=== PATIENT | male | born 1950 | race Caucasian/White ===

== ENCOUNTER 2016-12-12 14:57 | Inpatient (IN) | payer MEDICARE, OTHER ==
[~2016-12-12] VITALS: Ht 157.5 cm; Wt 84.0 kg
[~2016-12-12 14:57] MED LIST: ATOR40TA68 PO; CALC667C PO; CARV25TA97 PO; CHOL500020 PO; CLOP75TA27 PO; DOCU-144 PO; FER325 PO; LEVO300T PO; NEPH PO; NIT4 SL; RANI300T PO; SYN15 PO; [UNRECOGNIZED DRUG - CODE] IM
[2016-12-12] MEDS ORDERED: ASPIRIN 325 MG TAB PO STA (19:58)
[2016-12-12] MEDS ORDERED: ONDANSETRON 4 MG INJ IV STA (19:58)
[2016-12-12] MEDS ORDERED: SOD CHLORIDE 0.9% 1,000 ML IV STA (19:58)
[2016-12-12] MEDS ORDERED: ALBUTEROL 0.083% (NEB) 2.5 MG/3 ML AMP NEB STA (20:14)
[2016-12-12 20:28] LABS: BASOPHIL # 0.1 10^3/ul (0.0-0.1); BASOPHILS % 0.7 % (0.0-2.0); EOSINOPHILS # 0.4 10^3/ul (0.0-0.5); EOSINOPHILS % 5.1 % (0.0-7.0); HEMATOCRIT 26.3 % (42.0-52.0); HEMOGLOBIN 8.1 g/dl (14.0-18.0); LYMPHOCYTES # 0.8 10^3/ul (0.8-2.9); LYMPHOCYTES % 12.1 % (15.0-51.0); MEAN CORPUSCULAR HEMOGLOBIN 34.2 pg (29.0-33.0); MEAN CORPUSCULAR HGB CONC 30.8 g/dl (32.0-37.0); MEAN PLATELET VOLUME 10.3 fl (7.4-10.4); MONOCYTE # 0.7 10^3/ul (0.3-0.9); MONOCYTES % 10.6 % (0.0-11.0); NEUTROPHILS % 71.1 % (39.0-77.0); PLATELET COUNT 187 10^3/UL (140-415); RED BLOOD COUNT 2.37 10^6/ul (4.70-6.10); RED CELL DISTRIBUTION WIDTH 16.1 % (11.5-14.5); WHITE BLOOD COUNT 6.9 10^3/ul (4.8-10.8)
--- NOTE | 2016-12-12 20:40 | RADRPT ---
PROCEDURE: CT Brain without contrast. CLINICAL INDICATION: Neurologic deficits. Possible stroke. TECHNIQUE: A CT of the brain was performed on a multidetector CT scanner utilizing axial sections from the skull base through the vertex without contrast. Images were reviewed on a high-resolution Apiary workstation. Exam CTDI = 43.42 mGy and the DLP = 916.45 mGy-cm. One or more of the following dose reduction techniques were used: Automated exposure control Adjustment of the mA and/or kV according to patient size. Use of iterative reconstruction technique. COMPARISON: None available FINDINGS: Mild diffuse cerebral and cerebellar atrophy is present. There is proportionate dilatation of the v entricular system and sulci in a symmetric fashion. There is prominence of the extraaxial spaces sec ondary to atrophy. There is no evidence of intracranial hemorrhage, mass effect or midline shift. N o abnormal intra-axial or extra-axial fluid collections are seen. The density of the brain is gail l and the escobedo/white matter differentiation is well preserved. Mild to moderate patchy diffuse deep white matter microangiopathic ischemic change is seen. The osseous structures are unremarkable. Paranasal sinuses are clear. Vascular calcifications are identified. IMPRESSION: 1. No intracranial hemorrhage, mass effect or midline shift. 2. Mild generalized atrophy. Mild to moderate microangiopathic ischemic change. 3. Intracranial atherosclerosis. RPTAT: HHO .Irena Hernández MD, MD Date Time Electronically viewed and signed by .Irena Hernández MD, on 12/12/2016 20:39 .O/
[2016-12-12 20:42] LABS: INR 1.23; PROTIME 15.6 Sec (12.2-14.2); PT RATIO 1.2
[2016-12-12 20:43] LABS: PARTIAL THROMBOPLASTIN TIME 38.8 Sec (25.0-35.0)
[2016-12-12 20:49] LABS: ALBUMIN 3.9 g/dl (3.3-4.9); ALBUMIN/GLOBULIN RATIO 1.25; BILIRUBIN,INDIRECT 0.1 mg/dl (0-1.1); BILIRUBIN,TOTAL 0.1 mg/dl (0.2-1.3); CALCIUM 9.3 mg/dl (8.4-10.2); CREATININE 4.98 mg/dl (0.61-1.24)
[2016-12-12 21:00] LABS: TROPONIN-I 0.091 ng/ml (0.00-0.12)
[2016-12-12] MEDS ORDERED: FLUO20CA22 PO (21:20)
[2016-12-12] MEDS ORDERED: ALLO300T2 PO (21:20)
[2016-12-12] MEDS ORDERED: TRAM-40 PO (21:21)
[2016-12-12] MEDS ORDERED: FURO80TA3 PO (21:22)
[2016-12-12] MEDS ORDERED: FENO145T19 PO (21:23)
[2016-12-12] MEDS ORDERED: ACET650S9 PR (21:31)
[2016-12-12] MEDS ORDERED: BISA10SU75 PR (21:31)
[2016-12-12] MEDS ORDERED: ATR1OO35 BOTH EYES (21:34)
--- NOTE | 2016-12-12 21:34 | RADRPT ---
PROCEDURE: XR Chest. CLINICAL INDICATION: Shortness of breath. TECHNIQUE: AP Portable chest. COMPARISON: 09/01/2016 FINDINGS: There is mild hazy opacity at the right lung base along with some mediastinal shift to the right. P rior median sternotomy is noted. There is moderate to marked cardiomegaly. IMPRESSION: Right lower lobe atelectasis with some mild mediastinal shift to the right. RPTAT: HIKT .Brett Martin MD, MD Date Time Electronically viewed and signed by .Brett Martin MD, MD on 12/12/2016 21:34 .T/
[2016-12-12] MEDS ORDERED: LORA1TAB PO (21:35)
[2016-12-12] MEDS ORDERED: PROCHLORPERAZINE PR (21:37)
[2016-12-12] MEDS ORDERED: ROXANOL 20MG/ML SL (21:46)
--- NOTE | 2016-12-12 22:15 | ERA ---
ER Documentation Chief Complaint Date/Time DATE: 12/12/16 TIME: 22:10 Chief Complaint vomiting x 4 days, Right sided weakness HPI This is a 58-year-old male who states he has been vomiting for 4 days. He says he vomits whether it is after p.o. or not. Patient has no bile or blood in his vomit. Says he has no stomach pain either. Patient says it 3 days ago he had the onset of right arm and leg heaviness. Says he usually walks normally although he has a left leg prosthetic but says that he is unable to walk now because he cannot put any weight on his right leg because it so weak. No headache chest pain shortness of breath. No diarrhea. Patient was sent by PCP for ROS All systems reviewed and are negative except as per history of present illness. Medications Home Meds Reported Medications [Roxanol 20MG/Ml] No Conflict Check, 5 MG SL Q6H Y for PAIN TAKE 5MG/0.25ML Q6H 12/12/16 [Compazine 25MG/Supp] No Conflict Check, 1 SUPP PA Q6H Y for NAUSEA AND/OR VOMITING 12/12/16 Lorazepam* (Lorazepam*) 1 Mg Tablet, 0.5 MG PO Q6H Y for ANXIETY, #30 TAB 12/12/16 Atropine Sulfate* (Atropine Sulfate*) 3.5 Gm Oint, 1 APPLIC BOTH EYES Q6H, #1 TUB 12/12/16 Bisacodyl* (Bisacodyl*) 10 Mg Supp, 10 MG PA Q24H for CONSTIPATION, SUPP 12/12/16 Acetaminophen* (Acephen*) 650 Mg Supp.rect, 650 MG PA Q4H Y for TEMP>100F, SUPP.RECT 12/12/16 Fenofibrate Nanocrystallized* (Fenofibrate*) 145 Mg Tablet, 145 MG PO DAILY, TAB 12/12/16 Furosemide* (Furosemide*) 80 Mg Tablet, 80 MG PO DAILY, #30 TAB 12/12/16 Tramadol Hcl* (Ultram*) 50 Mg Tablet, 50 MG PO Q6H Y for PAIN, TAB 12/12/16 Fluoxetine Hcl* (Fluoxetine Hcl*) 20 Mg Capsule, 20 MG PO DAILY, CAP 12/12/16 Allopurinol* (Allopurinol*) 300 Mg Tablet, 600 MG PO DAILY, TAB 12/12/16 Carvedilol* (Coreg*) 25 Mg Tablet, 25 MG PO DAILY, #60 TAB 09/04/15 Docusate Sodium* (Colace*) 100 Mg Capsule, 100 MG PO Q12H Y for CONSTIPATION, # 30 CAP 09/04/15 Cyanocobalamin* (Vitamin B12*) 1,000 Mcg/Ml Soln, 1000 MCG IM WEEKLY, VIAL Takes med on Tuesdays. 09/04/15 Ferrous Sulfate* (Ferrous Sulfate*) 325 Mg Tabec, 325 MG PO TID, TAB 09/04/15 Levothyroxine Sodium* (Synthroid*) 150 Mcg Tablet, 150 MCG PO QAM, #30 TAB 09/04/15 Clopidogrel Bisulfate (Clopidogrel) 75 Mg Tablet, 75 MG PO DAILY, #30 TAB 09/04/15 Ranitidine Hcl* (Ranitidine Hcl*) 300 Mg Tablet, 300 MG PO HS, #30 TAB 09/04/15 Multivit/Ca Carb/B Cmplx/Fa* (Sonia-Jaylene*) 1 Tab Tab, 1 TAB PO DAILY, TAB 09/04/15 Discontinued Reported Medications Cholecalciferol (Vitamin D3) 50,000 Unit Capsule, 32309 UNIT PO Q7D, CAP Takes on . 09/04/15 Nitroglycerin* (Nitrostat*) 0.4 Mg Tab.subl, 0.4 MG SL Q5MIN Y for CHEST PAIN, BOTTLE 09/04/15 Calcium Acetate* (Calcium Acetate*) 667 Mg Capsule, 667 MG PO WITH MEALS, #30 CAP 09/04/15 Atorvastatin* (Atorvastatin*) 40 Mg Tablet, 40 MG PO QHS, #30 TAB 09/04/15 Levothyroxine Sodium* (Synthroid*) 300 Mcg Tablet, 300 MCG PO SUNDAY & SUNDAY , #30 TAB 09/04/15 Allergies Allergies: Coded Allergies: No Known Allergy (Verified , 12/12/16) PMhx/Soc History of Surgery: Yes (LT AV-SHUNT, CABG, LEFT BKA) Anesthesia Reaction: No Hx Neurological Disorder: No Hx Respiratory Disorders: Yes (COPD) Hx Cardiac Disorders: Yes (CABG) Hx Psychiatric Problems: No Hx Miscellaneous Medical Probl: Yes (HYPERLIPIDEMIA) Hx Alcohol Use: No Hx Substance Use: No Hx Tobacco Use: No Smoking Status: Former smoker FmHx Family History: No coronary disease Physical Exam Vitals Vital Signs Date Time Temp Pulse Resp B/P Pulse Ox O2 Delivery O2 Flow Rate FiO2 12/12/16 21:38 86 17 165/84 100 Room Air 12/12/16 20:44 85 18 100 21 12/12/16 15:05 98.1 89 18 147/88 99 Physical Exam Const: Well-developed, well-nourished Head: Atraumatic, normocephalic Eyes: Normal Conjunctiva, PERRLA, EOMI, normal sclera, no nystagmus ENT: Normal External Ears, Nose and Mouth, moist mucus membranes. Neck: Full range of motion. No meningismus, no lymphadenopathy. Resp: Clear to auscultation bilaterally, no wheezing, rhonchi, rales Cardio: Regular rate and rhythm, no murmurs, S1 S2 present Abd: Soft, non tender x 4, non distended. Normal bowel sounds, no guarding or rebound, no pulsitile abdominal masses or bruits Skin: No petechiae or rashes, no ecchymosis , no maculopapular rash Back: No midline or flank tenderness Ext: No cyanosis, or edema, FROM x 4, normal inspection, neurovascularly intact x 4 Neur: Awake and alert, STR 5/5 x 3, subjective weakness in the right upper extremity, the right lower extremity is weak and he is a hard time lifting it off the bed., The left leg has lower extremity prosthesis, sensation intact x 4, no focal findings, cerebellum intact Psych: Normal Mood and Affect Result Diagram: 12/12/16201412/12/162014 Results 24 hrs Laboratory Tests Test 12/12/16 20:15 White Blood Count 6.910^3/ul Red Blood Count 2.3710^6/ul Hemoglobin 8.1g/dl Hematocrit 26.3% Mean Corpuscular Volume 111.0fl Mean Corpuscular Hemoglobin 34.2pg Mean Corpuscular Hemoglobin Concent 30.8g/dl Red Cell Distribution Width 16.1% Platelet Count 07100^3/UL Mean Platelet Volume 10.3fl Neutrophils % 71.1% Lymphocytes % 12.1% Monocytes % 10.6% Eosinophils % 5.1% Basophils % 0.7% Nucleated Red Blood Cells % 0.0/100WBC Neutrophils # (Manual) 4.910^3/ul Lymphocytes # 0.810^3/ul Monocytes # 0.710^3/ul Eosinophils # 0.410^3/ul Basophils # 0.110^3/ul Nucleated Red Blood Cells # 0.010^3/ul Prothrombin Time 15.6Sec Prothrombin Time Ratio 1.2 INR International Normalized Ratio 1.23 Activated Partial Thromboplast Time 38.8Sec Sodium Level 140mmol/L Potassium Level 5.0mmol/L Chloride Level 98mmol/L Carbon Dioxide Level 28mmol/L Anion Gap 19 Blood Urea Nitrogen 61mg/dl Creatinine 4.98mg/dl Glucose Level 89mg/dl Calcium Level 9.3mg/dl Total Bilirubin 0.1mg/dl Direct Bilirubin 0.00mg/dl Indirect Bilirubin 0.1mg/dl Aspartate Amino Transf (AST/SGOT) 35IU/L Alanine Aminotransferase (ALT/SGPT) 25IU/L Alkaline Phosphatase 36IU/L Troponin I 0.091ng/ml Total Protein 7.0g/dl Albumin 3.9g/dl Globulin 3.10g/dl Albumin/Globulin Ratio 1.25 Current Medications Medications (Trade) Dose Ordered Sig/Darlene Route PRN Reason Start Time Stop Time Status Last Admin Dose Admin Sodium Chloride (NS) 1,000 ml @ 1,000 mls/hr Q1H STAT IV 12/12/16 19:58 12/12/16 20:57 DC 12/12/16 20:03 Aspirin (Aspirin) 325 mg ONCE STAT PO 12/12/16 19:58 12/12/16 20:00 DC 12/12/16 20:03 Ondansetron HCl (Zofran Inj) 4 mg ONCE STAT IV 12/12/16 19:58 12/12/16 20:00 DC 12/12/16 20:03 Albuterol (Proventil 0.083% (Neb)) 7.5 mg ONCE STAT NEB 12/12/16 20:14 12/12/16 20:15 DC 12/12/16 20:44 Procedures/MDM PROCEDURE: CT Brain without contrast. CLINICAL INDICATION: Neurologic deficits. Possible stroke. TECHNIQUE: A CT of the brain was performed on a multidetector CT scanner utilizing axial sections from the skull base through the vertex without contrast. Images were reviewed on a high-resolution PACS workstation. Exam CTDI = 43.42 mGy and the DLP = 916.45 mGy-cm. One or more of the following dose reduction techniques were used: Automated exposure control Adjustment of the mA and/or kV according to patient size. Use of iterative reconstruction technique. COMPARISON: None available FINDINGS: Mild diffuse cerebral and cerebellar atrophy is present. There is proportionate dilatation of the ventricular system and sulci in a symmetric fashion. There is prominence of the extraaxial spaces secondary to atrophy. There is no evidence of intracranial hemorrhage, mass effect or midline shift. No abnormal intra-axial or extra-axial fluid collections are seen. The density of the brain is normal and the escobedo/white matter differentiation is well preserved. Mild to moderate patchy diffuse deep white matter microangiopathic ischemic change is seen. The osseous structures are unremarkable. Paranasal sinuses are clear. Vascular calcifications are identified. IMPRESSION: 1. No intracranial hemorrhage, mass effect or midline shift. 2. Mild generalized atrophy. Mild to moderate microangiopathic ischemic change. 3. Intracranial atherosclerosis. RPTAT: HHO .Irena Hernández MD, Date Time Electronically viewed and signed by .Irena Hernández MD, on 12/12/2016 20:39 .O/ CC: DEVIN LIZAMA DO PROCEDURE: XR Chest. CLINICAL INDICATION: Shortness of breath. TECHNIQUE: AP Portable chest. COMPARISON: 09/01/2016 FINDINGS: There is mild hazy opacity at the right lung base along with some mediastinal shift to the right. Prior median sternotomy is noted. There is moderate to marked cardiomegaly. IMPRESSION: Right lower lobe atelectasis with some mild mediastinal shift to the right. RPTAT: HIKT .Brett Martin MD, Date Time Electronically viewed and signed by .Brett Martin MD, on 12/12/2016 21:34 .T/ CC: DEVIN LIZAMA DO EKG: Rate/Rhythm: Normal sinus rhythm, left axis deviation, left bundle branch block left bundle branch block QRS, ST, QT: NORMAL PA, QRS, QT] Impression: Left bundle branch block] Patient apparently has had a stroke affecting his right side. When he did admit for MRI. The patient is having vomiting for 4 days of uncertain etiology. Patient has no abdominal pain no diarrhea is possible this is a viral gastritis illness. Spoke with the patient's primary sent him in earlier for admit. Departure Diagnosis: Primary Impression: CVA (cerebral vascular accident) Qualified Code: I63.9 - Cerebrovascular accident (CVA), unspecified mechanism Additional Impression: Vomiting Qualified Code: R11.2 - Non-intractable vomiting with nausea, unspecified vomiting type Condition: Stable DEVIN LIZAMA DO Dec 12, 2016 22:15
[2016-12-12] MEDS ORDERED: ONDANSETRON 4 MG INJ IV PRN (22:30)
[2016-12-12] MEDS ORDERED: ACETAMINOPHEN 325 MG TAB PO PRN (22:30)
[2016-12-12 23:33] VITALS: PULSE 85
[2016-12-12] MEDS ORDERED: ATOR40TA68 PO (23:49)
[2016-12-13] VITALS (18 sets, daily range): BP systolic 118–150; BP diastolic 58–77; PULSE 72–97; RESP 18–19; Ht 157.5 cm; Wt 84.0 kg
[2016-12-13] MEDS ORDERED: BUPR150T6 PO (00:27)
[2016-12-13] MEDS ORDERED: ZOLP10TA PO (01:05)
[2016-12-13] MEDS: BISACODYL 10 MG SUPP PR SCH (01:30)
[2016-12-13] MEDS ORDERED: ZOLPIDEM 5 MG TAB PO PRN (01:30)
[2016-12-13] MEDS ORDERED: DOCUSATE SODIUM 100 MG CAP PO PRN (01:30)
[2016-12-13] MEDS ORDERED: ACETAMINOPHEN 650 MG SUPP PR PRN (01:30)
[2016-12-13] MEDS: FUROSEMIDE 40 MG TAB PO SCH (05:32)
[2016-12-13] MEDS: LEVOTHYROXINE 150 MCG TAB PO SCH (05:32)
[2016-12-13 08:41] LABS: BASOPHILS % 0.5 % (0.0-2.0); EOSINOPHILS # 0.5 10^3/ul (0.0-0.5); EOSINOPHILS % 9.2 % (0.0-7.0); HEMATOCRIT 24.8 % (42.0-52.0); HEMOGLOBIN 7.4 g/dl (14.0-18.0); LYMPHOCYTES # 0.6 10^3/ul (0.8-2.9); LYMPHOCYTES % 11.1 % (15.0-51.0); MEAN CORPUSCULAR HEMOGLOBIN 33.2 pg (29.0-33.0); MEAN CORPUSCULAR HGB CONC 29.8 g/dl (32.0-37.0); MEAN CORPUSCULAR VOLUME 111.2 fl (82.0-101.0); MEAN PLATELET VOLUME 10.3 fl (7.4-10.4); MONOCYTE # 0.7 10^3/ul (0.3-0.9); MONOCYTES % 12.5 % (0.0-11.0); NEUTROPHILS % 66.2 % (39.0-77.0); PLATELET COUNT 151 10^3/UL (140-415); RED BLOOD COUNT 2.23 10^6/ul (4.70-6.10); RED CELL DISTRIBUTION WIDTH 16.2 % (11.5-14.5); WHITE BLOOD COUNT 5.5 10^3/ul (4.8-10.8)
[2016-12-13] MEDS: CLOPIDOGREL 75 MG TAB PO SCH (09:05)
[2016-12-13] MEDS: FERROUS SULFATE (EC) 325 MG TAB PO SCH ×3 (09:06→20:35)
[2016-12-13] MEDS: BUPROPION (XL) 150 MG TAB PO SCH (09:06)
--- NOTE | 2016-12-13 09:15 | CONS ---
DATE OF ADMISSION: 12/12/2016 DATE OF CONSULTATION: 12/13/2016 Thank you very much for allowing me to evaluate this 65-year-old male admitted to the hospital with vomiting and weakness involving his right arm and leg. HISTORICAL EVENTS: As you well know, this patient has chronic renal insufficiency and has been dialyzed as an outpatient 3 times per week. It was about 36 hours ago that he noted the onset of vomiting and soon to follow weakness involving his right leg, being unable to stand, soon followed by weakness of the right upper extremity, without concomitant pathologic sensory symptoms involving the same. There has been no change in weakness involving the right side of his face. He had a mild headache. He denied cough, wheezing, shortness of breath or abdominal pain. PAST MEDICAL HISTORY: Includes: 1. Anemia secondary to chronic renal insufficiency. 2. End-stage renal disease secondary to hypertension and diabetes. 3. Known peripheral vascular disease, undergoing [id number] amputation of the left lower extremity. 4. History of coronary disease, undergoing CABS in 2008. 5. Hyperlipidemia. 6. Hypertension. 7. Diabetes. 8. Hypothyroidism. 9. Chronic obstructive pulmonary disease. 10. 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 MEDICATION: 1. Allopurinol 600 mg per day. 2. Aspirin 325 mg daily. 3. Lipitor 40 mg per day. 4. Coreg 25 mg daily. 5. Plavix 75 mg per day. 6. Ferrous sulfate 325 t.i.d. 7. Synthroid 150 mcg per day. 8. Zantac 300 mg at bedtime. FAMILY HISTORY: To be reviewed later. PHYSICAL EXAMINATION: VITAL SIGNS: BP 137/65, respirations were 18. He was afebrile. EYES: Extraocular muscles were full. NOSE, MOUTH AND THROAT: Normal. NECK: Supple. There was no jugular venous distention, thyroid enlargement, adenopathy appreciated. No carotid bruits. LUNGS: Clear. HEART: Rhythm regular. 1/6 systolic murmur. No 3rd or 4th sound. ABDOMEN: Nontender. Fullness to the right upper quadrant without a liver edge or spleen tip appreciated. There was no tenderness or masses. EXTREMITIES: No edema. Reduced pulses. There was below-the- knee amputation involving the left. There was weakness of the right upper extremity and right facial weakness. IMPRESSION: 1. Suspect, as you, that he has suffered a bland infarct involving the left internal capsule with resultant weakness involving the right arm and leg. CT scan was unrevealing. 2. Chronic renal failure requiring continued dialysis and we will arrange for the same. 3. Abnormal chest x-ray, with right lower lobe atelectasis and mediastinal shift to the right. Demands further pursuit. Consider obtaining CT of the chest. I was concerned that lung cancer may be present with possible central nervous system metastases. We will follow up with you. Dictated By: Cristiano Quinn MD /anna/ayse /Document#: [id number]
[2016-12-13 09:19] LABS: ALBUMIN 3.4 g/dl (3.3-4.9); ALBUMIN/GLOBULIN RATIO 1.17; BILIRUBIN,INDIRECT 0.1 mg/dl (0-1.1); BILIRUBIN,TOTAL 0.1 mg/dl (0.2-1.3); CHOL/HDL RATIO 5.4 RATIO; CREATININE 5.31 mg/dl (0.61-1.24); POTASSIUM 4.8 mmol/L (3.5-5.1); TOTAL PROTEIN 6.3 g/dl (6.1-8.1)
[2016-12-13 09:50] LABS: THYROID STIMULATING HORMONE 7.07 MIU/L (0.465-4.680)
[2016-12-13] MEDS: FENOFIBRATE 145 MG TAB PO SCH (09:50)
--- NOTE | 2016-12-13 10:06 | RADRPT ---
PROCEDURE: US Carotids. CLINICAL INDICATION: bruit , stroke TECHNIQUE: Multiple sonographic of the carotid bifurcation region and vertebral arteries were obta ined utilizing escobedo scale, duplex and color-flow imaging. The images were reviewed on a PACS worksta tion. COMPARISON: No prior studies are available for comparison. FINDINGS: Evaluation of the right carotid bifurcation region reveals mild calcific atherosclerotic disease. Evaluation of the left carotid bifurcation region reveals mild to moderate calcific atherosclerotic disease. . There is a 29% stenosis in the left carotid bulb region. There is antegrade flow within the vertebral arteries bilaterally. RIGHT CAROTID MEASUREMENTS: Common Carotid Trkyea33 (cm/sec) Internal Carotid Artery - kzefiqnp22.5 (cm/sec) Internal Carotid Artery - rji831.8 (cm/sec) Internal Carotid Artery - meromr244.5 (cm/sec) Internal Carotid/Common Carotid3.58 LEFT CAROTID MEASUREMENTS: Common Carotid Bnpcqt08.9 (cm/sec) Internal Carotid Artery - .7 (cm/sec) Internal Carotid Artery - mid75.7 (cm/sec) Internal Carotid Artery - zfedsm92.8 (cm/sec) Internal Carotid/Common Carotid1.2 RPTAT: AA IMPRESSION: No evidence for hemodynamically significant stenosis in the bilateral internal carotid arteries - va lidated velocity measurements with angiographic measurements, velocity criteria are extrapolated fro m diameter data as defined by the Society of Radiologists in Ultrasound Consensus Conference Radiolo gy 2003; 229;340-346. This study does indirectly reference the measurement of the distal ICA diamet er as the denominator for stenosis measurement. Normal antegrade flow in the vertebral arteries bilaterally. .Shane Moscoso MD, Date Time Electronically viewed and signed by .Shane Moscoso MD, MD on 12/13/2016 10:05 .S/
--- NOTE | 2016-12-13 14:06 | RADRPT ---
PROCEDURE: CT Chest without IV contrast. CLINICAL INDICATION: Shortness of breath/dyspnea/cough. TECHNIQUE: CT scan of the chest was performed on a [address] scanner. The patient was scanned w ithout IV contrast. 2-D and sagittal and coronal reformatted images were obtained from the axial so urce images. Total radiation dose: Total CTDIvol: 14.6 mGy. Total DLP: 584 mGy-cm. One or more of the following dose reduction techniques were used: automated exposure control, adjustment of the mA and/or kV acco rding to patient size, or use of iterative reconstruction technique. COMPARISON: None available. FINDINGS: There is no acute infiltrates in the lungs. There is discoid atelectasis in the right lower lobe. T here is mild left pleural effusion. No pneumothorax, pulmonary edema or pulmonary nodules are seen. The mediastinum is unremarkable without evidence for mass or lymphadenopathy. The central tracheobr onchial tree is unremarkable. The vascular structures of the mediastinum are normal in course and c aliber. The heart is moderately enlarged without evidence for pericardial thickening or effusion. There is status post CABG. There is diffuse calcification of the three-vessel coronary arteries. The axillary regions, subpectoral regions, and supraclavicular regions are all unremarkable. There are multiple stones in the contracted gallbladder. There is minimal ascitic fluid in the upper abdom en on the partially visualized images. The kidneys are small bilaterally on the partially visualized images. There is calcified atherosclerosis of the aorta. The adrenal glands are normal. The surrounding osseous structures are unremarkable for mild degenerative spondylosis of the spine. No osteolytic or osteoblastic lesion is detected. IMPRESSION: 1. Moderate cardiomegaly. Status post CABG. Diffuse calcified atherosclerosis of the three-vessel coronary arteries. 2. Discoid atelectasis in the right lower lobe. 3. Mild left pleural effusion. 4. Minimal ascitic fluid in the upper abdomen on the partially visualized images. 5. Multiple stones in the contracted gallbladder. 6. Small kidneys bilaterally. 7. Diffuse calcified atherosclerosis of the aorta. RPTAT: GG .Lloyd Elaine MD, MD Date Time Electronically viewed and signed by .Lloyd Elaine MD, on 12/13/2016 14:05 .Y/
--- NOTE | 2016-12-13 15:00 | HP ---
Date/Time of Note Date/Time of Note DATE: 12/12/16 TIME: 14:41 Assessment/Plan VTE Prophylaxis VTE Prophylaxis Intervention: other (asa, plavix) Lines/Catheters IV Catheter Type (from Nrsg): [place] [employer] line still needed: No Urinary Cath still in place: No Assessment/Plan Assessment/Plan 1. cva vs tia w/ musc weak 2. cad/ chf/ presenting low bp 3. copd/ pulm effusion/ dyspnea 4. dm 5. esrd/ dialysis/ anemia 6. depression-anxiety 7. disposition prob? ---cards ref ---renal ref ---admit to tele fl ---neuro work-up & phys rx exercise ---soc serv counseling & set-up after hosp residence ---medication adjustment HPI/ROS Admit Date/Time Admit Date/Time Dec 12, 2016 at 22:18 Hx of Present Illness wants to come into hospital--for a few days n/v, low energy, unstable gait, near falls, heavy leg feeling, sob. elderly cannot take care of the pt alone at home any more. less appetite, less interest. s/p po atbx for coughs & increased phlegms after grand children's visits. has gone to dialysis 3x/wk for past 2 weeks, very tired no f/c/dysuria/bm change ROS Constitutional: disoriented, weight change Respiratory: shortness of breath Cardiovascular: lightheadedness Gastrointestinal: nausea, vomiting Genitourinary: other (less urination) Musculoskeletal: restricted range of motion Neurologic: dizziness, focal-weakness Psychological: depression PMH/Family/Social Past Medical History Medical History: congestive heart failure, coronary artery disease, gallstones , GERD, high cholesterol, hypertension, hypothyroid, renal disease Past Surgical History Past Surgical Hx: other (cabg, lf bka) Family History Significant Family History: heart disease, COPD, diabetes, hypertension, lung disease, renal disease Social History Alcohol Use: none Smoking Status: Former smoker Drug Use: none Exam/Review of Systems Vital Signs Vitals Vital Signs Date Time Temp Pulse Resp B/P Pulse Ox O2 Delivery O2 Flow Rate FiO2 12/13/16 12:40 82 12/13/16 12:25 98.5 19 138/58 100 12/12/16 23:08 Room Air 12/12/16 20:44 21 Intake and Output 12/12/16 12/12/16 12/13/16 15:00 23:00 07:00 Intake Total 240 ml Balance 240 ml Exam Constitutional: frail Psych: depression Head: normocephalic Eyes: EOMI, PERRL, nl conjunctiva, nl lids, nl sclera ENMT: nl external ears & nose, nl lips & teeth, nl nasal mucosa & septum Neck: non-tender, supple Respiratory: wheezing Cardiovascular: systolic murmur Gastrointestinal: nl liver, spleen, non-tender, soft Genitourinary - Male: other (deferred) Extremities: edema Neurological: MACHINIST BENCH II-XII intact, nl mental status, nl speech, nl strength Skin: nl turgor, No rash or lesions Lymph: nl lymph nodes Labs Result Diagram: 12/13/1674112/13/16 07 Medications Medications Current Medications Acetaminophen (Tylenol Supp) 650 mg Q4H PRN TX TEMP>100F; Start 12/13/16 at 01: 30 Allopurinol (Zyloprim) 600 mg DAILY PO ; Start 12/13/16 at 09:00; Status UNV Atorvastatin Calcium (Lipitor) 40 mg QHS PO ; Start 12/13/16 at 21:00 Bisacodyl (Dulcolax Supp) 10 mg Q24H TX ; Start 12/13/16 at 01:30 Bupropion HCl (Wellbutrin Xl) 150 mg QAM PO Last administered on 12/13/16 09:06 ; Admin Dose 150 MG; Start 12/13/16 at 09:00 Carvedilol (Coreg) 25 mg DAILY PO Last administered on 12/13/16 09:06; Admin Dose 25 MG; Start 12/13/16 at 09:00 Clopidogrel Bisulfate (plaVIX) 75 mg DAILY PO Last administered on 12/13/16 09: 05; Admin Dose 75 MG; Start 12/13/16 at 09:00 Cyanocobalamin (Vitamin B12 Inj) 1,000 mcg Sa@09 IM ; Start 12/16/16 at 09:00 Docusate Sodium (Colace) 100 mg Q12H PRN PO CONSTIPATION; Start 12/13/16 at 01: 30 Ferrous Sulfate (Ferrous Sulfate (Ec)) 325 mg TID PO Last administered on 09:06; Admin Dose 325 MG; Start 12/13/16 at 09:00 Furosemide (Lasix) 80 mg DAILY@06 PO Last administered on 12/13/16 05:32; Admin Dose 80 MG; Start 12/13/16 at 06:00 Levothyroxine Sodium (Synthroid) 150 mcg DAILY@06 PO Last administered on 05:32; Admin Dose 150 MCG; Start 12/13/16 at 06:00 Ranitidine HCl (Zantac) 300 mg HS PO ; Start 12/13/16 at 21:00 Tramadol HCl (Ultram) 50 mg Q6H PRN PO PAIN; Start 12/13/16 at 01:30 Zolpidem Tartrate (Ambien) 10 mg QHS PRN PO INSOMNIA; Start 12/13/16 at 01:30 Fenofibrate (Tricor) 145 mg DAILY PO Last administered on 12/13/16 09:50; Admin Dose 145 MG; Start 12/13/16 at 09:00 Epoetin Stas (Epogen (Non Esrd/Non Oncology)) 10,000 units MoWeFr@17 SC ; Start 12/13/16 at 17:00 COLTEN ROMANO MD Dec 13, 2016 14:51
--- NOTE | 2016-12-13 15:09 | PN ---
Date/Time of Note Date/Time of Note DATE: 12/13/16 TIME: 15:02 Assessment/Plan VTE Prophylaxis VTE Prophylaxis Intervention: other (asa, plavix) Lines/Catheters IV Catheter Type (from Nrsg): Saline [place] line still needed: No Urinary Cath still in place: No Assessment/Plan Assessment/Plan 1. esrd/ fluid imbalance/ anemia--dialysis 2. copd 3. cad/ pad--lf bka 4. dm 5. depression/ debility ---[facility] sched ---per cards ---phys rx eval & exercise ---after hosp residence set up ---2u prbc transfuse today ---add diabetic snacks Subjective 24 Hr Interval Summary Free Text/Dictation still tired, less energy, has not walked yet, still sob Exam/Review of Systems Vital Signs Vitals Vital Signs Date Time Temp Pulse Resp B/P Pulse Ox O2 Delivery O2 Flow Rate FiO2 12/13/16 12:40 82 12/13/16 12:25 98.5 19 138/58 100 12/12/16 23:08 Room Air 12/12/16 20:44 21 Intake and Output 12/12/16 12/12/16 12/13/16 15:00 23:00 07:00 Intake Total 240 ml Balance 240 ml Exam a&o x4 dec bs bibasilar, less bronch wheez+ rr syst m+ abd--hypo bs, no tender, no distended rt leg +1 pit edema/ discolored+ Results Result Diagram: 12/13/16 0742 12/13/16 0742 Results 24 hrs Laboratory Tests Test 12/12/16 20:15 12/13/16 07:42 White Blood Count 6.9 # 5.5 # Red Blood Count 2.37 L 2.23 L Hemoglobin 8.1 L 7.4 L Hematocrit 26.3 #L 24.8 L Mean Corpuscular Volume 111.0 #H 111.2 H Mean Corpuscular Hemoglobin 34.2 H 33.2 H Mean Corpuscular Hemoglobin Concent 30.8 L 29.8 L Red Cell Distribution Width 16.1 H 16.2 H Platelet Count 187 151 Mean Platelet Volume 10.3 # 10.3 Neutrophils % 71.1 66.2 Lymphocytes % 12.1 L 11.1 L Monocytes % 10.6 12.5 H Eosinophils % 5.1 9.2 H Basophils % 0.7 0.5 Nucleated Red Blood Cells % 0.0 0.0 Neutrophils # (Manual) 4.9 3.7 Lymphocytes # 0.8 0.6 L Monocytes # 0.7 0.7 Eosinophils # 0.4 0.5 Basophils # 0.1 0.0 Nucleated Red Blood Cells # 0.0 0.0 Prothrombin Time 15.6 H Prothrombin Time Ratio 1.2 INR International Normalized Ratio 1.23 Activated Partial Thromboplast Time 38.8 H Sodium Level 140 139 Potassium Level 5.0 4.8 Chloride Level 98 98 Carbon Dioxide Level 28 28 Anion Gap 19 H 18 H Blood Urea Nitrogen 61 H 69 H Creatinine 4.98 H 5.31 H Glucose Level 89 60 #L Calcium Level 9.3 9.0 Total Bilirubin 0.1 L 0.1 L Direct Bilirubin 0.00 0.00 Indirect Bilirubin 0.1 0.1 Aspartate Amino Transf (AST/SGOT) 35 33 Alanine Aminotransferase (ALT/SGPT) 25 28 Alkaline Phosphatase 36 L 32 L Troponin I 0.091 Total Protein 7.0 6.3 Albumin 3.9 3.4 Globulin 3.10 2.90 Albumin/Globulin Ratio 1.25 1.17 Erythrocyte Sedimentation Rate 25 H Triglycerides Level 160 H Cholesterol Level 93 L LDL Cholesterol, Calculated 44 HDL Cholesterol 17 L Cholesterol/HDL Ratio 5.4 Thyroid Stimulating Hormone (TSH) 7.070 H Medications Medications Current Medications Acetaminophen (Tylenol Supp) 650 mg Q4H PRN [place] TEMP>100F; Start 12/13/16 at 01: 30 Allopurinol (Zyloprim) 600 mg DAILY PO ; Start 12/13/16 at 09:00; Status UNV Atorvastatin Calcium (Lipitor) 40 mg QHS PO ; Start 12/13/16 at 21:00 Bisacodyl (Dulcolax Supp) 10 mg Q24H [place] ; Start 12/13/16 at 01:30 Bupropion HCl (Wellbutrin Xl) 150 mg QAM PO Last administered on 12/13/16 09:06 ; Admin Dose 150 MG; Start 12/13/16 at 09:00 Carvedilol (Coreg) 25 mg DAILY PO Last administered on 12/13/16 09:06; Admin Dose 25 MG; Start 12/13/16 at 09:00 Clopidogrel Bisulfate (plaVIX) 75 mg DAILY PO Last administered on 12/13/16 09: 05; Admin Dose 75 MG; Start 12/13/16 at 09:00 Cyanocobalamin (Vitamin B12 Inj) 1,000 mcg Sa@09 IM ; Start 12/16/16 at 09:00 Docusate Sodium (Colace) 100 mg Q12H PRN PO CONSTIPATION; Start 12/13/16 at 01: 30 Ferrous Sulfate (Ferrous Sulfate (Ec)) 325 mg TID PO Last administered on 09:06; Admin Dose 325 MG; Start 12/13/16 at 09:00 Furosemide (Lasix) 80 mg DAILY@06 PO Last administered on 12/13/16 05:32; Admin Dose 80 MG; Start 12/13/16 at 06:00 Levothyroxine Sodium (Synthroid) 150 mcg DAILY@06 PO Last administered on 05:32; Admin Dose 150 MCG; Start 12/13/16 at 06:00 Ranitidine HCl (Zantac) 300 mg HS PO ; Start 12/13/16 at 21:00 Tramadol HCl (Ultram) 50 mg Q6H PRN PO PAIN; Start 12/13/16 at 01:30 Zolpidem Tartrate (Ambien) 10 mg QHS PRN PO INSOMNIA; Start 12/13/16 at 01:30 Fenofibrate (Tricor) 145 mg DAILY PO Last administered on 12/13/16 09:50; Admin Dose 145 MG; Start 12/13/16 at 09:00 Epoetin Stas (Epogen (Non Esrd/Non Oncology)) 10,000 units MoWeFr@17 SC ; Start 12/13/16 at 17:00 COLTEN ROMANO MD Dec 13, 2016 15:09
--- NOTE | 2016-12-13 15:11 | RADRPT ---
Echocardiogram Report Patient Name: GILMAR BRITO Gender: Male Date: 1950 Study Date: 13-Dec-2016 Brake Repairer: Chaya Castano [facility] Location: 5563 Ref. Physician: ALBINA MORA Quality: Adequate Procedures: Transthoracic echocardiogram with complete 2D, M-Mode, and doppler examination. Indications: stroke workup. 2D/M Mode Doppler Measurement Value Normal Ranges Measurement Value Normal Ranges LVIDd 2D 4.7 3.5 - 5.6 cm AV Peak Rodrick 1.5 m/sec LVIDs 2D 3.5 2.1 - 4.1 cm AV Peak PG 8.9 mmHg LVPWd 2D 1.5 0.6 - 1.1 cm LVOT Peak Rodrick 0.9 m/sec IVSd 2D 1.4 0.6 - 1.1 cm LVOT Peak PG 3.5 mmHg AoR Diam 2D 2.9 2.0 - 3.7 cm TR Peak Rodrick 3.5 m/sec EDV 2D 101.7 cm3 TR Peak PG 49.0 mmHg ESV 2D 42.6 cm3 RVSP 64.0 mmHg LA Dimen 2D 4.1 2.3 - 4.0 cm Findings Left Ventricle: Normal left ventricular cavity size. Moderate concentric left ventricular hypertrophy. Mild left ventricular systolic dysfunction. Ejection fraction is visually estimated at 45 %. Abnormal Diastolic Function. Right Ventricle: Normal right ventricular size. Normal right ventricular systolic function. Left Atrium: There is mild enlargement of left atrium. Right Atrium: The right atrium is normal in size. Mitral Valve: Mitral valve leaflets appear mildly thickened. Mild mitral annular calcification. Trace mitral regurgitation. Aortic Valve: No significant aortic stenosis or insufficiency. Aortic cusps appear mildly calcified. Tricuspid Valve: Normal appearance of the tricuspid valve. Estimated peak PA systolic pressure 64 mmHg. There is mild to moderate tricuspid regurgitation. Pulmonic Valve: Normal pulmonic valve appearance. Pericardium: Normal pericardium with no significant pericardial effusion. Aorta: Normal aortic root. IVC: Dilated IVC without respiratory collapse consistent with elevated right atrial pressure. Conclusions 1.Normal left ventricular cavity size. Moderate concentric left ventricular hypertrophy. Mild left ventricular systolic dysfunction. Ejection fraction is visually estimated at 45 %. Abnormal Diastolic Function. 2.Normal right ventricular size. Normal right ventricular systolic function. 3.There is mild enlargement of left atrium. 4.The right atrium is normal in size. 5.Normal appearance of the tricuspid valve. Estimated peak PA systolic pressure 64 mmHg. There is mild to moderate tricuspid regurgitation. 6.No significant valvular stenosis or regurgitation seen of remaining visualized valves. 7.Normal pericardium with no significant pericardial effusion. Electronically Signed By: Hammad Hernandez 13-Dec-2016 15:11:01 -0700 Patient Name: GILMAR BRITO Study Date: 13-Dec-2016 [id number]
--- NOTE | 2016-12-13 16:33 | CONS ---
Date/Time of Note Date/Time of Note DATE: 12/13/16 TIME: 16:28 Assessment/Plan Assessment/Plan Additional Assessment/Plan Fatigue Compensated systolic congestive heart failure Cardiomyopathy with ejection fraction 45% CAD with history of CABG Peripheral arterial disease End-stage renal disease on hemodialysis Acute blood loss anemia -Patient with symptoms of fatigue and lack of energy. Denies shortness of breath or chest discomfort. Patient with anemia and is planned for blood transfusion. We will continue antiplatelet therapy if hemoglobin remains stable. Statin therapy has been stopped. Continue beta-richard, would start MALIA inhibitor as blood pressure tolerates for afterload reduction given systolic dysfunction. Fluid management via hemodialysis as per our nephrology colleagues. Consultation Date/Type/Reason Admit Date/Time Dec 12, 2016 at 22:18 Type of Consultation: cv Reason for Consultation Congestive heart failure Hx of Present Illness This is a 66-year-old male with past medical history of coronary artery disease with history of CABG, end-stage renal disease on hemodialysis, peripheral arterial disease with history of amputation who presents to the emergency room secondary to overall weakness and not feeling well over the past 2-3 days. He denies any chest pain, shortness of breath or dizziness. He tells me his weakness affects his walking and he feels very tired. His tiredness is worsened after hemodialysis but his breathing improves. He denies any fevers or chills. Cardiology consultation was requested for assistance with management of cardiac medications. Respiratory: shortness of breath Cardiovascular: lightheadedness Gastrointestinal: nausea, vomiting Genitourinary: other (less urination) Musculoskeletal: restricted range of motion Neurologic: dizziness, focal-weakness Psychological: depression Past Medical History Medical History: congestive heart failure, coronary artery disease, gallstones , GERD, high cholesterol, hypertension, hypothyroid, renal disease Past Surgical History Past Surgical Hx: other (cabg, L bka) Family History Significant Family History: no pertinent family hx Social History Alcohol Use: none Smoking Status: Former smoker Drug Use: none Exam/Review of Systems Vital Signs Vitals Vital Signs Date Time Temp Pulse Resp B/P Pulse Ox O2 Delivery O2 Flow Rate FiO2 12/13/16 12:40 82 12/13/16 12:25 98.5 19 138/58 100 12/12/16 23:08 Room Air 12/12/16 20:44 21 Intake and Output 12/12/16 12/12/16 12/13/16 15:00 23:00 07:00 Intake Total 240 ml Balance 240 ml Exam No apparent distress Constitutional: alert, obese, oriented Head: normocephalic Respiratory: other (Coarse breath sounds bilaterally, no rales or rhonchi) Cardiovascular: other (S1-S2 heard), regular rate and rhythm Gastrointestinal: bowel sounds, non-tender, other (Regarding), soft Extremities: other (Edema right lower extremity, BKA left lower extremity, fistula left upper extremity) Results Result Diagram: 12/13/16 0742 12/13/16 0742 Results 24 hrs Laboratory Tests Test 12/12/16 20:15 12/13/16 07:42 White Blood Count 6.9 # 5.5 # Red Blood Count 2.37 L 2.23 L Hemoglobin 8.1 L 7.4 L Hematocrit 26.3 #L 24.8 L Mean Corpuscular Volume 111.0 #H 111.2 H Mean Corpuscular Hemoglobin 34.2 H 33.2 H Mean Corpuscular Hemoglobin Concent 30.8 L 29.8 L Red Cell Distribution Width 16.1 H 16.2 H Platelet Count 187 151 Mean Platelet Volume 10.3 # 10.3 Neutrophils % 71.1 66.2 Lymphocytes % 12.1 L 11.1 L Monocytes % 10.6 12.5 H Eosinophils % 5.1 9.2 H Basophils % 0.7 0.5 Nucleated Red Blood Cells % 0.0 0.0 Neutrophils # (Manual) 4.9 3.7 Lymphocytes # 0.8 0.6 L Monocytes # 0.7 0.7 Eosinophils # 0.4 0.5 Basophils # 0.1 0.0 Nucleated Red Blood Cells # 0.0 0.0 Prothrombin Time 15.6 H Prothrombin Time Ratio 1.2 INR International Normalized Ratio 1.23 Activated Partial Thromboplast Time 38.8 H Sodium Level 140 139 Potassium Level 5.0 4.8 Chloride Level 98 98 Carbon Dioxide Level 28 28 Anion Gap 19 H 18 H Blood Urea Nitrogen 61 H 69 H Creatinine 4.98 H 5.31 H Glucose Level 89 60 #L Calcium Level 9.3 9.0 Total Bilirubin 0.1 L 0.1 L Direct Bilirubin 0.00 0.00 Indirect Bilirubin 0.1 0.1 Aspartate Amino Transf (AST/SGOT) 35 33 Alanine Aminotransferase (ALT/SGPT) 25 28 Alkaline Phosphatase 36 L 32 L Troponin I 0.091 Total Protein 7.0 6.3 Albumin 3.9 3.4 Globulin 3.10 2.90 Albumin/Globulin Ratio 1.25 1.17 Erythrocyte Sedimentation Rate 25 H Triglycerides Level 160 H Cholesterol Level 93 L LDL Cholesterol, Calculated 44 HDL Cholesterol 17 L Cholesterol/HDL Ratio 5.4 Thyroid Stimulating Hormone (TSH) 7.070 H Medications Medications Current Medications Acetaminophen (Tylenol Supp) 650 mg Q4H PRN [place] TEMP>100F; Start 12/13/16 at 01: 30 Allopurinol (Zyloprim) 600 mg DAILY PO ; Start 12/13/16 at 09:00; Status UNV Atorvastatin Calcium (Lipitor) 40 mg QHS PO ; Start 12/13/16 at 21:00 Bisacodyl (Dulcolax Supp) 10 mg Q24H [place] ; Start 12/13/16 at 01:30 Bupropion HCl (Wellbutrin Xl) 150 mg QAM PO Last administered on 12/13/16 09:06 ; Admin Dose 150 MG; Start 12/13/16 at 09:00 Carvedilol (Coreg) 25 mg DAILY PO Last administered on 12/13/16 09:06; Admin Dose 25 MG; Start 12/13/16 at 09:00 Clopidogrel Bisulfate (plaVIX) 75 mg DAILY PO Last administered on 12/13/16 09: 05; Admin Dose 75 MG; Start 12/13/16 at 09:00 Cyanocobalamin (Vitamin B12 Inj) 1,000 mcg Sa@09 IM ; Start 12/16/16 at 09:00 Docusate Sodium (Colace) 100 mg Q12H PRN PO CONSTIPATION; Start 12/13/16 at 01: 30 Ferrous Sulfate (Ferrous Sulfate (Ec)) 325 mg TID PO Last administered on 15:38; Admin Dose 325 MG; Start 12/13/16 at 09:00 Furosemide (Lasix) 80 mg DAILY@06 PO Last administered on 12/13/16 05:32; Admin Dose 80 MG; Start 12/13/16 at 06:00 Levothyroxine Sodium (Synthroid) 150 mcg DAILY@06 PO Last administered on 05:32; Admin Dose 150 MCG; Start 12/13/16 at 06:00 Ranitidine HCl (Zantac) 300 mg HS PO ; Start 12/13/16 at 21:00 Tramadol HCl (Ultram) 50 mg Q6H PRN PO PAIN; Start 12/13/16 at 01:30 Zolpidem Tartrate (Ambien) 10 mg QHS PRN PO INSOMNIA; Start 12/13/16 at 01:30 Fenofibrate (Tricor) 145 mg DAILY PO Last administered on 12/13/16t 09:50; Admin Dose 145 MG; Start 12/13/16 at 09:00 Epoetin Stas (Epogen (Non Esrd/Non Oncology)) 10,000 units MoWeFr@17 SC ; Start 12/13/16 at 17:00 Hammad Hernandez DO Dec 13, 2016 16:33
[2016-12-13 16:34] LABS: IRON 102 ug/dl (35-150)
[2016-12-13 16:43] LABS: TOTAL IRON BINDING CAPACITY 362 ug/dl (241-421)
[2016-12-13] MEDS ORDERED: ALBUTEROL 0.083% (NEB) 2.5 MG/3 ML AMP HHN PRN (17:00)
[2016-12-13] MEDS ORDERED: BENZONATATE 100 MG CAP PO PRN (17:30)
[2016-12-13] MEDS ORDERED: NACL 3% FOR INHALATION 15 ML NEBU NEB ONE (18:00)
[2016-12-13] MEDS: EPOETIN 10000 UNITS/ML (NON ESRD/NON ONCOLOGY) SC SCH (18:08)
[2016-12-13] MEDS: ALBUTEROL 0.083% (NEB) 2.5 MG/3 ML AMP HHN PRN (18:20)
--- NOTE | 2016-12-13 19:17 | RADRPT ---
Vent Rate: 81 bpm RR Interval: 0 msec [place] Interval: 196 msec QRS Duration: 154 msec QT Interval: 458 msec QTC Interval: 532 msec P-R-T [place]: 61 - -55 - 142 degrees Normal sinus rhythm Left axis deviation Nonspecific intraventricular block Abnormal ECG Electronically Signed By: Eugene Robison [id number]
--- NOTE | 2016-12-13 19:56 | RADRPT ---
PROCEDURE: MRI Brain without contrast. CLINICAL INDICATION: Left-sided numbness. CVA. TECHNIQUE: An MRI of the brain was performed utilizing the following sequences: Sagittal and axial T1 weighted, axial T2 weighted, axial diffusion weighted with ADC mapping, coronal GRE, and axial F LAIR. COMPARISON: Brain MRI 01/20/2010, brain CT 12/12/2016. FINDINGS: No diffusion weighted abnormalities are seen to suggest the presence of acute ischemia or recent inf arct. No hypointense signal abnormalities are seen on the GRE images to suggest the presence of blo od degradation products. There is no evidence of intracranial hemorrhage, mass effect, or midline s hift. No extra-axial fluid collections are seen. The ventricles and sulci are mildly to moderately e nlarged indicative of volume loss. Small lacunar infarcts are noted in bilateral lentiform nuclei and ferguson radiata. There are moderate scattered foci of T2 FLAIR hyperintensity in the periventricular, deep, and subco rtical white matter, which are nonspecific in etiology but likely reflect chronic small vessel ische ever changes. No abnormal intracranial vascular flow void is noted. The visualized paranasal sinuses demonstrate m ild scattered mucosal thickening mainly in ethmoid air cells. Mild opacification of bilateral mastoi d air cells are noted. IMPRESSION: 1. No acute intracranial hemorrhage, infarction or mass. 2. Moderate chronic small vessel ischemic changes. 3. Small lacunar infarcts are noted in bilateral lentiform nuclei and ferguson radiata. 4. Mild to moderate generalized cerebral volume loss. RPTAT: HH .Newton Presley MD, MD Date Time Electronically viewed and signed by .Newton Presley MD, on 12/13/2016 19:56 .N/
[2016-12-13] MEDS: SALMETEROL/FLUTICASONE 250/50 INHA INH SCH (20:34)
[2016-12-13] MEDS: RANITIDINE 150 MG TAB PO SCH (20:35)
[2016-12-13] MEDS: ATORVASTATIN 40 MG TAB PO SCH (20:35)
[2016-12-13] MEDS: LISINOPRIL 5 MG TAB PO SCH (20:36)
--- NOTE | 2016-12-13 20:38 | PRO ---
DATE OF PROCEDURE: 12/13/2016 A 66-year-old gentleman with CVA versus TIA, per technology reports. Routine EEG was recorded digitally. Scalp to scalp and scalp to ear montages were recorded and reviewed. All impedances were measured and recorded. Cap electrodes were placed in accordance to International 10-20 system of electrode placement. Symmetrically distributed background activity of low to medium amplitude, ranging in frequency between 8-9 cycles per seconds in the awake state. It becomes slower when patient gets drowsy and falls asleep, 4-6 cycles per second. Occasional vertex waves were observed as well. No epileptiform transients were seen. No signs of ongoing electrographic seizures or lateralized slowing. Photic stimulation produces no driving. IMPRESSION: Essentially normal study. Please correlate clinically. Dictated By: Vin Boss MD /anna/ji /Document#: [id number] SRUTHI
[2016-12-13] MEDS ORDERED: ATORVASTATIN 40 MG TAB PO SCH (21:00)
[2016-12-14] VITALS (12 sets, daily range): BP systolic 129–151; BP diastolic 61–68; PULSE 64–77; RESP 16–20
[2016-12-14] MEDS: BISACODYL 10 MG SUPP PR SCH (01:30)
[2016-12-14 02:52] LABS: ADD UMIC YES; UR ASCORBIC ACID NEGATIVE (NEGATIVE); UR BILIRUBIN (Dip) NEGATIVE (NEGATIVE); UR BLOOD (Dip) NEGATIVE (NEGATIVE); UR CLARITY CLEAR (CLEAR); UR COLOR YELLOW (YELLOW); UR GLUCOSE (Dip) 1+ mg/dL (NEGATIVE); UR KETONES (Dip) NEGATIVE (NEGATIVE); UR LEUKOCYTE ESTERASE (Dip) NEGATIVE Leu/ul (NEGATIVE); UR NITRITE (Dip) NEGATIVE (NEGATIVE); UR RBC 0 /HPF (0-5); UR TOTAL PROTEIN (Dip) 2+ mg/dl (NEGATIVE); UR UROBILINOGEN (Dip) NEGATIVE (NEGATIVE)
[2016-12-14] MEDS: LEVOTHYROXINE 150 MCG TAB PO SCH (06:15)
[2016-12-14] MEDS: FUROSEMIDE 40 MG TAB PO SCH (06:16)
[2016-12-14 08:32] LABS: ABNORMAL IP MESSAGE 1; BASOPHILS % 0.7 % (0.0-2.0); EOSINOPHILS # 0.4 10^3/ul (0.0-0.5); EOSINOPHILS % 6.8 % (0.0-7.0); HEMATOCRIT 26.3 % (42.0-52.0); HEMOGLOBIN 8.3 g/dl (14.0-18.0); LYMPHOCYTES # 0.6 10^3/ul (0.8-2.9); LYMPHOCYTES % 10.1 % (15.0-51.0); MEAN CORPUSCULAR HEMOGLOBIN 33.7 pg (29.0-33.0); MEAN CORPUSCULAR HGB CONC 31.6 g/dl (32.0-37.0); MEAN CORPUSCULAR VOLUME 106.9 fl (82.0-101.0); MEAN PLATELET VOLUME 10.3 fl (7.4-10.4); MONOCYTE # 0.8 10^3/ul (0.3-0.9); MONOCYTES % 13.5 % (0.0-11.0); NEUTROPHILS % 68.2 % (39.0-77.0); PLATELET COUNT 127 10^3/UL (140-415); POSITIVE DIFF @See below; RED BLOOD COUNT 2.46 10^6/ul (4.70-6.10); RED CELL DISTRIBUTION WIDTH 19.1 % (11.5-14.5); WHITE BLOOD COUNT 5.9 10^3/ul (4.8-10.8)
[2016-12-14 09:08] LABS: CALCIUM 8.8 mg/dl (8.4-10.2); CREATININE 4.04 mg/dl (0.61-1.24); PHOSPHORUS 4.8 mg/dl (2.5-4.9); POTASSIUM 4.5 mmol/L (3.5-5.1)
--- NOTE | 2016-12-14 09:18 | CONS ---
Date/Time of Note Date/Time of Note DATE: 12/14/16 TIME: 09:13 Assessment/Plan Assessment/Plan Problems: (1) ESRD (end stage renal disease) on dialysis Comment: for planned HD in am, as is q MWF (2) Anemia due to chronic kidney disease Comment: better post PRBC..?Fe stores (3) HTN (hypertension) Comment: controlled (4) Weakness due to cerebrovascular accident (CVA) Comment: altho brain MRI (-) for acute stroke...?... will order PT eval Consultation Date/Type/Reason Admit Date/Time Dec 12, 2016 at 22:18 Initial Consult Date Type of Consultation: neph 24 HR Interval Summary Free Text/Dictation pt states he feels a bit stronger... still weak RUE and RLE, tho... CT Chest (- ) for mass...brain MRI (-) for acute stroke... carotid BINH also (-) Exam/Review of Systems Vital Signs Vitals Vital Signs Date Time Temp Pulse Resp B/P Pulse Ox O2 Delivery O2 Flow Rate FiO2 12/14/16 08:20 72 12/14/16 07:52 98.8 18 140/67 98 12/14/16 04:09 2.0 12/13/16 18:21 Nasal Cannula 28 Intake and Output 12/13/16 12/13/16 12/14/16 15:00 23:00 07:00 Intake Total 300 ml 480 ml 300 ml Output Total 3300 ml 600 ml 400 ml Balance -3000 ml -120 ml -100 ml Exam Constitutional: alert, oriented Head: normocephalic Neck: supple Respiratory: clear to auscultation Cardiovascular: regular rate and rhythm Gastrointestinal: nl liver, spleen, soft Neurological: focal weakness (of RUE and RLE... 4+/5) Results Result Diagram: 12/14/1672712/14/1628 Results 24 hrs Laboratory Tests Test 12/13/16 15:35 12/13/16 20:30 12/14/16 05:28 12/14/16 07:28 Iron Level 102 Total Iron Binding Capacity 362 Percent Iron Saturation 28 Ferritin 173.0 Urine Color YELLOW Urine Clarity CLEAR Urine pH 8.0 Urine Specific [place] 1.010 Urine Ketones NEGATIVE Urine Nitrite NEGATIVE Urine Bilirubin NEGATIVE Urine Urobilinogen NEGATIVE Urine Leukocyte Esterase NEGATIVE Urine Microscopic RBC 0 Urine Microscopic WBC 0 Urine Hemoglobin NEGATIVE Urine Glucose 1+ H Urine Total Protein 2+ H Lab Scanned Report BLOOD TRANSFUSION White Blood Count 5.9 Red Blood Count 2.46 L Hemoglobin 8.3 L Hematocrit 26.3 L Mean Corpuscular Volume 106.9 H Mean Corpuscular Hemoglobin 33.7 H Mean Corpuscular Hemoglobin Concent 31.6 L Red Cell Distribution Width 19.1 H Platelet Count 127 L Mean Platelet Volume 10.3 Neutrophils % 68.2 Lymphocytes % 10.1 L Monocytes % 13.5 H Eosinophils % 6.8 Basophils % 0.7 Nucleated Red Blood Cells % 0.0 Neutrophils # (Manual) 4.0 Lymphocytes # 0.6 L Monocytes # 0.8 Eosinophils # 0.4 Basophils # 0.0 Nucleated Red Blood Cells # 0.0 Sodium Level 139 Potassium Level 4.5 Chloride Level 101 Carbon Dioxide Level 30 Anion Gap 13 Blood Urea Nitrogen 52 H Creatinine 4.04 #H Glucose Level 77 Uric Acid 3.0 L Calcium Level 8.8 Phosphorus Level 4.8 Medications Medications Current Medications Acetaminophen (Tylenol Supp) 650 mg Q4H PRN [place] TEMP>100F; Start 12/13/16 at 01: 30 Allopurinol (Zyloprim) 600 mg DAILY PO ; Start 12/13/16 at 09:00; Status UNV Atorvastatin Calcium (Lipitor) 40 mg QHS PO Last administered on 12/13/16 20:35 ; Admin Dose 40 MG; Start 12/13/16 at 21:00 Bisacodyl (Dulcolax Supp) 10 mg Q24H [place] ; Start 12/13/16 at 01:30 Bupropion HCl (Wellbutrin Xl) 150 mg QAM PO Last administered on 12/13/16 09:06 ; Admin Dose 150 MG; Start 12/13/16 at 09:00 Carvedilol (Coreg) 25 mg DAILY PO Last administered on 12/13/16 09:06; Admin Dose 25 MG; Start 12/13/16 at 09:00 Clopidogrel Bisulfate (plaVIX) 75 mg DAILY PO Last administered on 12/13/16 09: 05; Admin Dose 75 MG; Start 12/13/16 at 09:00 Cyanocobalamin (Vitamin B12 Inj) 1,000 mcg Sa@09 IM ; Start 12/16/16 at 09:00 Docusate Sodium (Colace) 100 mg Q12H PRN PO CONSTIPATION; Start 12/13/16 at 01: 30 Ferrous Sulfate (Ferrous Sulfate (Ec)) 325 mg TID PO Last administered on 20:35; Admin Dose 325 MG; Start 12/13/16 at 09:00 Furosemide (Lasix) 80 mg DAILY@06 PO Last administered on 12/14/16 06:16; Admin Dose 80 MG; Start 12/13/16 at 06:00 Levothyroxine Sodium (Synthroid) 150 mcg DAILY@06 PO Last administered on 06:15; Admin Dose 150 MCG; Start 12/13/16 at 06:00 Ranitidine HCl (Zantac) 300 mg HS PO Last administered on 12/13/16 20:35; Admin Dose 300 MG; Start 12/13/16 at 21:00 Tramadol HCl (Ultram) 50 mg Q6H PRN PO PAIN; Start 12/13/16 at 01:30 Zolpidem Tartrate (Ambien) 10 mg QHS PRN PO INSOMNIA; Start 12/13/16 at 01:30 Fenofibrate (Tricor) 145 mg DAILY PO Last administered on 12/13/16 09:50; Admin Dose 145 MG; Start 12/13/16 at 09:00 Epoetin Stas (Epogen (Non Esrd/Non Oncology)) 10,000 units MoWeFr@17 [place] Last administered on 12/13/16 18:08; Admin Dose 10,000 UNITS; Start 12/13/16 at 17:00 Lisinopril (Zestril) 2.5 mg BID PO Last administered on 12/13/16 20:36; Admin Dose 2.5 MG; Start 12/13/16 at 21:00 Salmeterol Xinafoate/ Fluticasone (Advair 250/50 Diskus) 1 inh BID INH Last administered on 12/13/16 20:34; Admin Dose 1 INH; Start 12/13/16 at 21:00 Benzonatate (Tessalon) 100 mg Q4H PRN PO COUGH; Start 12/13/16 at 17:30 SABINE MIRZA MD Dec 14, 2016 09:18
[2016-12-14] MEDS: CLOPIDOGREL 75 MG TAB PO SCH (09:44)
[2016-12-14] MEDS: SALMETEROL/FLUTICASONE 250/50 INHA INH SCH ×2 (09:44→21:43)
[2016-12-14] MEDS: BUPROPION (XL) 150 MG TAB PO SCH (09:44)
[2016-12-14] MEDS: LISINOPRIL 5 MG TAB PO SCH ×2 (09:44→21:44)
[2016-12-14] MEDS: FERROUS SULFATE (EC) 325 MG TAB PO SCH ×3 (09:45→21:43)
[2016-12-14] MEDS: FENOFIBRATE 145 MG TAB PO SCH (09:45)
--- NOTE | 2016-12-14 15:29 | CONS ---
Date/Time of Note Date/Time of Note DATE: 12/14/16 TIME: 15:27 Assessment/Plan Assessment/Plan Additional Assessment/Plan Fatigue Compensated systolic congestive heart failure Cardiomyopathy with ejection fraction 45% CAD with history of CABG Peripheral arterial disease End-stage renal disease on hemodialysis Acute blood loss anemia -Patient with improvement in symptoms after blood transfusion. Blood pressure trend has improved, would up titrate MALIA inhibitor as blood pressure permits. Continue antiplatelet therapy as hemoglobin permits. Consultation Date/Type/Reason Admit Date/Time Dec 12, 2016 at 22:18 Initial Consult Date Type of Consultation: cv 24 HR Interval Summary Free Text/Dictation Patient feeling better today with increased energy after blood transfusion. Denies dizziness, chest pain shortness of breath Exam/Review of Systems Vital Signs Vitals Vital Signs Date Time Temp Pulse Resp B/P Pulse Ox O2 Delivery O2 Flow Rate FiO2 12/14/16 12:23 70 12/14/16 11:47 98.0 20 133/63 99 12/14/16 04:09 2.0 12/13/16 18:21 Nasal Cannula 28 Intake and Output 12/13/16 12/13/16 12/14/16 15:00 23:00 07:00 Intake Total 300 ml 480 ml 300 ml Output Total 3300 ml 600 ml 400 ml Balance -3000 ml -120 ml -100 ml Exam No apparent distress, undergoing physical therapy Constitutional: alert, oriented Head: normocephalic Respiratory: other (Coarse breath sounds bilaterally, no wheezing) Cardiovascular: other (S1-S2 heard), regular rate and rhythm Gastrointestinal: bowel sounds, non-tender, soft Extremities: edema, other (Amputation) Results Result Diagram: 12/14/16 0728 12/14/16 0728 Results 24 hrs Laboratory Tests Test 12/13/16 15:35 12/13/16 20:30 12/14/16 05:28 12/14/16 07:28 Iron Level 102 Total Iron Binding Capacity 362 Percent Iron Saturation 28 Ferritin 173.0 Urine Color YELLOW Urine Clarity CLEAR Urine pH 8.0 Urine Specific [place] 1.010 Urine Ketones NEGATIVE Urine Nitrite NEGATIVE Urine Bilirubin NEGATIVE Urine Urobilinogen NEGATIVE Urine Leukocyte Esterase NEGATIVE Urine Microscopic RBC 0 Urine Microscopic WBC 0 Urine Hemoglobin NEGATIVE Urine Glucose 1+ H Urine Total Protein 2+ H Lab Scanned Report BLOOD TRANSFUSION White Blood Count 5.9 Red Blood Count 2.46 L Hemoglobin 8.3 L Hematocrit 26.3 L Mean Corpuscular Volume 106.9 H Mean Corpuscular Hemoglobin 33.7 H Mean Corpuscular Hemoglobin Concent 31.6 L Red Cell Distribution Width 19.1 H Platelet Count 127 L Mean Platelet Volume 10.3 Neutrophils % 68.2 Lymphocytes % 10.1 L Monocytes % 13.5 H Eosinophils % 6.8 Basophils % 0.7 Nucleated Red Blood Cells % 0.0 Neutrophils # (Manual) 4.0 Lymphocytes # 0.6 L Monocytes # 0.8 Eosinophils # 0.4 Basophils # 0.0 Nucleated Red Blood Cells # 0.0 Sodium Level 139 Potassium Level 4.5 Chloride Level 101 Carbon Dioxide Level 30 Anion Gap 13 Blood Urea Nitrogen 52 H Creatinine 4.04 #H Glucose Level 77 Uric Acid 3.0 L Calcium Level 8.8 Phosphorus Level 4.8 Medications Medications Current Medications Acetaminophen (Tylenol Supp) 650 mg Q4H PRN [place] TEMP>100F; Start 12/13/16 at 01: 30 Atorvastatin Calcium (Lipitor) 40 mg QHS PO Last administered on 12/13/16 20:35 ; Admin Dose 40 MG; Start 12/13/16 at 21:00 Bisacodyl (Dulcolax Supp) 10 mg Q24H [place] ; Start 12/13/16 at 01:30 Bupropion HCl (Wellbutrin Xl) 150 mg QAM PO Last administered on 12/14/16 09:44 ; Admin Dose 150 MG; Start 12/13/16 at 09:00 Carvedilol (Coreg) 25 mg DAILY PO Last administered on 12/14/16 09:45; Admin Dose 25 MG; Start 12/13/16 at 09:00 Clopidogrel Bisulfate (plaVIX) 75 mg DAILY PO Last administered on 12/14/16 09: 44; Admin Dose 75 MG; Start 12/13/16 at 09:00 Cyanocobalamin (Vitamin B12 Inj) 1,000 mcg Sa@09 IM ; Start 12/16/16 at 09:00 Docusate Sodium (Colace) 100 mg Q12H PRN PO CONSTIPATION; Start 12/13/16 at 01: 30 Ferrous Sulfate (Ferrous Sulfate (Ec)) 325 mg TID PO Last administered on 09:45; Admin Dose 325 MG; Start 12/13/16 at 09:00 Furosemide (Lasix) 80 mg DAILY@06 PO Last administered on 12/14/16 06:16; Admin Dose 80 MG; Start 12/13/16 at 06:00 Levothyroxine Sodium (Synthroid) 150 mcg DAILY@06 PO Last administered on 06:15; Admin Dose 150 MCG; Start 12/13/16 at 06:00 Ranitidine HCl (Zantac) 300 mg HS PO Last administered on 12/13/16 20:35; Admin Dose 300 MG; Start 12/13/16 at 21:00 Tramadol HCl (Ultram) 50 mg Q6H PRN PO PAIN; Start 12/13/16 at 01:30 Zolpidem Tartrate (Ambien) 10 mg QHS PRN PO INSOMNIA; Start 12/13/16 at 01:30 Fenofibrate (Tricor) 145 mg DAILY PO Last administered on 12/14/16 09:45; Admin Dose 145 MG; Start 12/13/16 at 09:00 Epoetin Stas (Epogen (Non Esrd/Non Oncology)) 10,000 units MoWeFr@17 SC Last administered on 12/13/16 18:08; Admin Dose 10,000 UNITS; Start 12/13/16 at 17:00 Lisinopril (Zestril) 2.5 mg BID PO Last administered on 12/14/16 09:44; Admin Dose 2.5 MG; Start 12/13/16 at 21:00 Salmeterol Xinafoate/ Fluticasone (Advair 250/50 Diskus) 1 inh BID INH Last administered on 12/14/16 09:44; Admin Dose 1 INH; Start 12/13/16 at 21:00 Benzonatate (Tessalon) 100 mg Q4H PRN PO COUGH; Start 12/13/16 at 17:30 Allopurinol (Zyloprim) 100 mg Q48H PO ; Start 12/15/16 at 18:00 Hammad Hernandez DO Dec 14, 2016 15:29
[2016-12-14] MEDS ORDERED: ALLOPURINOL 100 MG TAB PO SCH (18:00)
[2016-12-14] MEDS: RANITIDINE 150 MG TAB PO SCH (21:43)
[2016-12-14] MEDS: ATORVASTATIN 40 MG TAB PO SCH (21:43)
[2016-12-15] VITALS (22 sets, daily range): BP systolic 120–146; BP diastolic 59–79; PULSE 69–88; RESP 16–20
[2016-12-15] MEDS: BISACODYL 10 MG SUPP PR SCH (01:30)
[2016-12-15] MEDS: ALBUTEROL 0.083% (NEB) 2.5 MG/3 ML AMP HHN PRN ×2 (01:58→19:13)
[2016-12-15] MEDS: LEVOTHYROXINE 150 MCG TAB PO SCH (06:14)
[2016-12-15] MEDS: FUROSEMIDE 40 MG TAB PO SCH (06:15)
[2016-12-15 08:03] LABS: BASOPHILS % 0.5 % (0.0-2.0); EOSINOPHILS # 0.4 10^3/ul (0.0-0.5); EOSINOPHILS % 6.1 % (0.0-7.0); HEMATOCRIT 25.5 % (42.0-52.0); HEMOGLOBIN 7.8 g/dl (14.0-18.0); LYMPHOCYTES # 0.7 10^3/ul (0.8-2.9); LYMPHOCYTES % 11.3 % (15.0-51.0); MEAN CORPUSCULAR HEMOGLOBIN 32.8 pg (29.0-33.0); MEAN CORPUSCULAR HGB CONC 30.6 g/dl (32.0-37.0); MEAN CORPUSCULAR VOLUME 107.1 fl (82.0-101.0); MEAN PLATELET VOLUME 10.7 fl (7.4-10.4); MONOCYTE # 0.7 10^3/ul (0.3-0.9); NEUTROPHILS % 69.4 % (39.0-77.0); PLATELET COUNT 122 10^3/UL (140-415); RED BLOOD COUNT 2.38 10^6/ul (4.70-6.10); WHITE BLOOD COUNT 5.7 10^3/ul (4.8-10.8)
--- NOTE | 2016-12-15 08:10 | CONS ---
Date/Time of Note Date/Time of Note DATE: 12/15/16 TIME: 08:06 Assessment/Plan Assessment/Plan Additional Assessment/Plan 1. Right sided weakness is improving, MRI did not reveal new ischemic insult and carotid studies were unrevealing, ?? ht echo needed 2. CKD, to have HD today 3. HBP, sl increased, will again rev meds Consultation Date/Type/Reason Admit Date/Time Dec 12, 2016 at 22:18 Initial Consult Date Type of Consultation: cv Detailed Summary Respiratory: No shortness of breath Cardiovascular: No chest pain, No orthopenea Gastrointestinal: no complaints Genitourinary: no complaints Neurologic: other (right upper extrem weakness is less as is weakness is his leg), No headache Exam/Review of Systems Vital Signs Vitals Vital Signs Date Time Temp Pulse Resp B/P Pulse Ox O2 Delivery O2 Flow Rate FiO2 12/15/16 07:44 98.5 74 20 146/69 100 12/15/16 01:58 4.0 12/15/16 01:58 Nasal Cannula 12/13/16 18:21 28 Intake and Output 12/14/16 12/14/16 12/15/16 15:00 23:00 07:00 Intake Total 960 ml 300 ml Output Total 100 ml 250 ml 200 ml Balance -100 ml 710 ml 100 ml Exam Neck: No jvd Respiratory: clear to auscultation Cardiovascular: regular rate and rhythm Gastrointestinal: soft Extremities: No edema (LLE amputation) Neurological: focal weakness (right upper extrem stength is better, no change in lower extrem, right facial noted) Results Result Diagram: 12/15/16 0709 12/14/16 0728 Results 24 hrs Laboratory Tests Test 12/15/16 07:09 White Blood Count 5.7 Red Blood Count 2.38 L Hemoglobin 7.8 L Hematocrit 25.5 L Mean Corpuscular Volume 107.1 H Mean Corpuscular Hemoglobin 32.8 Mean Corpuscular Hemoglobin Concent 30.6 L Red Cell Distribution Width 18.0 H Platelet Count 122 L Mean Platelet Volume 10.7 H Neutrophils % 69.4 Lymphocytes % 11.3 L Monocytes % 12.0 H Eosinophils % 6.1 Basophils % 0.5 Nucleated Red Blood Cells % 0.0 Neutrophils # (Manual) 4.0 Lymphocytes # 0.7 L Monocytes # 0.7 Eosinophils # 0.4 Basophils # 0.0 Nucleated Red Blood Cells # 0.0 Medications Medications Current Medications Acetaminophen (Tylenol Supp) 650 mg Q4H PRN [place] TEMP>100F; Start 12/13/16 at 01: 30 Atorvastatin Calcium (Lipitor) 40 mg QHS PO Last administered on 12/14/16 21:43 ; Admin Dose 40 MG; Start 12/13/16 at 21:00 Bisacodyl (Dulcolax Supp) 10 mg Q24H [place] ; Start 12/13/16 at 01:30 Bupropion HCl (Wellbutrin Xl) 150 mg QAM PO Last administered on 12/14/16 09:44 ; Admin Dose 150 MG; Start 12/13/16 at 09:00 Carvedilol (Coreg) 25 mg DAILY PO Last administered on 12/14/16 09:45; Admin Dose 25 MG; Start 12/13/16 at 09:00 Clopidogrel Bisulfate (plaVIX) 75 mg DAILY PO Last administered on 12/14/16 09: 44; Admin Dose 75 MG; Start 12/13/16 at 09:00 Cyanocobalamin (Vitamin B12 Inj) 1,000 mcg Sa@09 IM ; Start 12/16/16 at 09:00 Docusate Sodium (Colace) 100 mg Q12H PRN PO CONSTIPATION; Start 12/13/16 at 01: 30 Ferrous Sulfate (Ferrous Sulfate (Ec)) 325 mg TID PO Last administered on 21:43; Admin Dose 325 MG; Start 12/13/16 at 09:00 Furosemide (Lasix) 80 mg DAILY@06 PO Last administered on 12/15/16 06:15; Admin Dose 80 MG; Start 12/13/16 at 06:00 Levothyroxine Sodium (Synthroid) 150 mcg DAILY@06 PO Last administered on 06:14; Admin Dose 150 MCG; Start 12/13/16 at 06:00 Ranitidine HCl (Zantac) 300 mg HS PO Last administered on 12/14/16 21:43; Admin Dose 300 MG; Start 12/13/16 at 21:00 Tramadol HCl (Ultram) 50 mg Q6H PRN PO PAIN; Start 12/13/16 at 01:30 Zolpidem Tartrate (Ambien) 10 mg QHS PRN PO INSOMNIA; Start 12/13/16 at 01:30 Fenofibrate (Tricor) 145 mg DAILY PO Last administered on 12/14/16 09:45; Admin Dose 145 MG; Start 12/13/16 at 09:00 Epoetin Stas (Epogen (Non Esrd/Non Oncology)) 10,000 units MoWeFr@17 SC Last administered on 12/13/16 18:08; Admin Dose 10,000 UNITS; Start 12/13/16 at 17:00 Lisinopril (Zestril) 2.5 mg BID PO Last administered on 12/14/16 21:44; Admin Dose 2.5 MG; Start 12/13/16 at 21:00 Salmeterol Xinafoate/ Fluticasone (Advair 250/50 Diskus) 1 inh BID INH Last administered on 12/14/16 21:43; Admin Dose 1 INH; Start 12/13/16 at 21:00 Benzonatate (Tessalon) 100 mg Q4H PRN PO COUGH; Start 12/13/16 at 17:30 Allopurinol (Zyloprim) 100 mg Q48H PO ; Start 12/15/16 at 18:00 ANDRIA OLIVEIRA MD Dec 15, 2016 08:10
[2016-12-15 08:31] LABS: CALCIUM 8.8 mg/dl (8.4-10.2); CREATININE 4.87 mg/dl (0.61-1.24); POTASSIUM 4.8 mmol/L (3.5-5.1)
[2016-12-15 08:43] LABS: IRON 48 ug/dl (35-150)
[2016-12-15 08:52] LABS: TOTAL IRON BINDING CAPACITY 363 ug/dl (241-421)
[2016-12-15] MEDS: BUPROPION (XL) 150 MG TAB PO SCH (09:37)
[2016-12-15] MEDS: LISINOPRIL 5 MG TAB PO SCH ×2 (09:37→20:48)
[2016-12-15] MEDS: CLOPIDOGREL 75 MG TAB PO SCH (09:37)
[2016-12-15] MEDS: FENOFIBRATE 145 MG TAB PO SCH (09:37)
[2016-12-15] MEDS: FERROUS SULFATE (EC) 325 MG TAB PO SCH ×3 (09:38→20:47)
[2016-12-15] MEDS: SALMETEROL/FLUTICASONE 250/50 INHA INH SCH ×2 (09:40→20:48)
--- NOTE | 2016-12-15 16:10 | CONS ---
Date/Time of Note Date/Time of Note DATE: 12/15/16 TIME: 16:08 Assessment/Plan Assessment/Plan Additional Assessment/Plan Fatigue Compensated systolic congestive heart failure Cardiomyopathy with ejection fraction 45% CAD with history of CABG Peripheral arterial disease End-stage renal disease on hemodialysis Acute blood loss anemia -Blood pressure trend overall improved. Fluid management via hemodialysis as per our nephrology colleagues. Continue antiplatelet therapy as hemoglobin permits. Consultation Date/Type/Reason Admit Date/Time Dec 12, 2016 at 22:18 Type of Consultation: cv 24 HR Interval Summary Free Text/Dictation Denies shortness of breath, chest pain or palpitations Exam/Review of Systems Vital Signs Vitals Vital Signs Date Time Temp Pulse Resp B/P Pulse Ox O2 Delivery O2 Flow Rate FiO2 12/15/16 15:33 98.2 86 20 146/79 96 12/15/16 01:58 4.0 12/15/16 01:58 Nasal Cannula 12/13/16 18:21 28 Intake and Output 12/14/16 12/14/16 12/15/16 15:00 23:00 07:00 Intake Total 960 ml 300 ml Output Total 100 ml 250 ml 200 ml Balance -100 ml 710 ml 100 ml Exam Eating, no apparent distress Constitutional: alert, oriented Head: normocephalic Respiratory: other (Coarse breath sounds bilaterally, no wheezing) Cardiovascular: other (S1-S2 heard), regular rate and rhythm Gastrointestinal: bowel sounds, non-tender, soft Extremities: edema, other (Amputation) Results Result Diagram: 12/15/16 0709 12/15/16 0709 Results 24 hrs Laboratory Tests Test 12/15/16 07:09 White Blood Count 5.7 Red Blood Count 2.38 L Hemoglobin 7.8 L Hematocrit 25.5 L Mean Corpuscular Volume 107.1 H Mean Corpuscular Hemoglobin 32.8 Mean Corpuscular Hemoglobin Concent 30.6 L Red Cell Distribution Width 18.0 H Platelet Count 122 L Mean Platelet Volume 10.7 H Neutrophils % 69.4 Lymphocytes % 11.3 L Monocytes % 12.0 H Eosinophils % 6.1 Basophils % 0.5 Nucleated Red Blood Cells % 0.0 Neutrophils # (Manual) 4.0 Lymphocytes # 0.7 L Monocytes # 0.7 Eosinophils # 0.4 Basophils # 0.0 Nucleated Red Blood Cells # 0.0 Sodium Level 140 Potassium Level 4.8 Chloride Level 101 Carbon Dioxide Level 28 Anion Gap 16 Blood Urea Nitrogen 70 H Creatinine 4.87 H Glucose Level 69 L Calcium Level 8.8 Iron Level 48 # Total Iron Binding Capacity 363 Percent Iron Saturation 13 L Ferritin 151.0 Medications Medications Current Medications Acetaminophen (Tylenol Supp) 650 mg Q4H PRN [place] TEMP>100F; Start 12/13/16 at 01: 30 Atorvastatin Calcium (Lipitor) 40 mg QHS PO Last administered on 12/14/16 21:43 ; Admin Dose 40 MG; Start 12/13/16 at 21:00 Bisacodyl (Dulcolax Supp) 10 mg Q24H [place] ; Start 12/13/16 at 01:30 Bupropion HCl (Wellbutrin Xl) 150 mg QAM PO Last administered on 12/15/16 09:37 ; Admin Dose 150 MG; Start 12/13/16 at 09:00 Carvedilol (Coreg) 25 mg DAILY PO Last administered on 12/14/16 09:45; Admin Dose 25 MG; Start 12/13/16 at 09:00 Clopidogrel Bisulfate (plaVIX) 75 mg DAILY PO Last administered on 12/15/16 09: 37; Admin Dose 75 MG; Start 12/13/16 at 09:00 Cyanocobalamin (Vitamin B12 Inj) 1,000 mcg Sa@09 IM ; Start 12/16/16 at 09:00 Docusate Sodium (Colace) 100 mg Q12H PRN PO CONSTIPATION; Start 12/13/16 at 01: 30 Ferrous Sulfate (Ferrous Sulfate (Ec)) 325 mg TID PO Last administered on 09:38; Admin Dose 325 MG; Start 12/13/16 at 09:00 Furosemide (Lasix) 80 mg DAILY@06 PO Last administered on 12/15/16 06:15; Admin Dose 80 MG; Start 12/13/16 at 06:00 Levothyroxine Sodium (Synthroid) 150 mcg DAILY@06 PO Last administered on 06:14; Admin Dose 150 MCG; Start 12/13/16 at 06:00 Ranitidine HCl (Zantac) 300 mg HS PO Last administered on 12/14/16 21:43; Admin Dose 300 MG; Start 12/13/16 at 21:00 Tramadol HCl (Ultram) 50 mg Q6H PRN PO PAIN; Start 12/13/16 at 01:30 Zolpidem Tartrate (Ambien) 10 mg QHS PRN PO INSOMNIA; Start 12/13/16 at 01:30 Fenofibrate (Tricor) 145 mg DAILY PO Last administered on 12/15/16 09:37; Admin Dose 145 MG; Start 12/13/16 at 09:00 Epoetin Stas (Epogen (Non Esrd/Non Oncology)) 10,000 units MoWeFr@17 SC Last administered on 12/13/16 18:08; Admin Dose 10,000 UNITS; Start 12/13/16 at 17:00 Salmeterol Xinafoate/ Fluticasone (Advair 250/50 Diskus) 1 inh BID INH Last administered on 12/15/16 09:40; Admin Dose 1 INH; Start 12/13/16 at 21:00 Benzonatate (Tessalon) 100 mg Q4H PRN PO COUGH; Start 12/13/16 at 17:30 Allopurinol (Zyloprim) 100 mg Q48H PO ; Start 12/15/16 at 18:00 Lisinopril (Zestril) 5 mg BID PO Last administered on 12/15/16 09:37; Admin Dose 5 MG; Start 12/15/16 at 09:00 Hammad Hernandez DO Dec 15, 2016 16:10
[2016-12-15] MEDS: ALLOPURINOL 100 MG TAB PO SCH (17:31)
[2016-12-15] MEDS: EPOETIN 10000 UNITS/ML (NON ESRD/NON ONCOLOGY) SC SCH (17:32)
[2016-12-15] MEDS: ATORVASTATIN 40 MG TAB PO SCH (20:47)
[2016-12-15] MEDS: RANITIDINE 150 MG TAB PO SCH (20:47)
[2016-12-16] VITALS (12 sets, daily range): BP systolic 135–151; BP diastolic 62–70; PULSE 72–89; RESP 18–20
[2016-12-16] MEDS: BISACODYL 10 MG SUPP PR SCH (01:30)
[2016-12-16] MEDS: LEVOTHYROXINE 150 MCG TAB PO SCH (06:36)
[2016-12-16] MEDS: FUROSEMIDE 40 MG TAB PO SCH (06:36)
[2016-12-16] MEDS ORDERED: CYANOCOBALAMIN 1000 MCG INJ IM SCH (09:00)
[2016-12-16] MEDS: FERROUS SULFATE (EC) 325 MG TAB PO SCH ×3 (09:31→20:17)
[2016-12-16] MEDS: FENOFIBRATE 145 MG TAB PO SCH (09:31)
[2016-12-16] MEDS: CLOPIDOGREL 75 MG TAB PO SCH (09:31)
[2016-12-16] MEDS: BUPROPION (XL) 150 MG TAB PO SCH (09:32)
[2016-12-16] MEDS: LISINOPRIL 5 MG TAB PO SCH ×2 (09:33→20:18)
[2016-12-16] MEDS: SALMETEROL/FLUTICASONE 250/50 INHA INH SCH ×2 (09:35→20:17)
--- NOTE | 2016-12-16 10:47 | PN ---
Date/Time of Note Date/Time of Note DATE: 12/16/16 TIME: 10:47 Assessment/Plan VTE Prophylaxis VTE Prophylaxis Intervention: SCD's Lines/Catheters IV [facility] ([facility] Saline Lock Urinary Cath still in place: No Assessment/Plan Assessment/Plan Fatigue Compensated systolic congestive heart failure Cardiomyopathy with ejection fraction 45% CAD with history of CABG Peripheral arterial disease End-stage renal disease on hemodialysis Acute blood loss anemia -Blood pressure trend overall improved. Fluid management via hemodialysis as per our nephrology colleagues. Continue antiplatelet therapy as hemoglobin permits. Subjective 24 Hr Interval Summary Free Text/Dictation the aptient with no change Exam/Review of Systems Vital Signs Vitals Vital Signs Date Time Temp Pulse Resp B/P Pulse Ox O2 Delivery O2 Flow Rate FiO2 12/16/16 09:25 2 Nasal Cannula 12/16/16 08:29 78 12/16/16 08:19 98.0 18 148/68 12/16/16 01:54 2.0 12/13/16 18:21 28 Intake and Output 12/15/16 12/15/16 12/16/16 15:00 23:00 07:00 Intake Total 1100 ml 400 ml Output Total 5850 ml 150 ml Balance -4750 ml 250 ml Results Result Diagram: 12/15/16 0709 12/15/16 0709 Medications Medications Current Medications Acetaminophen (Tylenol Supp) 650 mg Q4H PRN [place] TEMP>100F; Start 12/13/16 at 01: 30 Atorvastatin Calcium (Lipitor) 40 mg QHS PO Last administered on 12/15/16 20:47 ; Admin Dose 40 MG; Start 12/13/16 at 21:00 Bisacodyl (Dulcolax Supp) 10 mg Q24H [place] ; Start 12/13/16 at 01:30 Bupropion HCl (Wellbutrin Xl) 150 mg QAM PO Last administered on 12/16/16 09:32 ; Admin Dose 150 MG; Start 12/13/16 at 09:00 Carvedilol (Coreg) 25 mg DAILY PO Last administered on 12/16/16 09:32; Admin Dose 25 MG; Start 12/13/16 at 09:00 Clopidogrel Bisulfate (plaVIX) 75 mg DAILY PO Last administered on 12/16/16 09: 31; Admin Dose 75 MG; Start 12/13/16 at 09:00 Cyanocobalamin (Vitamin B12 Inj) 1,000 mcg Sa@09 IM Last administered on 09:33; Admin Dose 1,000 MCG; Start 12/16/16 at 09:00 Docusate Sodium (Colace) 100 mg Q12H PRN PO CONSTIPATION; Start 12/13/16 at 01: 30 Ferrous Sulfate (Ferrous Sulfate (Ec)) 325 mg TID PO Last administered on 09:31; Admin Dose 325 MG; Start 12/13/16 at 09:00 Furosemide (Lasix) 80 mg DAILY@06 PO Last administered on 12/16/16 06:36; Admin Dose 80 MG; Start 12/13/16 at 06:00 Levothyroxine Sodium (Synthroid) 150 mcg DAILY@06 PO Last administered on 06:36; Admin Dose 150 MCG; Start 12/13/16 at 06:00 Ranitidine HCl (Zantac) 300 mg HS PO Last administered on 12/15/16 20:47; Admin Dose 300 MG; Start 12/13/16 at 21:00 Tramadol HCl (Ultram) 50 mg Q6H PRN PO PAIN; Start 12/13/16 at 01:30 Zolpidem Tartrate (Ambien) 10 mg QHS PRN PO INSOMNIA; Start 12/13/16 at 01:30 Fenofibrate (Tricor) 145 mg DAILY PO Last administered on 12/16/16 09:31; Admin Dose 145 MG; Start 12/13/16 at 09:00 Epoetin Stas (Epogen (Non Esrd/Non Oncology)) 10,000 units MoWeFr@17 SC Last administered on 12/15/16 17:32; Admin Dose 10,000 UNITS; Start 12/13/16 at 17:00 Salmeterol Xinafoate/ Fluticasone (Advair 250/50 Diskus) 1 inh BID INH Last administered on 12/16/16 09:35; Admin Dose 1 INH; Start 12/13/16 at 21:00 Benzonatate (Tessalon) 100 mg Q4H PRN PO COUGH; Start 12/13/16 at 17:30 Allopurinol (Zyloprim) 100 mg Q48H PO Last administered on 12/15/16 17:31; Admin Dose 100 MG; Start 12/15/16 at 18:00 Lisinopril (Zestril) 5 mg BID PO Last administered on 12/16/16t 09:33; Admin Dose 5 MG; Start 12/15/16 at 09:00 FRANKI LAUGHLIN MD Dec 16, 2016 10:47
[2016-12-16] MEDS: traMADol 50 MG TAB PO PRN ×2 (10:56→22:23)
[2016-12-16] MEDS: ALBUTEROL 0.083% (NEB) 2.5 MG/3 ML AMP HHN PRN ×2 (12:33→14:58)
--- NOTE | 2016-12-16 17:37 | CONS ---
Date/Time of Note Date/Time of Note DATE: 12/16/16 TIME: 17:33 Assessment/Plan Assessment/Plan Additional Assessment/Plan 1. Right sided weakness is improving, MRI did not reveal new ischemic insult and carotid studies were unrevealing, ?? ht echo needed. cont pt 2. esrd: s/p hd yesterday. next hd sunday. am labs 3. htn: on meds 4- anemia: on epogen. consider prbc if worse Consultation Date/Type/Reason Admit Date/Time Dec 12, 2016 at 22:18 Initial Consult Date Type of Consultation: cv 24 HR Interval Summary Free Text/Dictation doing ok. still very weak. no issues with hd yesterday Exam/Review of Systems Vital Signs Vitals Vital Signs Date Time Temp Pulse Resp B/P Pulse Ox O2 Delivery O2 Flow Rate FiO2 12/16/16 16:27 72 12/16/16 16:21 98.0 18 135/70 98 12/16/16 14:58 Nasal Cannula 2.0 12/13/16 18:21 28 Intake and Output 12/15/16 12/15/16 12/16/16 14:59 22:59 06:59 Intake Total 1100 ml 400 ml Output Total 5850 ml 150 ml Balance -4750 ml 250 ml Exam Constitutional: alert, oriented Psych: no complaints Head: atraumatic, normocephalic Neck: non-tender, supple Respiratory: clear to auscultation, diminished breath sounds Cardiovascular: diastolic murmur, edema, regular rate and rhythm Gastrointestinal: non-tender, soft, No ascites Results Result Diagram: 12/15/16 0709 12/15/16 0709 Medications Medications Current Medications Acetaminophen (Tylenol Supp) 650 mg Q4H PRN [place] TEMP>100F; Start 12/13/16 at 01: 30 Atorvastatin Calcium (Lipitor) 40 mg QHS PO Last administered on 12/15/16 20:47 ; Admin Dose 40 MG; Start 12/13/16 at 21:00 Bisacodyl (Dulcolax Supp) 10 mg Q24H [place] ; Start 12/13/16 at 01:30 Bupropion HCl (Wellbutrin Xl) 150 mg QAM PO Last administered on 12/16/16 09:32 ; Admin Dose 150 MG; Start 12/13/16 at 09:00 Carvedilol (Coreg) 25 mg DAILY PO Last administered on 12/16/16 09:32; Admin Dose 25 MG; Start 12/13/16 at 09:00 Clopidogrel Bisulfate (plaVIX) 75 mg DAILY PO Last administered on 12/16/16 09: 31; Admin Dose 75 MG; Start 12/13/16 at 09:00 Cyanocobalamin (Vitamin B12 Inj) 1,000 mcg Sa@09 IM Last administered on 09:33; Admin Dose 1,000 MCG; Start 12/16/16 at 09:00 Docusate Sodium (Colace) 100 mg Q12H PRN PO CONSTIPATION; Start 12/13/16 at 01: 30 Ferrous Sulfate (Ferrous Sulfate (Ec)) 325 mg TID PO Last administered on 09:31; Admin Dose 325 MG; Start 12/13/16 at 09:00 Furosemide (Lasix) 80 mg DAILY@06 PO Last administered on 12/16/16 06:36; Admin Dose 80 MG; Start 12/13/16 at 06:00 Levothyroxine Sodium (Synthroid) 150 mcg DAILY@06 PO Last administered on 06:36; Admin Dose 150 MCG; Start 12/13/16 at 06:00 Ranitidine HCl (Zantac) 300 mg HS PO Last administered on 12/15/16 20:47; Admin Dose 300 MG; Start 12/13/16 at 21:00 Tramadol HCl (Ultram) 50 mg Q6H PRN PO PAIN Last administered on 12/16/16 10:56 ; Admin Dose 50 MG; Start 12/13/16 at 01:30 Zolpidem Tartrate (Ambien) 10 mg QHS PRN PO INSOMNIA; Start 12/13/16 at 01:30 Fenofibrate (Tricor) 145 mg DAILY PO Last administered on 12/16/16 09:31; Admin Dose 145 MG; Start 12/13/16 at 09:00 Epoetin Stas (Epogen (Non Esrd/Non Oncology)) 10,000 units MoWeFr@17 SC Last administered on 12/15/16 17:32; Admin Dose 10,000 UNITS; Start 12/13/16 at 17:00 Salmeterol Xinafoate/ Fluticasone (Advair 250/50 Diskus) 1 inh BID INH Last administered on 12/16/16 09:35; Admin Dose 1 INH; Start 12/13/16 at 21:00 Benzonatate (Tessalon) 100 mg Q4H PRN PO COUGH; Start 12/13/16 at 17:30 Allopurinol (Zyloprim) 100 mg Q48H PO Last administered on 12/15/16 17:31; Admin Dose 100 MG; Start 12/15/16 at 18:00 Lisinopril (Zestril) 5 mg BID PO Last administered on 12/16/16 09:33; Admin Dose 5 MG; Start 12/15/16 at 09:00 PRIYANKA ROMAN MD Dec 16, 2016 17:37
[2016-12-16] MEDS: ATORVASTATIN 40 MG TAB PO SCH (20:17)
[2016-12-16] MEDS: RANITIDINE 150 MG TAB PO SCH (20:17)
[2016-12-17] VITALS (13 sets, daily range): BP systolic 131–164; BP diastolic 64–90; PULSE 65–80; RESP 18–76
[2016-12-17] MEDS: BISACODYL 10 MG SUPP PR SCH (01:30)
--- NOTE | 2016-12-17 01:41 | PN ---
DATE: SUBJECTIVE DATA: The patient is alert and awake. The patient is well oriented. He still has weakness of his right leg and right arm. He also still feels some numbness in his right leg and right arm, but states that it seems to be recovering slowly. OBJECTIVE DATA: CHEST: Clear to A and P. HEART: Systolic murmur, grade 1. ABDOMEN: Liver, kidney, spleen are not palpable. Bowel sounds are normal. There are no intra-abdominal masses or bruits. 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 Right leg is normal. The patient has diabetes mellitus. VITAL SIGNS: Temperature 98, blood pressure is 148/58, pulse 98, respiratory rate is 18. LABORATORY AND DIAGNOSTIC DATA: White blood cell count 5700, hemoglobin 7.8, hematocrit 29.9, platelet count is 122,000. Differential is normal. Sed rate is elevated 25. EKG reveals deeply inverted T-waves in lead V2 and V3, possible anterior ischemia. The patient has been seen in consultation by the electrician manager. The patient also needs consultation by a neurologist. His EEG was normal. INR 1.23, PTT 38.8. Sodium 140, potassium 4.8, chloride 101, carbon dioxide 28, BUN 70, creatinine 6.87, glucose 59, calcium 8.8. Total iron-binding capacity is low at 13. Urine total protein is elevated. Clean catch urine reveals E coli and enterococcus, sensitive to nitrofurantoin. MRI of the brain reveals no acute intracranial hemorrhage, infarction or mass effect. There are moderate chronic small-vessel ischemic changes. Small lacunar infarcts are noted in bilateral lentiform nuclei and ferguson radiata. Mild- to-moderate generalized cerebral volume loss. Carotid Doppler no evidence for hemodynamically significant stenosis. CAT scan of the chest revealed moderate cardiomegaly, status post CABG. Diffuse calcified atherosclerosis of his 3-vessel coronary arteries, discoid atelectasis in the right lower lobe and mild left right pleural effusion, minimal ascitic fluid in the upper abdomen, on partially visualized images. Multiple stones in the gallbladder, small kidneys, diffuse calcified atherosclerosis of the aorta. A CAT scan of the brain reveals no intracranial hemorrhage, no mass effect or midline shift. There is mild generalized atrophy, [id number] microangiopathic ischemic changes, intracranial atherosclerosis. Chest x-ray revealed right lower lobe atelectasis with some mild mediastinal shift to the right. PLAN: To have blasting machine operator see patient in consultation because of on the chest x-ray and CAT scan of the chest. Dictated By: Britton Tate MD /anna/ayse /Document#: [id number]
[2016-12-17] MEDS: FUROSEMIDE 40 MG TAB PO SCH (05:20)
[2016-12-17] MEDS: LEVOTHYROXINE 150 MCG TAB PO SCH (05:21)
[2016-12-17 07:42] LABS: BASOPHILS % 0.5 % (0.0-2.0); EOSINOPHILS # 0.3 10^3/ul (0.0-0.5); EOSINOPHILS % 4.8 % (0.0-7.0); HEMATOCRIT 25.5 % (42.0-52.0); HEMOGLOBIN 7.9 g/dl (14.0-18.0); LYMPHOCYTES # 0.6 10^3/ul (0.8-2.9); LYMPHOCYTES % 9.5 % (15.0-51.0); MEAN CORPUSCULAR HEMOGLOBIN 34.1 pg (29.0-33.0); MEAN CORPUSCULAR VOLUME 109.9 fl (82.0-101.0); MEAN PLATELET VOLUME 10.3 fl (7.4-10.4); MONOCYTE # 0.8 10^3/ul (0.3-0.9); MONOCYTES % 12.8 % (0.0-11.0); NEUTROPHILS % 71.8 % (39.0-77.0); PLATELET COUNT 129 10^3/UL (140-415); RED BLOOD COUNT 2.32 10^6/ul (4.70-6.10); WHITE BLOOD COUNT 6.3 10^3/ul (4.8-10.8)
[2016-12-17 08:20] LABS: ALBUMIN 3.6 g/dl (3.3-4.9); ALBUMIN/GLOBULIN RATIO 1.28; BILIRUBIN,INDIRECT 0.1 mg/dl (0-1.1); BILIRUBIN,TOTAL 0.1 mg/dl (0.2-1.3); CALCIUM 8.8 mg/dl (8.4-10.2); CREATININE 5.17 mg/dl (0.61-1.24); POTASSIUM 4.7 mmol/L (3.5-5.1); TOTAL PROTEIN 6.4 g/dl (6.1-8.1)
[2016-12-17] MEDS: FERROUS SULFATE (EC) 325 MG TAB PO SCH ×3 (09:00→20:47)
[2016-12-17] MEDS: BUPROPION (XL) 150 MG TAB PO SCH (09:21)
[2016-12-17] MEDS: CLOPIDOGREL 75 MG TAB PO SCH (09:21)
[2016-12-17] MEDS: FENOFIBRATE 145 MG TAB PO SCH (09:21)
[2016-12-17] MEDS: SALMETEROL/FLUTICASONE 250/50 INHA INH SCH ×2 (09:21→20:46)
[2016-12-17] MEDS: LISINOPRIL 5 MG TAB PO SCH ×2 (09:22→20:48)
--- NOTE | 2016-12-17 14:52 | CONS ---
Date/Time of Note Date/Time of Note DATE: 12/17/16 TIME: 14:50 Assessment/Plan Assessment/Plan Additional Assessment/Plan 1. Right sided weakness is improving, MRI did not reveal new ischemic insult and carotid studies were unrevealing, ?? ht echo needed. cont pt. fu per neuro 2. esrd: for hd in am and q m/w/f 3. htn: on meds. better today 4- anemia: for prbc today. cont epogen with target hb >10 Consultation Date/Type/Reason Admit Date/Time Dec 12, 2016 at 22:18 Type of Consultation: cv 24 HR Interval Summary Free Text/Dictation feels better/ still very tired and weak. scheduled for prbc today Exam/Review of Systems Vital Signs Vitals Vital Signs Date Time Temp Pulse Resp B/P Pulse Ox O2 Delivery O2 Flow Rate FiO2 12/17/16 12:39 98.0 69 18 138/64 98 12/17/16 08:30 Nasal Cannula 12/17/16 07:32 2.0 12/13/16 18:21 28 Intake and Output 12/16/16 12/16/16 12/17/16 15:00 23:00 07:00 Intake Total 850 ml 240 ml Output Total 200 ml 150 ml Balance 650 ml 90 ml Exam Constitutional: alert, oriented Head: normocephalic Eyes: nl conjunctiva Neck: jvd, non-tender, supple Respiratory: diminished breath sounds Cardiovascular: edema, nl pulses, regular rate and rhythm Gastrointestinal: non-tender, soft Results Result Diagram: 12/17/16 0707 12/17/16 0707 Results 24 hrs Laboratory Tests Test 12/17/16 07:07 White Blood Count 6.3 Red Blood Count 2.32 L Hemoglobin 7.9 L Hematocrit 25.5 L Mean Corpuscular Volume 109.9 H Mean Corpuscular Hemoglobin 34.1 H Mean Corpuscular Hemoglobin Concent 31.0 L Red Cell Distribution Width 17.0 H Platelet Count 129 L Mean Platelet Volume 10.3 Neutrophils % 71.8 Lymphocytes % 9.5 L Monocytes % 12.8 H Eosinophils % 4.8 Basophils % 0.5 Nucleated Red Blood Cells % 0.0 Neutrophils # (Manual) 4.5 Lymphocytes # 0.6 L Monocytes # 0.8 Eosinophils # 0.3 Basophils # 0.0 Nucleated Red Blood Cells # 0.0 Sodium Level 141 Potassium Level 4.7 Chloride Level 101 Carbon Dioxide Level 28 Anion Gap 17 H Blood Urea Nitrogen 68 H Creatinine 5.17 H Glucose Level 69 L Calcium Level 8.8 Total Bilirubin 0.1 L Direct Bilirubin 0.00 Indirect Bilirubin 0.1 Aspartate Amino Transf (AST/SGOT) 34 Alanine Aminotransferase (ALT/SGPT) 30 Alkaline Phosphatase 34 L Total Protein 6.4 Albumin 3.6 Globulin 2.80 Albumin/Globulin Ratio 1.28 Medications Medications Current Medications Acetaminophen (Tylenol Supp) 650 mg Q4H PRN [place] TEMP>100F; Start 12/13/16 at 01: 30 Atorvastatin Calcium (Lipitor) 40 mg QHS PO Last administered on 12/16/16 20:17 ; Admin Dose 40 MG; Start 12/13/16 at 21:00 Bisacodyl (Dulcolax Supp) 10 mg Q24H [place] ; Start 12/13/16 at 01:30 Bupropion HCl (Wellbutrin Xl) 150 mg QAM PO Last administered on 12/17/16 09: 21; Admin Dose 150 MG; Start 12/13/16 at 09:00 Carvedilol (Coreg) 25 mg DAILY PO Last administered on 12/17/16 09:22; Admin Dose 25 MG; Start 12/13/16 at 09:00 Clopidogrel Bisulfate (plaVIX) 75 mg DAILY PO Last administered on 12/17/16 09 :21; Admin Dose 75 MG; Start 12/13/16 at 09:00 Cyanocobalamin (Vitamin B12 Inj) 1,000 mcg Sa@09 IM Last administered on 09:33; Admin Dose 1,000 MCG; Start 12/16/16 at 09:00 Docusate Sodium (Colace) 100 mg Q12H PRN PO CONSTIPATION; Start 12/13/16 at 01: 30 Ferrous Sulfate (Ferrous Sulfate (Ec)) 325 mg TID PO Last administered on 20:17; Admin Dose 325 MG; Start 12/13/16 at 09:00 Furosemide (Lasix) 80 mg DAILY@06 PO Last administered on 12/17/16 05:20; Admin Dose 80 MG; Start 12/13/16 at 06:00 Levothyroxine Sodium (Synthroid) 150 mcg DAILY@06 PO Last administered on 05:21; Admin Dose 150 MCG; Start 12/13/16 at 06:00 Ranitidine HCl (Zantac) 300 mg HS PO Last administered on 12/16/16 20:17; Admin Dose 300 MG; Start 12/13/16 at 21:00 Tramadol HCl (Ultram) 50 mg Q6H PRN PO PAIN Last administered on 12/16/16 22:23 ; Admin Dose 50 MG; Start 12/13/16 at 01:30 Zolpidem Tartrate (Ambien) 10 mg QHS PRN PO INSOMNIA; Start 12/13/16 at 01:30 Fenofibrate (Tricor) 145 mg DAILY PO Last administered on 12/17/16 09:21; Admin Dose 145 MG; Start 12/13/16 at 09:00 Epoetin Stas (Epogen (Non Esrd/Non Oncology)) 10,000 units MoWeFr@17 SC Last administered on 12/15/16 17:32; Admin Dose 10,000 UNITS; Start 12/13/16 at 17:00 Salmeterol Xinafoate/ Fluticasone (Advair 250/50 Diskus) 1 inh BID INH Last administered on 12/17/16 09:21; Admin Dose 1 INH; Start 12/13/16 at 21:00 Benzonatate (Tessalon) 100 mg Q4H PRN PO COUGH; Start 12/13/16 at 17:30 Allopurinol (Zyloprim) 100 mg Q48H PO Last administered on 12/15/16 17:31; Admin Dose 100 MG; Start 12/15/16 at 18:00 Lisinopril (Zestril) 5 mg BID PO Last administered on 12/17/16 09:22; Admin Dose 5 MG; Start 12/15/16 at 09:00 PRIYANKA ROMAN MD Dec 17, 2016 14:52
--- NOTE | 2016-12-17 16:36 | PN ---
Date/Time of Note Date/Time of Note DATE: 12/14/16 TIME: 16:30 Assessment/Plan VTE Prophylaxis VTE Prophylaxis Intervention: other (asa, plavix) Lines/Catheters IV Catheter Type (from Nrsg): Saline Lock Central line still needed: No Urinary Cath still in place: No Assessment/Plan Assessment/Plan 1. rt body weak 2. cad/ pad/ htn 3. copd/ chr bronchitis/ coughs 4. esrd/ on-off fluid overload 5. dm--diet controlled 6. depression ---finish neuro w/up ---per renal/ cards, dialysis ---PT eval ---2units PRBC transfusion Subjective 24 Hr Interval Summary Free Text/Dictation cough spells nino lying down+ exam--- heart--rr, syst & diat m+ lungs--slight bronch wheez+ ext--rt side musc atrophy+, lf bka+ COLTEN ROMANO MD Dec 17, 2016 16:36
--- NOTE | 2016-12-17 16:43 | PN ---
Date/Time of Note Date/Time of Note DATE: 12/15/16 TIME: 15:36 Assessment/Plan VTE Prophylaxis VTE Prophylaxis Intervention: other (asa, plavix) Lines/Catheters IV Catheter Type (from Nrsg): Saline Lock Central line still needed: No Urinary Cath still in place: No Assessment/Plan Assessment/Plan 1. rt body weak 2. cad/ pad/ chf 3. copd/ chr bronchitis 4. esrd/ anemia 5. dm--diet controlled 6. depression ---advance full PT/ OT exercises ---per cards/ renal, dialysis ---family visits ok ---re-adjust meds ---acute rehab ref ---set up home hospice program for nurse/ equips/ meds/ IHSS Subjective 24 Hr Interval Summary Free Text/Dictation ate better, had dialysis yest, PT eval done. exam-- cards--rr, syst & diast m+ lungs--near throat wheez+ ext--rt musc atrophy, lf bka, less pit edema COLTEN ROMANO MD Dec 17, 2016 16:43
[2016-12-17] MEDS: ALLOPURINOL 100 MG TAB PO SCH (17:44)
[2016-12-17] MEDS: traMADol 50 MG TAB PO PRN (18:10)
[2016-12-17] MEDS: RANITIDINE 150 MG TAB PO SCH (20:47)
[2016-12-17] MEDS: ATORVASTATIN 40 MG TAB PO SCH (20:48)
[2016-12-18] VITALS (18 sets, daily range): BP systolic 116–146; BP diastolic 53–81; PULSE 69–89; RESP 18–19
[2016-12-18] MEDS: BISACODYL 10 MG SUPP PR SCH (01:30)
--- NOTE | 2016-12-18 05:57 | PN ---
DATE: 12/17/2016 SUBJECTIVE DATA: The patient is awake and alert. He was vomiting. . OBJECTIVE DATA: CHEST: Clear to A and P. HEART: Normal sinus rhythm. ABDOMEN: Liver, kidney, spleen not palpable. Bowel sounds are normal. EXTREMITIES: The patient has a right below-knee amputation. Left leg is normal. VITAL SIGNS: Temperature 98.5, blood pressure 164/73, pulse 65, respiratory rate 15. LABORATORY AND DIAGNOSTIC DATA: White blood cell count 6300. Hemoglobin 7.9 g percent, hematocrit 25.5 percent, platelet count low at 129,000. Differential is normal. Sodium 141, potassium 4.7, chloride 101, carbon dioxide 28. BUN 989, creatinine 5.17. Patient is on dialysis. Glucose 69. Calcium 8.8. PLAN: Start patient on Macrobid 100 mg twice a day for 10 days and then to repeat the UA, culture and sensitivity. The best worker recommends an echocardiogram to investigate his CVA. Zofran 4 mg every 4 hours p.r.n. nausea or vomiting. The patient will also need a reticulocyte count and a ferritin level and an abdominal ultrasound to investigate the possibility of ascites. Dictated By: Britton Tate MD /anna/demarcus /Document#: [id number]
[2016-12-18] MEDS: LEVOTHYROXINE 150 MCG TAB PO SCH (06:56)
[2016-12-18] MEDS: FUROSEMIDE 40 MG TAB PO SCH (06:56)
[2016-12-18 07:46] LABS: BASOPHILS % 0.4 % (0.0-2.0); EOSINOPHILS # 0.2 10^3/ul (0.0-0.5); EOSINOPHILS % 2.2 % (0.0-7.0); HEMATOCRIT 30.8 % (42.0-52.0); HEMOGLOBIN 9.5 g/dl (14.0-18.0); LYMPHOCYTES # 0.6 10^3/ul (0.8-2.9); LYMPHOCYTES % 8.8 % (15.0-51.0); MEAN CORPUSCULAR HEMOGLOBIN 32.1 pg (29.0-33.0); MEAN CORPUSCULAR HGB CONC 30.8 g/dl (32.0-37.0); MEAN CORPUSCULAR VOLUME 104.1 fl (82.0-101.0); MEAN PLATELET VOLUME 10.4 fl (7.4-10.4); MONOCYTE # 0.8 10^3/ul (0.3-0.9); PLATELET COUNT 126 10^3/UL (140-415); RED BLOOD COUNT 2.96 10^6/ul (4.70-6.10); RED CELL DISTRIBUTION WIDTH 19.7 % (11.5-14.5); WHITE BLOOD COUNT 6.8 10^3/ul (4.8-10.8)
--- NOTE | 2016-12-18 08:19 | CONS ---
Date/Time of Note Date/Time of Note DATE: 12/18/16 TIME: 08:17 Assessment/Plan Assessment/Plan Problems: (1) CVA (cerebral vascular accident) Status: Acute Comment: gradually better strength Rt side Qualifiers: CVA mechanism: unspecified Qualified Code: I63.9 - Cerebrovascular accident (CVA), unspecified mechanism (2) HTN (hypertension) Comment: controlled (3) ESRD (end stage renal disease) on dialysis Comment: for HD today (4) Anemia due to chronic kidney disease Comment: better post PRBC's Consultation Date/Type/Reason Admit Date/Time Dec 12, 2016 at 22:18 Type of Consultation: neph 24 HR Interval Summary Free Text/Dictation feels gen well Exam/Review of Systems Vital Signs Vitals Vital Signs Date Time Temp Pulse Resp B/P Pulse Ox O2 Delivery O2 Flow Rate FiO2 12/18/16 08:03 98.0 80 18 128/66 98 12/18/16 07:52 Nasal Cannula 2.0 Intake and Output 12/17/16 12/17/16 12/18/16 15:00 23:00 07:00 Intake Total 700 ml 600 ml Output Total 150 ml 140 ml Balance 550 ml 460 ml Exam Constitutional: alert, oriented Head: normocephalic Neck: supple Respiratory: clear to auscultation Cardiovascular: regular rate and rhythm Gastrointestinal: soft Extremities: normal pulses, other (fxn AVF LUE) Results Result Diagram: 12/18/16 0641 12/17/16 0707 Results 24 hrs Laboratory Tests Test 12/18/16 05:58 12/18/16 06:41 Lab Scanned Report BLOOD TRANSFUSION White Blood Count 6.8 Red Blood Count 2.96 #L Hemoglobin 9.5 #L Hematocrit 30.8 #L Mean Corpuscular Volume 104.1 H Mean Corpuscular Hemoglobin 32.1 Mean Corpuscular Hemoglobin Concent 30.8 L Red Cell Distribution Width 19.7 H Platelet Count 126 L Mean Platelet Volume 10.4 Neutrophils % 77.0 Lymphocytes % 8.8 L Monocytes % 11.0 Eosinophils % 2.2 Basophils % 0.4 Nucleated Red Blood Cells % 0.0 Neutrophils # (Manual) 5.2 Lymphocytes # 0.6 L Monocytes # 0.8 Eosinophils # 0.2 Basophils # 0.0 Nucleated Red Blood Cells # 0.0 Medications Medications Current Medications Acetaminophen (Tylenol Supp) 650 mg Q4H PRN [place] TEMP>100F; Start 12/13/16 at 01: 30 Atorvastatin Calcium (Lipitor) 40 mg QHS PO Last administered on 12/17/16 20: 48; Admin Dose 40 MG; Start 12/13/16 at 21:00 Bisacodyl (Dulcolax Supp) 10 mg Q24H [place] ; Start 12/13/16 at 01:30 Bupropion HCl (Wellbutrin Xl) 150 mg QAM PO Last administered on 12/17/16 09: 21; Admin Dose 150 MG; Start 12/13/16 at 09:00 Carvedilol (Coreg) 25 mg DAILY PO Last administered on 12/17/16 09:22; Admin Dose 25 MG; Start 12/13/16 at 09:00 Clopidogrel Bisulfate (plaVIX) 75 mg DAILY PO Last administered on 12/17/16 09 :21; Admin Dose 75 MG; Start 12/13/16 at 09:00 Cyanocobalamin (Vitamin B12 Inj) 1,000 mcg Sa@09 IM Last administered on 09:33; Admin Dose 1,000 MCG; Start 12/16/16 at 09:00 Docusate Sodium (Colace) 100 mg Q12H PRN PO CONSTIPATION; Start 12/13/16 at 01: 30 Ferrous Sulfate (Ferrous Sulfate (Ec)) 325 mg TID PO Last administered on 20:47; Admin Dose 325 MG; Start 12/13/16 at 09:00 Furosemide (Lasix) 80 mg DAILY@06 PO Last administered on 12/18/16 06:56; Admin Dose 80 MG; Start 12/13/16 at 06:00 Levothyroxine Sodium (Synthroid) 150 mcg DAILY@06 PO Last administered on 06:56; Admin Dose 150 MCG; Start 12/13/16 at 06:00 Ranitidine HCl (Zantac) 300 mg HS PO Last administered on 12/17/16 20:47; Admin Dose 300 MG; Start 12/13/16 at 21:00 Tramadol HCl (Ultram) 50 mg Q6H PRN PO PAIN Last administered on 12/17/16 18: 10; Admin Dose 50 MG; Start 9/6/17 at 01:30 Zolpidem Tartrate (Ambien) 10 mg QHS PRN PO INSOMNIA; Start 12/13/16 at 01:30 Fenofibrate (Tricor) 145 mg DAILY PO Last administered on 12/17/16 09:21; Admin Dose 145 MG; Start 12/13/16 at 09:00 Epoetin Stas (Epogen (Non Esrd/Non Oncology)) 10,000 units MoWeFr@17 SC Last administered on 12/15/16 17:32; Admin Dose 10,000 UNITS; Start 12/13/16 at 17:00 Salmeterol Xinafoate/ Fluticasone (Advair 250/50 Diskus) 1 inh BID INH Last administered on 12/17/16 20:46; Admin Dose 1 INH; Start 12/13/16 at 21:00 Benzonatate (Tessalon) 100 mg Q4H PRN PO COUGH; Start 12/13/16 at 17:30 Allopurinol (Zyloprim) 100 mg Q48H PO Last administered on 12/17/16 17:44; Admin Dose 100 MG; Start 12/15/16 at 18:00 Lisinopril (Zestril) 5 mg BID PO Last administered on 12/17/16 20:48; Admin Dose 5 MG; Start 12/15/16 at 09:00 SABINE MIRZA MD Dec 18, 2016 08:19
[2016-12-18 08:27] LABS: ALBUMIN 3.7 g/dl (3.3-4.9); ALBUMIN/GLOBULIN RATIO 1.27; BILIRUBIN,DIRECT 0.2 mg/dl (0.00-0.20); BILIRUBIN,INDIRECT 0.4 mg/dl (0-1.1); BILIRUBIN,TOTAL 0.6 mg/dl (0.2-1.3); CREATININE 6.01 mg/dl (0.61-1.24); TOTAL PROTEIN 6.6 g/dl (6.1-8.1)
[2016-12-18] MEDS: SALMETEROL/FLUTICASONE 250/50 INHA INH SCH ×2 (09:30→21:00)
[2016-12-18] MEDS: FERROUS SULFATE (EC) 325 MG TAB PO SCH ×3 (09:30→20:33)
[2016-12-18] MEDS: CLOPIDOGREL 75 MG TAB PO SCH (09:30)
[2016-12-18] MEDS: FENOFIBRATE 145 MG TAB PO SCH (09:30)
[2016-12-18] MEDS: BUPROPION (XL) 150 MG TAB PO SCH (09:30)
[2016-12-18] MEDS: LISINOPRIL 5 MG TAB PO SCH ×2 (09:30→20:34)
[2016-12-18] MEDS: EPOETIN 10000 UNITS/ML (NON ESRD/NON ONCOLOGY) SC SCH (13:43)
[2016-12-18] MEDS: ALBUTEROL 0.083% (NEB) 2.5 MG/3 ML AMP HHN PRN (15:36)
--- NOTE | 2016-12-18 16:30 | CONS ---
Date/Time of Note Date/Time of Note DATE: 12/18/16 TIME: 16:28 Assessment/Plan Assessment/Plan Additional Assessment/Plan Fatigue Compensated systolic congestive heart failure Cardiomyopathy with ejection fraction 45% CAD with history of CABG Peripheral arterial disease End-stage renal disease on hemodialysis Acute blood loss anemia -Blood pressure trend overall remained stable, fluid management via hemodialysis as per our nephrology colleagues. Consultation Date/Type/Reason Admit Date/Time Dec 12, 2016 at 22:18 Type of Consultation: cv 24 HR Interval Summary Free Text/Dictation Patient seen and examined. Complaining of cough today and loss of voice. Denies shortness of breath or chest pain Exam/Review of Systems Vital Signs Vitals Vital Signs Date Time Temp Pulse Resp B/P Pulse Ox O2 Delivery O2 Flow Rate FiO2 12/18/16 16:19 98.0 75 18 134/81 98 12/18/16 15:36 Nasal Cannula 4.0 Intake and Output 12/17/16 12/17/16 12/18/16 15:00 23:00 07:00 Intake Total 700 ml 600 ml Output Total 150 ml 140 ml Balance 550 ml 460 ml Exam Coughing at times Constitutional: alert, oriented Head: normocephalic Respiratory: other (Coarse breath sounds bilaterally) Cardiovascular: other (S1-S2 heard), regular rate and rhythm Gastrointestinal: bowel sounds, non-tender, soft Extremities: edema Results Result Diagram: 12/18/16 0641 12/18/16 0641 Results 24 hrs Laboratory Tests Test 12/18/16 05:58 12/18/16 06:41 Lab Scanned Report BLOOD TRANSFUSION White Blood Count 6.8 Red Blood Count 2.96 #L Hemoglobin 9.5 #L Hematocrit 30.8 #L Mean Corpuscular Volume 104.1 H Mean Corpuscular Hemoglobin 32.1 Mean Corpuscular Hemoglobin Concent 30.8 L Red Cell Distribution Width 19.7 H Platelet Count 126 L Mean Platelet Volume 10.4 Neutrophils % 77.0 Lymphocytes % 8.8 L Monocytes % 11.0 Eosinophils % 2.2 Basophils % 0.4 Nucleated Red Blood Cells % 0.0 Neutrophils # (Manual) 5.2 Lymphocytes # 0.6 L Monocytes # 0.8 Eosinophils # 0.2 Basophils # 0.0 Nucleated Red Blood Cells # 0.0 Sodium Level 141 Potassium Level 5.0 Chloride Level 100 Carbon Dioxide Level 24 Anion Gap 22 H Blood Urea Nitrogen 83 H Creatinine 6.01 H Glucose Level 68 L Calcium Level 9.0 Total Bilirubin 0.6 Direct Bilirubin 0.20 # Indirect Bilirubin 0.4 Aspartate Amino Transf (AST/SGOT) 33 Alanine Aminotransferase (ALT/SGPT) 28 Alkaline Phosphatase 36 L Total Protein 6.6 Albumin 3.7 Globulin 2.90 Albumin/Globulin Ratio 1.27 Medications Medications Current Medications Acetaminophen (Tylenol Supp) 650 mg Q4H PRN [place] TEMP>100F; Start 12/13/16 at 01: 30 Atorvastatin Calcium (Lipitor) 40 mg QHS PO Last administered on 12/17/16 20: 48; Admin Dose 40 MG; Start 12/13/16 at 21:00 Bisacodyl (Dulcolax Supp) 10 mg Q24H [place] ; Start 12/13/16 at 01:30 Bupropion HCl (Wellbutrin Xl) 150 mg QAM PO Last administered on 12/18/16 09: 30; Admin Dose 150 MG; Start 12/13/16 at 09:00 Carvedilol (Coreg) 25 mg DAILY PO Last administered on 12/18/16 09:30; Admin Dose 25 MG; Start 12/13/16 at 09:00 Clopidogrel Bisulfate (plaVIX) 75 mg DAILY PO Last administered on 12/18/16 09 :30; Admin Dose 75 MG; Start 12/13/16 at 09:00 Cyanocobalamin (Vitamin B12 Inj) 1,000 mcg Sa@09 IM Last administered on 09:33; Admin Dose 1,000 MCG; Start 12/16/16 at 09:00 Docusate Sodium (Colace) 100 mg Q12H PRN PO CONSTIPATION; Start 12/13/16 at 01: 30 Ferrous Sulfate (Ferrous Sulfate (Ec)) 325 mg TID PO Last administered on 09:30; Admin Dose 325 MG; Start 12/13/16 at 09:00 Furosemide (Lasix) 80 mg DAILY@06 PO Last administered on 12/18/16 06:56; Admin Dose 80 MG; Start 12/13/16 at 06:00 Levothyroxine Sodium (Synthroid) 150 mcg DAILY@06 PO Last administered on 06:56; Admin Dose 150 MCG; Start 12/13/16 at 06:00 Ranitidine HCl (Zantac) 300 mg HS PO Last administered on 12/17/16 20:47; Admin Dose 300 MG; Start 12/13/16 at 21:00 Tramadol HCl (Ultram) 50 mg Q6H PRN PO PAIN Last administered on 12/17/16 18: 10; Admin Dose 50 MG; Start 12/13/16 at 01:30 Zolpidem Tartrate (Ambien) 10 mg QHS PRN PO INSOMNIA; Start 12/13/16 at 01:30 Fenofibrate (Tricor) 145 mg DAILY PO Last administered on 12/18/16 09:30; Admin Dose 145 MG; Start 12/13/16 at 09:00 Epoetin Stas (Epogen (Non Esrd/Non Oncology)) 10,000 units MoWeFr@17 SC Last administered on 12/18/16 13:43; Admin Dose 10,000 UNITS; Start 12/13/16 at 17:00 Salmeterol Xinafoate/ Fluticasone (Advair 250/50 Diskus) 1 inh BID INH Last administered on 12/18/16 09:30; Admin Dose 1 INH; Start 12/13/16 at 21:00 Benzonatate (Tessalon) 100 mg Q4H PRN PO COUGH; Start 12/13/16 at 17:30 Allopurinol (Zyloprim) 100 mg Q48H PO Last administered on 12/17/16 17:44; Admin Dose 100 MG; Start 12/15/16 at 18:00 Lisinopril (Zestril) 5 mg BID PO Last administered on 12/18/16 09:30; Admin Dose 5 MG; Start 12/15/16 at 09:00 Hammad Hernandez DO Dec 18, 2016 16:30
[2016-12-18] MEDS: RANITIDINE 150 MG TAB PO SCH (20:33)
[2016-12-18] MEDS: ATORVASTATIN 40 MG TAB PO SCH (20:33)
[2016-12-19] VITALS (11 sets, daily range): BP systolic 117–138; BP diastolic 57–69; PULSE 68–77; RESP 19
[2016-12-19] MEDS: BISACODYL 10 MG SUPP PR SCH (01:30)
[2016-12-19] MEDS: FUROSEMIDE 40 MG TAB PO SCH (05:59)
[2016-12-19] MEDS: LEVOTHYROXINE 150 MCG TAB PO SCH (05:59)
--- NOTE | 2016-12-19 07:54 | CONS ---
Date/Time of Note Date/Time of Note DATE: 12/19/16 TIME: 07:52 Assessment/Plan Assessment/Plan Problems: (1) CVA (cerebral vascular accident) Status: Acute Comment: improving strength Rt side...? to ARU for PT? Qualifiers: CVA mechanism: unspecified Qualified Code: I63.9 - Cerebrovascular accident (CVA), unspecified mechanism (2) HTN (hypertension) Comment: controlled (3) ESRD (end stage renal disease) on dialysis Comment: for planned HD in AM (4) Anemia due to chronic kidney disease Comment: stable post PRBC Tx Consultation Date/Type/Reason Admit Date/Time Dec 12, 2016 at 22:18 Type of Consultation: neph 24 HR Interval Summary Free Text/Dictation bored...? waiting for rehab? Exam/Review of Systems Vital Signs Vitals Vital Signs Date Time Temp Pulse Resp B/P Pulse Ox O2 Delivery O2 Flow Rate FiO2 12/19/16 05:23 4.0 12/19/16 04:01 69 12/19/16 04:00 Nasal Cannula 12/19/16 03:37 97.9 19 120/65 95 Intake and Output 12/18/16 12/18/16 12/19/16 15:00 23:00 07:00 Intake Total 500 ml 700 ml 200 ml Output Total 3500 ml 200 ml 550 ml Balance -3000 ml 500 ml -350 ml Exam Constitutional: alert, oriented Psych: no complaints Head: normocephalic Neck: supple Respiratory: clear to auscultation Cardiovascular: regular rate and rhythm Gastrointestinal: nl liver, spleen, soft Extremities: other (fxn LUE AVF.. s/p L BKA) Neurological: other (increased strength Rt side) Results Result Diagram: 12/18/16 0641 12/18/16 0641 Results 24 hrs Laboratory Tests Test 12/19/16 06:09 Lab Scanned Report BLOOD TRANSFUSION Medications Medications Current Medications Acetaminophen (Tylenol Supp) 650 mg Q4H PRN [place] TEMP>100F; Start 12/13/16 at 01: 30 Atorvastatin Calcium (Lipitor) 40 mg QHS PO Last administered on 12/18/16t 20: 33; Admin Dose 40 MG; Start 12/13/16 at 21:00 Bisacodyl (Dulcolax Supp) 10 mg Q24H [place] ; Start 12/13/16 at 01:30 Bupropion HCl (Wellbutrin Xl) 150 mg QAM PO Last administered on 12/18/16 09: 30; Admin Dose 150 MG; Start 12/13/16 at 09:00 Carvedilol (Coreg) 25 mg DAILY PO Last administered on 12/18/16 09:30; Admin Dose 25 MG; Start 12/13/16 at 09:00 Clopidogrel Bisulfate (plaVIX) 75 mg DAILY PO Last administered on 12/18/16 09 :30; Admin Dose 75 MG; Start 12/13/16 at 09:00 Cyanocobalamin (Vitamin B12 Inj) 1,000 mcg Sa@09 IM Last administered on 09:33; Admin Dose 1,000 MCG; Start 12/16/16 at 09:00 Docusate Sodium (Colace) 100 mg Q12H PRN PO CONSTIPATION; Start 12/13/16 at 01: 30 Ferrous Sulfate (Ferrous Sulfate (Ec)) 325 mg TID PO Last administered on 20:33; Admin Dose 325 MG; Start 12/13/16 at 09:00 Furosemide (Lasix) 80 mg DAILY@06 PO Last administered on 12/19/16 05:59; Admin Dose 80 MG; Start 12/13/16 at 06:00 Levothyroxine Sodium (Synthroid) 150 mcg DAILY@06 PO Last administered on 05:59; Admin Dose 150 MCG; Start 12/13/16 at 06:00 Ranitidine HCl (Zantac) 300 mg HS PO Last administered on 12/18/16 20:33; Admin Dose 300 MG; Start 12/13/16 at 21:00 Tramadol HCl (Ultram) 50 mg Q6H PRN PO PAIN Last administered on 12/17/16 18: 10; Admin Dose 50 MG; Start 12/13/16 at 01:30 Zolpidem Tartrate (Ambien) 10 mg QHS PRN PO INSOMNIA; Start 12/13/16 at 01:30 Fenofibrate (Tricor) 145 mg DAILY PO Last administered on 12/18/16 09:30; Admin Dose 145 MG; Start 12/13/16 at 09:00 Epoetin Stas (Epogen (Non Esrd/Non Oncology)) 10,000 units MoWeFr@17 [place] Last administered on 12/18/16 13:43; Admin Dose 10,000 UNITS; Start 12/13/16 at 17:00 Salmeterol Xinafoate/ Fluticasone (Advair 250/50 Diskus) 1 inh BID INH Last administered on 12/18/16 09:30; Admin Dose 1 INH; Start 12/13/16 at 21:00 Benzonatate (Tessalon) 100 mg Q4H PRN PO COUGH; Start 12/13/16 at 17:30 Allopurinol (Zyloprim) 100 mg Q48H PO Last administered on 12/17/16 17:44; Admin Dose 100 MG; Start 12/15/16 at 18:00 Lisinopril (Zestril) 5 mg BID PO Last administered on 12/18/16 20:34; Admin Dose 5 MG; Start 12/15/16 at 09:00 SABINE MIRZA MD Dec 19, 2016 07:54
[2016-12-19] MEDS: FENOFIBRATE 145 MG TAB PO SCH (09:49)
[2016-12-19] MEDS: CLOPIDOGREL 75 MG TAB PO SCH (09:49)
[2016-12-19] MEDS: SALMETEROL/FLUTICASONE 250/50 INHA INH SCH ×2 (09:49→20:58)
[2016-12-19] MEDS: BUPROPION (XL) 150 MG TAB PO SCH (09:49)
[2016-12-19] MEDS: LISINOPRIL 5 MG TAB PO SCH ×2 (09:50→20:59)
[2016-12-19] MEDS: FERROUS SULFATE (EC) 325 MG TAB PO SCH ×3 (09:50→20:59)
[2016-12-19] MEDS ORDERED: ONDANSETRON 4 MG INJ IV PRN (14:00)
--- NOTE | 2016-12-19 15:39 | CONS ---
Date/Time of Note Date/Time of Note DATE: 12/19/16 TIME: 15:38 Assessment/Plan Assessment/Plan Additional Assessment/Plan Fatigue Compensated systolic congestive heart failure Cardiomyopathy with ejection fraction 45% CAD with history of CABG Peripheral arterial disease End-stage renal disease on hemodialysis Acute blood loss anemia -Blood pressure trend overall remains stable, fluid management via hemodialysis as per our nephrology colleagues. Encourage PT. Consultation Date/Type/Reason Admit Date/Time Dec 12, 2016 at 22:18 Type of Consultation: cv 24 HR Interval Summary Free Text/Dictation feeling better, cough and voice better, no cp Exam/Review of Systems Vital Signs Vitals Vital Signs Date Time Temp Pulse Resp B/P Pulse Ox O2 Delivery O2 Flow Rate FiO2 12/19/16 12:30 77 12/19/16 11:31 98.1 19 121/57 99 12/19/16 05:23 4.0 12/19/16 04:00 Nasal Cannula Intake and Output 12/18/16 12/18/16 12/19/16 15:00 23:00 07:00 Intake Total 500 ml 700 ml 200 ml Output Total 3500 ml 200 ml 550 ml Balance -3000 ml 500 ml -350 ml Exam nad Constitutional: alert, oriented Respiratory: other (course bs, no wheeze) Cardiovascular: other (s1s2), regular rate and rhythm Gastrointestinal: bowel sounds, non-tender, soft Extremities: edema Results Result Diagram: 12/18/16 0641 12/18/16 0641 Results 24 hrs Laboratory Tests Test 12/19/16 06:09 Lab Scanned Report BLOOD TRANSFUSION Medications Medications Current Medications Acetaminophen (Tylenol Supp) 650 mg Q4H PRN [place] TEMP>100F; Start 12/13/16 at 01: 30 Atorvastatin Calcium (Lipitor) 40 mg QHS PO Last administered on 12/18/16 20: 33; Admin Dose 40 MG; Start 12/13/16 at 21:00 Bisacodyl (Dulcolax Supp) 10 mg Q24H SD ; Start 12/13/16 at 01:30 Bupropion HCl (Wellbutrin Xl) 150 mg QAM PO Last administered on 12/19/16 09: 49; Admin Dose 150 MG; Start 12/13/16 at 09:00 Carvedilol (Coreg) 25 mg DAILY PO Last administered on 12/19/16 09:50; Admin Dose 25 MG; Start 12/13/16 at 09:00 Clopidogrel Bisulfate (plaVIX) 75 mg DAILY PO Last administered on 12/19/16 09 :49; Admin Dose 75 MG; Start 12/13/16 at 09:00 Cyanocobalamin (Vitamin B12 Inj) 1,000 mcg Sa@09 IM Last administered on 09:33; Admin Dose 1,000 MCG; Start 12/16/16 at 09:00 Docusate Sodium (Colace) 100 mg Q12H PRN PO CONSTIPATION; Start 12/13/16 at 01: 30 Ferrous Sulfate (Ferrous Sulfate (Ec)) 325 mg TID PO Last administered on 14:39; Admin Dose 325 MG; Start 12/13/16 at 09:00 Furosemide (Lasix) 80 mg DAILY@06 PO Last administered on 12/19/16 05:59; Admin Dose 80 MG; Start 12/13/16 at 06:00 Levothyroxine Sodium (Synthroid) 150 mcg DAILY@06 PO Last administered on 05:59; Admin Dose 150 MCG; Start 12/13/16 at 06:00 Ranitidine HCl (Zantac) 300 mg HS PO Last administered on 12/18/16 20:33; Admin Dose 300 MG; Start 12/13/16 at 21:00 Tramadol HCl (Ultram) 50 mg Q6H PRN PO PAIN Last administered on 12/17/16 18: 10; Admin Dose 50 MG; Start 12/13/16 at 01:30 Zolpidem Tartrate (Ambien) 10 mg QHS PRN PO INSOMNIA; Start 12/13/16 at 01:30 Fenofibrate (Tricor) 145 mg DAILY PO Last administered on 12/19/16 09:49; Admin Dose 145 MG; Start 12/13/16 at 09:00 Epoetin Stas (Epogen (Non Esrd/Non Oncology)) 10,000 units MoWeFr@17 SC Last administered on 12/18/16 13:43; Admin Dose 10,000 UNITS; Start 12/13/16 at 17:00 Salmeterol Xinafoate/ Fluticasone (Advair 250/50 Diskus) 1 inh BID INH Last administered on 12/19/16 09:49; Admin Dose 1 INH; Start 12/13/16 at 21:00 Benzonatate (Tessalon) 100 mg Q4H PRN PO COUGH; Start 12/13/16 at 17:30 Allopurinol (Zyloprim) 100 mg Q48H PO Last administered on 12/17/16 17:44; Admin Dose 100 MG; Start 12/15/16 at 18:00 Lisinopril (Zestril) 5 mg BID PO Last administered on 12/19/16 09:50; Admin Dose 5 MG; Start 12/15/16 at 09:00 Ondansetron HCl (Zofran Inj) 4 mg Q4H PRN IV NAUSEA AND/OR VOMITING Last administered on 12/19/16 14:39; Admin Dose 4 MG; Start 12/19/16 at 14:00 Hammad Hernandez DO Dec 19, 2016 15:39
[2016-12-19] MEDS: ALLOPURINOL 100 MG TAB PO SCH (18:28)
[2016-12-19] MEDS: ATORVASTATIN 40 MG TAB PO SCH (20:58)
[2016-12-19] MEDS: RANITIDINE 150 MG TAB PO SCH (20:58)
--- NOTE | 2016-12-19 23:31 | PN ---
Date/Time of Note Date/Time of Note DATE: 12/19/16 TIME: 13:21 Assessment/Plan VTE Prophylaxis VTE Prophylaxis Intervention: other (plavix) Lines/Catheters IV Catheter Type (from Nrsg): Peripheral IV Central line still needed: No Urinary Cath still in place: No Assessment/Plan Assessment/Plan 1. rt side body musc weak--did better with PT exercises today, no falls 2. cad-cabg/ pad/ chf--bp controlled, no angina 3. copd--? coughs causing to vomit 4. esrd-dialysis/ anemia/ edema--better 5. dm--diet controlled 6. depression 7. gastroparesis--causing food to remain in stomach longer, with exercise, regurg & vomit 8. uti ---cont all supportive cares ---s/p another 2u prbc ---awaits acute rehab floor transfer as early as tomorrow ---started on atbx Subjective 24 Hr Interval Summary Free Text/Dictation after breakfast, while pt eval, felt nausea, vomited x1 Exam/Review of Systems Vital Signs Vitals Vital Signs Date Time Temp Pulse Resp B/P Pulse Ox O2 Delivery O2 Flow Rate FiO2 12/19/16 20:17 Nasal Cannula 2.0 12/19/16 20:07 75 12/19/16 20:00 98.3 19 117/59 95 Intake and Output 12/18/16 12/18/16 12/19/16 15:00 23:00 07:00 Intake Total 500 ml 700 ml 200 ml Output Total 3500 ml 200 ml 550 ml Balance -3000 ml 500 ml -350 ml Exam less bronch wheez rr syst & diast m+ rt side musc atrophy+ somewhat withdrawn+ Results Result Diagram: 12/18/16 0641 12/18/16 0641 Results 24 hrs Laboratory Tests Test 12/19/16 06:09 Lab Scanned Report BLOOD TRANSFUSION Medications Medications Current Medications Acetaminophen (Tylenol Supp) 650 mg Q4H PRN [place] TEMP>100F; Start 12/13/16 at 01: 30 Atorvastatin Calcium (Lipitor) 40 mg QHS PO Last administered on 12/19/16t 20: 58; Admin Dose 40 MG; Start 12/13/16 at 21:00 Bisacodyl (Dulcolax Supp) 10 mg Q24H [place] ; Start 12/13/16 at 01:30 Bupropion HCl (Wellbutrin Xl) 150 mg QAM PO Last administered on 12/19/16 09: 49; Admin Dose 150 MG; Start 12/13/16 at 09:00 Carvedilol (Coreg) 25 mg DAILY PO Last administered on 12/19/16 09:50; Admin Dose 25 MG; Start 12/13/16 at 09:00 Clopidogrel Bisulfate (plaVIX) 75 mg DAILY PO Last administered on 12/19/16 09 :49; Admin Dose 75 MG; Start 12/13/16 at 09:00 Cyanocobalamin (Vitamin B12 Inj) 1,000 mcg Sa@09 IM Last administered on 09:33; Admin Dose 1,000 MCG; Start 12/16/16 at 09:00 Docusate Sodium (Colace) 100 mg Q12H PRN PO CONSTIPATION; Start 12/13/16 at 01: 30 Ferrous Sulfate (Ferrous Sulfate (Ec)) 325 mg TID PO Last administered on 20:59; Admin Dose 325 MG; Start 12/13/16 at 09:00 Furosemide (Lasix) 80 mg DAILY@06 PO Last administered on 12/19/16 05:59; Admin Dose 80 MG; Start 12/13/16 at 06:00 Levothyroxine Sodium (Synthroid) 150 mcg DAILY@06 PO Last administered on 05:59; Admin Dose 150 MCG; Start 12/13/16 at 06:00 Ranitidine HCl (Zantac) 300 mg HS PO Last administered on 12/19/16 20:58; Admin Dose 300 MG; Start 12/13/16 at 21:00 Tramadol HCl (Ultram) 50 mg Q6H PRN PO PAIN Last administered on 12/17/16 18: 10; Admin Dose 50 MG; Start 12/13/16 at 01:30 Zolpidem Tartrate (Ambien) 10 mg QHS PRN PO INSOMNIA; Start 12/13/16 at 01:30 Fenofibrate (Tricor) 145 mg DAILY PO Last administered on 12/19/16 09:49; Admin Dose 145 MG; Start 12/13/16 at 09:00 Epoetin Stas (Epogen (Non Esrd/Non Oncology)) 10,000 units MoWeFr@17 SC Last administered on 12/18/16 13:43; Admin Dose 10,000 UNITS; Start 12/13/16 at 17:00 Salmeterol Xinafoate/ Fluticasone (Advair 250/50 Diskus) 1 inh BID INH Last administered on 12/19/16 20:58; Admin Dose 1 INH; Start 12/13/16 at 21:00 Benzonatate (Tessalon) 100 mg Q4H PRN PO COUGH Last administered on 12/19/16 21:04; Admin Dose 100 MG; Start 12/13/16 at 17:30 Allopurinol (Zyloprim) 100 mg Q48H PO Last administered on 12/19/16 18:28; Admin Dose 100 MG; Start 12/15/16 at 18:00 Lisinopril (Zestril) 5 mg BID PO Last administered on 12/19/16 20:59; Admin Dose 5 MG; Start 12/15/16 at 09:00 Ondansetron HCl (Zofran Inj) 4 mg Q4H PRN IV NAUSEA AND/OR VOMITING Last administered on 12/19/16 14:39; Admin Dose 4 MG; Start 12/19/16 at 14:00 Nitrofurantoin Macrocrystals (Macrobid) 100 mg BID PO ; Start 12/20/16 at 09:00 ; Stop 12/30/16 at 09:00; Status COLTEN URIARTE MD Dec 19, 2016 23:30
--- NOTE | 2016-12-19 23:39 | PN ---
Date/Time of Note Date/Time of Note DATE: 12/18/16 TIME: 12:32 Assessment/Plan VTE Prophylaxis VTE Prophylaxis Intervention: other (plavix) Lines/Catheters IV Catheter Type (from Nrsg): Peripheral IV Central line still needed: No Urinary Cath still in place: No Assessment/Plan Assessment/Plan 1. rt body weak w/ increasing falling incidents--advancing PT exercises 2. cad/ chf-- bp controlled 3. copd 4. esrd/ anemia/ edema-- tot 4u prbc so far this hospitalization 5. depression--lack of interest/ thrive/ energy 6. dm--diet controlled ---per cards/ renal ---acute rehab ref ---cont all PT/ OT exercises ---will sched a meeting w/ hospice program to be introduced of what could be available when pt goes home Subjective 24 Hr Interval Summary Free Text/Dictation less weak, ate ok, ?still on/off cough spells Exam/Review of Systems Vital Signs Vitals Vital Signs Date Time Temp Pulse Resp B/P Pulse Ox O2 Delivery O2 Flow Rate FiO2 12/19/16 20:17 Nasal Cannula 2.0 12/19/16 20:07 75 12/19/16 20:00 98.3 19 117/59 95 Intake and Output 12/18/16 12/18/16 12/19/16 15:00 23:00 07:00 Intake Total 500 ml 700 ml 200 ml Output Total 3500 ml 200 ml 550 ml Balance -3000 ml 500 ml -350 ml Exam rt body musc atrophy+ slight bronch wheez+ rr syst & diast m+ lf bka Results Result Diagram: 12/18/1641 12/18/16 0641 Results 24 hrs Laboratory Tests Test 12/19/16 06:09 Lab Scanned Report BLOOD TRANSFUSION Medications Medications Current Medications Acetaminophen (Tylenol Supp) 650 mg Q4H PRN [place] TEMP>100F; Start 12/13/16 at 01: 30 Atorvastatin Calcium (Lipitor) 40 mg QHS PO Last administered on 12/19/16 20: 58; Admin Dose 40 MG; Start 12/13/16 at 21:00 Bisacodyl (Dulcolax Supp) 10 mg Q24H [place] ; Start 12/13/16 at 01:30 Bupropion HCl (Wellbutrin Xl) 150 mg QAM PO Last administered on 12/19/16 09: 49; Admin Dose 150 MG; Start 12/13/16 at 09:00 Carvedilol (Coreg) 25 mg DAILY PO Last administered on 12/19/16 09:50; Admin Dose 25 MG; Start 12/13/16 at 09:00 Clopidogrel Bisulfate (plaVIX) 75 mg DAILY PO Last administered on 12/19/16 09 :49; Admin Dose 75 MG; Start 12/13/16 at 09:00 Cyanocobalamin (Vitamin B12 Inj) 1,000 mcg Sa@09 IM Last administered on 09:33; Admin Dose 1,000 MCG; Start 12/16/16 at 09:00 Docusate Sodium (Colace) 100 mg Q12H PRN PO CONSTIPATION; Start 12/13/16 at 01: 30 Ferrous Sulfate (Ferrous Sulfate (Ec)) 325 mg TID PO Last administered on 20:59; Admin Dose 325 MG; Start 12/13/16 at 09:00 Furosemide (Lasix) 80 mg DAILY@06 PO Last administered on 12/19/16 05:59; Admin Dose 80 MG; Start 12/13/16 at 06:00 Levothyroxine Sodium (Synthroid) 150 mcg DAILY@06 PO Last administered on 05:59; Admin Dose 150 MCG; Start 12/13/16 at 06:00 Ranitidine HCl (Zantac) 300 mg HS PO Last administered on 12/19/16 20:58; Admin Dose 300 MG; Start 12/13/16 at 21:00 Tramadol HCl (Ultram) 50 mg Q6H PRN PO PAIN Last administered on 12/17/16 18: 10; Admin Dose 50 MG; Start 12/13/16 at 01:30 Zolpidem Tartrate (Ambien) 10 mg QHS PRN PO INSOMNIA; Start 12/13/16 at 01:30 Fenofibrate (Tricor) 145 mg DAILY PO Last administered on 12/19/16 09:49; Admin Dose 145 MG; Start 12/13/16 at 09:00 Epoetin Stas (Epogen (Non Esrd/Non Oncology)) 10,000 units MoWeFr@17 SC Last administered on 12/18/16 13:43; Admin Dose 10,000 UNITS; Start 12/13/16 at 17:00 Salmeterol Xinafoate/ Fluticasone (Advair 250/50 Diskus) 1 inh BID INH Last administered on 12/19/16 20:58; Admin Dose 1 INH; Start 12/13/16 at 21:00 Benzonatate (Tessalon) 100 mg Q4H PRN PO COUGH Last administered on 12/19/16 21:04; Admin Dose 100 MG; Start 12/13/16 at 17:30 Allopurinol (Zyloprim) 100 mg Q48H PO Last administered on 12/19/16 18:28; Admin Dose 100 MG; Start 12/15/16 at 18:00 Lisinopril (Zestril) 5 mg BID PO Last administered on 12/19/16 20:59; Admin Dose 5 MG; Start 12/15/16 at 09:00 Ondansetron HCl (Zofran Inj) 4 mg Q4H PRN IV NAUSEA AND/OR VOMITING Last administered on 12/19/16 14:39; Admin Dose 4 MG; Start 12/19/16 at 14:00 Nitrofurantoin Macrocrystals (Macrobid) 100 mg BID PO ; Start 12/20/16 at 09:00 ; Stop 12/30/16 at 09:00; Status COLTEN URIARTE MD Dec 19, 2016 23:39
[2016-12-20] VITALS (19 sets, daily range): BP systolic 97–150; BP diastolic 54–74; PULSE 64–81; RESP 17–20
[2016-12-20] MEDS: BISACODYL 10 MG SUPP PR SCH (01:11)
[2016-12-20] MEDS: FUROSEMIDE 40 MG TAB PO SCH (05:45)
[2016-12-20] MEDS: LEVOTHYROXINE 150 MCG TAB PO SCH (05:45)
[2016-12-20] MEDS ORDERED: LEVOFLOXACIN 250MG/D5W (PMX) 50 ML IVPB SCH (06:00)
[2016-12-20 07:25] LABS: ABNORMAL IP MESSAGE 1; BASOPHILS % 0.6 % (0.0-2.0); EOSINOPHILS # 0.3 10^3/ul (0.0-0.5); EOSINOPHILS % 4.2 % (0.0-7.0); HEMATOCRIT 30.7 % (42.0-52.0); HEMOGLOBIN 9.4 g/dl (14.0-18.0); LYMPHOCYTES # 0.6 10^3/ul (0.8-2.9); LYMPHOCYTES % 9.1 % (15.0-51.0); MEAN CORPUSCULAR HEMOGLOBIN 31.9 pg (29.0-33.0); MEAN CORPUSCULAR HGB CONC 30.6 g/dl (32.0-37.0); MEAN CORPUSCULAR VOLUME 104.1 fl (82.0-101.0); MONOCYTE # 0.8 10^3/ul (0.3-0.9); MONOCYTES % 12.6 % (0.0-11.0); NEUTROPHILS % 72.9 % (39.0-77.0); PLATELET COUNT 131 10^3/UL (140-415); POSITIVE DIFF @See below; RED BLOOD COUNT 2.95 10^6/ul (4.70-6.10); RED CELL DISTRIBUTION WIDTH 18.1 % (11.5-14.5); RETICULOCYTE COUNT % 3.4 % (0.5-1.5); WHITE BLOOD COUNT 6.4 10^3/ul (4.8-10.8)
--- NOTE | 2016-12-20 07:45 | RADRPT ---
PROCEDURE: US Abdomen and Retroperitoneum. CLINICAL INDICATION: Abdominal pain. TECHNIQUE: Multiple real-time longitudinal and transverse images were acquired of the patient's ab domen and retroperitoneum utilizing a curved array transducer. COMPARISON: None. FINDINGS: Liver demonstrates mild coarsening of the liver echotexture with mild surface irregularity. No foca l liver mass. Portal vein demonstrates hepatopetal flow. Gallbladder is normal. There are no gallstones. There is no gallbladder wall thickening or pericho lecystic fluid. No intra- or extrahepatic biliary dilation. Pancreas is poorly visualized. Spleen is borderline enlarged. No hydronephrosis or nephrolithiasis. Small ascites and left pleural effusion. Aorta is poorly visualized. The IVC is within normal limits. MEASUREMENTS: Liver: 20.6 cm Common Duct: 0.6 cm Right Kidney: 8.8 cm Left Kidney: 7.4 cm Spleen: 12.7 cm IMPRESSION: Examination is limited due to overlying bowel gas. Mild hepatomegaly with morphologic changes in the liver suggesting underlying diffuse liver disease without sheela cirrhotic change. Small ascites. Borderline splenomegaly. RPTAT: EE .Zeus Duong MD, MD Date Time Electronically viewed and signed by .Zeus Duong MD, MD on 12/20/2016 07:50 .C/
[2016-12-20 07:54] LABS: CALCIUM 8.7 mg/dl (8.4-10.2); CREATININE 6.33 mg/dl (0.61-1.24); POTASSIUM 4.6 mmol/L (3.5-5.1)
--- NOTE | 2016-12-20 08:01 | CONS ---
Date/Time of Note Date/Time of Note DATE: 12/20/16 TIME: 07:57 Assessment/Plan Assessment/Plan Additional Assessment/Plan 1. Right hemipareses resolving 2. BP control is not optimal, MALIA increased. 3. ?DC antibitocs. 4. CKD, to be dialzyed today. Consultation Date/Type/Reason Admit Date/Time Dec 12, 2016 at 22:18 Type of Consultation: cv Detailed Summary Respiratory: No shortness of breath Cardiovascular: No chest pain Gastrointestinal: no complaints Genitourinary: no complaints Neurologic: No headache Exam/Review of Systems Vital Signs Vitals Vital Signs Date Time Temp Pulse Resp B/P Pulse Ox O2 Delivery O2 Flow Rate FiO2 12/20/16 07:51 98.0 80 18 150/74 99 12/20/16 05:20 4.0 12/19/16 20:17 Nasal Cannula Intake and Output 12/19/16 12/19/16 12/20/16 15:00 23:00 07:00 Intake Total 200 ml 600 ml 450 ml Output Total 300 ml 200 ml Balance -100 ml 600 ml 250 ml Exam Neck: No jvd Respiratory: clear to auscultation Cardiovascular: regular rate and rhythm Gastrointestinal: soft Extremities: other (mild weakness right upper extrem), No edema Results Result Diagram: 12/20/16 0645 12/18/16 0641 Results 24 hrs Laboratory Tests Test 12/20/16 06:45 White Blood Count 6.4 Red Blood Count 2.95 L Hemoglobin 9.4 L Hematocrit 30.7 L Mean Corpuscular Volume 104.1 H Mean Corpuscular Hemoglobin 31.9 Mean Corpuscular Hemoglobin Concent 30.6 L Red Cell Distribution Width 18.1 H Platelet Count 131 L Mean Platelet Volume 10.0 Neutrophils % 72.9 Lymphocytes % 9.1 L Monocytes % 12.6 H Eosinophils % 4.2 Basophils % 0.6 Nucleated Red Blood Cells % 0.0 Neutrophils # (Manual) 4.6 Lymphocytes # 0.6 L Monocytes # 0.8 Eosinophils # 0.3 Basophils # 0.0 Nucleated Red Blood Cells # 0.0 Absolute Reticulocyte Count 0.097 Percent Reticulocyte Count 3.4 H Medications Medications Current Medications Acetaminophen (Tylenol Supp) 650 mg Q4H PRN [place] TEMP>100F; Start 12/13/16 at 01: 30 Bisacodyl (Dulcolax Supp) 10 mg Q24H [place] ; Start 12/13/16 at 01:30 Bupropion HCl (Wellbutrin Xl) 150 mg QAM PO Last administered on 12/19/16 09: 49; Admin Dose 150 MG; Start 12/13/16 at 09:00 Carvedilol (Coreg) 25 mg DAILY PO Last administered on 12/19/16 09:50; Admin Dose 25 MG; Start 12/13/16 at 09:00 Clopidogrel Bisulfate (plaVIX) 75 mg DAILY PO Last administered on 12/19/16 09 :49; Admin Dose 75 MG; Start 12/13/16 at 09:00 Cyanocobalamin (Vitamin B12 Inj) 1,000 mcg Sa@09 IM Last administered on 09:33; Admin Dose 1,000 MCG; Start 12/16/16 at 09:00 Docusate Sodium (Colace) 100 mg Q12H PRN PO CONSTIPATION; Start 12/13/16 at 01: 30 Ferrous Sulfate (Ferrous Sulfate (Ec)) 325 mg TID PO Last administered on 20:59; Admin Dose 325 MG; Start 12/13/16 at 09:00 Furosemide (Lasix) 80 mg DAILY@06 PO Last administered on 12/20/16 05:45; Admin Dose 80 MG; Start 12/13/16 at 06:00 Levothyroxine Sodium (Synthroid) 150 mcg DAILY@06 PO Last administered on 05:45; Admin Dose 150 MCG; Start 12/13/16 at 06:00 Ranitidine HCl (Zantac) 300 mg HS PO Last administered on 12/19/16 20:58; Admin Dose 300 MG; Start 12/13/16 at 21:00 Tramadol HCl (Ultram) 50 mg Q6H PRN PO PAIN Last administered on 12/17/16 18: 10; Admin Dose 50 MG; Start 12/13/16 at 01:30 Zolpidem Tartrate (Ambien) 10 mg QHS PRN PO INSOMNIA; Start 12/13/16 at 01:30 Fenofibrate (Tricor) 145 mg DAILY PO Last administered on 12/19/16 09:49; Admin Dose 145 MG; Start 12/13/16 at 09:00 Epoetin Stas (Epogen (Non Esrd/Non Oncology)) 10,000 units MoWeFr@17 SC Last administered on 12/18/16 13:43; Admin Dose 10,000 UNITS; Start 12/13/16 at 17:00 Salmeterol Xinafoate/ Fluticasone (Advair 250/50 Diskus) 1 inh BID INH Last administered on 12/19/16 20:58; Admin Dose 1 INH; Start 12/13/16 at 21:00 Benzonatate (Tessalon) 100 mg Q4H PRN PO COUGH Last administered on 12/19/16 21:04; Admin Dose 100 MG; Start 12/13/16 at 17:30 Allopurinol (Zyloprim) 100 mg Q48H PO Last administered on 12/19/16 18:28; Admin Dose 100 MG; Start 12/15/16 at 18:00 Lisinopril (Zestril) 5 mg BID PO Last administered on 12/19/16 20:59; Admin Dose 5 MG; Start 12/15/16 at 09:00 Ondansetron HCl 4 mg 4 mg Q4H PRN IV NAUSEA AND/OR VOMITING Last administered on 12/19/16 14:39; Admin Dose 4 MG; Start 12/19/16 at 14:00 Levofloxacin/ Dextrose (Levaquin 250 Mg/ D5W 50 ml (Pmx)) 50 ml @ 50 mls/hr Q48H IVPB Last administered on 12/20/16 05:45; Admin Dose 50 MLS/HR; Start at 06:00 ANDRIA OLIVEIRA MD Dec 20, 2016 08:01
--- NOTE | 2016-12-20 08:21 | RADRPT ---
PROCEDURE: US pelvis (male). CLINICAL INDICATION: Pelvic pain. TECHNIQUE: Multiple sonographic images of the male pelvis was performed using a curved transducer. COMPARISON: None. FINDINGS: There are echogenic foci identified in the partially distended urinary bladder, demonstrating crm developer ior acoustic shadowing. IMPRESSION: Multiple bladder stones. RPTAT: EE .Zeus Duong MD, MD Date Time Electronically viewed and signed by .Zeus Duong MD, on 12/20/2016 08:26 .C/
[2016-12-20] MEDS ORDERED: NITROFURANTOIN (SR) 100 MG CAP PO SCH (09:00)
[2016-12-20] MEDS: FERROUS SULFATE (EC) 325 MG TAB PO SCH ×3 (09:16→20:19)
[2016-12-20] MEDS: BUPROPION (XL) 150 MG TAB PO SCH (09:16)
[2016-12-20] MEDS: CREON (24K-76K-120K) 1 CAP PO SCH ×3 (09:16→17:35)
[2016-12-20] MEDS: LISINOPRIL 10 MG TAB PO SCH ×2 (09:17→20:20)
[2016-12-20] MEDS: CLOPIDOGREL 75 MG TAB PO SCH (09:17)
[2016-12-20] MEDS: FENOFIBRATE 145 MG TAB PO SCH (09:18)
[2016-12-20] MEDS: SALMETEROL/FLUTICASONE 250/50 INHA INH SCH ×2 (09:18→20:20)
[2016-12-20] MEDS: ALBUTEROL 0.083% (NEB) 2.5 MG/3 ML AMP HHN PRN (11:00)
[2016-12-20] MEDS: traMADol 50 MG TAB PO PRN (11:41)
--- NOTE | 2016-12-20 15:43 | PDOCDIS ---
Discharge Instructions DIAGNOSIS Discharge Diagnosis 1.cva/ rt musc atrophy & weak 2.cad/ pad/ htn/ lf bka 3.copd 4.esrd/ anemia/ edema 5.dm 6.depression 7.uti CONDITION Patient Condition: Fair HOME CARE INSTRUCTIONS: Diet Instructions: 2gm NaSpecial Diet: renal diet ACTIVITY: Activity Restrictions: No Restrictions Bathing Restrictions: Sponge Bath FOLLOW UP/APPOINTMENTS Follow-up Plan [facility] floor admit for pt/ot full exercises, pmd will follow REFERRALS Other Referrals 1. renal for dialysis 2. cards COLTEN ROMANO MD Dec 20, 2016 15:43
[2016-12-20] MEDS ORDERED: ALBU2.5V3 HHN (15:55)
[2016-12-20] MEDS ORDERED: ADV25050 INH (15:55)
[2016-12-20] MEDS ORDERED: EPO10ESRD SC (15:55)
[2016-12-20] MEDS ORDERED: LISI10TA2 PO (15:55)
[2016-12-20] MEDS ORDERED: LIPA1CAP6 PO (15:55)
[2016-12-20] MEDS ORDERED: BENZ-5 PO (15:55)
[2016-12-20] MEDS ORDERED: ONDA4VIA2 PO (15:55)
[2016-12-20] MEDS: EPOETIN 10000 UNITS/ML (NON ESRD/NON ONCOLOGY) SC SCH (16:42)
[2016-12-20] MEDS: RANITIDINE 150 MG TAB PO SCH (20:20)
== END 2016-12-20 20:53 | DRG 64 ==
LOC: E/R 14:57 → MS4 22:18
PROVIDERS: ATTEND Internal Medicine
PROC: 5A1D60Z (ICD-10-PCS; principal; 2016-12-13)
PROC: 30233N1 Transfusion of Nonautologous Red Blood Cells into Peripheral Vein, Percutaneous Approach (ICD-10-PCS; 2016-12-13)
DX: I63.9 Cerebral infarction, unspecified (principal); N18.6 End stage renal disease; I13.2 Hypertensive heart and chronic kidney disease with heart failure and with stage 5 chronic kidney disease, or end stage renal disease; I12.0 Hypertensive chronic kidney disease with stage 5 chronic kidney disease or end stage renal disease; E11.22 Type 2 diabetes mellitus with diabetic chronic kidney disease; D62 Acute posthemorrhagic anemia; G81.91 Hemiplegia, unspecified affecting right dominant side; I50.22 Chronic systolic (congestive) heart failure; N39.0 Urinary tract infection, site not specified; Z95.1 Presence of aortocoronary bypass graft; Z89.512 Acquired absence of left leg below knee; Z87.891 Personal history of nicotine dependence; E78.5 Hyperlipidemia, unspecified; R11.10 Vomiting, unspecified; Z99.2 Dependence on renal dialysis; D63.1 Anemia in chronic kidney disease; E03.9 Hypothyroidism, unspecified; J42 Unspecified chronic bronchitis; Z79.02 Long term (current) use of antithrombotics/antiplatelets; K31.84 Gastroparesis; F32.9 Major depressive disorder, single episode, unspecified; B96.20 Unspecified Escherichia coli [E. coli] as the cause of diseases classified elsewhere; B95.2 Enterococcus as the cause of diseases classified elsewhere; R29.703 NIHSS score 3
CPT/HCPCS: 36415; 36430; 70450; 70551; 71010; 71250; 76700; 76856; 80048; 80053; 80061; 81001; 82465; 82728; 82746; 83540; 84100; 84443; 84478; 84484; 84560; 85025; 85045; 85610; 85651; 85730; 86850; 86900; 86901; 86920; 87086; 90935; 93005; 93306; 93880; 94640; 94644; 94664; 95819; 96374; 97110; 97116; 97162; 97530; J0885; J1956; J2405; J3420; J7030; P9016

== ENCOUNTER 2016-12-20 18:26 | Inpatient (IN) | payer MEDICARE, OTHER ==
[~2016-12-20] VITALS: Ht 172.7 cm; Wt 79.0 kg
[~2016-12-20 18:26] MED LIST changes: +ACET650S9 PR; +ADV25050 INH; +ALBU2.5V3 HHN; +ALLO300T2 PO; +BENZ-5 PO; +BISA10SU75 PR; +BUPR150T6 PO; -CALC667C PO; -CHOL500020 PO; +EPO10ESRD SC; +FENO145T19 PO; +FURO80TA3 PO; -LEVO300T PO; +LIPA1CAP6 PO; +LISI10TA2 PO; -NEPH PO; -NIT4 SL; +ONDA4VIA2 PO; +TRAM-40 PO; +ZOLP10TA PO
[2016-12-20] MEDS ORDERED: DOCUSATE SODIUM 100 MG CAP PO PRN (22:00)
[2016-12-20] MEDS ORDERED: ZOLPIDEM 5 MG TAB PO PRN (22:00)
[2016-12-20] MEDS ORDERED: BENZONATATE 100 MG CAP PO PRN (22:30)
[2016-12-20] MEDS ORDERED: ACETAMINOPHEN 650 MG SUPP PR PRN (22:30)
[2016-12-20] MEDS ORDERED: BISACODYL 10 MG SUPP PR PRN (22:30)
[2016-12-20] MEDS: GUAIFENESIN/CODEINE 5ML CUP PO PRN (23:21)
[2016-12-20 23:57] VITALS: Ht 172.7 cm; Wt 79.0 kg
[2016-12-21] MEDS: ALBUTEROL 0.083% (NEB) 2.5 MG/3 ML AMP HHN SCH ×6 (00:13→20:31)
[2016-12-21 02:00] VITALS: BP_SYST 132; BP_SYST 135; BP_DIAS 62; BP_DIAS 65; RESP 18
[2016-12-21] MEDS ORDERED: ACETAMINOPHEN 325 MG TAB PO PRN (04:40)
[2016-12-21] MEDS ORDERED: MAGNESIUM HYDROXIDE 30ML CUP PO PRN (04:40)
[2016-12-21] MEDS ORDERED: LACTULOSE 30ML CUP PO PRN (04:40)
[2016-12-21 06:28] LABS: ADD UMIC YES; UR ASCORBIC ACID NEGATIVE (NEGATIVE); UR BILIRUBIN (Dip) NEGATIVE (NEGATIVE); UR BLOOD (Dip) NEGATIVE (NEGATIVE); UR CLARITY CLEAR (CLEAR); UR COLOR YELLOW (YELLOW); UR GLUCOSE (Dip) 1+ mg/dL (NEGATIVE); UR KETONES (Dip) NEGATIVE (NEGATIVE); UR LEUKOCYTE ESTERASE (Dip) NEGATIVE Leu/ul (NEGATIVE); UR NITRITE (Dip) NEGATIVE (NEGATIVE); UR RBC 0 /HPF (0-5); UR SPECIFIC GRAVITY (Dip) 1.012 (1.003-1.030); UR TOTAL PROTEIN (Dip) 2+ mg/dl (NEGATIVE); UR UROBILINOGEN (Dip) 2+ mg/dL (NEGATIVE)
[2016-12-21] MEDS: LEVOTHYROXINE 150 MCG TAB PO SCH (06:31)
[2016-12-21 06:49] LABS: ABNORMAL IP MESSAGE 1; BASOPHILS % 0.6 % (0.0-2.0); EOSINOPHILS # 0.3 10^3/ul (0.0-0.5); HEMATOCRIT 30.9 % (42.0-52.0); HEMOGLOBIN 9.8 g/dl (14.0-18.0); LYMPHOCYTES # 0.6 10^3/ul (0.8-2.9); LYMPHOCYTES % 9.4 % (15.0-51.0); MEAN CORPUSCULAR HEMOGLOBIN 33.2 pg (29.0-33.0); MEAN CORPUSCULAR HGB CONC 31.7 g/dl (32.0-37.0); MEAN CORPUSCULAR VOLUME 104.7 fl (82.0-101.0); MEAN PLATELET VOLUME 10.2 fl (7.4-10.4); MONOCYTE # 0.8 10^3/ul (0.3-0.9); MONOCYTES % 13.2 % (0.0-11.0); NEUTROPHIL # 4.5 10^3/ul (1.6-7.5); NEUTROPHILS % 72.2 % (39.0-77.0); PLATELET COUNT 124 10^3/UL (140-415); POSITIVE DIFF @See below; RED BLOOD COUNT 2.95 10^6/ul (4.70-6.10); RED CELL DISTRIBUTION WIDTH 17.7 % (11.5-14.5); WHITE BLOOD COUNT 6.3 10^3/ul (4.8-10.8)
[2016-12-21 07:09] LABS: ALBUMIN 3.6 g/dl (3.3-4.9); ALBUMIN/GLOBULIN RATIO 1.2; BILIRUBIN,INDIRECT 0.3 mg/dl (0-1.1); BILIRUBIN,TOTAL 0.3 mg/dl (0.2-1.3); CALCIUM 8.8 mg/dl (8.4-10.2); CREATININE 4.7 mg/dl (0.61-1.24); POTASSIUM 4.1 mmol/L (3.5-5.1); TOTAL PROTEIN 6.6 g/dl (6.1-8.1)
[2016-12-21 07:44] VITALS: BP 146/71; RESP 18
[2016-12-21] MEDS: DOCUSATE SODIUM 100 MG CAP PO SCH ×2 (08:56→20:54)
[2016-12-21] MEDS: CLOPIDOGREL 75 MG TAB PO SCH (08:56)
[2016-12-21] MEDS: CREON (24K-76K-120K) 1 CAP PO SCH ×3 (08:56→17:31)
[2016-12-21] MEDS: FENOFIBRATE 145 MG TAB PO SCH (08:56)
[2016-12-21] MEDS: FERROUS SULFATE (EC) 325 MG TAB PO SCH ×3 (08:56→20:54)
[2016-12-21] MEDS: BUPROPION (XL) 150 MG TAB PO SCH (08:56)
[2016-12-21] MEDS: FUROSEMIDE 40 MG TAB PO SCH (08:57)
[2016-12-21] MEDS: SALMETEROL/FLUTICASONE 250/50 INHA INH SCH ×2 (08:57→20:54)
--- NOTE | 2016-12-21 08:57 | CONS ---
Date/Time of Note Date/Time of Note DATE: 12/21/16 TIME: 08:55 Assessment/Plan Assessment/Plan Problems: (1) ESRD (end stage renal disease) on dialysis Comment: for planned HD in am (2) HTN (hypertension) Comment: well controlled (3) Anemia due to chronic kidney disease Comment: stable... on EPO (4) Weakness due to cerebrovascular accident (CVA) Comment: now on Rehab for PT, etc Consultation Date/Type/Reason Admit Date/Time Dec 20, 2016 at 21:28 Initial Consult Date Type of Consultation: neph Reason for Consultation stable... now on Rehab post CVA Exam/Review of Systems Vital Signs Vitals Vital Signs Date Time Temp Pulse Resp B/P Pulse Ox O2 Delivery O2 Flow Rate FiO2 12/21/16 08:24 2.0 12/21/16 08:24 76 18 99 Nasal Cannula 12/21/16 07:44 98.4 146/71 Intake and Output 12/20/16 12/20/16 12/21/16 14:59 22:59 06:59 Intake Total 550 ml Balance 550 ml Exam Constitutional: alert, oriented Head: normocephalic Neck: supple Cardiovascular: regular rate and rhythm Gastrointestinal: soft Extremities: other (fxn avf) Results Result Diagram: 12/21/1619 12/21/16 0619 Results 24 hrs Laboratory Tests Test 12/21/16 04:00 12/21/16 06:19 Urine Color YELLOW Urine Clarity CLEAR Urine pH 7.0 Urine Specific [place] 1.012 Urine Ketones NEGATIVE Urine Nitrite NEGATIVE Urine Bilirubin NEGATIVE Urine Urobilinogen 2+ H Urine Leukocyte Esterase NEGATIVE Urine Microscopic RBC 0 Urine Microscopic WBC 3 Urine Hemoglobin NEGATIVE Urine Glucose 1+ H Urine Total Protein 2+ H White Blood Count 6.3 Red Blood Count 2.95 L Hemoglobin 9.8 L Hematocrit 30.9 L Mean Corpuscular Volume 104.7 H Mean Corpuscular Hemoglobin 33.2 H Mean Corpuscular Hemoglobin Concent 31.7 L Red Cell Distribution Width 17.7 H Platelet Count 124 L Mean Platelet Volume 10.2 Neutrophils % 72.2 Lymphocytes % 9.4 L Monocytes % 13.2 H Eosinophils % 4.0 Basophils % 0.6 Nucleated Red Blood Cells % 0.0 Neutrophils # 4.5 Lymphocytes # 0.6 L Monocytes # 0.8 Eosinophils # 0.3 Basophils # 0.0 Nucleated Red Blood Cells # 0.0 Sodium Level 140 Potassium Level 4.1 Chloride Level 99 Carbon Dioxide Level 28 Anion Gap 17 H Blood Urea Nitrogen 51 #H Creatinine 4.70 #H Glucose Level 70 Calcium Level 8.8 Total Bilirubin 0.3 Direct Bilirubin 0.00 Indirect Bilirubin 0.3 Aspartate Amino Transf (AST/SGOT) 36 Alanine Aminotransferase (ALT/SGPT) 34 Alkaline Phosphatase 38 L Total Protein 6.6 Albumin 3.6 Globulin 3.00 Albumin/Globulin Ratio 1.20 Medications Medications Current Medications Guaifenesin/ Codeine Phosphate (Robitussin Ac Liquid Cup) 5 ml Q4H PRN PO COUGH Last administered on 12/20/16 23:21; Admin Dose 5 ML; Start 12/20/16 at 22:00 Cyanocobalamin (Vitamin B12 Inj) 1,000 mcg Q7D IM ; Start 12/23/16 at 09:00 Salmeterol Xinafoate/ Fluticasone (Advair 250/50 Diskus) 1 inh BID INH ; Start 12/21/16 at 09:00 Ondansetron HCl 4 mg 4 mg Q4H PRN IV NAUSEA AND/OR VOMITING; Start 12/20/16 at 22:00 Levofloxacin/ Dextrose (Levaquin 250 Mg/ D5W 50 ml (Pmx)) 50 ml @ 50 mls/hr Q48H IVPB ; Start 12/22/16 at 06:00 Zolpidem Tartrate (Ambien) 10 mg HS PRN PO INSOMNIA; Start 12/20/16 at 22:00 Docusate Sodium (Colace) 100 mg BID PRN PO CONSTIPATION; Start 12/20/16 at 22: 00 Carvedilol (Coreg) 25 mg DAILY PO ; Start 12/21/16 at 09:00 Ferrous Sulfate (Ferrous Sulfate (Ec)) 325 mg TID PO ; Start 12/21/16 at 09:00 Furosemide (Lasix) 80 mg DAILY PO ; Start 12/21/16 at 09:00 Nitrofurantoin Macrocrystals (Macrobid) 100 mg BID PO ; Start 12/21/16 at 09:00 ; Status UNV Clopidogrel Bisulfate (plaVIX) 75 mg DAILY PO ; Start 12/21/16 at 09:00 Levothyroxine Sodium (Synthroid) 150 mcg DAILY@06 PO Last administered on 9/14/ 17at 06:31; Admin Dose 150 MCG; Start 12/21/16 at 06:00 Benzonatate (Tessalon) 100 mg Q4 PRN PO COUGH; Start 12/20/16 at 22:30 Fenofibrate (Tricor) 145 mg DAILY PO ; Start 12/21/16 at 09:00 Lisinopril (Zestril) 10 mg BID PO ; Start 12/21/16 at 09:00 Allopurinol (Zyloprim) 100 mg Q48H PO ; Start 12/22/16 at 18:00 Bisacodyl (Dulcolax Supp) 10 mg DAILY PRN [place] CONSTIPATION; Start 12/20/16 at 22 :30 Acetaminophen (Tylenol Supp) 650 mg Q4H PRN [place] TEMP ABOVE 100F; Start 12/20/16 at 22:30 Epoetin Stas (Epogen (Esrd)) 10,000 units MoWeFr@17 SC ; Start 12/22/16 at 17:00 Tramadol HCl (Ultram) 50 mg Q6H PRN PO PAIN; Start 12/20/16 at 22:30 Bupropion HCl (Wellbutrin Xl) 150 mg QAM PO ; Start 12/21/16 at 09:00 Acetaminophen (Tylenol Tab) 650 mg Q4H PRN PO PAIN; Start 12/21/16 at 04:40 Docusate Sodium (Colace) 100 mg BID PO ; Start 12/21/16 at 09:00 Senna (Senokot) 1 tab HS PO ; Start 12/21/16 at 21:00 Magnesium Hydroxide (Milk Of Mag) 30 ml BID PRN PO CONSTIPATION; Start at 04:40 Lactulose (Enulose) 20 gm DAILY PRN PO CONSTIPATION; Start 12/21/16 at 04:40 SABINE MIRZA MD Dec 21, 2016 08:57
[2016-12-21] MEDS ORDERED: NITROFURANTOIN (SR) 100 MG CAP PO SCH (09:00)
[2016-12-21] MEDS: LISINOPRIL 10 MG TAB PO SCH ×2 (09:06→20:54)
[2016-12-21] MEDS: ONDANSETRON 4 MG INJ IV PRN (09:36)
[2016-12-21] MEDS: traMADol 50 MG TAB PO PRN (13:36)
--- NOTE | 2016-12-21 14:59 | CONS ---
Date/Time of Note Date/Time of Note DATE: 12/21/16 TIME: 14:49 Consult Date/Type/Reason Admit Date/Time Dec 20, 2016 at 21:28 Initial Consult Date 12/20/2016 Type of Consultation: int med Reason for Consultation multi-medical care while in acute rehab floor pt/ot/st prog Subjective lf stump skin red/ raw/ abrased+, coughs when lie down/ after food Objective Vital Signs Date Time Temp Pulse Resp B/P Pulse Ox O2 Delivery O2 Flow Rate FiO2 12/21/16 09:00 Nasal Cannula 2.0 12/21/16 08:24 76 18 99 12/21/16 07:44 98.4 146/71 Intake and Output 12/20/16 12/20/16 12/21/16 15:00 23:00 07:00 Intake Total 550 ml Balance 550 ml Exam rt body musc atrophy, lf bka--stump skin 3 inch area raw/ scraped/ red/ skin superficially open+ slight bronch wheez rr syst/ diast m+ non-prod/ semi dry/ hollow cough spells+ Results/Medications Result Diagram: 12/21/1661812/21/16618 Results 24 hrs Laboratory Tests Test 12/21/16 04:00 12/21/16 06:19 Urine Color YELLOW Urine Clarity CLEAR Urine pH 7.0 Urine Specific [place] 1.012 Urine Ketones NEGATIVE Urine Nitrite NEGATIVE Urine Bilirubin NEGATIVE Urine Urobilinogen 2+ H Urine Leukocyte Esterase NEGATIVE Urine Microscopic RBC 0 Urine Microscopic WBC 3 Urine Hemoglobin NEGATIVE Urine Glucose 1+ H Urine Total Protein 2+ H White Blood Count 6.3 Red Blood Count 2.95 L Hemoglobin 9.8 L Hematocrit 30.9 L Mean Corpuscular Volume 104.7 H Mean Corpuscular Hemoglobin 33.2 H Mean Corpuscular Hemoglobin Concent 31.7 L Red Cell Distribution Width 17.7 H Platelet Count 124 L Mean Platelet Volume 10.2 Neutrophils % 72.2 Lymphocytes % 9.4 L Monocytes % 13.2 H Eosinophils % 4.0 Basophils % 0.6 Nucleated Red Blood Cells % 0.0 Neutrophils # 4.5 Lymphocytes # 0.6 L Monocytes # 0.8 Eosinophils # 0.3 Basophils # 0.0 Nucleated Red Blood Cells # 0.0 Sodium Level 140 Potassium Level 4.1 Chloride Level 99 Carbon Dioxide Level 28 Anion Gap 17 H Blood Urea Nitrogen 51 #H Creatinine 4.70 #H Glucose Level 70 Calcium Level 8.8 Total Bilirubin 0.3 Direct Bilirubin 0.00 Indirect Bilirubin 0.3 Aspartate Amino Transf (AST/SGOT) 36 Alanine Aminotransferase (ALT/SGPT) 34 Alkaline Phosphatase 38 L Total Protein 6.6 Albumin 3.6 Globulin 3.00 Albumin/Globulin Ratio 1.20 Medications Current Medications Guaifenesin/ Codeine Phosphate (Robitussin Ac Liquid Cup) 5 ml Q4H PRN PO COUGH Last administered on 12/20/16 23:21; Admin Dose 5 ML; Start 12/20/16 at 22:00 Cyanocobalamin (Vitamin B12 Inj) 1,000 mcg Q7D IM ; Start 12/23/16 at 09:00 Salmeterol Xinafoate/ Fluticasone (Advair 250/50 Diskus) 1 inh BID INH Last administered on 12/21/16 08:57; Admin Dose 1 INH; Start 12/21/16 at 09:00 Ondansetron HCl 4 mg 4 mg Q4H PRN IV NAUSEA AND/OR VOMITING Last administered on 12/21/16 09:36; Admin Dose 4 MG; Start 12/20/16 at 22:00 Levofloxacin/ Dextrose (Levaquin 250 Mg/ D5W 50 ml (Pmx)) 50 ml @ 50 mls/hr Q48H IVPB ; Start 12/22/16 at 06:00 Zolpidem Tartrate (Ambien) 10 mg HS PRN PO INSOMNIA; Start 12/20/16 at 22:00 Docusate Sodium (Colace) 100 mg BID PRN PO CONSTIPATION; Start 12/20/16 at 22: 00 Carvedilol (Coreg) 25 mg DAILY PO Last administered on 12/21/16 08:57; Admin Dose 25 MG; Start 12/21/16 at 09:00 Ferrous Sulfate (Ferrous Sulfate (Ec)) 325 mg TID PO Last administered on 08:56; Admin Dose 325 MG; Start 12/21/16 at 09:00 Furosemide (Lasix) 80 mg DAILY PO Last administered on 12/21/16 08:57; Admin Dose 80 MG; Start 12/21/16 at 09:00 Clopidogrel Bisulfate (plaVIX) 75 mg DAILY PO Last administered on 12/21/16 08 :56; Admin Dose 75 MG; Start 12/21/16 at 09:00 Levothyroxine Sodium (Synthroid) 150 mcg DAILY@06 PO Last administered on 06:31; Admin Dose 150 MCG; Start 12/21/16 at 06:00 Benzonatate (Tessalon) 100 mg Q4 PRN PO COUGH; Start 12/20/16 at 22:30 Fenofibrate (Tricor) 145 mg DAILY PO Last administered on 12/21/16 08:56; Admin Dose 145 MG; Start 12/21/16 at 09:00 Lisinopril (Zestril) 10 mg BID PO Last administered on 12/21/16 09:06; Admin Dose 10 MG; Start 12/21/16 at 09:00 Allopurinol (Zyloprim) 100 mg Q48H PO ; Start 12/22/16 at 18:00 Bisacodyl (Dulcolax Supp) 10 mg DAILY PRN [place] CONSTIPATION; Start 12/20/16 at 22 :30 Acetaminophen (Tylenol Supp) 650 mg Q4H PRN [place] TEMP ABOVE 100F; Start 12/20/16 at 22:30 Epoetin Stas (Epogen (Esrd)) 10,000 units MoWeFr@17 SC ; Start 12/22/16 at 17:00 Tramadol HCl (Ultram) 50 mg Q6H PRN PO PAIN Last administered on 12/21/16 13: 36; Admin Dose 50 MG; Start 12/20/16 at 22:30 Bupropion HCl (Wellbutrin Xl) 150 mg QAM PO Last administered on 12/21/16 08: 56; Admin Dose 150 MG; Start 12/21/16 at 09:00 Acetaminophen (Tylenol Tab) 650 mg Q4H PRN PO PAIN; Start 12/21/16 at 04:40 Docusate Sodium (Colace) 100 mg BID PO Last administered on 12/21/16 08:56; Admin Dose 100 MG; Start 12/21/16 at 09:00 Senna (Senokot) 1 tab HS PO ; Start 12/21/16 at 21:00 Magnesium Hydroxide (Milk Of Mag) 30 ml BID PRN PO CONSTIPATION; Start at 04:40 Lactulose (Enulose) 20 gm DAILY PRN PO CONSTIPATION; Start 12/21/16 at 04:40 Assessment/Plan Additional Assessment/Plan 1. rt body musc weak/ cva--PT/OT exercises fully participating 2. cad/ chf/ pad/ lf bka--inflamed 3. esrd--dialysis/ anemia/ edema--lost 5kg past 1wk w/ dialysis 4. dm--diet controlled 5. copd 6. h/o low t4/ depression--status quo 7. coughs--?swallow musc weak ---per rehab ---per renal ---change to [facility] soft diet ---cont all supportive cares COLTEN ROMANO MD Dec 21, 2016 14:59
--- NOTE | 2016-12-21 15:41 | CONS ---
DATE OF ADMISSION: 12/20/2016 DATE OF CONSULTATION: 12/21/2016 REHABILITATION POST ADMISSION PHYSICIAN EVALUATION: REHABILITATION IMPAIRMENT CATEGORY: 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 ACTIVE COMORBIDITIES: 1. Left BKA. 2. End-stage renal disease, on hemodialysis. 3. COPD. 4. Hyperlipidemia. 5. Diabetes mellitus. 6. History of Riddle's palsy. 7. Peripheral vascular disease. 8. Impairments in self-care and mobility. HISTORY OF PRESENT ILLNESS: The patient is a 65-year-old gentleman with a history of multiple medical comorbidities, who was admitted with right-sided weakness and headache. The patient's head CT was negative for bleed and he is being treated for acute CVA. The patient's hospital course has also been notable for significant impairments in self-care and mobility as compared to baseline, in addition to a left BKA residual limb wound. The patient has been cleared to transfer to the rehabilitation unit for comprehensive interdisciplinary rehab care. FUNCTIONAL HISTORY: Prior to recent events, he was independent in self-care tasks and mobility. Currently, he requires moderate assist for self-care and mobility tasks. I have reviewed the preadmission screen and patient's current functional status is consistent with the preadmission screen. SOCIAL HISTORY: Patient lives at home and hopes to return there upon discharge. PAST MEDICAL HISTORY: 1. End-stage renal disease, on hemodialysis. 2. Left BKA with prosthesis. 3. COPD. 4. Coronary artery disease. 5. CHF. 6. Diabetes mellitus. 7. Hyperlipidemia. CURRENT MEDICATIONS: 1. Bupropion 150 mg p.o. q.a.m. 2. Furosemide 80 mg Sunday, , Sunday and Sunday. 3. Ultram p.r.n. 4. Allopurinol 300 mg p.o. daily. 5. Coreg 25 mg p.o. daily. 6. Vitamin B12. 7. Ferrous sulfate. 8. Synthroid. 9. Clopidogrel 75 mg p.o. daily. 10. Ranitidine 300 mg p.o. at bedtime. ALLERGIES: KEFLEX. PHYSICAL EXAMINATION: VITAL SIGNS: Patient is currently afebrile with stable vital signs. HEENT: Extraocular motion intact. Oropharynx clear. NECK: Supple. LUNGS: Clear anteriorly. HEART: S1, S2. ABDOMEN: Soft, nontender. Positive bowel sounds. NEUROLOGICALLY: He is awake and alert. He is oriented to person and hospital and date. He will follow simple one-step commands. He demonstrates good strength in the left upper extremity. He has a good hip flexion, extension, knee flexion, extension, in the left residual limb. He has antigravity strength in right upper extremity and right lower extremity. PLAN: The patient has been admitted for comprehensive interdisciplinary acute rehab and is anticipated to tolerate 3 hours of daily therapy in divided doses for at least 5/7 days a week. The treatment plan will include: 1. Physical therapy to focus on bed mobility, transfers and household ambulation with goal of having patient reach standby assist level. 2. Occupational therapy to focus on hygiene, grooming, dressing, bathing and toileting activities with goal of having patient reach a standby assist level. 3. Rehabilitation nursing for carry over of therapeutic interventions, the goal of continent bowel and bladder, and the goal of pain adequately managed on oral medications. 4. Speech therapy for full cognitive assessment and retraining with goal of having patient return to baseline cognition. REHABILITATION BARRIER: Wound. INTERVENTION FOR BARRIER: Wound Care. ESTIMATED LENGTH OF STAY: 14 days. DISPOSITION: Goal home. I acknowledge I performed a full physical examination on this patient within 24 hours of admission to the rehabilitation unit and believe the patient is a good candidate for comprehensive interdisciplinary rehab care and is anticipated to make reasonable goals in a reasonable period of time as outlined above. Dictated By: Yoshi Vargas MD /anna/willy /Document#: [id number]
--- NOTE | 2016-12-21 16:47 | CONS ---
Date/Time of Note Date/Time of Note DATE: 12/21/16 TIME: 16:45 Assessment/Plan Assessment/Plan Additional Assessment/Plan Fatigue Compensated systolic congestive heart failure Cardiomyopathy with ejection fraction 45% CAD with history of CABG Peripheral arterial disease End-stage renal disease on hemodialysis Acute blood loss anemia -Blood pressure trend overall remains stable on current cv medication regimen, fluid management via hemodialysis as per our nephrology colleagues. Consultation Date/Type/Reason Admit Date/Time Dec 20, 2016 at 21:28 Initial Consult Date Type of Consultation: cv 24 HR Interval Summary Free Text/Dictation denies cp, sob. Exam/Review of Systems Vital Signs Vitals Vital Signs Date Time Temp Pulse Resp B/P Pulse Ox O2 Delivery O2 Flow Rate FiO2 12/21/16 16:40 69 18 95 21 12/21/16 09:00 Nasal Cannula 2.0 12/21/16 07:44 98.4 146/71 Intake and Output 12/20/16 12/20/16 12/21/16 15:00 23:00 07:00 Intake Total 550 ml Balance 550 ml Exam nad, family at bedside Constitutional: alert, oriented Head: normocephalic Respiratory: other (course bs, no wheeze) Cardiovascular: other (s1s2), regular rate and rhythm Gastrointestinal: bowel sounds, non-tender, soft Extremities: edema Results Result Diagram: 12/21/1619 12/21/16 0619 Results 24 hrs Laboratory Tests Test 12/21/16 04:00 12/21/16 06:19 Urine Color YELLOW Urine Clarity CLEAR Urine pH 7.0 Urine Specific [place] 1.012 Urine Ketones NEGATIVE Urine Nitrite NEGATIVE Urine Bilirubin NEGATIVE Urine Urobilinogen 2+ H Urine Leukocyte Esterase NEGATIVE Urine Microscopic RBC 0 Urine Microscopic WBC 3 Urine Hemoglobin NEGATIVE Urine Glucose 1+ H Urine Total Protein 2+ H White Blood Count 6.3 Red Blood Count 2.95 L Hemoglobin 9.8 L Hematocrit 30.9 L Mean Corpuscular Volume 104.7 H Mean Corpuscular Hemoglobin 33.2 H Mean Corpuscular Hemoglobin Concent 31.7 L Red Cell Distribution Width 17.7 H Platelet Count 124 L Mean Platelet Volume 10.2 Neutrophils % 72.2 Lymphocytes % 9.4 L Monocytes % 13.2 H Eosinophils % 4.0 Basophils % 0.6 Nucleated Red Blood Cells % 0.0 Neutrophils # 4.5 Lymphocytes # 0.6 L Monocytes # 0.8 Eosinophils # 0.3 Basophils # 0.0 Nucleated Red Blood Cells # 0.0 Sodium Level 140 Potassium Level 4.1 Chloride Level 99 Carbon Dioxide Level 28 Anion Gap 17 H Blood Urea Nitrogen 51 #H Creatinine 4.70 #H Glucose Level 70 Calcium Level 8.8 Total Bilirubin 0.3 Direct Bilirubin 0.00 Indirect Bilirubin 0.3 Aspartate Amino Transf (AST/SGOT) 36 Alanine Aminotransferase (ALT/SGPT) 34 Alkaline Phosphatase 38 L Total Protein 6.6 Albumin 3.6 Globulin 3.00 Albumin/Globulin Ratio 1.20 Medications Medications Current Medications Guaifenesin/ Codeine Phosphate (Robitussin Ac Liquid Cup) 5 ml Q4H PRN PO COUGH Last administered on 12/20/16 23:21; Admin Dose 5 ML; Start 12/20/16 at 22:00 Cyanocobalamin (Vitamin B12 Inj) 1,000 mcg Q7D IM ; Start 12/23/16 at 09:00 Salmeterol Xinafoate/ Fluticasone (Advair 250/50 Diskus) 1 inh BID INH Last administered on 12/21/16 08:57; Admin Dose 1 INH; Start 12/21/16 at 09:00 Ondansetron HCl 4 mg 4 mg Q4H PRN IV NAUSEA AND/OR VOMITING Last administered on 12/21/16 09:36; Admin Dose 4 MG; Start 12/20/16 at 22:00 Levofloxacin/ Dextrose (Levaquin 250 Mg/ D5W 50 ml (Pmx)) 50 ml @ 50 mls/hr Q48H IVPB ; Start 12/22/16 at 06:00 Zolpidem Tartrate (Ambien) 10 mg HS PRN PO INSOMNIA; Start 12/20/16 at 22:00 Carvedilol (Coreg) 25 mg DAILY PO Last administered on 12/21/16 08:57; Admin Dose 25 MG; Start 12/21/16 at 09:00 Ferrous Sulfate (Ferrous Sulfate (Ec)) 325 mg TID PO Last administered on 08:56; Admin Dose 325 MG; Start 12/21/16 at 09:00 Furosemide (Lasix) 80 mg DAILY PO Last administered on 12/21/16 08:57; Admin Dose 80 MG; Start 12/21/16 at 09:00 Clopidogrel Bisulfate (plaVIX) 75 mg DAILY PO Last administered on 12/21/16 08 :56; Admin Dose 75 MG; Start 12/21/16 at 09:00 Levothyroxine Sodium (Synthroid) 150 mcg DAILY@06 PO Last administered on 06:31; Admin Dose 150 MCG; Start 12/21/16 at 06:00 Fenofibrate (Tricor) 145 mg DAILY PO Last administered on 12/21/16 08:56; Admin Dose 145 MG; Start 12/21/16 at 09:00 Lisinopril (Zestril) 10 mg BID PO Last administered on 12/21/16 09:06; Admin Dose 10 MG; Start 12/21/16 at 09:00 Allopurinol (Zyloprim) 100 mg Q48H PO ; Start 12/22/16 at 18:00 Bisacodyl (Dulcolax Supp) 10 mg DAILY PRN [place] CONSTIPATION; Start 12/20/16 at 22 :30 Epoetin Stas (Epogen (Esrd)) 10,000 units MoWeFr@17 SC ; Start 12/22/16 at 17:00 Tramadol HCl (Ultram) 50 mg Q6H PRN PO PAIN Last administered on 12/21/16 13: 36; Admin Dose 50 MG; Start 12/20/16 at 22:30 Bupropion HCl (Wellbutrin Xl) 150 mg QAM PO Last administered on 12/21/16 08: 56; Admin Dose 150 MG; Start 12/21/16 at 09:00 Acetaminophen (Tylenol Tab) 650 mg Q4H PRN PO PAIN; Start 12/21/16 at 04:40 Docusate Sodium (Colace) 100 mg BID PO Last administered on 12/21/16 08:56; Admin Dose 100 MG; Start 12/21/16 at 09:00 Senna (Senokot) 1 tab HS PO ; Start 12/21/16 at 21:00 Magnesium Hydroxide (Milk Of Mag) 30 ml BID PRN PO CONSTIPATION; Start at 04:40 Lactulose (Enulose) 20 gm DAILY PRN PO CONSTIPATION; Start 12/21/16 at 04:40 Hammad Hernandez DO Dec 21, 2016 16:47
[2016-12-21 20:00] VITALS: BP 145/70; PULSE 70; RESP 18
[2016-12-21 20:21] VITALS: BP 145/70; RESP 18
[2016-12-21] MEDS: SENNA TAB PO SCH (20:54)
[2016-12-22] VITALS (11 sets, daily range): BP systolic 112–157; BP diastolic 56–78; PULSE 73–88; RESP 18–20
[2016-12-22] MEDS: ALBUTEROL 0.083% (NEB) 2.5 MG/3 ML AMP HHN SCH ×6 (00:46→20:33)
[2016-12-22] MEDS: ONDANSETRON 4 MG INJ IV PRN ×2 (01:54→13:23)
[2016-12-22] MEDS: LEVOTHYROXINE 150 MCG TAB PO SCH (05:47)
[2016-12-22] MEDS ORDERED: LEVOFLOXACIN 250MG/D5W (PMX) 50 ML IVPB SCH (06:00)
--- NOTE | 2016-12-22 08:32 | CONS ---
Date/Time of Note Date/Time of Note DATE: 12/22/16 TIME: 08:30 Assessment/Plan Assessment/Plan Additional Assessment/Plan 1. CKD, dialysis is planned later today 2. Right hemipareses has resolved, PT and OT in progress. 3. Anemia is stable 4. BP is controlled. Consultation Date/Type/Reason Admit Date/Time Dec 20, 2016 at 21:28 Initial Consult Date Type of Consultation: cv Detailed Summary Respiratory: No shortness of breath Cardiovascular: No chest pain Gastrointestinal: no complaints Genitourinary: no complaints Neurologic: No headache Exam/Review of Systems Vital Signs Vitals Vital Signs Date Time Temp Pulse Resp B/P Pulse Ox O2 Delivery O2 Flow Rate FiO2 12/22/16 08:22 72 18 97 21 12/22/16 02:00 97.8 134/67 12/21/16 20:00 Room Air 12/21/16 09:00 2.0 Intake and Output 12/21/16 12/21/16 12/22/16 15:00 23:00 07:00 Intake Total 540 ml 540 ml 620 ml Output Total 150 ml Balance 540 ml 540 ml 470 ml Exam Neck: No jvd Respiratory: clear to auscultation Cardiovascular: regular rate and rhythm Gastrointestinal: soft Extremities: No edema Neurological: No focal weakness Results Result Diagram: 12/21/16 0619 12/21/16618 Medications Medications Current Medications Guaifenesin/ Codeine Phosphate (Robitussin Ac Liquid Cup) 5 ml Q4H PRN PO COUGH Last administered on 12/20/16 23:21; Admin Dose 5 ML; Start 12/20/16 at 22:00 Cyanocobalamin (Vitamin B12 Inj) 1,000 mcg Q7D IM ; Start 12/23/16 at 09:00 Salmeterol Xinafoate/ Fluticasone (Advair 250/50 Diskus) 1 inh BID INH Last administered on 12/21/16 20:54; Admin Dose 1 INH; Start 12/21/16 at 09:00 Ondansetron HCl 4 mg 4 mg Q4H PRN IV NAUSEA AND/OR VOMITING Last administered on 12/22/16 01:54; Admin Dose 4 MG; Start 12/20/16 at 22:00 Levofloxacin/ Dextrose (Levaquin 250 Mg/ D5W 50 ml (Pmx)) 50 ml @ 50 mls/hr Q48H IVPB Last administered on 12/22/16 05:47; Admin Dose 50 MLS/HR; Start at 06:00 Zolpidem Tartrate (Ambien) 10 mg HS PRN PO INSOMNIA; Start 12/20/16 at 22:00 Carvedilol (Coreg) 25 mg DAILY PO Last administered on 12/21/16 08:57; Admin Dose 25 MG; Start 12/21/16 at 09:00 Ferrous Sulfate (Ferrous Sulfate (Ec)) 325 mg TID PO Last administered on 20:54; Admin Dose 325 MG; Start 12/21/16 at 09:00 Furosemide (Lasix) 80 mg DAILY PO Last administered on 12/21/16 08:57; Admin Dose 80 MG; Start 12/21/16 at 09:00 Clopidogrel Bisulfate (plaVIX) 75 mg DAILY PO Last administered on 12/21/16 08 :56; Admin Dose 75 MG; Start 12/21/16 at 09:00 Levothyroxine Sodium (Synthroid) 150 mcg DAILY@06 PO Last administered on 05:47; Admin Dose 150 MCG; Start 12/21/16 at 06:00 Fenofibrate (Tricor) 145 mg DAILY PO Last administered on 12/21/16 08:56; Admin Dose 145 MG; Start 12/21/16 at 09:00 Lisinopril (Zestril) 10 mg BID PO Last administered on 12/21/16 20:54; Admin Dose 10 MG; Start 12/21/16 at 09:00 Allopurinol (Zyloprim) 100 mg Q48H PO ; Start 12/22/16 at 18:00 Bisacodyl (Dulcolax Supp) 10 mg DAILY PRN [place] CONSTIPATION; Start 12/20/16 at 22 :30 Epoetin Stas (Epogen (Esrd)) 10,000 units MoWeFr@17 SC ; Start 12/22/16 at 17:00 Tramadol HCl (Ultram) 50 mg Q6H PRN PO PAIN Last administered on 12/21/16 13: 36; Admin Dose 50 MG; Start 12/20/16 at 22:30 Bupropion HCl (Wellbutrin Xl) 150 mg QAM PO Last administered on 12/21/16 08: 56; Admin Dose 150 MG; Start 12/21/16 at 09:00 Acetaminophen (Tylenol Tab) 650 mg Q4H PRN PO PAIN; Start 12/21/16 at 04:40 Docusate Sodium (Colace) 100 mg BID PO Last administered on 12/21/16 20:54; Admin Dose 100 MG; Start 12/21/16 at 09:00 Senna (Senokot) 1 tab HS PO Last administered on 12/21/16 20:54; Admin Dose 1 TAB; Start 12/21/16 at 21:00 Magnesium Hydroxide (Milk Of Mag) 30 ml BID PRN PO CONSTIPATION; Start at 04:40 Lactulose (Enulose) 20 gm DAILY PRN PO CONSTIPATION; Start 12/21/16 at 04:40 ANDRIA OLIVEIRA MD Dec 22, 2016 08:32
[2016-12-22] MEDS: CLOPIDOGREL 75 MG TAB PO SCH (08:36)
[2016-12-22] MEDS: BUPROPION (XL) 150 MG TAB PO SCH (08:36)
[2016-12-22] MEDS: FENOFIBRATE 145 MG TAB PO SCH (08:36)
[2016-12-22] MEDS: CREON (24K-76K-120K) 1 CAP PO SCH ×3 (08:36→18:56)
[2016-12-22] MEDS: DOCUSATE SODIUM 100 MG CAP PO SCH ×2 (08:36→20:39)
[2016-12-22] MEDS: SALMETEROL/FLUTICASONE 250/50 INHA INH SCH ×2 (08:40→20:39)
[2016-12-22] MEDS: FUROSEMIDE 40 MG TAB PO SCH (09:00)
[2016-12-22] MEDS: LISINOPRIL 10 MG TAB PO SCH ×2 (09:00→20:40)
[2016-12-22] MEDS: FERROUS SULFATE (EC) 325 MG TAB PO SCH ×3 (09:00→20:39)
--- NOTE | 2016-12-22 12:10 | CONS ---
Date/Time of Note Date/Time of Note DATE: 12/22/16 TIME: 12:07 Assessment/Plan Assessment/Plan Additional Assessment/Plan Fatigue Compensated systolic congestive heart failure Cardiomyopathy with ejection fraction 45% CAD with history of CABG Peripheral arterial disease End-stage renal disease on hemodialysis Acute blood loss anemia -Blood pressure trend overall remains stable on current cv medication regimen, fluid management via hemodialysis as per our nephrology colleagues. No new cardiac orders at the current time Consultation Date/Type/Reason Admit Date/Time Dec 20, 2016 at 21:28 Type of Consultation: cv 24 HR Interval Summary Free Text/Dictation Denies shortness of breath, palpitations, chest pain, feels better today Exam/Review of Systems Vital Signs Vitals Vital Signs Date Time Temp Pulse Resp B/P Pulse Ox O2 Delivery O2 Flow Rate FiO2 12/22/16 08:30 97.7 73 20 129/60 96 Room Air 12/22/16 08:22 21 12/21/16 09:00 2.0 Intake and Output 12/21/16 12/21/16 12/22/16 15:00 23:00 07:00 Intake Total 540 ml 540 ml 620 ml Output Total 150 ml Balance 540 ml 540 ml 470 ml Exam No apparent distress Constitutional: alert, oriented Head: normocephalic Respiratory: other (Coarse breath bilaterally, no wheezing) Cardiovascular: other (S1-S2 heard), regular rate and rhythm Gastrointestinal: bowel sounds, non-tender, soft Extremities: edema Results Result Diagram: 12/21/1619 12/21/16 0619 Medications Medications Current Medications Guaifenesin/ Codeine Phosphate (Robitussin Ac Liquid Cup) 5 ml Q4H PRN PO COUGH Last administered on 12/20/16 23:21; Admin Dose 5 ML; Start 12/20/16 at 22:00 Cyanocobalamin (Vitamin B12 Inj) 1,000 mcg Q7D IM ; Start 12/23/16 at 09:00 Salmeterol Xinafoate/ Fluticasone (Advair 250/50 Diskus) 1 inh BID INH Last administered on 12/22/16 08:40; Admin Dose 1 INH; Start 12/21/16 at 09:00 Ondansetron HCl 4 mg 4 mg Q4H PRN IV NAUSEA AND/OR VOMITING Last administered on 12/22/16 01:54; Admin Dose 4 MG; Start 12/20/16 at 22:00 Levofloxacin/ Dextrose (Levaquin 250 Mg/ D5W 50 ml (Pmx)) 50 ml @ 50 mls/hr Q48H IVPB Last administered on 12/22/16 05:47; Admin Dose 50 MLS/HR; Start at 06:00 Zolpidem Tartrate (Ambien) 10 mg HS PRN PO INSOMNIA; Start 12/20/16 at 22:00 Carvedilol (Coreg) 25 mg DAILY PO Last administered on 12/21/16 08:57; Admin Dose 25 MG; Start 12/21/16 at 09:00 Ferrous Sulfate (Ferrous Sulfate (Ec)) 325 mg TID PO Last administered on 12:02; Admin Dose 325 MG; Start 12/21/16 at 09:00 Furosemide (Lasix) 80 mg DAILY PO Last administered on 12/21/16 08:57; Admin Dose 80 MG; Start 12/21/16 at 09:00 Clopidogrel Bisulfate (plaVIX) 75 mg DAILY PO Last administered on 12/22/16 08 :36; Admin Dose 75 MG; Start 12/21/16 at 09:00 Levothyroxine Sodium (Synthroid) 150 mcg DAILY@06 PO Last administered on 05:47; Admin Dose 150 MCG; Start 12/21/16 at 06:00 Fenofibrate (Tricor) 145 mg DAILY PO Last administered on 12/22/16 08:36; Admin Dose 145 MG; Start 12/21/16 at 09:00 Lisinopril (Zestril) 10 mg BID PO Last administered on 12/21/16 20:54; Admin Dose 10 MG; Start 12/21/16 at 09:00 Allopurinol (Zyloprim) 100 mg Q48H PO ; Start 12/22/16 at 18:00 Bisacodyl (Dulcolax Supp) 10 mg DAILY PRN [place] CONSTIPATION; Start 12/20/16 at 22 :30 Epoetin Stas (Epogen (Esrd)) 10,000 units MoWeFr@17 SC ; Start 12/22/16 at 17:00 Tramadol HCl (Ultram) 50 mg Q6H PRN PO PAIN Last administered on 9/14/17at 13: 36; Admin Dose 50 MG; Start 12/20/16 at 22:30 Bupropion HCl (Wellbutrin Xl) 150 mg QAM PO Last administered on 12/22/16 08: 36; Admin Dose 150 MG; Start 12/21/16 at 09:00 Acetaminophen (Tylenol Tab) 650 mg Q4H PRN PO PAIN; Start 12/21/16 at 04:40 Docusate Sodium (Colace) 100 mg BID PO Last administered on 12/22/16 08:36; Admin Dose 100 MG; Start 12/21/16 at 09:00 Senna (Senokot) 1 tab HS PO Last administered on 12/21/16 20:54; Admin Dose 1 TAB; Start 12/21/16 at 21:00 Magnesium Hydroxide (Milk Of Mag) 30 ml BID PRN PO CONSTIPATION; Start at 04:40 Lactulose (Enulose) 20 gm DAILY PRN PO CONSTIPATION; Start 12/21/16 at 04:40 Hammad Hernandez DO Dec 22, 2016 12:10
--- NOTE | 2016-12-22 13:23 | CONS ---
Date/Time of Note Date/Time of Note DATE: 12/22/16 TIME: 13:08 Consult Date/Type/Reason Admit Date/Time Dec 20, 2016 at 21:28 Initial Consult Date Type of Consultation: cv Subjective No new complaints Objective ext- L LE residual limb with wound pulm-cta max assist transfer Vital Signs Date Time Temp Pulse Resp B/P Pulse Ox O2 Delivery O2 Flow Rate FiO2 12/22/16 08:30 97.7 73 20 129/60 96 Room Air 12/22/16 08:22 21 12/21/16 09:00 2.0 Intake and Output 12/21/16 12/21/16 12/22/16 15:00 23:00 07:00 Intake Total 540 ml 540 ml 620 ml Output Total 150 ml Balance 540 ml 540 ml 470 ml Results/Medications Result Diagram: 12/21/1661812/21/1619 Medications Current Medications Guaifenesin/ Codeine Phosphate (Robitussin Ac Liquid Cup) 5 ml Q4H PRN PO COUGH Last administered on 12/20/16 23:21; Admin Dose 5 ML; Start 12/20/16 at 22:00 Cyanocobalamin (Vitamin B12 Inj) 1,000 mcg Q7D IM ; Start 12/23/16 at 09:00 Salmeterol Xinafoate/ Fluticasone (Advair 250/50 Diskus) 1 inh BID INH Last administered on 12/22/16 08:40; Admin Dose 1 INH; Start 12/21/16 at 09:00 Ondansetron HCl 4 mg 4 mg Q4H PRN IV NAUSEA AND/OR VOMITING Last administered on 12/22/16 01:54; Admin Dose 4 MG; Start 12/20/16 at 22:00 Levofloxacin/ Dextrose (Levaquin 250 Mg/ D5W 50 ml (Pmx)) 50 ml @ 50 mls/hr Q48H IVPB Last administered on 12/22/16 05:47; Admin Dose 50 MLS/HR; Start at 06:00 Zolpidem Tartrate (Ambien) 10 mg HS PRN PO INSOMNIA; Start 12/20/16 at 22:00 Carvedilol (Coreg) 25 mg DAILY PO Last administered on 12/21/16 08:57; Admin Dose 25 MG; Start 12/21/16 at 09:00 Ferrous Sulfate (Ferrous Sulfate (Ec)) 325 mg TID PO Last administered on 12:02; Admin Dose 325 MG; Start 12/21/16 at 09:00 Furosemide (Lasix) 80 mg DAILY PO Last administered on 12/21/16 08:57; Admin Dose 80 MG; Start 12/21/16 at 09:00 Clopidogrel Bisulfate (plaVIX) 75 mg DAILY PO Last administered on 12/22/16 08 :36; Admin Dose 75 MG; Start 12/21/16 at 09:00 Levothyroxine Sodium (Synthroid) 150 mcg DAILY@06 PO Last administered on 05:47; Admin Dose 150 MCG; Start 12/21/16 at 06:00 Fenofibrate (Tricor) 145 mg DAILY PO Last administered on 12/22/16 08:36; Admin Dose 145 MG; Start 12/21/16 at 09:00 Lisinopril (Zestril) 10 mg BID PO Last administered on 12/21/16 20:54; Admin Dose 10 MG; Start 12/21/16 at 09:00 Allopurinol (Zyloprim) 100 mg Q48H PO ; Start 12/22/16 at 18:00 Bisacodyl (Dulcolax Supp) 10 mg DAILY PRN [place] CONSTIPATION; Start 12/20/16 at 22 :30 Epoetin Stas (Epogen (Esrd)) 10,000 units MoWeFr@17 SC ; Start 12/22/16 at 17:00 Tramadol HCl (Ultram) 50 mg Q6H PRN PO PAIN Last administered on 12/21/16 13: 36; Admin Dose 50 MG; Start 12/20/16 at 22:30 Bupropion HCl (Wellbutrin Xl) 150 mg QAM PO Last administered on 12/22/16 08: 36; Admin Dose 150 MG; Start 12/21/16 at 09:00 Acetaminophen (Tylenol Tab) 650 mg Q4H PRN PO PAIN; Start 12/21/16 at 04:40 Docusate Sodium (Colace) 100 mg BID PO Last administered on 12/22/16 08:36; Admin Dose 100 MG; Start 12/21/16 at 09:00 Senna (Senokot) 1 tab HS PO Last administered on 9/14/17at 20:54; Admin Dose 1 TAB; Start 12/21/16 at 21:00 Magnesium Hydroxide (Milk Of Mag) 30 ml BID PRN PO CONSTIPATION; Start at 04:40 Lactulose (Enulose) 20 gm DAILY PRN PO CONSTIPATION; Start 12/21/16 at 04:40 Assessment/Plan Additional Assessment/Plan Rehab- 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 Left BKA with residual limb wound- case d/w wound care staff and rehab staff. We will strictly AVOID prosthetic use in order to keep site offloaded, and increase wound healing. Will ask for Dr. Roberts follow up. End-stage renal disease, on hemodialysis per renal COPD. Hyperlipidemia. Diabetes mellitus. History of Riddle's palsy. Peripheral vascular disease. OLESYA ELLIS MD Dec 22, 2016 13:23
--- NOTE | 2016-12-22 15:32 | CONS ---
Date/Time of Note Date/Time of Note DATE: 12/22/16 TIME: 15:22 Consult Date/Type/Reason Admit Date/Time Dec 20, 2016 at 21:28 Initial Consult Date 12/20/2016 Type of Consultation: internal medicine Subjective after lunch, after cough, vomited food again. Objective Vital Signs Date Time Temp Pulse Resp B/P Pulse Ox O2 Delivery O2 Flow Rate FiO2 12/22/16 13:22 68 20 21 12/22/16 08:30 97.7 129/60 96 Room Air 12/21/16 09:00 2.0 Intake and Output 12/21/16 12/21/16 12/22/16 15:00 23:00 07:00 Intake Total 540 ml 540 ml 620 ml Output Total 150 ml Balance 540 ml 540 ml 470 ml Exam rt body musc atrophy+, lf bka+, flat affect+, while speaking, 2x cough spells+ w/ husky voice, rr, cta Results/Medications Result Diagram: 12/21/1661812/21/16618 Medications Current Medications Guaifenesin/ Codeine Phosphate (Robitussin Ac Liquid Cup) 5 ml Q4H PRN PO COUGH Last administered on 12/20/16 23:21; Admin Dose 5 ML; Start 12/20/16 at 22:00 Cyanocobalamin (Vitamin B12 Inj) 1,000 mcg Q7D IM ; Start 12/23/16 at 09:00 Salmeterol Xinafoate/ Fluticasone (Advair 250/50 Diskus) 1 inh BID INH Last administered on 12/22/16 08:40; Admin Dose 1 INH; Start 12/21/16 at 09:00 Ondansetron HCl 4 mg 4 mg Q4H PRN IV NAUSEA AND/OR VOMITING Last administered on 12/22/16 13:23; Admin Dose 4 MG; Start 12/20/16 at 22:00 Levofloxacin/ Dextrose (Levaquin 250 Mg/ D5W 50 ml (Pmx)) 50 ml @ 50 mls/hr Q48H IVPB Last administered on 12/22/16 05:47; Admin Dose 50 MLS/HR; Start at 06:00 Zolpidem Tartrate (Ambien) 10 mg HS PRN PO INSOMNIA; Start 12/20/16 at 22:00 Carvedilol (Coreg) 25 mg DAILY PO Last administered on 12/21/16 08:57; Admin Dose 25 MG; Start 12/21/16 at 09:00 Ferrous Sulfate (Ferrous Sulfate (Ec)) 325 mg TID PO Last administered on 12:02; Admin Dose 325 MG; Start 12/21/16 at 09:00 Furosemide (Lasix) 80 mg DAILY PO Last administered on 12/21/16 08:57; Admin Dose 80 MG; Start 12/21/16 at 09:00 Clopidogrel Bisulfate (plaVIX) 75 mg DAILY PO Last administered on 12/22/16 08 :36; Admin Dose 75 MG; Start 12/21/16 at 09:00 Levothyroxine Sodium (Synthroid) 150 mcg DAILY@06 PO Last administered on 05:47; Admin Dose 150 MCG; Start 12/21/16 at 06:00 Fenofibrate (Tricor) 145 mg DAILY PO Last administered on 12/22/16 08:36; Admin Dose 145 MG; Start 12/21/16 at 09:00 Lisinopril (Zestril) 10 mg BID PO Last administered on 12/21/16 20:54; Admin Dose 10 MG; Start 12/21/16 at 09:00 Allopurinol (Zyloprim) 100 mg Q48H PO ; Start 12/22/16 at 18:00 Bisacodyl (Dulcolax Supp) 10 mg DAILY PRN [place] CONSTIPATION; Start 12/20/16 at 22 :30 Epoetin Stas (Epogen (Esrd)) 10,000 units MoWeFr@17 SC ; Start 12/22/16 at 17:00 Tramadol HCl (Ultram) 50 mg Q6H PRN PO PAIN Last administered on 12/21/16 13: 36; Admin Dose 50 MG; Start 12/20/16 at 22:30 Bupropion HCl (Wellbutrin Xl) 150 mg QAM PO Last administered on 12/22/16 08: 36; Admin Dose 150 MG; Start 12/21/16 at 09:00 Acetaminophen (Tylenol Tab) 650 mg Q4H PRN PO PAIN; Start 12/21/16 at 04:40 Docusate Sodium (Colace) 100 mg BID PO Last administered on 12/22/16 08:36; Admin Dose 100 MG; Start 12/21/16 at 09:00 Senna (Senokot) 1 tab HS PO Last administered on 12/21/16 20:54; Admin Dose 1 TAB; Start 12/21/16 at 21:00 Magnesium Hydroxide (Milk Of Mag) 30 ml BID PRN PO CONSTIPATION; Start at 04:40 Lactulose (Enulose) 20 gm DAILY PRN PO CONSTIPATION; Start 12/21/16 at 04:40 Assessment/Plan Additional Assessment/Plan 1. cva/ rt body musc weak, 2. esoph musc weak, gerd, gp---after coughs, vomits 3. cad/ pad/ lf bka 4. esrd/ anemia/ flood level fluctuant 5. dm--diet controlled 6. depression/ worsen debility ---per rehab, full PT/OT exercises ---per renal ---per cards ---head up always, digestive enzymes, chew longer, stay on [facility] soft diet ---add protonix 40mg bid COLTEN ROMANO MD Dec 22, 2016 15:32
[2016-12-22] MEDS: ALLOPURINOL 100 MG TAB PO SCH (18:56)
[2016-12-22] MEDS: PANTOPRAZOLE (EC) 40 MG TAB PO SCH (18:56)
[2016-12-22] MEDS: EPOETIN 10000 UNITS/1 ML INJ (ESRD) SC SCH (18:58)
[2016-12-22] MEDS: SENNA TAB PO SCH (20:40)
[2016-12-22 20:59] LABS: HEMATOCRIT 31.5 % (42.0-52.0); HEMOGLOBIN 10.1 g/dl (14.0-18.0)
[2016-12-22 21:16] LABS: CALCIUM 9.2 mg/dl (8.4-10.2); CREATININE 3.97 mg/dl (0.61-1.24); POTASSIUM 4.2 mmol/L (3.5-5.1)
[2016-12-23] MEDS: ALBUTEROL 0.083% (NEB) 2.5 MG/3 ML AMP HHN SCH ×6 (01:34→20:57)
--- NOTE | 2016-12-23 04:23 | CONS ---
DATE OF ADMISSION: 12/20/2016 DATE OF CONSULTATION: 12/22/2016 REFERRING PHYSICIAN: Stephie Mercado MD. REASON FOR CONSULTATION: To evaluate left below-knee amputation stump ulceration. HISTORY OF PRESENT ILLNESS: This is a very pleasant, 65-year-old gentleman who is well known to me. He has a long history of diabetes, end-stage renal disease, and CHF. He has been on dialysis now for several years. He has a left upper arm AV fistula. It is working well. He underwent a left below-knee amputation, about 3 or 4 years ago, after a failed bypass. He had been doing fairly well. I had seen [facility]. He had some ulcers on the right calf that all healed up fairly quickly. At that time, he was not going to dialysis regularly, and he just became very edematous. He has been going more regularly now. The edema resolved, and the wounds healed. So, he was apparently admitted there about a week ago. He had a stroke and was admitted with right-sided weakness. It seems to have improved, and he does not have any significant residual weakness. He has had poor appetite, not feeling well, and is taking some time to get back to his usual state of health. He apparently fell a week or 2 ago and injured the stump on the left. The below-knee amputation stump has 2 ulcers, one that was from the fall, and one was, his thinks, from the prosthetic use. They are fairly clean. There is no drainage. They are mildly tender but has not had any signs of infection there. PAST MEDICAL HISTORY: Again, significant for end-stage renal disease on hemodialysis, COPD, coronary artery disease, CHF, diabetes, hypertension, and hyperlipidemia. PAST SURGICAL HISTORY: Significant for left upper arm AV fistula and the left below-knee amputation. He had also had a prior bypass that failed. MEDICATION: 1. Bupropion. 2. Lasix. 3. Ultram. 4. Allopurinol. 5. Coreg. 6. Iron. 7. Synthroid. 8. Plavix. ALLERGIES: KEFLEX. SOCIAL HISTORY: He lives with his and daughter. He is an ex-smoker. FAMILY HISTORY: Noncontributory. REVIEW OF SYSTEMS: He currently has a poor appetite. He eats breakfast but not much after that. He gets nauseated and has trouble swallowing. He has been getting some speech and swallow therapy. He denies any chest pain or shortness of breath. Currently, he has no fevers, no chills. No recent weight gain or weight loss. He has been doing some therapy with physical therapy, but because of the ulcers on the stump, they have not been using the prosthetic recently. PHYSICAL EXAMINATION: GENERAL: He is an elderly gentleman. He is fluent Azeri speaker. He is in no distress. VITALS: He has been afebrile. His blood pressure 129/68, heart rate 73, respiratory rate 20, pulse ox 96 percent sat on room air. EXTREMITIES: He has 2+ carotid pulses bilaterally, 2+ radial and brachial pulses bilaterally. His left upper arm AV fistula has an excellent soft thrill. There is no edema in the arm. He has 2+ femoral pulses bilaterally. On the left, no popliteal pulses. There is a left below-knee amputation. It is well healed. There are some eschars on the distal end of the stump. It looks like the fibula was left longer than the tibia. So, has got an ulcer where the fibula tibia is, and he has also had another ulcer higher up on the anterior surface of the stump. They are both covered with just kind of dry eschars. No drainage. No erythema. Mildly tender. On the right, it looks like he has some traumatic small ulcers that are covered again with the dry eschar. They all look fine. He does not have pedal pulses on the right, but he does have popliteal and femoral pulses on the right. IMPRESSION: Recent stroke. His carotid duplex was normal. It does not appear to be an embolic stroke. He has recovered, although not completely. He is going to stay in rehab until he has good strength back. I have recommended not using the prosthetic until those ulcerations on the stump completely heal, and I think Betadine is as good as anything to the paint the ulcers with. I do not see any problem with that. Once the ulcer is completely healed, he can start using the prosthetic again. I am available for any other further issues while he is here. I will see him back in the office once he is discharged as well. Dictated By: Eugene Adams MD /anna/moira /Document#: [id number] CC: Hipolito Swanson MD; Stephie Mercado MD; Cristiano Quinn MD;*EndCC*
[2016-12-23] MEDS: LEVOTHYROXINE 150 MCG TAB PO SCH (05:56)
[2016-12-23] MEDS: PANTOPRAZOLE (EC) 40 MG TAB PO SCH ×2 (05:57→17:08)
[2016-12-23 07:30] VITALS: BP 143/65; RESP 18
[2016-12-23] MEDS: FERROUS SULFATE (EC) 325 MG TAB PO SCH ×2 (08:50→12:32)
[2016-12-23] MEDS: FENOFIBRATE 145 MG TAB PO SCH (08:50)
[2016-12-23] MEDS: CREON (24K-76K-120K) 1 CAP PO SCH (08:50)
[2016-12-23] MEDS: DOCUSATE SODIUM 100 MG CAP PO SCH ×2 (08:50→21:18)
[2016-12-23] MEDS: CLOPIDOGREL 75 MG TAB PO SCH (08:50)
[2016-12-23] MEDS: BUPROPION (XL) 150 MG TAB PO SCH (08:50)
[2016-12-23] MEDS: FUROSEMIDE 40 MG TAB PO SCH (08:51)
[2016-12-23] MEDS: ONDANSETRON 4 MG INJ IV PRN (08:54)
[2016-12-23] MEDS: LISINOPRIL 10 MG TAB PO SCH ×2 (08:57→21:18)
[2016-12-23] MEDS: SALMETEROL/FLUTICASONE 250/50 INHA INH SCH ×2 (08:59→21:18)
[2016-12-23] MEDS: CYANOCOBALAMIN 1000 MCG INJ IM SCH (09:02)
[2016-12-23 09:05] VITALS: BP 154/72; PULSE 84; RESP 16
--- NOTE | 2016-12-23 09:39 | CONS ---
Date/Time of Note Date/Time of Note DATE: 12/23/16 TIME: 09:38 Assessment/Plan Assessment/Plan Problems: (1) ESRD (end stage renal disease) on dialysis Comment: for HD Mon (2) HTN (hypertension) Comment: controlled (3) Anemia due to chronic kidney disease Comment: on EPO...stable (4) Weakness due to cerebrovascular accident (CVA) Comment: improved Consultation Date/Type/Reason Admit Date/Time Dec 20, 2016 at 21:28 Type of Consultation: internal medicine 24 HR Interval Summary Constitutional: improved, no complaints Exam/Review of Systems Vital Signs Vitals Vital Signs Date Time Temp Pulse Resp B/P Pulse Ox O2 Delivery O2 Flow Rate FiO2 12/23/16 09:05 84 16 154/72 96 Room Air 12/23/16 07:30 98.1 12/23/16 04:42 21 12/21/16 09:00 2.0 Intake and Output 12/22/16 12/22/16 12/23/16 15:00 23:00 07:00 Intake Total 480 ml 740 ml 100 ml Output Total 400 ml 2500 ml 100 ml Balance 80 ml -1760 ml 0 ml Exam Constitutional: alert, oriented, well developed Psych: no complaints Eyes: nl conjunctiva Respiratory: clear to auscultation Cardiovascular: regular rate and rhythm Results Result Diagram: 12/22/16205112/22/162051 Results 24 hrs Laboratory Tests Test 12/22/16 20:52 Hemoglobin 10.1 L Hematocrit 31.5 L Sodium Level 138 Potassium Level 4.2 Chloride Level 98 Carbon Dioxide Level 29 Anion Gap 15 Blood Urea Nitrogen 43 H Creatinine 3.97 H Glucose Level 81 Uric Acid 3.7 Calcium Level 9.2 Medications Medications Current Medications Guaifenesin/ Codeine Phosphate (Robitussin Ac Liquid Cup) 5 ml Q4H PRN PO COUGH Last administered on 12/20/16 23:21; Admin Dose 5 ML; Start 12/20/16 at 22:00 Cyanocobalamin (Vitamin B12 Inj) 1,000 mcg Q7D IM Last administered on 09:02; Admin Dose 1,000 MCG; Start 12/23/16 at 09:00 Salmeterol Xinafoate/ Fluticasone (Advair 250/50 Diskus) 1 inh BID INH Last administered on 12/23/16 08:59; Admin Dose 1 INH; Start 12/21/16 at 09:00 Ondansetron HCl (Zofran Inj) 4 mg Q4H PRN IV NAUSEA AND/OR VOMITING Last administered on 12/23/16 08:54; Admin Dose 4 MG; Start 12/20/16 at 22:00 Zolpidem Tartrate (Ambien) 10 mg HS PRN PO INSOMNIA; Start 12/20/16 at 22:00 Carvedilol (Coreg) 25 mg DAILY PO Last administered on 12/23/16 08:51; Admin Dose 25 MG; Start 12/21/16 at 09:00 Ferrous Sulfate (Ferrous Sulfate (Ec)) 325 mg TID PO Last administered on 08:50; Admin Dose 325 MG; Start 12/21/16 at 09:00 Furosemide (Lasix) 80 mg DAILY PO Last administered on 12/23/16 08:51; Admin Dose 80 MG; Start 12/21/16 at 09:00 Clopidogrel Bisulfate (plaVIX) 75 mg DAILY PO Last administered on 12/23/16 08 :50; Admin Dose 75 MG; Start 12/21/16 at 09:00 Levothyroxine Sodium (Synthroid) 150 mcg DAILY@06 PO Last administered on 05:56; Admin Dose 150 MCG; Start 12/21/16 at 06:00 Fenofibrate (Tricor) 145 mg DAILY PO Last administered on 12/23/16 08:50; Admin Dose 145 MG; Start 12/21/16 at 09:00 Lisinopril (Zestril) 10 mg BID PO Last administered on 12/23/16 08:57; Admin Dose 10 MG; Start 12/21/16 at 09:00 Allopurinol (Zyloprim) 100 mg Q48H PO Last administered on 12/22/16 18:56; Admin Dose 100 MG; Start 12/22/16 at 18:00 Bisacodyl (Dulcolax Supp) 10 mg DAILY PRN [place] CONSTIPATION; Start 12/20/16 at 22 :30 Epoetin Stas (Epogen (Esrd)) 10,000 units MoWeFr@17 SC Last administered on 18:58; Admin Dose 10,000 UNITS; Start 12/22/16 at 17:00 Tramadol HCl (Ultram) 50 mg Q6H PRN PO PAIN Last administered on 12/21/16 13: 36; Admin Dose 50 MG; Start 12/20/16 at 22:30 Bupropion HCl (Wellbutrin Xl) 150 mg QAM PO Last administered on 12/23/16 08: 50; Admin Dose 150 MG; Start 12/21/16 at 09:00 Acetaminophen (Tylenol Tab) 650 mg Q4H PRN PO PAIN; Start 12/21/16 at 04:40 Docusate Sodium (Colace) 100 mg BID PO Last administered on 12/23/16 08:50; Admin Dose 100 MG; Start 12/21/16 at 09:00 Senna (Senokot) 1 tab HS PO Last administered on 12/22/16 20:40; Admin Dose 1 TAB; Start 12/21/16 at 21:00 Magnesium Hydroxide (Milk Of Mag) 30 ml BID PRN PO CONSTIPATION; Start at 04:40 Lactulose (Enulose) 20 gm DAILY PRN PO CONSTIPATION; Start 12/21/16 at 04:40 Pantoprazole (Protonix Tab) 40 mg BID@06,18 PO Last administered on 12/23/16 05:57; Admin Dose 40 MG; Start 12/22/16 at 18:00 SABINE MIRZA MD Dec 23, 2016 09:39
--- NOTE | 2016-12-23 10:25 | CONS ---
Date/Time of Note Date/Time of Note DATE: 12/23/16 TIME: 10:24 Consult Date/Type/Reason Admit Date/Time Dec 20, 2016 at 21:28 Type of Consultation: internal medicine Subjective Comfortable Objective pulm-cta abd-soft max transfer Vital Signs Date Time Temp Pulse Resp B/P Pulse Ox O2 Delivery O2 Flow Rate FiO2 12/23/16 09:05 84 16 154/72 96 Room Air 12/23/16 07:30 98.1 12/23/16 04:42 21 12/21/16 09:00 2.0 Intake and Output 12/22/16 12/22/16 12/23/16 15:00 23:00 07:00 Intake Total 480 ml 740 ml 100 ml Output Total 400 ml 2500 ml 100 ml Balance 80 ml -1760 ml 0 ml Results/Medications Result Diagram: 12/22/16205112/22/162051 Results 24 hrs Laboratory Tests Test 12/22/16 20:52 Hemoglobin 10.1 L Hematocrit 31.5 L Sodium Level 138 Potassium Level 4.2 Chloride Level 98 Carbon Dioxide Level 29 Anion Gap 15 Blood Urea Nitrogen 43 H Creatinine 3.97 H Glucose Level 81 Uric Acid 3.7 Calcium Level 9.2 Medications Current Medications Guaifenesin/ Codeine Phosphate (Robitussin Ac Liquid Cup) 5 ml Q4H PRN PO COUGH Last administered on 12/20/16 23:21; Admin Dose 5 ML; Start 12/20/16 at 22:00 Cyanocobalamin (Vitamin B12 Inj) 1,000 mcg Q7D IM Last administered on 09:02; Admin Dose 1,000 MCG; Start 12/23/16 at 09:00 Salmeterol Xinafoate/ Fluticasone (Advair 250/50 Diskus) 1 inh BID INH Last administered on 12/23/16 08:59; Admin Dose 1 INH; Start 12/21/16 at 09:00 Ondansetron HCl (Zofran Inj) 4 mg Q4H PRN IV NAUSEA AND/OR VOMITING Last administered on 12/23/16 08:54; Admin Dose 4 MG; Start 12/20/16 at 22:00 Zolpidem Tartrate (Ambien) 10 mg HS PRN PO INSOMNIA; Start 12/20/16 at 22:00 Carvedilol (Coreg) 25 mg DAILY PO Last administered on 12/23/16 08:51; Admin Dose 25 MG; Start 12/21/16 at 09:00 Ferrous Sulfate (Ferrous Sulfate (Ec)) 325 mg TID PO Last administered on 08:50; Admin Dose 325 MG; Start 12/21/16 at 09:00 Furosemide (Lasix) 80 mg DAILY PO Last administered on 12/23/16 08:51; Admin Dose 80 MG; Start 12/21/16 at 09:00 Clopidogrel Bisulfate (plaVIX) 75 mg DAILY PO Last administered on 12/23/16 08 :50; Admin Dose 75 MG; Start 12/21/16 at 09:00 Levothyroxine Sodium (Synthroid) 150 mcg DAILY@06 PO Last administered on 05:56; Admin Dose 150 MCG; Start 12/21/16 at 06:00 Fenofibrate (Tricor) 145 mg DAILY PO Last administered on 12/23/16 08:50; Admin Dose 145 MG; Start 12/21/16 at 09:00 Lisinopril (Zestril) 10 mg BID PO Last administered on 12/23/16 08:57; Admin Dose 10 MG; Start 12/21/16 at 09:00 Allopurinol (Zyloprim) 100 mg Q48H PO Last administered on 12/22/16 18:56; Admin Dose 100 MG; Start 12/22/16 at 18:00 Bisacodyl (Dulcolax Supp) 10 mg DAILY PRN [place] CONSTIPATION; Start 12/20/16 at 22 :30 Epoetin Stas (Epogen (Esrd)) 10,000 units MoWeFr@17 SC Last administered on 18:58; Admin Dose 10,000 UNITS; Start 12/22/16 at 17:00 Tramadol HCl (Ultram) 50 mg Q6H PRN PO PAIN Last administered on 12/21/16 13: 36; Admin Dose 50 MG; Start 12/20/16 at 22:30 Bupropion HCl (Wellbutrin Xl) 150 mg QAM PO Last administered on 12/23/16 08: 50; Admin Dose 150 MG; Start 12/21/16 at 09:00 Acetaminophen (Tylenol Tab) 650 mg Q4H PRN PO PAIN; Start 12/21/16 at 04:40 Docusate Sodium (Colace) 100 mg BID PO Last administered on 12/23/16 08:50; Admin Dose 100 MG; Start 12/21/16 at 09:00 Senna (Senokot) 1 tab HS PO Last administered on 12/22/16 20:40; Admin Dose 1 TAB; Start 12/21/16 at 21:00 Magnesium Hydroxide (Milk Of Mag) 30 ml BID PRN PO CONSTIPATION; Start at 04:40 Lactulose (Enulose) 20 gm DAILY PRN PO CONSTIPATION; Start 12/21/16 at 04:40 Pantoprazole (Protonix Tab) 40 mg BID@06,18 PO Last administered on 12/23/16 05:57; Admin Dose 40 MG; Start 12/22/16 at 18:00 Assessment/Plan Additional Assessment/Plan Rehab- 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 Continue rehab program Left BKA with residual limb wound- AVOID prosthetic use, continue wound care End-stage renal disease, on hemodialysis per renal COPD. Hyperlipidemia. Diabetes mellitus. History of Riddle's palsy. Peripheral vascular disease. OLESYA ELLIS MD Dec 23, 2016 10:25
[2016-12-23] MEDS: traMADol 50 MG TAB PO PRN (11:08)
[2016-12-23] MEDS: CREON (12k-38k-60k) 1 CAP PO SCH ×2 (12:32→17:09)
[2016-12-23 14:00] VITALS: BP 146/65; RESP 18
--- NOTE | 2016-12-23 15:49 | PN ---
Date/Time of Note Date/Time of Note DATE: 12/23/16 TIME: 15:46 Assessment/Plan VTE Prophylaxis VTE Prophylaxis Intervention: other Lines/Catheters IV Catheter Type (from Nrsg): Saline Lock Urinary Cath still in place: No Assessment/Plan Assessment/Plan nausea after eating for the past 2 days. with constipation. \- possible due to fe tid or constipation. will hold fe for the next two meals and see if any improvement. will give dulcolax trial til bm. 1. cva/ rt body musc weak, 2. esoph musc weak, gerd, gp---after coughs, vomits 3. cad/ pad/ lf bka 4. esrd/ anemia/ flood level fluctuant 5. dm--diet controlled 6. depression/ worsen debility Subjective 24 Hr Interval Summary Free Text/Dictation c/o constipation. c/o nausea after each meal. not relieved by zofran. Exam/Review of Systems Vital Signs Vitals Vital Signs Date Time Temp Pulse Resp B/P Pulse Ox O2 Delivery O2 Flow Rate FiO2 12/23/16 14:00 97.8 69 18 146/65 98 12/23/16 13:31 21 12/23/16 09:05 Room Air 12/21/16 09:00 2.0 Intake and Output 12/22/16 12/22/16 12/23/16 15:00 23:00 07:00 Intake Total 480 ml 740 ml 100 ml Output Total 400 ml 2500 ml 100 ml Balance 80 ml -1760 ml 0 ml Results abd nt, no mass, normal bs. Result Diagram: 12/22/16205112/22/162051 Results 24 hrs Laboratory Tests Test 12/22/16 20:52 12/23/16 11:04 Hemoglobin 10.1 L Hematocrit 31.5 L Sodium Level 138 Potassium Level 4.2 Chloride Level 98 Carbon Dioxide Level 29 Anion Gap 15 Blood Urea Nitrogen 43 H Creatinine 3.97 H Glucose Level 81 Uric Acid 3.7 Calcium Level 9.2 Bedside Glucose 89 Medications Medications Current Medications Guaifenesin/ Codeine Phosphate (Robitussin Ac Liquid Cup) 5 ml Q4H PRN PO COUGH Last administered on 12/20/16t 23:21; Admin Dose 5 ML; Start 12/20/16 at 22:00 Cyanocobalamin (Vitamin B12 Inj) 1,000 mcg Q7D IM Last administered on 09:02; Admin Dose 1,000 MCG; Start 12/23/16 at 09:00 Salmeterol Xinafoate/ Fluticasone (Advair 250/50 Diskus) 1 inh BID INH Last administered on 12/23/16 08:59; Admin Dose 1 INH; Start 12/21/16 at 09:00 Ondansetron HCl (Zofran Inj) 4 mg Q4H PRN IV NAUSEA AND/OR VOMITING Last administered on 12/23/16 08:54; Admin Dose 4 MG; Start 12/20/16 at 22:00 Zolpidem Tartrate (Ambien) 10 mg HS PRN PO INSOMNIA; Start 12/20/16 at 22:00 Carvedilol (Coreg) 25 mg DAILY PO Last administered on 12/23/16 08:51; Admin Dose 25 MG; Start 12/21/16 at 09:00 Ferrous Sulfate (Ferrous Sulfate (Ec)) 325 mg TID PO Last administered on 12:32; Admin Dose 325 MG; Start 12/21/16 at 09:00 Furosemide (Lasix) 80 mg DAILY PO Last administered on 12/23/16 08:51; Admin Dose 80 MG; Start 12/21/16 at 09:00 Clopidogrel Bisulfate (plaVIX) 75 mg DAILY PO Last administered on 12/23/16 08 :50; Admin Dose 75 MG; Start 12/21/16 at 09:00 Levothyroxine Sodium (Synthroid) 150 mcg DAILY@06 PO Last administered on 05:56; Admin Dose 150 MCG; Start 12/21/16 at 06:00 Fenofibrate (Tricor) 145 mg DAILY PO Last administered on 12/23/16 08:50; Admin Dose 145 MG; Start 12/21/16 at 09:00 Lisinopril (Zestril) 10 mg BID PO Last administered on 12/23/16 08:57; Admin Dose 10 MG; Start 12/21/16 at 09:00 Allopurinol (Zyloprim) 100 mg Q48H PO Last administered on 12/22/16 18:56; Admin Dose 100 MG; Start 12/22/16 at 18:00 Bisacodyl (Dulcolax Supp) 10 mg DAILY PRN [place] CONSTIPATION; Start 12/20/16 at 22 :30 Epoetin Stas (Epogen (Esrd)) 10,000 units MoWeFr@17 SC Last administered on 18:58; Admin Dose 10,000 UNITS; Start 12/22/16 at 17:00 Tramadol HCl (Ultram) 50 mg Q6H PRN PO PAIN Last administered on 12/23/16 11: 08; Admin Dose 50 MG; Start 12/20/16 at 22:30 Bupropion HCl (Wellbutrin Xl) 150 mg QAM PO Last administered on 12/23/16 08: 50; Admin Dose 150 MG; Start 12/21/16 at 09:00 Acetaminophen (Tylenol Tab) 650 mg Q4H PRN PO PAIN; Start 12/21/16 at 04:40 Docusate Sodium (Colace) 100 mg BID PO Last administered on 12/23/16 08:50; Admin Dose 100 MG; Start 12/21/16 at 09:00 Senna (Senokot) 1 tab HS PO Last administered on 12/22/16 20:40; Admin Dose 1 TAB; Start 12/21/16 at 21:00 Magnesium Hydroxide (Milk Of Mag) 30 ml BID PRN PO CONSTIPATION; Start at 04:40 Lactulose (Enulose) 20 gm DAILY PRN PO CONSTIPATION; Start 12/21/16 at 04:40 Pantoprazole (Protonix Tab) 40 mg BID@06,18 PO Last administered on 12/23/16 05:57; Admin Dose 40 MG; Start 12/22/16 at 18:00 SARBJIT GUILLEN MD Dec 23, 2016 15:49
[2016-12-23] MEDS: LACTULOSE 30ML CUP PO PRN (15:59)
[2016-12-23 19:45] VITALS: BP 148/68; PULSE 79; RESP 18
[2016-12-23] MEDS: SENNA TAB PO SCH (21:18)
[2016-12-24] MEDS: LACTULOSE 30ML CUP PO PRN (01:23)
[2016-12-24] MEDS: ALBUTEROL 0.083% (NEB) 2.5 MG/3 ML AMP HHN SCH ×6 (01:30→20:49)
[2016-12-24] MEDS: PANTOPRAZOLE (EC) 40 MG TAB PO SCH ×2 (06:22→17:41)
[2016-12-24] MEDS: LEVOTHYROXINE 150 MCG TAB PO SCH (06:22)
[2016-12-24 07:30] VITALS: BP 155/71; RESP 18
[2016-12-24] MEDS: CLOPIDOGREL 75 MG TAB PO SCH (08:28)
[2016-12-24] MEDS: CREON (12k-38k-60k) 1 CAP PO SCH ×3 (08:28→18:35)
[2016-12-24] MEDS: FENOFIBRATE 145 MG TAB PO SCH (08:29)
[2016-12-24] MEDS: BUPROPION (XL) 150 MG TAB PO SCH (08:29)
[2016-12-24] MEDS: FUROSEMIDE 40 MG TAB PO SCH (08:29)
[2016-12-24] MEDS: LISINOPRIL 10 MG TAB PO SCH ×2 (08:29→21:00)
[2016-12-24] MEDS: SALMETEROL/FLUTICASONE 250/50 INHA INH SCH ×2 (08:30→21:35)
[2016-12-24] MEDS: DOCUSATE SODIUM 100 MG CAP PO SCH ×2 (08:31→21:34)
[2016-12-24 08:32] VITALS: BP 150/67; PULSE 84; RESP 16
--- NOTE | 2016-12-24 09:57 | CONS ---
Date/Time of Note Date/Time of Note DATE: 12/24/16 TIME: 09:55 Assessment/Plan Assessment/Plan Problems: (1) ESRD (end stage renal disease) on dialysis Comment: for HD in am (2) HTN (hypertension) Comment: controlled (3) Weakness due to cerebrovascular accident (CVA) Comment: stable (4) Anemia due to chronic kidney disease Comment: on epo Consultation Date/Type/Reason Admit Date/Time Dec 20, 2016 at 21:28 Type of Consultation: renal 24 HR Interval Summary Free Text/Dictation stable.. no new issues Exam/Review of Systems Vital Signs Vitals Vital Signs Date Time Temp Pulse Resp B/P Pulse Ox O2 Delivery O2 Flow Rate FiO2 12/24/16 09:29 82 18 97 21 12/24/16 08:32 150/67 Room Air 12/24/16 07:30 98.5 12/21/16 09:00 2.0 Intake and Output 12/23/16 12/23/16 12/24/16 15:00 23:00 07:00 Intake Total 350 ml 300 ml 240 ml Output Total 800 ml 160 ml 350 ml Balance -450 ml 140 ml -110 ml Exam Constitutional: alert, oriented Psych: no complaints Respiratory: clear to auscultation Cardiovascular: regular rate and rhythm Gastrointestinal: soft Extremities: other (fxn avf) Results Result Diagram: 12/22/16205112/22/162051 Results 24 hrs Laboratory Tests Test 12/23/16 11:04 12/24/16 07:40 12/24/16 08:35 Bedside Glucose 89 60 L 99 Medications Medications Current Medications Guaifenesin/ Codeine Phosphate (Robitussin Ac Liquid Cup) 5 ml Q4H PRN PO COUGH Last administered on 12/20/16 23:21; Admin Dose 5 ML; Start 12/20/16 at 22:00 Cyanocobalamin (Vitamin B12 Inj) 1,000 mcg Q7D IM Last administered on 09:02; Admin Dose 1,000 MCG; Start 12/23/16 at 09:00 Salmeterol Xinafoate/ Fluticasone (Advair 250/50 Diskus) 1 inh BID INH Last administered on 12/24/16 08:30; Admin Dose 1 INH; Start 12/21/16 at 09:00 Ondansetron HCl (Zofran Inj) 4 mg Q4H PRN IV NAUSEA AND/OR VOMITING Last administered on 12/23/16 08:54; Admin Dose 4 MG; Start 12/20/16 at 22:00 Zolpidem Tartrate (Ambien) 10 mg HS PRN PO INSOMNIA; Start 12/20/16 at 22:00 Carvedilol (Coreg) 25 mg DAILY PO Last administered on 12/24/16 08:30; Admin Dose 25 MG; Start 12/21/16 at 09:00 Ferrous Sulfate (Ferrous Sulfate (Ec)) 325 mg TID PO Last administered on 12:32; Admin Dose 325 MG; Start 12/21/16 at 09:00; Status Future Hold Furosemide (Lasix) 80 mg DAILY PO Last administered on 12/24/16 08:29; Admin Dose 80 MG; Start 12/21/16 at 09:00 Clopidogrel Bisulfate (plaVIX) 75 mg DAILY PO Last administered on 12/24/16 08 :28; Admin Dose 75 MG; Start 12/21/16 at 09:00 Levothyroxine Sodium (Synthroid) 150 mcg DAILY@06 PO Last administered on 06:22; Admin Dose 150 MCG; Start 12/21/16 at 06:00 Fenofibrate (Tricor) 145 mg DAILY PO Last administered on 12/24/16 08:29; Admin Dose 145 MG; Start 12/21/16 at 09:00 Lisinopril (Zestril) 10 mg BID PO Last administered on 12/24/16 08:29; Admin Dose 10 MG; Start 12/21/16 at 09:00 Allopurinol (Zyloprim) 100 mg Q48H PO Last administered on 12/22/16 18:56; Admin Dose 100 MG; Start 12/22/16 at 18:00 Bisacodyl (Dulcolax Supp) 10 mg DAILY PRN [place] CONSTIPATION; Start 12/20/16 at 22 :30 Epoetin Stas (Epogen (Esrd)) 10,000 units MoWeFr@17 SC Last administered on 18:58; Admin Dose 10,000 UNITS; Start 12/22/16 at 17:00 Tramadol HCl (Ultram) 50 mg Q6H PRN PO PAIN Last administered on 12/23/16 11: 08; Admin Dose 50 MG; Start 12/20/16 at 22:30 Bupropion HCl (Wellbutrin Xl) 150 mg QAM PO Last administered on 12/24/16 08: 29; Admin Dose 150 MG; Start 12/21/16 at 09:00 Acetaminophen (Tylenol Tab) 650 mg Q4H PRN PO PAIN; Start 12/21/16 at 04:40 Docusate Sodium (Colace) 100 mg BID PO Last administered on 12/23/16 21:18; Admin Dose 100 MG; Start 12/21/16 at 09:00 Senna (Senokot) 1 tab HS PO Last administered on 12/23/16 21:18; Admin Dose 1 TAB; Start 12/21/16 at 21:00 Magnesium Hydroxide (Milk Of Mag) 30 ml BID PRN PO CONSTIPATION; Start at 04:40 Pantoprazole (Protonix Tab) 40 mg BID@06,18 PO Last administered on 12/24/16 06:22; Admin Dose 40 MG; Start 12/22/16 at 18:00 Lactulose (Enulose) 20 gm TID PRN PO CONSTIPATION Last administered on 01:23; Admin Dose 20 GM; Start 12/23/16 at 21:00 SABINE MIRZA MD Dec 24, 2016 09:57
[2016-12-24 14:00] VITALS: BP 122/58; RESP 18
--- NOTE | 2016-12-24 15:46 | PN ---
Date/Time of Note Date/Time of Note DATE: 12/24/16 TIME: 15:44 Assessment/Plan VTE Prophylaxis VTE Prophylaxis Intervention: other Lines/Catheters IV Catheter Type (from Nrsg): Saline Lock Urinary Cath still in place: No Assessment/Plan Assessment/Plan 12/24 much better with nausea since fe stopped and had 2 bm. --will restart fe but at a lower dose and see if gets nauseated again after dinner. nausea after eating for the past 2 days. with constipation. \- possible due to fe tid or constipation. will hold fe for the next two meals and see if any improvement. will give dulcolax trial til bm. 1. cva/ rt body musc weak, 2. esoph musc weak, gerd, gp---after coughs, vomits 3. cad/ pad/ lf bka 4. esrd/ anemia/ flood level fluctuant 5. dm--diet controlled 6. depression/ worsen debility Exam/Review of Systems Vital Signs Vitals Vital Signs Date Time Temp Pulse Resp B/P Pulse Ox O2 Delivery O2 Flow Rate FiO2 12/24/16 14:00 97.9 62 18 122/58 96 12/24/16 13:49 21 12/24/16 08:32 Room Air 12/21/16 09:00 2.0 Intake and Output 12/23/16 12/23/16 12/24/16 15:00 23:00 07:00 Intake Total 350 ml 300 ml 240 ml Output Total 800 ml 160 ml 350 ml Balance -450 ml 140 ml -110 ml Results Result Diagram: 12/22/16205112/22/162051 Results 24 hrs Laboratory Tests Test 12/24/16 07:40 12/24/16 08:35 Bedside Glucose 60 L 99 Medications Medications Current Medications Guaifenesin/ Codeine Phosphate (Robitussin Ac Liquid Cup) 5 ml Q4H PRN PO COUGH Last administered on 12/20/16 23:21; Admin Dose 5 ML; Start 12/20/16 at 22:00 Cyanocobalamin (Vitamin B12 Inj) 1,000 mcg Q7D IM Last administered on 09:02; Admin Dose 1,000 MCG; Start 12/23/16 at 09:00 Salmeterol Xinafoate/ Fluticasone (Advair 250/50 Diskus) 1 inh BID INH Last administered on 12/24/16 08:30; Admin Dose 1 INH; Start 12/21/16 at 09:00 Ondansetron HCl (Zofran Inj) 4 mg Q4H PRN IV NAUSEA AND/OR VOMITING Last administered on 12/23/16 08:54; Admin Dose 4 MG; Start 12/20/16 at 22:00 Zolpidem Tartrate (Ambien) 10 mg HS PRN PO INSOMNIA; Start 12/20/16 at 22:00 Carvedilol (Coreg) 25 mg DAILY PO Last administered on 12/24/16 08:30; Admin Dose 25 MG; Start 12/21/16 at 09:00 Ferrous Sulfate (Ferrous Sulfate (Ec)) 325 mg TID PO Last administered on 12:32; Admin Dose 325 MG; Start 12/21/16 at 09:00; Status Future Hold Furosemide (Lasix) 80 mg DAILY PO Last administered on 12/24/16 08:29; Admin Dose 80 MG; Start 12/21/16 at 09:00 Clopidogrel Bisulfate (plaVIX) 75 mg DAILY PO Last administered on 12/24/16 08 :28; Admin Dose 75 MG; Start 12/21/16 at 09:00 Levothyroxine Sodium (Synthroid) 150 mcg DAILY@06 PO Last administered on 06:22; Admin Dose 150 MCG; Start 12/21/16 at 06:00 Fenofibrate (Tricor) 145 mg DAILY PO Last administered on 12/24/16 08:29; Admin Dose 145 MG; Start 12/21/16 at 09:00 Lisinopril (Zestril) 10 mg BID PO Last administered on 12/24/16 08:29; Admin Dose 10 MG; Start 12/21/16 at 09:00 Allopurinol (Zyloprim) 100 mg Q48H PO Last administered on 12/22/16 18:56; Admin Dose 100 MG; Start 12/22/16 at 18:00 Bisacodyl (Dulcolax Supp) 10 mg DAILY PRN [place] CONSTIPATION; Start 12/20/16 at 22 :30 Epoetin Stas (Epogen (Esrd)) 10,000 units MoWeFr@17 SC Last administered on 18:58; Admin Dose 10,000 UNITS; Start 12/22/16 at 17:00 Tramadol HCl (Ultram) 50 mg Q6H PRN PO PAIN Last administered on 12/23/16 11: 08; Admin Dose 50 MG; Start 12/20/16 at 22:30 Bupropion HCl (Wellbutrin Xl) 150 mg QAM PO Last administered on 12/24/16 08: 29; Admin Dose 150 MG; Start 12/21/16 at 09:00 Acetaminophen (Tylenol Tab) 650 mg Q4H PRN PO PAIN; Start 12/21/16 at 04:40 Docusate Sodium (Colace) 100 mg BID PO Last administered on 12/23/16 21:18; Admin Dose 100 MG; Start 12/21/16 at 09:00 Senna (Senokot) 1 tab HS PO Last administered on 12/23/16 21:18; Admin Dose 1 TAB; Start 12/21/16 at 21:00 Magnesium Hydroxide (Milk Of Mag) 30 ml BID PRN PO CONSTIPATION; Start at 04:40 Pantoprazole (Protonix Tab) 40 mg BID@06,18 PO Last administered on 12/24/16 06:22; Admin Dose 40 MG; Start 12/22/16 at 18:00 Lactulose (Enulose) 20 gm TID PRN PO CONSTIPATION Last administered on 01:23; Admin Dose 20 GM; Start 12/23/16 at 21:00 SARBJIT GUILLEN MD Dec 24, 2016 15:46
[2016-12-24] MEDS: ALLOPURINOL 100 MG TAB PO SCH (17:41)
[2016-12-24] MEDS: FERROUS GLUCONATE (EC) 325 MG TAB PO SCH ×2 (17:41→21:34)
[2016-12-24 20:00] VITALS: BP 117/56; RESP 18
[2016-12-24] MEDS: SENNA TAB PO SCH (21:34)
[2016-12-25] VITALS (13 sets, daily range): BP systolic 97–152; BP diastolic 53–78; PULSE 60–76; RESP 16–20
[2016-12-25] MEDS: ALBUTEROL 0.083% (NEB) 2.5 MG/3 ML AMP HHN SCH ×6 (00:46→20:01)
[2016-12-25] MEDS: PANTOPRAZOLE (EC) 40 MG TAB PO SCH ×2 (06:22→17:57)
[2016-12-25] MEDS: LEVOTHYROXINE 150 MCG TAB PO SCH (06:22)
--- NOTE | 2016-12-25 08:16 | CONS ---
Date/Time of Note Date/Time of Note DATE: 12/25/16 TIME: 08:15 Assessment/Plan Assessment/Plan Problems: (1) HTN (hypertension) Comment: controlled (2) ESRD (end stage renal disease) on dialysis Comment: for HD today (3) Anemia due to chronic kidney disease Comment: Ok on EPO (4) Weakness due to cerebrovascular accident (CVA) Comment: resolved Consultation Date/Type/Reason Admit Date/Time Dec 20, 2016 at 21:28 Type of Consultation: renal 24 HR Interval Summary Free Text/Dictation doing well.. good strength Exam/Review of Systems Vital Signs Vitals Vital Signs Date Time Temp Pulse Resp B/P Pulse Ox O2 Delivery O2 Flow Rate FiO2 12/25/16 05:05 70 18 96 21 12/25/16 02:00 98.2 138/63 12/24/16 08:32 Room Air 12/21/16 09:00 2.0 Intake and Output 12/24/16 12/24/16 12/25/16 15:00 23:00 07:00 Intake Total 250 ml 420 ml 280 ml Output Total 201 ml 300 ml Balance 250 ml 219 ml -20 ml Exam Constitutional: alert, oriented Psych: no complaints Respiratory: clear to auscultation Cardiovascular: regular rate and rhythm Gastrointestinal: soft Extremities: edema (none) Results Result Diagram: 12/22/16205112/22/162051 Results 24 hrs Laboratory Tests Test 12/24/16 08:35 Bedside Glucose 99 Medications Medications Current Medications Guaifenesin/ Codeine Phosphate (Robitussin Ac Liquid Cup) 5 ml Q4H PRN PO COUGH Last administered on 12/20/16 23:21; Admin Dose 5 ML; Start 12/20/16 at 22:00 Cyanocobalamin (Vitamin B12 Inj) 1,000 mcg Q7D IM Last administered on 09:02; Admin Dose 1,000 MCG; Start 12/23/16 at 09:00 Salmeterol Xinafoate/ Fluticasone (Advair 250/50 Diskus) 1 inh BID INH Last administered on 12/24/16 21:35; Admin Dose 1 INH; Start 12/21/16 at 09:00 Ondansetron HCl (Zofran Inj) 4 mg Q4H PRN IV NAUSEA AND/OR VOMITING Last administered on 12/23/16 08:54; Admin Dose 4 MG; Start 12/20/16 at 22:00 Zolpidem Tartrate (Ambien) 10 mg HS PRN PO INSOMNIA; Start 12/20/16 at 22:00 Carvedilol (Coreg) 25 mg DAILY PO Last administered on 12/24/16 08:30; Admin Dose 25 MG; Start 12/21/16 at 09:00 Furosemide (Lasix) 80 mg DAILY PO Last administered on 12/24/16 08:29; Admin Dose 80 MG; Start 12/21/16 at 09:00 Clopidogrel Bisulfate (plaVIX) 75 mg DAILY PO Last administered on 12/24/16 08 :28; Admin Dose 75 MG; Start 12/21/16 at 09:00 Levothyroxine Sodium (Synthroid) 150 mcg DAILY@06 PO Last administered on 06:22; Admin Dose 150 MCG; Start 12/21/16 at 06:00 Fenofibrate (Tricor) 145 mg DAILY PO Last administered on 12/24/16 08:29; Admin Dose 145 MG; Start 12/21/16 at 09:00 Lisinopril (Zestril) 10 mg BID PO Last administered on 12/24/16 08:29; Admin Dose 10 MG; Start 12/21/16 at 09:00 Allopurinol (Zyloprim) 100 mg Q48H PO Last administered on 12/24/16 17:41; Admin Dose 100 MG; Start 12/22/16 at 18:00 Bisacodyl (Dulcolax Supp) 10 mg DAILY PRN [place] CONSTIPATION; Start 12/20/16 at 22 :30 Epoetin Stas (Epogen (Esrd)) 10,000 units MoWeFr@17 SC Last administered on 18:58; Admin Dose 10,000 UNITS; Start 12/22/16 at 17:00 Tramadol HCl (Ultram) 50 mg Q6H PRN PO PAIN Last administered on 12/23/16 11: 08; Admin Dose 50 MG; Start 12/20/16 at 22:30 Bupropion HCl (Wellbutrin Xl) 150 mg QAM PO Last administered on 12/24/16 08: 29; Admin Dose 150 MG; Start 12/21/16 at 09:00 Acetaminophen (Tylenol Tab) 650 mg Q4H PRN PO PAIN; Start 12/21/16 at 04:40 Docusate Sodium (Colace) 100 mg BID PO Last administered on 12/24/16 21:34; Admin Dose 100 MG; Start 12/21/16 at 09:00 Senna (Senokot) 1 tab HS PO Last administered on 12/24/16 21:34; Admin Dose 1 TAB; Start 12/21/16 at 21:00 Magnesium Hydroxide (Milk Of Mag) 30 ml BID PRN PO CONSTIPATION; Start at 04:40 Pantoprazole (Protonix Tab) 40 mg BID@06,18 PO Last administered on 12/25/16 06:22; Admin Dose 40 MG; Start 12/22/16 at 18:00 Lactulose (Enulose) 20 gm TID PRN PO CONSTIPATION Last administered on 01:23; Admin Dose 20 GM; Start 12/23/16 at 21:00 Ferrous Gluconate (Fergon) 162.5 mg TID PO Last administered on 12/24/16 21:34 ; Admin Dose 162.5 MG; Start 12/24/16 at 17:00 SABINE MIZRA MD Dec 25, 2016 08:16
[2016-12-25] MEDS: SALMETEROL/FLUTICASONE 250/50 INHA INH SCH ×2 (08:31→20:52)
[2016-12-25] MEDS: LISINOPRIL 10 MG TAB PO SCH ×2 (08:32→20:58)
[2016-12-25] MEDS: CREON (12k-38k-60k) 1 CAP PO SCH ×3 (08:32→17:35)
[2016-12-25] MEDS: BUPROPION (XL) 150 MG TAB PO SCH (08:33)
[2016-12-25] MEDS: FENOFIBRATE 145 MG TAB PO SCH (08:33)
[2016-12-25] MEDS: FERROUS GLUCONATE (EC) 325 MG TAB PO SCH ×4 (08:33→21:00)
[2016-12-25] MEDS: DOCUSATE SODIUM 100 MG CAP PO SCH ×2 (08:33→20:52)
[2016-12-25] MEDS: CLOPIDOGREL 75 MG TAB PO SCH (08:34)
[2016-12-25] MEDS: FUROSEMIDE 40 MG TAB PO SCH (08:34)
--- NOTE | 2016-12-25 12:33 | CONS ---
Date/Time of Note Date/Time of Note DATE: 12/25/16 TIME: 12:33 Consult Date/Type/Reason Admit Date/Time Dec 20, 2016 at 21:28 Type of Consultation: renal Objective Vital Signs Date Time Temp Pulse Resp B/P Pulse Ox O2 Delivery O2 Flow Rate FiO2 12/25/16 09:10 72 20 97 21 12/25/16 07:30 98.3 134/70 12/24/16 08:32 Room Air 12/21/16 09:00 2.0 Intake and Output 12/24/16 12/24/16 12/25/16 15:00 23:00 07:00 Intake Total 250 ml 420 ml 280 ml Output Total 201 ml 300 ml Balance 250 ml 219 ml -20 ml INTERDISCIPLINARY TEAM CONFERENCE BOWEL- Cont BLADDER-ESRD- HD per renal SKIN- wounds at residual limb OT- DRESSING-min/mod BATHING-mod TOILETING-mod PT- BED MOBILITY-mod TRANSFERS-max W.C. MOBILITY-min 40 feet SPEECH- COGNITION-min DYPHAGIA- soft A/P- Interdisciplinary team conference held today. Please see interdisciplinary sheet. Working toward d.c. on 01/05 with post discharge follow up of physical therapy, occupational therapy and RN follow up. Results/Medications Result Diagram: 12/22/16205112/22/162051 Medications Current Medications Guaifenesin/ Codeine Phosphate (Robitussin Ac Liquid Cup) 5 ml Q4H PRN PO COUGH Last administered on 12/20/16 23:21; Admin Dose 5 ML; Start 12/20/16 at 22:00 Cyanocobalamin (Vitamin B12 Inj) 1,000 mcg Q7D IM Last administered on 09:02; Admin Dose 1,000 MCG; Start 12/23/16 at 09:00 Salmeterol Xinafoate/ Fluticasone (Advair 250/50 Diskus) 1 inh BID INH Last administered on 12/25/16 08:31; Admin Dose 1 INH; Start 12/21/16 at 09:00 Ondansetron HCl (Zofran Inj) 4 mg Q4H PRN IV NAUSEA AND/OR VOMITING Last administered on 12/23/16 08:54; Admin Dose 4 MG; Start 12/20/16 at 22:00 Zolpidem Tartrate (Ambien) 10 mg HS PRN PO INSOMNIA; Start 12/20/16 at 22:00 Carvedilol (Coreg) 25 mg DAILY PO Last administered on 12/25/16 08:33; Admin Dose 25 MG; Start 12/21/16 at 09:00 Furosemide (Lasix) 80 mg DAILY PO Last administered on 12/25/16 08:34; Admin Dose 80 MG; Start 12/21/16 at 09:00 Clopidogrel Bisulfate (plaVIX) 75 mg DAILY PO Last administered on 12/25/16 08 :34; Admin Dose 75 MG; Start 12/21/16 at 09:00 Levothyroxine Sodium (Synthroid) 150 mcg DAILY@06 PO Last administered on 06:22; Admin Dose 150 MCG; Start 12/21/16 at 06:00 Fenofibrate (Tricor) 145 mg DAILY PO Last administered on 12/25/16 08:33; Admin Dose 145 MG; Start 12/21/16 at 09:00 Lisinopril (Zestril) 10 mg BID PO Last administered on 12/25/16 08:32; Admin Dose 10 MG; Start 12/21/16 at 09:00 Allopurinol (Zyloprim) 100 mg Q48H PO Last administered on 12/24/16 17:41; Admin Dose 100 MG; Start 12/22/16 at 18:00 Bisacodyl (Dulcolax Supp) 10 mg DAILY PRN [place] CONSTIPATION; Start 12/20/16 at 22 :30 Epoetin Stas (Epogen (Esrd)) 10,000 units MoWeFr@17 SC Last administered on 18:58; Admin Dose 10,000 UNITS; Start 12/22/16 at 17:00 Tramadol HCl (Ultram) 50 mg Q6H PRN PO PAIN Last administered on 12/23/16 11: 08; Admin Dose 50 MG; Start 12/20/16 at 22:30 Bupropion HCl (Wellbutrin Xl) 150 mg QAM PO Last administered on 12/25/16 08: 33; Admin Dose 150 MG; Start 12/21/16 at 09:00 Acetaminophen (Tylenol Tab) 650 mg Q4H PRN PO PAIN; Start 12/21/16 at 04:40 Docusate Sodium (Colace) 100 mg BID PO Last administered on 12/25/16 08:33; Admin Dose 100 MG; Start 12/21/16 at 09:00 Senna (Senokot) 1 tab HS PO Last administered on 12/24/16 21:34; Admin Dose 1 TAB; Start 12/21/16 at 21:00 Magnesium Hydroxide (Milk Of Mag) 30 ml BID PRN PO CONSTIPATION; Start at 04:40 Pantoprazole (Protonix Tab) 40 mg BID@ PO Last administered on 12/25/16 06:22; Admin Dose 40 MG; Start 12/22/16 at 18:00 Lactulose (Enulose) 20 gm TID PRN PO CONSTIPATION Last administered on 01:23; Admin Dose 20 GM; Start 12/23/16 at 21:00 Ferrous Gluconate (Fergon) 162.5 mg TID PO Last administered on 12/25/16 08:33 ; Admin Dose 162.5 MG; Start 12/24/16 at 17:00 OLESYA ELLIS MD Dec 25, 2016 12:33
[2016-12-25] MEDS: traMADol 50 MG TAB PO PRN (12:52)
--- NOTE | 2016-12-25 15:31 | CONS ---
Date/Time of Note Date/Time of Note DATE: 12/25/16 TIME: 15:31 Assessment/Plan Assessment/Plan Additional Assessment/Plan Fatigue Compensated systolic congestive heart failure Cardiomyopathy with ejection fraction 45% CAD with history of CABG Peripheral arterial disease End-stage renal disease on hemodialysis Acute blood loss anemia -Blood pressure trend overall remains stable on current cv medication regimen, fluid management via hemodialysis as per our nephrology colleagues. No new cardiac orders at the current time Consultation Date/Type/Reason Admit Date/Time Dec 20, 2016 at 21:28 Type of Consultation: cv 24 HR Interval Summary Free Text/Dictation Denies shortness of breath, chest pain, palpitations Exam/Review of Systems Vital Signs Vitals Vital Signs Date Time Temp Pulse Resp B/P Pulse Ox O2 Delivery O2 Flow Rate FiO2 12/25/16 15:10 62 12/25/16 09:10 20 97 21 12/25/16 07:30 98.3 134/70 12/24/16 08:32 Room Air 12/21/16 09:00 2.0 Intake and Output 12/24/16 12/24/16 12/25/16 15:00 23:00 07:00 Intake Total 250 ml 420 ml 280 ml Output Total 201 ml 300 ml Balance 250 ml 219 ml -20 ml Exam No apparent distress, daughter at bedside Constitutional: alert, oriented Head: normocephalic Respiratory: other (Coarse breath sounds bilaterally, no wheezing) Cardiovascular: other (S1-S2 heard), regular rate and rhythm Gastrointestinal: bowel sounds, non-tender, soft Extremities: edema Results Result Diagram: 12/22/16205112/22/162051 Medications Medications Current Medications Guaifenesin/ Codeine Phosphate (Robitussin Ac Liquid Cup) 5 ml Q4H PRN PO COUGH Last administered on 12/20/16 23:21; Admin Dose 5 ML; Start 12/20/16 at 22:00 Cyanocobalamin (Vitamin B12 Inj) 1,000 mcg Q7D IM Last administered on 09:02; Admin Dose 1,000 MCG; Start 12/23/16 at 09:00 Salmeterol Xinafoate/ Fluticasone (Advair 250/50 Diskus) 1 inh BID INH Last administered on 12/25/16 08:31; Admin Dose 1 INH; Start 12/21/16 at 09:00 Ondansetron HCl (Zofran Inj) 4 mg Q4H PRN IV NAUSEA AND/OR VOMITING Last administered on 12/23/16 08:54; Admin Dose 4 MG; Start 12/20/16 at 22:00 Zolpidem Tartrate (Ambien) 10 mg HS PRN PO INSOMNIA; Start 12/20/16 at 22:00 Carvedilol (Coreg) 25 mg DAILY PO Last administered on 12/25/16 08:33; Admin Dose 25 MG; Start 12/21/16 at 09:00 Furosemide (Lasix) 80 mg DAILY PO Last administered on 12/25/16 08:34; Admin Dose 80 MG; Start 12/21/16 at 09:00 Clopidogrel Bisulfate (plaVIX) 75 mg DAILY PO Last administered on 12/25/16 08 :34; Admin Dose 75 MG; Start 12/21/16 at 09:00 Levothyroxine Sodium (Synthroid) 150 mcg DAILY@06 PO Last administered on 06:22; Admin Dose 150 MCG; Start 12/21/16 at 06:00 Fenofibrate (Tricor) 145 mg DAILY PO Last administered on 12/25/16 08:33; Admin Dose 145 MG; Start 12/21/16 at 09:00 Lisinopril (Zestril) 10 mg BID PO Last administered on 12/25/16 08:32; Admin Dose 10 MG; Start 12/21/16 at 09:00 Allopurinol (Zyloprim) 100 mg Q48H PO Last administered on 12/24/16 17:41; Admin Dose 100 MG; Start 12/22/16 at 18:00 Bisacodyl (Dulcolax Supp) 10 mg DAILY PRN [place] CONSTIPATION; Start 12/20/16 at 22 :30 Epoetin Stas (Epogen (Esrd)) 10,000 units MoWeFr@17 SC Last administered on 18:58; Admin Dose 10,000 UNITS; Start 12/22/16 at 17:00 Tramadol HCl (Ultram) 50 mg Q6H PRN PO PAIN Last administered on 12/25/16 12: 52; Admin Dose 50 MG; Start 12/20/16 at 22:30 Bupropion HCl (Wellbutrin Xl) 150 mg QAM PO Last administered on 12/25/16 08: 33; Admin Dose 150 MG; Start 12/21/16 at 09:00 Acetaminophen (Tylenol Tab) 650 mg Q4H PRN PO PAIN; Start 12/21/16 at 04:40 Docusate Sodium (Colace) 100 mg BID PO Last administered on 12/25/16 08:33; Admin Dose 100 MG; Start 12/21/16 at 09:00 Senna (Senokot) 1 tab HS PO Last administered on 12/24/16 21:34; Admin Dose 1 TAB; Start 12/21/16 at 21:00 Magnesium Hydroxide (Milk Of Mag) 30 ml BID PRN PO CONSTIPATION; Start at 04:40 Pantoprazole (Protonix Tab) 40 mg BID@,18 PO Last administered on 12/25/16 06:22; Admin Dose 40 MG; Start 12/22/16 at 18:00 Lactulose (Enulose) 20 gm TID PRN PO CONSTIPATION Last administered on 01:23; Admin Dose 20 GM; Start 12/23/16 at 21:00 Ferrous Gluconate (Fergon) 162.5 mg TID PO Last administered on 12/25/16 12:52 ; Admin Dose 162.5 MG; Start 12/24/16 at 17:00 Hammad Hernandez DO Dec 25, 2016 15:31
[2016-12-25] MEDS: EPOETIN 10000 UNITS/1 ML INJ (ESRD) SC SCH (17:58)
[2016-12-25] MEDS: GUAIFENESIN/CODEINE 5ML CUP PO PRN (20:52)
[2016-12-25] MEDS: SENNA TAB PO SCH (20:55)
[2016-12-26 02:00] VITALS: BP 129/56; RESP 18
[2016-12-26] MEDS: ALBUTEROL 0.083% (NEB) 2.5 MG/3 ML AMP HHN SCH ×6 (02:01→21:26)
[2016-12-26] MEDS: PANTOPRAZOLE (EC) 40 MG TAB PO SCH ×2 (06:28→18:05)
[2016-12-26] MEDS: LEVOTHYROXINE 150 MCG TAB PO SCH (06:28)
--- NOTE | 2016-12-26 08:02 | CONS ---
Date/Time of Note Date/Time of Note DATE: 12/26/16 TIME: 08:00 Assessment/Plan Assessment/Plan Problems: (1) HTN (hypertension) Comment: fine (2) ESRD (end stage renal disease) on dialysis Comment: hd in am (3) Anemia due to chronic kidney disease Comment: stable (4) Weakness due to cerebrovascular accident (CVA) Comment: at baseline?... d/c soon?.. per ARU Consultation Date/Type/Reason Admit Date/Time Dec 20, 2016 at 21:28 Type of Consultation: renal 24 HR Interval Summary Free Text/Dictation stable... doing well Exam/Review of Systems Vital Signs Vitals Vital Signs Date Time Temp Pulse Resp B/P Pulse Ox O2 Delivery O2 Flow Rate FiO2 12/26/16 02:01 73 20 100 12/26/16 02:00 97.8 129/56 12/25/16 20:03 21 12/24/16 08:32 Room Air Intake and Output 12/25/16 12/25/16 12/26/16 15:00 23:00 07:00 Intake Total 720 ml 300 ml Output Total 2400 ml 400 ml Balance -1680 ml -100 ml Exam Constitutional: alert, oriented Psych: no complaints Neck: supple Respiratory: clear to auscultation Cardiovascular: regular rate and rhythm Gastrointestinal: soft Extremities: other (fxn AVF) Results Result Diagram: 12/22/16205112/22/162051 Medications Medications Current Medications Guaifenesin/ Codeine Phosphate (Robitussin Ac Liquid Cup) 5 ml Q4H PRN PO COUGH Last administered on 12/25/16 20:52; Admin Dose 5 ML; Start 12/20/16 at 22:00 Cyanocobalamin (Vitamin B12 Inj) 1,000 mcg Q7D IM Last administered on 09:02; Admin Dose 1,000 MCG; Start 12/23/16 at 09:00 Salmeterol Xinafoate/ Fluticasone (Advair 250/50 Diskus) 1 inh BID INH Last administered on 12/25/16 20:52; Admin Dose 1 INH; Start 12/21/16 at 09:00 Ondansetron HCl (Zofran Inj) 4 mg Q4H PRN IV NAUSEA AND/OR VOMITING Last administered on 12/23/16 08:54; Admin Dose 4 MG; Start 12/20/16 at 22:00 Zolpidem Tartrate (Ambien) 10 mg HS PRN PO INSOMNIA; Start 12/20/16 at 22:00 Carvedilol (Coreg) 25 mg DAILY PO Last administered on 12/25/16 08:33; Admin Dose 25 MG; Start 12/21/16 at 09:00 Furosemide (Lasix) 80 mg DAILY PO Last administered on 12/25/16 08:34; Admin Dose 80 MG; Start 12/21/16 at 09:00 Clopidogrel Bisulfate (plaVIX) 75 mg DAILY PO Last administered on 12/25/16 08 :34; Admin Dose 75 MG; Start 12/21/16 at 09:00 Levothyroxine Sodium (Synthroid) 150 mcg DAILY@06 PO Last administered on 06:28; Admin Dose 150 MCG; Start 12/21/16 at 06:00 Fenofibrate (Tricor) 145 mg DAILY PO Last administered on 12/25/16 08:33; Admin Dose 145 MG; Start 12/21/16 at 09:00 Lisinopril (Zestril) 10 mg BID PO Last administered on 12/25/16 20:58; Admin Dose 10 MG; Start 12/21/16 at 09:00 Allopurinol (Zyloprim) 100 mg Q48H PO Last administered on 12/24/16 17:41; Admin Dose 100 MG; Start 12/22/16 at 18:00 Bisacodyl (Dulcolax Supp) 10 mg DAILY PRN [place] CONSTIPATION; Start 12/20/16 at 22 :30 Epoetin Stas (Epogen (Esrd)) 10,000 units MoWeFr@17 SC Last administered on 17:58; Admin Dose 10,000 UNITS; Start 12/22/16 at 17:00 Tramadol HCl (Ultram) 50 mg Q6H PRN PO PAIN Last administered on 12/25/16 12: 52; Admin Dose 50 MG; Start 12/20/16 at 22:30 Bupropion HCl (Wellbutrin Xl) 150 mg QAM PO Last administered on 12/25/16 08: 33; Admin Dose 150 MG; Start 12/21/16 at 09:00 Acetaminophen (Tylenol Tab) 650 mg Q4H PRN PO PAIN; Start 12/21/16 at 04:40 Docusate Sodium (Colace) 100 mg BID PO Last administered on 12/25/16 20:52; Admin Dose 100 MG; Start 12/21/16 at 09:00 Senna (Senokot) 1 tab HS PO Last administered on 12/25/16 20:55; Admin Dose 1 TAB; Start 12/21/16 at 21:00 Magnesium Hydroxide (Milk Of Mag) 30 ml BID PRN PO CONSTIPATION; Start at 04:40 Pantoprazole (Protonix Tab) 40 mg BID@06,18 PO Last administered on 12/26/16 06:28; Admin Dose 40 MG; Start 12/22/16 at 18:00 Lactulose (Enulose) 20 gm TID PRN PO CONSTIPATION Last administered on 01:23; Admin Dose 20 GM; Start 12/23/16 at 21:00 Ferrous Gluconate (Fergon) 162.5 mg TID PO Last administered on 12/25/16 12:52 ; Admin Dose 162.5 MG; Start 12/24/16 at 17:00 SABINE MIRZA MD Dec 26, 2016 08:02
[2016-12-26 08:22] VITALS: BP 148/67; RESP 18
[2016-12-26] MEDS: BUPROPION (XL) 150 MG TAB PO SCH (09:40)
[2016-12-26] MEDS: CREON (12k-38k-60k) 1 CAP PO SCH ×2 (09:41→12:00)
[2016-12-26] MEDS: CLOPIDOGREL 75 MG TAB PO SCH (09:42)
[2016-12-26] MEDS: FENOFIBRATE 145 MG TAB PO SCH (09:43)
[2016-12-26] MEDS: FERROUS GLUCONATE (EC) 325 MG TAB PO SCH ×2 (09:43→13:00)
[2016-12-26] MEDS: DOCUSATE SODIUM 100 MG CAP PO SCH ×2 (09:44→20:59)
[2016-12-26] MEDS: FUROSEMIDE 40 MG TAB PO SCH (09:45)
[2016-12-26] MEDS: LISINOPRIL 10 MG TAB PO SCH ×2 (09:46→21:01)
[2016-12-26] MEDS: SALMETEROL/FLUTICASONE 250/50 INHA INH SCH ×2 (09:48→20:59)
--- NOTE | 2016-12-26 11:58 | CONS ---
Date/Time of Note Date/Time of Note DATE: 12/26/16 TIME: 11:58 Consult Date/Type/Reason Admit Date/Time Dec 20, 2016 at 21:28 Type of Consultation: renal Subjective Emesis this AM Objective pulm-cta abd-soft max transfer Vital Signs Date Time Temp Pulse Resp B/P Pulse Ox O2 Delivery O2 Flow Rate FiO2 12/26/16 09:58 21 12/26/16 08:22 98.7 76 18 148/67 96 12/24/16 08:32 Room Air Intake and Output 12/25/16 12/25/16 12/26/16 15:00 23:00 07:00 Intake Total 720 ml 300 ml Output Total 2400 ml 400 ml Balance -1680 ml -100 ml Results/Medications Result Diagram: 12/22/16205112/22/162051 Medications Current Medications Guaifenesin/ Codeine Phosphate (Robitussin Ac Liquid Cup) 5 ml Q4H PRN PO COUGH Last administered on 12/25/16 20:52; Admin Dose 5 ML; Start 12/20/16 at 22:00 Cyanocobalamin (Vitamin B12 Inj) 1,000 mcg Q7D IM Last administered on 09:02; Admin Dose 1,000 MCG; Start 12/23/16 at 09:00 Salmeterol Xinafoate/ Fluticasone (Advair 250/50 Diskus) 1 inh BID INH Last administered on 12/26/16 09:48; Admin Dose 1 INH; Start 12/21/16 at 09:00 Ondansetron HCl (Zofran Inj) 4 mg Q4H PRN IV NAUSEA AND/OR VOMITING Last administered on 12/23/16 08:54; Admin Dose 4 MG; Start 12/20/16 at 22:00 Zolpidem Tartrate (Ambien) 10 mg HS PRN PO INSOMNIA; Start 12/20/16 at 22:00 Carvedilol (Coreg) 25 mg DAILY PO Last administered on 12/26/16 09:47; Admin Dose 25 MG; Start 12/21/16 at 09:00 Furosemide (Lasix) 80 mg DAILY PO Last administered on 12/26/16 09:45; Admin Dose 80 MG; Start 12/21/16 at 09:00 Clopidogrel Bisulfate (plaVIX) 75 mg DAILY PO Last administered on 12/26/16 09 :42; Admin Dose 75 MG; Start 12/21/16 at 09:00 Levothyroxine Sodium (Synthroid) 150 mcg DAILY@06 PO Last administered on 06:28; Admin Dose 150 MCG; Start 12/21/16 at 06:00 Fenofibrate (Tricor) 145 mg DAILY PO Last administered on 12/26/16 09:43; Admin Dose 145 MG; Start 12/21/16 at 09:00 Lisinopril (Zestril) 10 mg BID PO Last administered on 12/26/16 09:46; Admin Dose 10 MG; Start 12/21/16 at 09:00 Allopurinol (Zyloprim) 100 mg Q48H PO Last administered on 12/24/16 17:41; Admin Dose 100 MG; Start 12/22/16 at 18:00 Bisacodyl (Dulcolax Supp) 10 mg DAILY PRN [place] CONSTIPATION; Start 12/20/16 at 22 :30 Epoetin Stas (Epogen (Esrd)) 10,000 units MoWeFr@17 SC Last administered on 17:58; Admin Dose 10,000 UNITS; Start 12/22/16 at 17:00 Tramadol HCl (Ultram) 50 mg Q6H PRN PO PAIN Last administered on 12/25/16 12: 52; Admin Dose 50 MG; Start 12/20/16 at 22:30 Bupropion HCl (Wellbutrin Xl) 150 mg QAM PO Last administered on 12/26/16 09: 40; Admin Dose 150 MG; Start 12/21/16 at 09:00 Acetaminophen (Tylenol Tab) 650 mg Q4H PRN PO PAIN; Start 12/21/16 at 04:40 Docusate Sodium (Colace) 100 mg BID PO Last administered on 12/26/16 09:44; Admin Dose 100 MG; Start 12/21/16 at 09:00 Senna (Senokot) 1 tab HS PO Last administered on 12/25/16 20:55; Admin Dose 1 TAB; Start 12/21/16 at 21:00 Magnesium Hydroxide (Milk Of Mag) 30 ml BID PRN PO CONSTIPATION; Start at 04:40 Pantoprazole (Protonix Tab) 40 mg BID@06,18 PO Last administered on 12/26/16 06:28; Admin Dose 40 MG; Start 12/22/16 at 18:00 Lactulose (Enulose) 20 gm TID PRN PO CONSTIPATION Last administered on 01:23; Admin Dose 20 GM; Start 12/23/16 at 21:00 Ferrous Gluconate (Fergon) 162.5 mg TID PO Last administered on 12/26/16 09:43 ; Admin Dose 162.5 MG; Start 12/24/16 at 17:00 Assessment/Plan Additional Assessment/Plan Rehab- 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 Increase rehab activities as tolerated GI- emesis this AM. Check labs, zofran prn Left BKA with residual limb wound- improving with wound care End-stage renal disease, on hemodialysis per renal COPD. Hyperlipidemia. Diabetes mellitus. History of Riddle's palsy. Peripheral vascular disease. OLESYA ELLIS MD Dec 26, 2016 11:58
[2016-12-26] MEDS: ONDANSETRON 4 MG INJ IV PRN ×2 (13:35→17:57)
[2016-12-26] MEDS ORDERED: PROCHLORPERAZINE 10 MG TAB PO PRN (15:00)
--- NOTE | 2016-12-26 16:12 | CONS ---
Date/Time of Note Date/Time of Note DATE: 12/25/16 TIME: 15:06 Consult Date/Type/Reason Admit Date/Time Dec 20, 2016 at 21:28 Initial Consult Date 12/20/2016 Type of Consultation: int med Subjective stronger, still vomit w/ on/off nausea sens+ Objective Vital Signs Date Time Temp Pulse Resp B/P Pulse Ox O2 Delivery O2 Flow Rate FiO2 12/26/16 12:00 59 16 98 21 12/26/16 08:22 98.7 148/67 12/24/16 08:32 Room Air Intake and Output 12/25/16 12/25/16 12/26/16 15:00 23:00 07:00 Intake Total 720 ml 300 ml Output Total 2400 ml 400 ml Balance -1680 ml -100 ml Exam lying in bed, rt body musc atrophy, lf bka, cta, rr syst & diat clicks+ Results/Medications Result Diagram: 12/22/16205112/22/162051 Medications Current Medications Guaifenesin/ Codeine Phosphate (Robitussin Ac Liquid Cup) 5 ml Q4H PRN PO COUGH Last administered on 12/25/16 20:52; Admin Dose 5 ML; Start 12/20/16 at 22:00 Cyanocobalamin (Vitamin B12 Inj) 1,000 mcg Q7D IM Last administered on 09:02; Admin Dose 1,000 MCG; Start 12/23/16 at 09:00 Salmeterol Xinafoate/ Fluticasone (Advair 250/50 Diskus) 1 inh BID INH Last administered on 12/26/16 09:48; Admin Dose 1 INH; Start 12/21/16 at 09:00 Ondansetron HCl (Zofran Inj) 4 mg Q4H PRN IV NAUSEA AND/OR VOMITING Last administered on 12/26/16 13:35; Admin Dose 4 MG; Start 12/20/16 at 22:00 Zolpidem Tartrate (Ambien) 10 mg HS PRN PO INSOMNIA; Start 12/20/16 at 22:00 Carvedilol (Coreg) 25 mg DAILY PO Last administered on 12/26/16 09:47; Admin Dose 25 MG; Start 12/21/16 at 09:00 Furosemide (Lasix) 80 mg DAILY PO Last administered on 12/26/16 09:45; Admin Dose 80 MG; Start 12/21/16 at 09:00 Clopidogrel Bisulfate (plaVIX) 75 mg DAILY PO Last administered on 12/26/16 09 :42; Admin Dose 75 MG; Start 12/21/16 at 09:00 Levothyroxine Sodium (Synthroid) 150 mcg DAILY@06 PO Last administered on 06:28; Admin Dose 150 MCG; Start 12/21/16 at 06:00 Fenofibrate (Tricor) 145 mg DAILY PO Last administered on 12/26/16 09:43; Admin Dose 145 MG; Start 12/21/16 at 09:00 Lisinopril (Zestril) 10 mg BID PO Last administered on 12/26/16 09:46; Admin Dose 10 MG; Start 12/21/16 at 09:00 Bisacodyl (Dulcolax Supp) 10 mg DAILY PRN [place] CONSTIPATION; Start 12/20/16 at 22 :30 Epoetin Stas (Epogen (Esrd)) 10,000 units MoWeFr@17 SC Last administered on 17:58; Admin Dose 10,000 UNITS; Start 12/22/16 at 17:00 Tramadol HCl (Ultram) 50 mg Q6H PRN PO PAIN Last administered on 12/25/16 12: 52; Admin Dose 50 MG; Start 12/20/16 at 22:30 Bupropion HCl (Wellbutrin Xl) 150 mg QAM PO Last administered on 12/26/16 09: 40; Admin Dose 150 MG; Start 12/21/16 at 09:00 Acetaminophen (Tylenol Tab) 650 mg Q4H PRN PO PAIN; Start 12/21/16 at 04:40 Docusate Sodium (Colace) 100 mg BID PO Last administered on 12/26/16 09:44; Admin Dose 100 MG; Start 12/21/16 at 09:00 Senna (Senokot) 1 tab HS PO Last administered on 12/25/16 20:55; Admin Dose 1 TAB; Start 12/21/16 at 21:00 Magnesium Hydroxide (Milk Of Mag) 30 ml BID PRN PO CONSTIPATION; Start at 04:40 Pantoprazole (Protonix Tab) 40 mg BID@06,18 PO Last administered on 12/26/16 06:28; Admin Dose 40 MG; Start 12/22/16 at 18:00 Lactulose (Enulose) 20 gm TID PRN PO CONSTIPATION Last administered on 01:23; Admin Dose 20 GM; Start 12/23/16 at 21:00 Prochlorperazine (Compazine) 10 mg Q6H PRN PO NAUSEA AND/OR VOMITING; Start at 15:00 Ferrous Gluconate (Fergon) 325 mg DAILY PO ; Start 12/27/16 at 09:00; Status UNV Assessment/Plan Additional Assessment/Plan 1. cva/ rt body weak/ musc atrophy/ htn/ cad/ high tg 2. depression/ worsening mobility 3. ? n/v 4. esophageal musc weak?--on [facility] soft diet 5. h/o dm/ gerd/ low t4 ---per rehab ---per cards ---per renal ---cont all supportive cares ---soc serv for family counseling re: dx/ rx/ px/ future expectation/ set up home care help COLTEN ROMANO MD Dec 26, 2016 16:12
--- NOTE | 2016-12-26 16:16 | CONS ---
Date/Time of Note Date/Time of Note DATE: 12/26/16 TIME: 16:12 Consult Date/Type/Reason Admit Date/Time Dec 20, 2016 at 21:28 Initial Consult Date 12/20/2016 Type of Consultation: int med Subjective cannot take some po meds, still having vomit w/ nausea sens nino after food Objective Vital Signs Date Time Temp Pulse Resp B/P Pulse Ox O2 Delivery O2 Flow Rate FiO2 12/26/16 12:00 59 16 98 21 12/26/16 08:22 98.7 148/67 12/24/16 08:32 Room Air Intake and Output 12/25/16 12/25/16 12/26/16 15:00 23:00 07:00 Intake Total 720 ml 300 ml Output Total 2400 ml 400 ml Balance -1680 ml -100 ml Results/Medications Result Diagram: 12/22/16205112/22/162051 Medications Current Medications Guaifenesin/ Codeine Phosphate (Robitussin Ac Liquid Cup) 5 ml Q4H PRN PO COUGH Last administered on 12/25/16 20:52; Admin Dose 5 ML; Start 12/20/16 at 22:00 Cyanocobalamin (Vitamin B12 Inj) 1,000 mcg Q7D IM Last administered on 09:02; Admin Dose 1,000 MCG; Start 12/23/16 at 09:00 Salmeterol Xinafoate/ Fluticasone (Advair 250/50 Diskus) 1 inh BID INH Last administered on 12/26/16 09:48; Admin Dose 1 INH; Start 12/21/16 at 09:00 Ondansetron HCl (Zofran Inj) 4 mg Q4H PRN IV NAUSEA AND/OR VOMITING Last administered on 12/26/16 13:35; Admin Dose 4 MG; Start 12/20/16 at 22:00 Zolpidem Tartrate (Ambien) 10 mg HS PRN PO INSOMNIA; Start 12/20/16 at 22:00 Carvedilol (Coreg) 25 mg DAILY PO Last administered on 12/26/16 09:47; Admin Dose 25 MG; Start 12/21/16 at 09:00 Furosemide (Lasix) 80 mg DAILY PO Last administered on 12/26/16 09:45; Admin Dose 80 MG; Start 12/21/16 at 09:00 Clopidogrel Bisulfate (plaVIX) 75 mg DAILY PO Last administered on 12/26/16 09 :42; Admin Dose 75 MG; Start 12/21/16 at 09:00 Levothyroxine Sodium (Synthroid) 150 mcg DAILY@06 PO Last administered on 06:28; Admin Dose 150 MCG; Start 12/21/16 at 06:00 Fenofibrate (Tricor) 145 mg DAILY PO Last administered on 12/26/16 09:43; Admin Dose 145 MG; Start 12/21/16 at 09:00 Lisinopril (Zestril) 10 mg BID PO Last administered on 12/26/16 09:46; Admin Dose 10 MG; Start 12/21/16 at 09:00 Bisacodyl (Dulcolax Supp) 10 mg DAILY PRN [place] CONSTIPATION; Start 12/20/16 at 22 :30 Epoetin Stas (Epogen (Esrd)) 10,000 units MoWeFr@17 SC Last administered on 17:58; Admin Dose 10,000 UNITS; Start 12/22/16 at 17:00 Tramadol HCl (Ultram) 50 mg Q6H PRN PO PAIN Last administered on 12/25/16 12: 52; Admin Dose 50 MG; Start 12/20/16 at 22:30 Bupropion HCl (Wellbutrin Xl) 150 mg QAM PO Last administered on 12/26/16 09: 40; Admin Dose 150 MG; Start 12/21/16 at 09:00 Acetaminophen (Tylenol Tab) 650 mg Q4H PRN PO PAIN; Start 12/21/16 at 04:40 Docusate Sodium (Colace) 100 mg BID PO Last administered on 12/26/16 09:44; Admin Dose 100 MG; Start 12/21/16 at 09:00 Senna (Senokot) 1 tab HS PO Last administered on 12/25/16 20:55; Admin Dose 1 TAB; Start 12/21/16 at 21:00 Magnesium Hydroxide (Milk Of Mag) 30 ml BID PRN PO CONSTIPATION; Start at 04:40 Pantoprazole (Protonix Tab) 40 mg BID@18 PO Last administered on 12/26/16 06:28; Admin Dose 40 MG; Start 12/22/16 at 18:00 Lactulose (Enulose) 20 gm TID PRN PO CONSTIPATION Last administered on t 01:23; Admin Dose 20 GM; Start 12/23/16 at 21:00 Prochlorperazine (Compazine) 10 mg Q6H PRN PO NAUSEA AND/OR VOMITING; Start at 15:00 Ferrous Gluconate (Fergon) 325 mg DAILY PO ; Start 12/27/16 at 09:00; Status UNV Assessment/Plan Additional Assessment/Plan 1. n/v 2. cva/ musc atrophy/ rt body weak/ esophag musc weak/ cad/ pad/ high tg 3. esrd--dialysis/ anemia 4. copd 5. depression--failure to thrive 6. h/o dm/ low t4 7. uti ---GI ref ---per rehab ---per renal ---per cards ---vanco ivpb 500mg qd x5ds OCLTEN ROMANO MD Dec 26, 2016 16:16
--- NOTE | 2016-12-26 16:23 | CONS ---
DATE OF ADMISSION: 12/20/2016 DATE OF CONSULTATION: 12/26/2016 CHIEF COMPLAINT: Thank you for having me see this patient. As you know, he is a 66-year-old gentleman who is on the rehabilitation floor because of recent cerebrovascular accident. HISTORY OF PRESENT ILLNESS: History is obtained from the patient's daughter who also acts as development coach. Apparently 3 weeks ago, the patient, TIA. He was seen at [place] and sent home. Subsequent to this, he awoke and could not move. He was admitted to the hospital and was found to have a cerebrovascular accident. Even before this for the past 2 months, he has had recurrent nausea and vomiting. There is no knowledge of ulcer disease. Nonetheless, the patient does have a history of iron deficiency and in fact, was seen by a development director. He had a bone marrow performed. He also has problems of chronic constipation. The family is unaware of him ever having an endoscopy or colonoscopy. Nonetheless, he does have multiple problems including diabetes and chronic renal failure. He denies any diarrhea, rectal bleeding, melena, fever or chills. He denies any aspirin or nonsteroidal use. He denies any knowledge of peptic ulcer disease. 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 ADULT ILLNESSES: Heart disease, hypertension, COPD, kidney disease, diabetes, CHILDHOOD ILLNESSES: Denies rheumatic or scarlet fever. ALLERGIES: KEFLEX. INJURIES: None. MEDICATION: Currently include: 1. Compazine. 2. Fergon. 3. Lactulose. 4. Creon. 5. B12. 6. Zyloprim. 7. Protonix. 8. Epogen. 9. Senokot. 10. Advair. 11. Coreg. 12. Lasix. 13. Plavix. 14. Fenofibrate. 15. Lisinopril. 16. Wellbutrin. 17. Colace. 18. Synthroid. 19. Tylenol. 20. Milk of Magnesia. 21. Dulcolax. 22. Ultram. 23. Zofran. 24. Ambien. SOCIAL HISTORY: The patient is retired from the [employer] industry. He does not smoke, but was a smoker up until 2007. He does not drink alcohol. FAMILY HISTORY: Noncontributory. REVIEW OF SYSTEMS: As noted above. PHYSICAL EXAMINATION: GENERAL: The patient is a well-developed, elderly male, who appears much older than his stated age. VITAL SIGN: Temperature 98.7, pulse 59, respirations 16, blood pressure 148/67. SKIN: Clear. HEENT: Negative. CHEST: Clear to percussion auscultation. CARDIAC: No murmur, rubs, gallops. ABDOMEN: Soft, nontender, liver at 10 cm, spleen not palpable. No masses. RECTAL: Deferred. LABORATORY: Remarkable for white count 6.3, hemoglobin 10, hematocrit 31, MCV 104, platelets 124. Chemistries, BUN 43, creatinine 3.97. AST 36, ALT 34, alkaline phosphatase 38. IMPRESSION: Clearly the patient has had a recent cerebrovascular accident and it puts him at high risk for invasive procedures and anesthesia. I have discussed this in depth with the patient and their family, who agree with a conservative approach at this point. Therefore, what I have suggested is that we continue the Protonix b.i.d. I see no reason to continue on pancreatic enzymes so I have discontinued that. In addition, we will obtain stools for occult blood. I await the hematology evaluation, which I do not see in the chart. Lastly, we will obtain a gastric emptying study. Should he have gastroparesis, we could treat that empirically. Obviously, we would need to consider endoscopy at one point, but will try to avoid this because of his overall status. Dictated By: Renny Mcleod MD /anna/aureliano /Document#: [id number]
[2016-12-26] MEDS: VANCOMYCIN 500MG/NS (PMX) 100 ML IVPB SCH (18:00)
[2016-12-26] MEDS: SENNA TAB PO SCH (20:59)
[2016-12-26 21:00] VITALS: BP 129/59; RESP 18
[2016-12-26 21:01] VITALS: BP 142/65; PULSE 72
[2016-12-26] MEDS: GUAIFENESIN/CODEINE 5ML CUP PO PRN (21:07)
[2016-12-27] MEDS: ALBUTEROL 0.083% (NEB) 2.5 MG/3 ML AMP HHN SCH ×6 (01:14→21:00)
[2016-12-27 02:00] VITALS: BP 135/72; RESP 18
[2016-12-27] MEDS: LEVOTHYROXINE 150 MCG TAB PO SCH (06:00)
[2016-12-27] MEDS: PANTOPRAZOLE (EC) 40 MG TAB PO SCH ×2 (06:00→18:18)
--- NOTE | 2016-12-27 07:27 | CONS ---
Date/Time of Note Date/Time of Note DATE: 12/27/16 TIME: 07:25 Assessment/Plan Assessment/Plan Additional Assessment/Plan 1. CKD, to be diazyed today. 2. N and V spont and pc, gastric emptying study planned today. 3. Sugar control noted. 4. BP controlled Consultation Date/Type/Reason Admit Date/Time Dec 20, 2016 at 21:28 Type of Consultation: int med Detailed Summary Respiratory: No cough, No shortness of breath Cardiovascular: chest pain Gastrointestinal: other (he did not vomit last night and this am), No pain Genitourinary: no complaints Exam/Review of Systems Vital Signs Vitals Vital Signs Date Time Temp Pulse Resp B/P Pulse Ox O2 Delivery O2 Flow Rate FiO2 12/27/16 05:54 75 18 97 21 12/27/16 02:00 98.5 135/72 12/24/16 08:32 Room Air Intake and Output 12/26/16 12/26/16 12/27/16 15:00 23:00 07:00 Intake Total 1700 ml 620 ml Output Total 800 ml Balance 900 ml 620 ml Exam Neck: No jvd Respiratory: clear to auscultation Cardiovascular: regular rate and rhythm Gastrointestinal: soft Extremities: No edema Medications Medications Current Medications Guaifenesin/ Codeine Phosphate (Robitussin Ac Liquid Cup) 5 ml Q4H PRN PO COUGH Last administered on 12/26/16 21:07; Admin Dose 5 ML; Start 12/20/16 at 22:00 Cyanocobalamin (Vitamin B12 Inj) 1,000 mcg Q7D IM Last administered on 09:02; Admin Dose 1,000 MCG; Start 12/23/16 at 09:00 Salmeterol Xinafoate/ Fluticasone (Advair 250/50 Diskus) 1 inh BID INH Last administered on 12/26/16 20:59; Admin Dose 1 INH; Start 12/21/16 at 09:00 Ondansetron HCl (Zofran Inj) 4 mg Q4H PRN IV NAUSEA AND/OR VOMITING Last administered on 12/26/16 17:57; Admin Dose 4 MG; Start 12/20/16 at 22:00 Zolpidem Tartrate (Ambien) 10 mg HS PRN PO INSOMNIA; Start 12/20/16 at 22:00 Carvedilol (Coreg) 25 mg DAILY PO Last administered on 12/26/16 09:47; Admin Dose 25 MG; Start 12/21/16 at 09:00 Clopidogrel Bisulfate (plaVIX) 75 mg DAILY PO Last administered on 12/26/16 09 :42; Admin Dose 75 MG; Start 12/21/16 at 09:00 Levothyroxine Sodium (Synthroid) 150 mcg DAILY@06 PO Last administered on 06:28; Admin Dose 150 MCG; Start 12/21/16 at 06:00 Fenofibrate (Tricor) 145 mg DAILY PO Last administered on 12/26/16 09:43; Admin Dose 145 MG; Start 12/21/16 at 09:00 Lisinopril (Zestril) 10 mg BID PO Last administered on 12/26/16 21:01; Admin Dose 10 MG; Start 12/21/16 at 09:00 Bisacodyl (Dulcolax Supp) 10 mg DAILY PRN [place] CONSTIPATION; Start 12/20/16 at 22 :30 Epoetin Stas (Epogen (Esrd)) 10,000 units MoWeFr@17 SC Last administered on 17:58; Admin Dose 10,000 UNITS; Start 12/22/16 at 17:00 Tramadol HCl (Ultram) 50 mg Q6H PRN PO PAIN Last administered on 12/25/16 12: 52; Admin Dose 50 MG; Start 12/20/16 at 22:30 Bupropion HCl (Wellbutrin Xl) 150 mg QAM PO Last administered on 12/26/16 09: 40; Admin Dose 150 MG; Start 12/21/16 at 09:00 Acetaminophen (Tylenol Tab) 650 mg Q4H PRN PO PAIN; Start 12/21/16 at 04:40 Docusate Sodium (Colace) 100 mg BID PO Last administered on 12/26/16 20:59; Admin Dose 100 MG; Start 12/21/16 at 09:00 Senna (Senokot) 1 tab HS PO Last administered on 12/26/16 20:59; Admin Dose 1 TAB; Start 12/21/16 at 21:00 Magnesium Hydroxide (Milk Of Mag) 30 ml BID PRN PO CONSTIPATION; Start at 04:40 Pantoprazole (Protonix Tab) 40 mg BID@06,18 PO Last administered on 12/26/16 18:05; Admin Dose 40 MG; Start 12/22/16 at 18:00 Lactulose (Enulose) 20 gm TID PRN PO CONSTIPATION Last administered on 01:23; Admin Dose 20 GM; Start 12/23/16 at 21:00 Prochlorperazine (Compazine) 10 mg Q6H PRN PO NAUSEA AND/OR VOMITING; Start at 15:00 Ferrous Gluconate 325 mg 325 mg DAILY PO ; Start 12/27/16 at 09:00 Vancomycin HCl (Vancocin) 100 ml @ 100 mls/hr Q24H IVPB Last administered on 18:00; Admin Dose 100 MLS/HR; Start 12/26/16 at 17:30; Stop 12/31/16 at 17:29 Furosemide (Lasix) 80 mg SuTuThSa@09 PO ; Start 12/28/16 at 09:00 ANDRIA OLIVEIRA MD Dec 27, 2016 07:27
[2016-12-27 07:54] LABS: CALCIUM 8.7 mg/dl (8.4-10.2); CREATININE 5.18 mg/dl (0.61-1.24)
[2016-12-27] MEDS: BUPROPION (XL) 150 MG TAB PO SCH (09:00)
[2016-12-27] MEDS: SALMETEROL/FLUTICASONE 250/50 INHA INH SCH ×2 (09:00→21:57)
[2016-12-27] MEDS: FERROUS GLUCONATE (EC) 325 MG TAB PO SCH (09:00)
[2016-12-27] MEDS: FENOFIBRATE 145 MG TAB PO SCH (09:00)
[2016-12-27] MEDS: DOCUSATE SODIUM 100 MG CAP PO SCH ×2 (09:00→21:57)
[2016-12-27] MEDS: LISINOPRIL 10 MG TAB PO SCH ×2 (09:00→21:58)
--- NOTE | 2016-12-27 09:44 | CONS ---
Date/Time of Note Date/Time of Note DATE: 12/27/16 TIME: 09:43 Consult Date/Type/Reason Admit Date/Time Dec 20, 2016 at 21:28 Type of Consultation: int med Subjective Feeling slightly better today Objective max assist transfer Vital Signs Date Time Temp Pulse Resp B/P Pulse Ox O2 Delivery O2 Flow Rate FiO2 12/27/16 05:54 75 18 97 21 12/27/16 02:00 98.5 135/72 12/24/16 08:32 Room Air Intake and Output 12/26/16 12/26/16 12/27/16 15:00 23:00 07:00 Intake Total 1700 ml 620 ml Output Total 800 ml Balance 900 ml 620 ml Results/Medications Result Diagram: 12/27/16 0653 Results 24 hrs Laboratory Tests Test 12/27/16 06:53 Sodium Level 136 Potassium Level 4.0 Chloride Level 98 Carbon Dioxide Level 26 Anion Gap 16 Blood Urea Nitrogen 72 H Creatinine 5.18 H Glucose Level 67 L Calcium Level 8.7 Cholesterol Level 92 L Medications Current Medications Guaifenesin/ Codeine Phosphate (Robitussin Ac Liquid Cup) 5 ml Q4H PRN PO COUGH Last administered on 12/26/16 21:07; Admin Dose 5 ML; Start 12/20/16 at 22:00 Cyanocobalamin (Vitamin B12 Inj) 1,000 mcg Q7D IM Last administered on 09:02; Admin Dose 1,000 MCG; Start 12/23/16 at 09:00 Salmeterol Xinafoate/ Fluticasone (Advair 250/50 Diskus) 1 inh BID INH Last administered on 12/26/16 20:59; Admin Dose 1 INH; Start 12/21/16 at 09:00 Ondansetron HCl (Zofran Inj) 4 mg Q4H PRN IV NAUSEA AND/OR VOMITING Last administered on 12/26/16 17:57; Admin Dose 4 MG; Start 12/20/16 at 22:00 Zolpidem Tartrate (Ambien) 10 mg HS PRN PO INSOMNIA; Start 12/20/16 at 22:00 Carvedilol (Coreg) 25 mg DAILY PO Last administered on 12/26/16 09:47; Admin Dose 25 MG; Start 12/21/16 at 09:00 Clopidogrel Bisulfate (plaVIX) 75 mg DAILY PO Last administered on 12/26/16 09 :42; Admin Dose 75 MG; Start 12/21/16 at 09:00 Levothyroxine Sodium (Synthroid) 150 mcg DAILY@06 PO Last administered on 06:28; Admin Dose 150 MCG; Start 12/21/16 at 06:00 Fenofibrate (Tricor) 145 mg DAILY PO Last administered on 12/26/16 09:43; Admin Dose 145 MG; Start 12/21/16 at 09:00 Lisinopril (Zestril) 10 mg BID PO Last administered on 12/26/16 21:01; Admin Dose 10 MG; Start 12/21/16 at 09:00 Bisacodyl (Dulcolax Supp) 10 mg DAILY PRN [place]STIPATION; Start 12/20/16 at 22 :30 Epoetin Stas (Epogen (Esrd)) 10,000 units MoWeFr@17 SC Last administered on 17:58; Admin Dose 10,000 UNITS; Start 12/22/16 at 17:00 Tramadol HCl (Ultram) 50 mg Q6H PRN PO PAIN Last administered on 12/25/16 12: 52; Admin Dose 50 MG; Start 12/20/16 at 22:30 Bupropion HCl (Wellbutrin Xl) 150 mg QAM PO Last administered on 12/26/16 09: 40; Admin Dose 150 MG; Start 12/21/16 at 09:00 Acetaminophen (Tylenol Tab) 650 mg Q4H PRN PO PAIN; Start 12/21/16 at 04:40 Docusate Sodium (Colace) 100 mg BID PO Last administered on 12/26/16 20:59; Admin Dose 100 MG; Start 12/21/16 at 09:00 Senna (Senokot) 1 tab HS PO Last administered on 12/26/16 20:59; Admin Dose 1 TAB; Start 12/21/16 at 21:00 Magnesium Hydroxide (Milk Of Mag) 30 ml BID PRN PO CONSTIPATION; Start at 04:40 Pantoprazole (Protonix Tab) 40 mg BID@06,18 PO Last administered on 12/26/16 18:05; Admin Dose 40 MG; Start 12/22/16 at 18:00 Lactulose (Enulose) 20 gm TID PRN PO CONSTIPATION Last administered on 01:23; Admin Dose 20 GM; Start 12/23/16 at 21:00 Prochlorperazine (Compazine) 10 mg Q6H PRN PO NAUSEA AND/OR VOMITING; Start at 15:00 Ferrous Gluconate 325 mg 325 mg DAILY PO ; Start 12/27/16 at 09:00 Vancomycin HCl (Vancocin) 100 ml @ 100 mls/hr Q24H IVPB Last administered on 18:00; Admin Dose 100 MLS/HR; Start 12/26/16 at 17:30; Stop 12/31/16 at 17:29 Furosemide (Lasix) 80 mg SuTuThSa@09 PO ; Start 12/28/16 at 09:00 Assessment/Plan Additional Assessment/Plan Rehab- 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 Continue rehab activities as tolerated. Medical variance with activities yesterday and today due to N/V and medical workup GI- GI study today. Left BKA with residual limb wound- improving with wound care End-stage renal disease, on hemodialysis per renal COPD. Hyperlipidemia. Diabetes mellitus. History of Riddle's palsy. Peripheral vascular disease. OLESYA ELLIS MD Dec 27, 2016 09:44
--- NOTE | 2016-12-27 11:34 | CONS ---
Date/Time of Note Date/Time of Note DATE: 12/27/16 TIME: 11:33 Assessment/Plan Assessment/Plan Additional Assessment/Plan Fatigue Compensated systolic congestive heart failure Cardiomyopathy with ejection fraction 45% CAD with history of CABG Peripheral arterial disease End-stage renal disease on hemodialysis Acute blood loss anemia -Blood pressure trend overall remains stable on current cv medication regimen, fluid management via hemodialysis as per our nephrology colleagues. No new cardiac orders at the current time Consultation Date/Type/Reason Admit Date/Time Dec 20, 2016 at 21:28 Type of Consultation: cv 24 HR Interval Summary Free Text/Dictation denies cp, sob, palpitations Exam/Review of Systems Vital Signs Vitals Vital Signs Date Time Temp Pulse Resp B/P Pulse Ox O2 Delivery O2 Flow Rate FiO2 12/27/16 05:54 75 18 97 21 12/27/16 02:00 98.5 135/72 12/24/16 08:32 Room Air Intake and Output 12/26/16 12/26/16 12/27/16 15:00 23:00 07:00 Intake Total 1700 ml 620 ml Output Total 800 ml Balance 900 ml 620 ml Exam nad Constitutional: alert, oriented Head: normocephalic Respiratory: other (course bs, no wheeze) Cardiovascular: other (s1s2), regular rate and rhythm Gastrointestinal: bowel sounds, non-tender, soft Extremities: edema Results Result Diagram: 12/27/16 0653 Results 24 hrs Laboratory Tests Test 12/27/16 06:53 Sodium Level 136 Potassium Level 4.0 Chloride Level 98 Carbon Dioxide Level 26 Anion Gap 16 Blood Urea Nitrogen 72 H Creatinine 5.18 H Glucose Level 67 L Calcium Level 8.7 Cholesterol Level 92 L Medications Medications Current Medications Guaifenesin/ Codeine Phosphate (Robitussin Ac Liquid Cup) 5 ml Q4H PRN PO COUGH Last administered on 12/26/16 21:07; Admin Dose 5 ML; Start 12/20/16 at 22:00 Cyanocobalamin (Vitamin B12 Inj) 1,000 mcg Q7D IM Last administered on 09:02; Admin Dose 1,000 MCG; Start 12/23/16 at 09:00 Salmeterol Xinafoate/ Fluticasone (Advair 250/50 Diskus) 1 inh BID INH Last administered on 12/26/16 20:59; Admin Dose 1 INH; Start 12/21/16 at 09:00 Ondansetron HCl (Zofran Inj) 4 mg Q4H PRN IV NAUSEA AND/OR VOMITING Last administered on 12/26/16 17:57; Admin Dose 4 MG; Start 12/20/16 at 22:00 Zolpidem Tartrate (Ambien) 10 mg HS PRN PO INSOMNIA; Start 12/20/16 at 22:00 Carvedilol (Coreg) 25 mg DAILY PO Last administered on 12/26/16 09:47; Admin Dose 25 MG; Start 12/21/16 at 09:00 Clopidogrel Bisulfate (plaVIX) 75 mg DAILY PO Last administered on 12/26/16 09 :42; Admin Dose 75 MG; Start 12/21/16 at 09:00 Levothyroxine Sodium (Synthroid) 150 mcg DAILY@06 PO Last administered on 06:28; Admin Dose 150 MCG; Start 12/21/16 at 06:00 Fenofibrate (Tricor) 145 mg DAILY PO Last administered on 12/26/16 09:43; Admin Dose 145 MG; Start 12/21/16 at 09:00 Lisinopril (Zestril) 10 mg BID PO Last administered on 12/26/16 21:01; Admin Dose 10 MG; Start 12/21/16 at 09:00 Bisacodyl (Dulcolax Supp) 10 mg DAILY PRN [place] CONSTIPATION; Start 12/20/16 at 22 :30 Epoetin Stas (Epogen (Esrd)) 10,000 units MoWeFr@17 SC Last administered on 17:58; Admin Dose 10,000 UNITS; Start 12/22/16 at 17:00 Tramadol HCl (Ultram) 50 mg Q6H PRN PO PAIN Last administered on 12/25/16 12: 52; Admin Dose 50 MG; Start 12/20/16 at 22:30 Bupropion HCl (Wellbutrin Xl) 150 mg QAM PO Last administered on 12/26/16 09: 40; Admin Dose 150 MG; Start 12/21/16 at 09:00 Acetaminophen (Tylenol Tab) 650 mg Q4H PRN PO PAIN; Start 12/21/16 at 04:40 Docusate Sodium (Colace) 100 mg BID PO Last administered on 12/26/16 20:59; Admin Dose 100 MG; Start 12/21/16 at 09:00 Senna (Senokot) 1 tab HS PO Last administered on 12/26/16 20:59; Admin Dose 1 TAB; Start 12/21/16 at 21:00 Magnesium Hydroxide (Milk Of Mag) 30 ml BID PRN PO CONSTIPATION; Start at 04:40 Pantoprazole (Protonix Tab) 40 mg BID@06,18 PO Last administered on 12/26/16 18:05; Admin Dose 40 MG; Start 12/22/16 at 18:00 Lactulose (Enulose) 20 gm TID PRN PO CONSTIPATION Last administered on 01:23; Admin Dose 20 GM; Start 12/23/16 at 21:00 Prochlorperazine (Compazine) 10 mg Q6H PRN PO NAUSEA AND/OR VOMITING; Start at 15:00 Ferrous Gluconate 325 mg 325 mg DAILY PO ; Start 12/27/16 at 09:00 Vancomycin HCl (Vancocin) 100 ml @ 100 mls/hr Q24H IVPB Last administered on 18:00; Admin Dose 100 MLS/HR; Start 12/26/16 at 17:30; Stop 12/31/16 at 17:29 Furosemide (Lasix) 80 mg SuTuThSa@09 PO ; Start 12/28/16 at 09:00 Hammad Hernandez DO Dec 27, 2016 11:34
[2016-12-27] MEDS: CLOPIDOGREL 75 MG TAB PO SCH (12:10)
--- NOTE | 2016-12-27 14:29 | CONS ---
Date/Time of Note Date/Time of Note DATE: 12/27/16 TIME: 14:26 Consult Date/Type/Reason Admit Date/Time Dec 20, 2016 at 21:28 Initial Consult Date Type of Consultation: GI Subjective Not vomiting today Preliminary emptying study shows slow emptying Objective Vital Signs Date Time Temp Pulse Resp B/P Pulse Ox O2 Delivery O2 Flow Rate FiO2 12/27/16 05:54 75 18 97 21 12/27/16 02:00 98.5 135/72 12/24/16 08:32 Room Air Abdomen: soft, non tender Intake and Output 12/26/16 12/26/16 12/27/16 15:00 23:00 07:00 Intake Total 1700 ml 620 ml Output Total 800 ml Balance 900 ml 620 ml Results/Medications Result Diagram: 12/27/16 0653 Results 24 hrs Laboratory Tests Test 12/27/16 06:53 Sodium Level 136 Potassium Level 4.0 Chloride Level 98 Carbon Dioxide Level 26 Anion Gap 16 Blood Urea Nitrogen 72 H Creatinine 5.18 H Glucose Level 67 L Calcium Level 8.7 Cholesterol Level 92 L Medications Current Medications Guaifenesin/ Codeine Phosphate (Robitussin Ac Liquid Cup) 5 ml Q4H PRN PO COUGH Last administered on 12/26/16 21:07; Admin Dose 5 ML; Start 12/20/16 at 22:00 Cyanocobalamin (Vitamin B12 Inj) 1,000 mcg Q7D IM Last administered on 09:02; Admin Dose 1,000 MCG; Start 12/23/16 at 09:00 Salmeterol Xinafoate/ Fluticasone (Advair 250/50 Diskus) 1 inh BID INH Last administered on 12/26/16 20:59; Admin Dose 1 INH; Start 12/21/16 at 09:00 Ondansetron HCl (Zofran Inj) 4 mg Q4H PRN IV NAUSEA AND/OR VOMITING Last administered on 12/26/16 17:57; Admin Dose 4 MG; Start 12/20/16 at 22:00 Zolpidem Tartrate (Ambien) 10 mg HS PRN PO INSOMNIA; Start 12/20/16 at 22:00 Carvedilol (Coreg) 25 mg DAILY PO Last administered on 12/26/16 09:47; Admin Dose 25 MG; Start 12/21/16 at 09:00 Clopidogrel Bisulfate (plaVIX) 75 mg DAILY PO Last administered on 12/26/16 09 :42; Admin Dose 75 MG; Start 12/21/16 at 09:00 Levothyroxine Sodium (Synthroid) 150 mcg DAILY@06 PO Last administered on 06:28; Admin Dose 150 MCG; Start 12/21/16 at 06:00 Fenofibrate (Tricor) 145 mg DAILY PO Last administered on 12/26/16 09:43; Admin Dose 145 MG; Start 12/21/16 at 09:00 Lisinopril (Zestril) 10 mg BID PO Last administered on 12/26/16 21:01; Admin Dose 10 MG; Start 12/21/16 at 09:00 Bisacodyl (Dulcolax Supp) 10 mg DAILY PRN [place] CONSTIPATION; Start 12/20/16 at 22 :30 Epoetin Stas (Epogen (Esrd)) 10,000 units MoWeFr@17 SC Last administered on 17:58; Admin Dose 10,000 UNITS; Start 12/22/16 at 17:00 Tramadol HCl (Ultram) 50 mg Q6H PRN PO PAIN Last administered on 12/25/16 12: 52; Admin Dose 50 MG; Start 12/20/16 at 22:30 Bupropion HCl (Wellbutrin Xl) 150 mg QAM PO Last administered on 12/26/16 09: 40; Admin Dose 150 MG; Start 12/21/16 at 09:00 Acetaminophen (Tylenol Tab) 650 mg Q4H PRN PO PAIN; Start 12/21/16 at 04:40 Docusate Sodium (Colace) 100 mg BID PO Last administered on 12/26/16 20:59; Admin Dose 100 MG; Start 12/21/16 at 09:00 Senna (Senokot) 1 tab HS PO Last administered on 12/26/16 20:59; Admin Dose 1 TAB; Start 12/21/16 at 21:00 Magnesium Hydroxide (Milk Of Mag) 30 ml BID PRN PO CONSTIPATION; Start at 04:40 Pantoprazole (Protonix Tab) 40 mg BID@,18 PO Last administered on 12/26/16 18:05; Admin Dose 40 MG; Start 12/22/16 at 18:00 Lactulose (Enulose) 20 gm TID PRN PO CONSTIPATION Last administered on 01:23; Admin Dose 20 GM; Start 12/23/16 at 21:00 Prochlorperazine (Compazine) 10 mg Q6H PRN PO NAUSEA AND/OR VOMITING; Start at 15:00 Ferrous Gluconate 325 mg 325 mg DAILY PO ; Start 12/27/16 at 09:00 Vancomycin HCl (Vancocin) 100 ml @ 100 mls/hr Q24H IVPB Last administered on 18:00; Admin Dose 100 MLS/HR; Start 12/26/16 at 17:30; Stop 12/31/16 at 17:29 Furosemide (Lasix) 80 mg SuTuThSa@09 PO ; Start 12/28/16 at 09:00 Assessment/Plan Chief Complaint/Hosp Course Impression: Nausea / Vomiting - likely gastroparesis Plan: Given overall status, will avoid putting patient through EGD. Instead will proceed with UGI to rule out substantial pathology at this point Problems: JD RAYMOND MD Dec 27, 2016 14:29
[2016-12-27] MEDS ORDERED: DIATR MEGLU/DIATRIZOATE SODIUM 120 ML BTL ONE (15:52)
--- NOTE | 2016-12-27 15:53 | RADRPT ---
PROCEDURE: Gastric emptying scan CLINICAL INDICATION: 66 -year-old patient with abdominal pain, nausea and vomiting. TECHNIQUE: Following the oral administration of 1.0 mCi of Tc-99m sulfur colloid, labeled to a cynthia id meal, gastric emptying study was obtained. COMPARISON: No prior studies. FINDINGS: The stomach is well visualized. The small intestines are identified. There is evidence of normal gastric emptying rate from the start of the study with calculated T1/2 t kevin of 89 minutes (normal range is 30 - 90 minutes). There is no evidence of increased activity in the chest to suggest the presence of gastroesophageal reflux. IMPRESSION: Normal gastric emptying rate . RPTAT: HH .Malathi Peace MD, Date Time Electronically viewed and signed by .Malathi Peace MD, MD on 12/27/2016 15:53 .L/
[2016-12-27] MEDS ORDERED: BARIUM SULFATE 135 ML (E-Z HD) PO ONE (16:02)
[2016-12-27 16:23] VITALS: BP 137/66; PULSE 95; RESP 18
--- NOTE | 2016-12-27 17:09 | RADRPT ---
PROCEDURE: Upper GI series CLINICAL INDICATION: Clinical concern is for gastric or duodenal pathology TECHNIQUE: Upper GI series was performed with single barium contrast with overhead radiographs ob tained during the procedure. Fluoroscopic guidance was utilized during the examination. Total fluor oscopy time was 1.7 minutes. 25 fluoroscopic spot images were obtained. COMPARISON: None available FINDINGS: The study is slightly limited due to inability to patient limited mobility. The esophagus is grossly normal in course, caliber, and morphology with normal primary peristaltic stripping waves. No abnormality is seen. No definite mucosal changes to the distal esophagus is id entified. There is no evidence for hiatal hernia. There is severe gastroesophageal reflux noted du ring the examination. The stomach is normal and size and morphology. The gastric mucosa is intact a nd normal. No ulcer is seen. The duodenal bulb and C-loop of the duodenum are equally unremarkable . Contrast passes normally through the upper GI tract. IMPRESSION: 1. Gastroesophageal reflux seen to the cervical esophagus. 2. Otherwise, grossly upper GI series. 3. No evidence for contrast obstruction. RPTAT: QQ .Toni Alonso MD, MD Date Time Electronically viewed and signed by .Toni Alonso MD, MD on 12/27/2016 17:09 .d/
[2016-12-27] MEDS: VANCOMYCIN 500MG/NS (PMX) 100 ML IVPB SCH (18:00)
[2016-12-27] MEDS: EPOETIN 10000 UNITS/1 ML INJ (ESRD) SC SCH (18:21)
[2016-12-27] MEDS: ONDANSETRON 4 MG INJ IV PRN (18:33)
--- NOTE | 2016-12-27 19:57 | CONS ---
DATE OF ADMISSION: 12/20/2016 DATE OF CONSULTATION: 12/27/2016 TYPE OF CONSULTATION: Psychological. REFERRING PHYSICIAN: Yoshi Vargas MD CONSULTING PSYCHOLOGIST: Lloyd Holloway, PhD REASON FOR CONSULTATION: This consultation was requested by Dr. Eliezer Vargas in order to evaluate the cognitive and emotional function of this patient related to his present medical condition. HISTORY OF PRESENT ILLNESS: Patient is a 65-year-old male. He has multiple medical problems. The patient has a left below-the- knee amputation, end-stage renal disease on hemodialysis, COPD, hyperlipidemia, and type 2 diabetes. The patient also just recently had a CVA. The patient was seen in bed and was reported feeling fairly good given all his medical problems at the present time. The patient is motivated to get better. The patient is trying to return to his previous level of functioning. SOCIAL HISTORY: Patient lives with his . And his son in a house in [facility]. The patient wants to return there after discharge. MEDICATION: The patient is currently on: 1. Wellbutrin 150 mg q.a.m. 2. Ambien 10 mg at bedtime p.r.n. SUBSTANCE USE: The patient reports that he does not smoke. The patient reports he does not use alcohol or other drugs. The patient reports that he did smoke until 2007, but has not smoked since. MENTAL STATUS EXAMINATION: APPEARANCE: The patient was seen in bed. He appears to be of average height and weight. The patient is right-handed. Patient has escobedo hair and a smith and a mustache. The patient wears glasses. BEHAVIOR: The patient was cooperative during the consultation. The patient did attempt to answer all questions presented to him by the interviewer. MOOD AND AFFECT: The patient's mood appears to be just slightly depressed. Affect does appear to be just slightly anxious. PERCEPTION: Patient reports no hallucinations or delusions. The patient was alert to person, place, situation, and time. MEMORY AND COGNITION: The patient's memory and cognition is basically intact for just having a stroke. The patient was able to name the hospital. The patient was able to state the month and the year. The patient was able to state the President of [facility], the governor of the [facility], and the Mayor of the [facility]. The patient was able to spell world backwards. The patient was able to do 4 serial 7 subtractions from 100 and then made an error on his 5th. Overall patient's cognition is given the fact that he just have a CVA is quite good. INTELLIGENCE: Intelligence appears to fall in the average range. INSIGHT: Good. JUDGMENT: Good. THOUGHT CONTENT: The patient is concerned about his present medical condition. The patient is motivated to get better and return to his previous level of functioning. DISCUSSION: The patient can likely benefit from some cognitive/behavioral psychotherapy barone on the unit. The psychotherapy would focus on his underlying medical problems and his emotions surrounding this. 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 Thank you very much, Dr. Eliezer Vargas, for referring this individual. Please do not hesitate to call if you have additional questions. Dictated By: Lloyd Holloway, PHD /anna/stevie /Document#: [id number] SRUTHI
[2016-12-27 20:00] VITALS: BP 131/75; RESP 18
[2016-12-27] MEDS: SENNA TAB PO SCH (21:58)
[2016-12-28] VITALS (11 sets, daily range): BP systolic 116–157; BP diastolic 54–102; PULSE 60–69; RESP 18–20
[2016-12-28] MEDS: ALBUTEROL 0.083% (NEB) 2.5 MG/3 ML AMP HHN SCH ×2 (01:00→05:00)
[2016-12-28] MEDS: PANTOPRAZOLE (EC) 40 MG TAB PO SCH ×2 (06:51→18:55)
[2016-12-28] MEDS: LEVOTHYROXINE 150 MCG TAB PO SCH (06:51)
[2016-12-28] MEDS: SALMETEROL/FLUTICASONE 250/50 INHA INH SCH ×2 (09:16→20:33)
[2016-12-28] MEDS: DOCUSATE SODIUM 100 MG CAP PO SCH ×2 (09:17→20:33)
[2016-12-28] MEDS: LISINOPRIL 10 MG TAB PO SCH ×2 (09:17→20:33)
[2016-12-28] MEDS: BUPROPION (XL) 150 MG TAB PO SCH (09:17)
[2016-12-28] MEDS: FUROSEMIDE 40 MG TAB PO SCH (09:17)
[2016-12-28] MEDS: traMADol 50 MG TAB PO PRN (09:18)
[2016-12-28] MEDS: FERROUS GLUCONATE (EC) 325 MG TAB PO SCH (09:18)
[2016-12-28] MEDS: FENOFIBRATE 145 MG TAB PO SCH (09:18)
[2016-12-28] MEDS: CLOPIDOGREL 75 MG TAB PO SCH (09:18)
[2016-12-28] MEDS: LACTULOSE 30ML CUP PO PRN (09:19)
[2016-12-28] MEDS: ONDANSETRON 4 MG INJ IV PRN (09:30)
--- NOTE | 2016-12-28 11:06 | CONS ---
Date/Time of Note Date/Time of Note DATE: 12/28/16 TIME: 11:04 Consult Date/Type/Reason Admit Date/Time Dec 20, 2016 at 21:28 Type of Consultation: GI Subjective Some slight N/V Objective pulm-cta mod assist transfer Vital Signs Date Time Temp Pulse Resp B/P Pulse Ox O2 Delivery O2 Flow Rate FiO2 12/28/16 07:30 97.9 79 20 157/70 97 12/27/16 16:23 Room Air 12/27/16 05:54 21 Intake and Output 12/27/16 12/27/16 12/28/16 15:00 23:00 07:00 Intake Total 900 ml 360 ml Output Total 800 ml 400 ml 500 ml Balance -800 ml 500 ml -140 ml Results/Medications Result Diagram: 12/27/16 0653 Results 24 hrs Laboratory Tests Test 12/28/16 06:27 Random Vancomycin Level 10.5 Medications Current Medications Guaifenesin/ Codeine Phosphate (Robitussin Ac Liquid Cup) 5 ml Q4H PRN PO COUGH Last administered on 12/26/16 21:07; Admin Dose 5 ML; Start 12/20/16 at 22:00 Cyanocobalamin (Vitamin B12 Inj) 1,000 mcg Q7D IM Last administered on 09:02; Admin Dose 1,000 MCG; Start 12/23/16 at 09:00 Salmeterol Xinafoate/ Fluticasone (Advair 250/50 Diskus) 1 inh BID INH Last administered on 12/28/16 09:16; Admin Dose 1 INH; Start 12/21/16 at 09:00 Ondansetron HCl (Zofran Inj) 4 mg Q4H PRN IV NAUSEA AND/OR VOMITING Last administered on 12/28/16 09:30; Admin Dose 4 MG; Start 12/20/16 at 22:00 Zolpidem Tartrate (Ambien) 10 mg HS PRN PO INSOMNIA; Start 12/20/16 at 22:00 Carvedilol (Coreg) 25 mg DAILY PO Last administered on 12/28/16 09:18; Admin Dose 25 MG; Start 12/21/16 at 09:00 Clopidogrel Bisulfate (plaVIX) 75 mg DAILY PO Last administered on 12/28/16 09 :18; Admin Dose 75 MG; Start 12/21/16 at 09:00 Levothyroxine Sodium (Synthroid) 150 mcg DAILY@06 PO Last administered on 06:51; Admin Dose 150 MCG; Start 12/21/16 at 06:00 Fenofibrate (Tricor) 145 mg DAILY PO Last administered on 12/28/16 09:18; Admin Dose 145 MG; Start 12/21/16 at 09:00 Lisinopril (Zestril) 10 mg BID PO Last administered on 12/28/16 09:17; Admin Dose 10 MG; Start 12/21/16 at 09:00 Bisacodyl (Dulcolax Supp) 10 mg DAILY PRN [place] CONSTIPATION; Start 12/20/16 at 22 :30 Epoetin Stas (Epogen (Esrd)) 10,000 units MoWeFr@17 SC Last administered on 18:21; Admin Dose 10,000 UNITS; Start 12/22/16 at 17:00 Tramadol HCl (Ultram) 50 mg Q6H PRN PO PAIN Last administered on 12/28/16 09: 18; Admin Dose 50 MG; Start 12/20/16 at 22:30 Bupropion HCl (Wellbutrin Xl) 150 mg QAM PO Last administered on 12/28/16 09: 17; Admin Dose 150 MG; Start 12/21/16 at 09:00 Acetaminophen (Tylenol Tab) 650 mg Q4H PRN PO PAIN; Start 12/21/16 at 04:40 Docusate Sodium (Colace) 100 mg BID PO Last administered on 12/28/16 09:17; Admin Dose 100 MG; Start 12/21/16 at 09:00 Senna (Senokot) 1 tab HS PO Last administered on 12/27/16 21:58; Admin Dose 1 TAB; Start 12/21/16 at 21:00 Magnesium Hydroxide (Milk Of Mag) 30 ml BID PRN PO CONSTIPATION; Start at 04:40 Pantoprazole (Protonix Tab) 40 mg BID@06,18 PO Last administered on 12/28/16 06:51; Admin Dose 40 MG; Start 12/22/16 at 18:00 Lactulose (Enulose) 20 gm TID PRN PO CONSTIPATION Last administered on 09:19; Admin Dose 20 GM; Start 12/23/16 at 21:00 Prochlorperazine (Compazine) 10 mg Q6H PRN PO NAUSEA AND/OR VOMITING; Start at 15:00 Ferrous Gluconate 325 mg 325 mg DAILY PO Last administered on 12/28/16 09:18; Admin Dose 325 MG; Start 12/27/16 at 09:00 Vancomycin HCl (Vancocin) 100 ml @ 100 mls/hr Q24H IVPB Last administered on 18:00; Admin Dose 100 MLS/HR; Start 12/26/16 at 17:30; Stop 12/31/16 at 17:29 Furosemide (Lasix) 80 mg SuTuThSa@09 PO Last administered on 12/28/16 09:17; Admin Dose 80 MG; Start 12/28/16 at 09:00 Assessment/Plan Additional Assessment/Plan Rehab- 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 Increase activities as tolerated GI- GERD Left BKA with residual limb wound- improving with wound care End-stage renal disease, on hemodialysis per renal COPD. Hyperlipidemia. Diabetes mellitus. History of Riddle's palsy. Peripheral vascular disease. OLESYA ELLIS MD Dec 28, 2016 11:06
[2016-12-28] MEDS ORDERED: ALBUTEROL 0.083% (NEB) 2.5 MG/3 ML AMP HHN PRN (11:30)
--- NOTE | 2016-12-28 12:57 | CONS ---
Date/Time of Note Date/Time of Note DATE: 12/28/16 TIME: 12:53 Assessment/Plan Assessment/Plan Chief Complaint/Hosp Course 1. End-stage renal disease. This patient is going to have hemodialysis today because he missed his routine dialysis treatment yesterday because of a gastric emptying study. 2. Nausea with intermittent vomiting . gastric emptying study was normal yesterday. I am going to start patient on Reglan. 3. Constipation. Will start the patient on a regular dose of lactulose. 4. Hypertension 5. Diabetes mellitus Problems: Consultation Date/Type/Reason Admit Date/Time Dec 20, 2016 at 21:28 Initial Consult Date Type of Consultation: GI 24 HR Interval Summary Free Text/Dictation He is awake and alert and responsive. He says that he feels slightly nauseated. He did have a gastric emptying study done yesterday that was normal. He has not been having normal bowel movements since he has been here. Constitutional: no complaints Exam/Review of Systems Vital Signs Vitals Vital Signs Date Time Temp Pulse Resp B/P Pulse Ox O2 Delivery O2 Flow Rate FiO2 12/28/16 07:30 97.9 79 20 157/70 97 12/27/16 16:23 Room Air 12/27/16 05:54 21 Intake and Output 12/27/16 12/27/16 12/28/16 15:00 23:00 07:00 Intake Total 900 ml 360 ml Output Total 800 ml 400 ml 500 ml Balance -800 ml 500 ml -140 ml Exam Constitutional: alert, frail, oriented Respiratory: clear to auscultation, normal air movement Cardiovascular: regular rate and rhythm Gastrointestinal: soft Musculoskeletal: nl extremities to inspection Results Result Diagram: 12/27/16 0653 Results 24 hrs Laboratory Tests Test 12/28/16 06:27 Random Vancomycin Level 10.5 Medications Medications Current Medications Guaifenesin/ Codeine Phosphate (Robitussin Ac Liquid Cup) 5 ml Q4H PRN PO COUGH Last administered on 12/26/16 21:07; Admin Dose 5 ML; Start 12/20/16 at 22:00 Cyanocobalamin (Vitamin B12 Inj) 1,000 mcg Q7D IM Last administered on 09:02; Admin Dose 1,000 MCG; Start 12/23/16 at 09:00 Salmeterol Xinafoate/ Fluticasone (Advair 250/50 Diskus) 1 inh BID INH Last administered on 12/28/16 09:16; Admin Dose 1 INH; Start 12/21/16 at 09:00 Ondansetron HCl (Zofran Inj) 4 mg Q4H PRN IV NAUSEA AND/OR VOMITING Last administered on 12/28/16 09:30; Admin Dose 4 MG; Start 12/20/16 at 22:00 Zolpidem Tartrate (Ambien) 10 mg HS PRN PO INSOMNIA; Start 12/20/16 at 22:00 Carvedilol (Coreg) 25 mg DAILY PO Last administered on 12/28/16 09:18; Admin Dose 25 MG; Start 12/21/16 at 09:00 Clopidogrel Bisulfate (plaVIX) 75 mg DAILY PO Last administered on 12/28/16 09 :18; Admin Dose 75 MG; Start 12/21/16 at 09:00 Levothyroxine Sodium (Synthroid) 150 mcg DAILY@06 PO Last administered on 06:51; Admin Dose 150 MCG; Start 12/21/16 at 06:00 Fenofibrate (Tricor) 145 mg DAILY PO Last administered on 12/28/16 09:18; Admin Dose 145 MG; Start 12/21/16 at 09:00 Lisinopril (Zestril) 10 mg BID PO Last administered on 12/28/16 09:17; Admin Dose 10 MG; Start 12/21/16 at 09:00 Bisacodyl (Dulcolax Supp) 10 mg DAILY PRN [place] CONSTIPATION; Start 12/20/16 at 22 :30 Epoetin Stas (Epogen (Esrd)) 10,000 units MoWeFr@17 SC Last administered on 18:21; Admin Dose 10,000 UNITS; Start 12/22/16 at 17:00 Tramadol HCl (Ultram) 50 mg Q6H PRN PO PAIN Last administered on 12/28/16 09: 18; Admin Dose 50 MG; Start 12/20/16 at 22:30 Bupropion HCl (Wellbutrin Xl) 150 mg QAM PO Last administered on 12/28/16 09: 17; Admin Dose 150 MG; Start 12/21/16 at 09:00 Acetaminophen (Tylenol Tab) 650 mg Q4H PRN PO PAIN; Start 12/21/16 at 04:40 Docusate Sodium (Colace) 100 mg BID PO Last administered on 12/28/16 09:17; Admin Dose 100 MG; Start 12/21/16 at 09:00 Senna (Senokot) 1 tab HS PO Last administered on 12/27/16 21:58; Admin Dose 1 TAB; Start 12/21/16 at 21:00 Magnesium Hydroxide (Milk Of Mag) 30 ml BID PRN PO CONSTIPATION; Start at 04:40 Pantoprazole (Protonix Tab) 40 mg BID@06,18 PO Last administered on 12/28/16 06:51; Admin Dose 40 MG; Start 12/22/16 at 18:00 Lactulose (Enulose) 20 gm TID PRN PO CONSTIPATION Last administered on 09:19; Admin Dose 20 GM; Start 12/23/16 at 21:00 Prochlorperazine (Compazine) 10 mg Q6H PRN PO NAUSEA AND/OR VOMITING; Start at 15:00 Ferrous Gluconate (Fergon) 325 mg DAILY PO Last administered on 12/28/16 09:18 ; Admin Dose 325 MG; Start 12/27/16 at 09:00 Furosemide 80 mg 80 mg SuTuThSa@09 PO Last administered on 12/28/16 09:17; Admin Dose 80 MG; Start 12/28/16 at 09:00 Vancomycin HCl (Vancocin) 100 ml @ 100 mls/hr Q24H IVPB ; Start 12/28/16 at 19: 30; Stop 12/31/16 at 19:45 SABA [id number] MD Dec 28, 2016 12:56
--- NOTE | 2016-12-28 14:19 | CONS ---
Date/Time of Note Date/Time of Note DATE: 12/28/16 TIME: 14:15 Consult Date/Type/Reason Admit Date/Time Dec 20, 2016 at 21:28 Type of Consultation: GI Subjective Still having vomiting UGI shows reflux into cervical esophagus Emptying study - final report - normal Objective Vital Signs Date Time Temp Pulse Resp B/P Pulse Ox O2 Delivery O2 Flow Rate FiO2 12/28/16 07:30 97.9 79 20 157/70 97 12/27/16 16:23 Room Air 12/27/16 05:54 21 Abdomen: Soft, non tender Intake and Output 12/27/16 12/27/16 12/28/16 15:00 23:00 07:00 Intake Total 900 ml 360 ml Output Total 800 ml 400 ml 500 ml Balance -800 ml 500 ml -140 ml Results/Medications Result Diagram: 12/27/16 0653 Results 24 hrs Laboratory Tests Test 12/28/16 06:27 Random Vancomycin Level 10.5 Medications Current Medications Guaifenesin/ Codeine Phosphate (Robitussin Ac Liquid Cup) 5 ml Q4H PRN PO COUGH Last administered on 12/26/16 21:07; Admin Dose 5 ML; Start 12/20/16 at 22:00 Cyanocobalamin (Vitamin B12 Inj) 1,000 mcg Q7D IM Last administered on 09:02; Admin Dose 1,000 MCG; Start 12/23/16 at 09:00 Salmeterol Xinafoate/ Fluticasone (Advair 250/50 Diskus) 1 inh BID INH Last administered on 12/28/16 09:16; Admin Dose 1 INH; Start 12/21/16 at 09:00 Ondansetron HCl (Zofran Inj) 4 mg Q4H PRN IV NAUSEA AND/OR VOMITING Last administered on 12/28/16 09:30; Admin Dose 4 MG; Start 12/20/16 at 22:00 Zolpidem Tartrate (Ambien) 10 mg HS PRN PO INSOMNIA; Start 12/20/16 at 22:00 Carvedilol (Coreg) 25 mg DAILY PO Last administered on 12/28/16 09:18; Admin Dose 25 MG; Start 12/21/16 at 09:00 Clopidogrel Bisulfate (plaVIX) 75 mg DAILY PO Last administered on 12/28/16 09 :18; Admin Dose 75 MG; Start 12/21/16 at 09:00 Levothyroxine Sodium (Synthroid) 150 mcg DAILY@06 PO Last administered on 06:51; Admin Dose 150 MCG; Start 12/21/16 at 06:00 Fenofibrate (Tricor) 145 mg DAILY PO Last administered on 12/28/16 09:18; Admin Dose 145 MG; Start 12/21/16 at 09:00 Lisinopril (Zestril) 10 mg BID PO Last administered on 12/28/16 09:17; Admin Dose 10 MG; Start 12/21/16 at 09:00 Bisacodyl (Dulcolax Supp) 10 mg DAILY PRN [place] CONSTIPATION; Start 12/20/16 at 22 :30 Epoetin Stas (Epogen (Esrd)) 10,000 units MoWeFr@17 SC Last administered on 18:21; Admin Dose 10,000 UNITS; Start 12/22/16 at 17:00 Tramadol HCl (Ultram) 50 mg Q6H PRN PO PAIN Last administered on 12/28/16 09: 18; Admin Dose 50 MG; Start 12/20/16 at 22:30 Bupropion HCl (Wellbutrin Xl) 150 mg QAM PO Last administered on 12/28/16 09: 17; Admin Dose 150 MG; Start 12/21/16 at 09:00 Acetaminophen (Tylenol Tab) 650 mg Q4H PRN PO PAIN; Start 12/21/16 at 04:40 Docusate Sodium (Colace) 100 mg BID PO Last administered on 12/28/16 09:17; Admin Dose 100 MG; Start 12/21/16 at 09:00 Senna (Senokot) 1 tab HS PO Last administered on 12/27/16 21:58; Admin Dose 1 TAB; Start 12/21/16 at 21:00 Magnesium Hydroxide (Milk Of Mag) 30 ml BID PRN PO CONSTIPATION; Start at 04:40 Pantoprazole (Protonix Tab) 40 mg BID@,18 PO Last administered on 12/28/16 06:51; Admin Dose 40 MG; Start 12/22/16 at 18:00 Lactulose (Enulose) 20 gm TID PRN PO CONSTIPATION Last administered on 09:19; Admin Dose 20 GM; Start 12/23/16 at 21:00; Stop 12/29/16 at 09:00 Prochlorperazine (Compazine) 10 mg Q6H PRN PO NAUSEA AND/OR VOMITING; Start at 15:00 Ferrous Gluconate (Fergon) 325 mg DAILY PO Last administered on 12/28/16 09:18 ; Admin Dose 325 MG; Start 12/27/16 at 09:00 Furosemide 80 mg 80 mg SuTuThSa@09 PO Last administered on 12/28/16 09:17; Admin Dose 80 MG; Start 12/28/16 at 09:00 Vancomycin HCl (Vancocin) 100 ml @ 100 mls/hr Q24H IVPB ; Start 12/28/16 at 19: 30; Stop 12/31/16 at 19:45 Lactulose (Enulose) 20 gm DAILY PO ; Start 12/29/16 at 09:00 Metoclopramide HCl (Reglan) 5 mg Q6 IV ; Start 12/28/16 at 18:00 Assessment/Plan Chief Complaint/Hosp Course Impression: Nausea / Vomiting - note formal emptying study does not show gastroparesis. UGI shows reflux into cervical esophagus Plan: Given overall status, will avoid putting patient through EGD. Nurses instructed on small frequent meals and importance of keeping upright for meals given reflux into cervical esophagus on UGI Problems: JD RAYMOND MD Dec 28, 2016 14:19
--- NOTE | 2016-12-28 14:59 | CONS ---
Date/Time of Note Date/Time of Note DATE: 12/27/16 TIME: 14:55 Consult Date/Type/Reason Admit Date/Time Dec 20, 2016 at 21:28 Initial Consult Date 12/20/2016 Type of Consultation: GI Subjective less vomit, a little more energy Objective Vital Signs Date Time Temp Pulse Resp B/P Pulse Ox O2 Delivery O2 Flow Rate FiO2 12/28/16 07:30 97.9 79 20 157/70 97 12/27/16 16:23 Room Air 12/27/16 05:54 21 Intake and Output 12/27/16 12/27/16 12/28/16 15:00 23:00 07:00 Intake Total 900 ml 360 ml Output Total 800 ml 400 ml 500 ml Balance -800 ml 500 ml -140 ml Exam awake rt body musc atrophy & weaker, lf bka slight bronch wheez rr syst & diast clicks+ abd--no mass, hypo-bs, no distention Results/Medications Result Diagram: 12/27/16 0653 Results 24 hrs Laboratory Tests Test 12/28/16 06:27 Random Vancomycin Level 10.5 Medications Current Medications Guaifenesin/ Codeine Phosphate (Robitussin Ac Liquid Cup) 5 ml Q4H PRN PO COUGH Last administered on 12/26/16 21:07; Admin Dose 5 ML; Start 12/20/16 at 22:00 Cyanocobalamin (Vitamin B12 Inj) 1,000 mcg Q7D IM Last administered on 09:02; Admin Dose 1,000 MCG; Start 12/23/16 at 09:00 Salmeterol Xinafoate/ Fluticasone (Advair 250/50 Diskus) 1 inh BID INH Last administered on 12/28/16 09:16; Admin Dose 1 INH; Start 12/21/16 at 09:00 Ondansetron HCl (Zofran Inj) 4 mg Q4H PRN IV NAUSEA AND/OR VOMITING Last administered on 12/28/16 09:30; Admin Dose 4 MG; Start 12/20/16 at 22:00 Zolpidem Tartrate (Ambien) 10 mg HS PRN PO INSOMNIA; Start 12/20/16 at 22:00 Carvedilol (Coreg) 25 mg DAILY PO Last administered on 12/28/16 09:18; Admin Dose 25 MG; Start 12/21/16 at 09:00 Clopidogrel Bisulfate (plaVIX) 75 mg DAILY PO Last administered on 12/28/16 09 :18; Admin Dose 75 MG; Start 12/21/16 at 09:00 Levothyroxine Sodium (Synthroid) 150 mcg DAILY@06 PO Last administered on 06:51; Admin Dose 150 MCG; Start 12/21/16 at 06:00 Fenofibrate (Tricor) 145 mg DAILY PO Last administered on 12/28/16 09:18; Admin Dose 145 MG; Start 12/21/16 at 09:00 Lisinopril (Zestril) 10 mg BID PO Last administered on 12/28/16 09:17; Admin Dose 10 MG; Start 12/21/16 at 09:00 Bisacodyl (Dulcolax Supp) 10 mg DAILY PRN [place] CONSTIPATION; Start 12/20/16 at 22 :30 Epoetin Stas (Epogen (Esrd)) 10,000 units MoWeFr@17 SC Last administered on 18:21; Admin Dose 10,000 UNITS; Start 12/22/16 at 17:00 Tramadol HCl (Ultram) 50 mg Q6H PRN PO PAIN Last administered on 12/28/16 09: 18; Admin Dose 50 MG; Start 12/20/16 at 22:30 Bupropion HCl (Wellbutrin Xl) 150 mg QAM PO Last administered on 12/28/16 09: 17; Admin Dose 150 MG; Start 12/21/16 at 09:00 Acetaminophen (Tylenol Tab) 650 mg Q4H PRN PO PAIN; Start 12/21/16 at 04:40 Docusate Sodium (Colace) 100 mg BID PO Last administered on 12/28/16 09:17; Admin Dose 100 MG; Start 12/21/16 at 09:00 Senna (Senokot) 1 tab HS PO Last administered on 12/27/16 21:58; Admin Dose 1 TAB; Start 12/21/16 at 21:00 Magnesium Hydroxide (Milk Of Mag) 30 ml BID PRN PO CONSTIPATION; Start at 04:40 Pantoprazole (Protonix Tab) 40 mg BID@06,18 PO Last administered on 12/28/16 06:51; Admin Dose 40 MG; Start 12/22/16 at 18:00 Lactulose (Enulose) 20 gm TID PRN PO CONSTIPATION Last administered on 09:19; Admin Dose 20 GM; Start 12/23/16 at 21:00; Stop 12/29/16 at 09:00 Prochlorperazine (Compazine) 10 mg Q6H PRN PO NAUSEA AND/OR VOMITING; Start at 15:00 Ferrous Gluconate (Fergon) 325 mg DAILY PO Last administered on 12/28/16 09:18 ; Admin Dose 325 MG; Start 12/27/16 at 09:00 Furosemide (Lasix) 80 mg SuTuThSa@09 PO Last administered on 12/28/16 09:17; Admin Dose 80 MG; Start 12/28/16 at 09:00 Lactulose (Enulose) 20 gm DAILY PO ; Start 12/29/16 at 09:00 Metoclopramide HCl 5 mg 5 mg Q6 IV ; Start 12/28/16 at 18:00 Vancomycin HCl (Vancocin) 100 ml @ 100 mls/hr Q24H IVPB ; Start 12/28/16 at 20: 00; Stop 12/30/16 at 23:00 Assessment/Plan Additional Assessment/Plan 1. n/v 2. uti 3. cva/ htn/ pad 4. esrd/ anemia 5. copd 6. dm 7. depression/ low t4 ---per rehab, full pt/ot ---per GI ---cont iv vanco ---cont all supportive cares COLTEN ROMANO MD Dec 28, 2016 14:59
--- NOTE | 2016-12-28 15:03 | CONS ---
Date/Time of Note Date/Time of Note DATE: 12/28/16 TIME: 14:59 Consult Date/Type/Reason Admit Date/Time Dec 20, 2016 at 21:28 Initial Consult Date 12/20/2016 Type of Consultation: GI Subjective not much different, not really motivated Objective Vital Signs Date Time Temp Pulse Resp B/P Pulse Ox O2 Delivery O2 Flow Rate FiO2 12/28/16 07:30 97.9 79 20 157/70 97 12/27/16 16:23 Room Air 12/27/16 05:54 21 Intake and Output 12/27/16 12/27/16 12/28/16 15:00 23:00 07:00 Intake Total 900 ml 360 ml Output Total 800 ml 400 ml 500 ml Balance -800 ml 500 ml -140 ml Exam awake, fully participating in pt/ ot exercises, cta, rr syst & diast clicks+, no edema Results/Medications Result Diagram: 12/27/16 0653 Results 24 hrs Laboratory Tests Test 12/28/16 06:27 Random Vancomycin Level 10.5 Medications Current Medications Guaifenesin/ Codeine Phosphate (Robitussin Ac Liquid Cup) 5 ml Q4H PRN PO COUGH Last administered on 12/26/16 21:07; Admin Dose 5 ML; Start 12/20/16 at 22:00 Cyanocobalamin (Vitamin B12 Inj) 1,000 mcg Q7D IM Last administered on 09:02; Admin Dose 1,000 MCG; Start 12/23/16 at 09:00 Salmeterol Xinafoate/ Fluticasone (Advair 250/50 Diskus) 1 inh BID INH Last administered on 12/28/16 09:16; Admin Dose 1 INH; Start 12/21/16 at 09:00 Ondansetron HCl (Zofran Inj) 4 mg Q4H PRN IV NAUSEA AND/OR VOMITING Last administered on 12/28/16 09:30; Admin Dose 4 MG; Start 12/20/16 at 22:00 Zolpidem Tartrate (Ambien) 10 mg HS PRN PO INSOMNIA; Start 12/20/16 at 22:00 Carvedilol (Coreg) 25 mg DAILY PO Last administered on 12/28/16 09:18; Admin Dose 25 MG; Start 12/21/16 at 09:00 Clopidogrel Bisulfate (plaVIX) 75 mg DAILY PO Last administered on 12/28/16 09 :18; Admin Dose 75 MG; Start 12/21/16 at 09:00 Levothyroxine Sodium (Synthroid) 150 mcg DAILY@06 PO Last administered on 06:51; Admin Dose 150 MCG; Start 12/21/16 at 06:00 Fenofibrate (Tricor) 145 mg DAILY PO Last administered on 12/28/16 09:18; Admin Dose 145 MG; Start 12/21/16 at 09:00 Lisinopril (Zestril) 10 mg BID PO Last administered on 12/28/16 09:17; Admin Dose 10 MG; Start 12/21/16 at 09:00 Bisacodyl (Dulcolax Supp) 10 mg DAILY PRN [place] CONSTIPATION; Start 12/20/16 at 22 :30 Epoetin Stas (Epogen (Esrd)) 10,000 units MoWeFr@17 SC Last administered on 18:21; Admin Dose 10,000 UNITS; Start 12/22/16 at 17:00 Tramadol HCl (Ultram) 50 mg Q6H PRN PO PAIN Last administered on 12/28/16 09: 18; Admin Dose 50 MG; Start 12/20/16 at 22:30 Bupropion HCl (Wellbutrin Xl) 150 mg QAM PO Last administered on 12/28/16 09: 17; Admin Dose 150 MG; Start 12/21/16 at 09:00 Acetaminophen (Tylenol Tab) 650 mg Q4H PRN PO PAIN; Start 12/21/16 at 04:40 Docusate Sodium (Colace) 100 mg BID PO Last administered on 12/28/16 09:17; Admin Dose 100 MG; Start 12/21/16 at 09:00 Senna (Senokot) 1 tab HS PO Last administered on 12/27/16 21:58; Admin Dose 1 TAB; Start 12/21/16 at 21:00 Magnesium Hydroxide (Milk Of Mag) 30 ml BID PRN PO CONSTIPATION; Start at 04:40 Pantoprazole (Protonix Tab) 40 mg BID@06,18 PO Last administered on 12/28/16 06:51; Admin Dose 40 MG; Start 12/22/16 at 18:00 Lactulose (Enulose) 20 gm TID PRN PO CONSTIPATION Last administered on 09:19; Admin Dose 20 GM; Start 12/23/16 at 21:00; Stop 12/29/16 at 09:00 Prochlorperazine (Compazine) 10 mg Q6H PRN PO NAUSEA AND/OR VOMITING; Start at 15:00 Ferrous Gluconate (Fergon) 325 mg DAILY PO Last administered on 12/28/16 09:18 ; Admin Dose 325 MG; Start 12/27/16 at 09:00 Furosemide (Lasix) 80 mg SuTuThSa@09 PO Last administered on 12/28/16 09:17; Admin Dose 80 MG; Start 12/28/16 at 09:00 Lactulose (Enulose) 20 gm DAILY PO ; Start 12/29/16 at 09:00 Metoclopramide HCl 5 mg 5 mg Q6 IV ; Start 12/28/16 at 18:00 Vancomycin HCl (Vancocin) 100 ml @ 100 mls/hr Q24H IVPB ; Start 12/28/16 at 20: 00; Stop 12/30/16 at 23:00 Assessment/Plan Additional Assessment/Plan 1. gerd 2. cva/ pad/ cad/ htn/ lf bka 3. copd 4. esrd/ anemia 5. depression/ slow to thrive 6. dm/ low t4 7. uti ---per GI ---per renal ---per rehab, full pt/ot ---cont iv vanco ---cont all supportive cares COLTEN ROMANO MD Dec 28, 2016 15:03
[2016-12-28] MEDS: METOCLOPRAMIDE 10 MG INJ IV SCH (18:55)
[2016-12-28] MEDS ORDERED: VANCOMYCIN 500MG/NS (PMX) 100 ML IVPB SCH (19:30)
[2016-12-28] MEDS: VANCOMYCIN 500MG/NS (PMX) 100 ML IVPB SCH (20:32)
[2016-12-28] MEDS: SENNA TAB PO SCH (20:33)
[2016-12-29] MEDS: METOCLOPRAMIDE 10 MG INJ IV SCH ×5 (01:06→20:08)
[2016-12-29 02:14] VITALS: BP 127/75; RESP 18
[2016-12-29] MEDS: PANTOPRAZOLE (EC) 40 MG TAB PO SCH ×2 (06:28→18:14)
[2016-12-29] MEDS: LEVOTHYROXINE 150 MCG TAB PO SCH (06:28)
[2016-12-29 07:00] VITALS: BP 136/63; RESP 18
[2016-12-29 08:00] VITALS: BP 136/63; PULSE 93; RESP 18
[2016-12-29] MEDS: CLOPIDOGREL 75 MG TAB PO SCH (08:39)
[2016-12-29] MEDS: LACTULOSE 30ML CUP PO SCH (08:39)
[2016-12-29] MEDS: BUPROPION (XL) 150 MG TAB PO SCH (08:40)
[2016-12-29] MEDS: FERROUS GLUCONATE (EC) 325 MG TAB PO SCH (08:40)
[2016-12-29] MEDS: LISINOPRIL 10 MG TAB PO SCH ×2 (08:41→20:07)
[2016-12-29] MEDS: DOCUSATE SODIUM 100 MG CAP PO SCH ×2 (08:41→20:07)
[2016-12-29] MEDS: FENOFIBRATE 145 MG TAB PO SCH (08:41)
[2016-12-29] MEDS: SALMETEROL/FLUTICASONE 250/50 INHA INH SCH ×2 (08:42→20:07)
--- NOTE | 2016-12-29 12:03 | CONS ---
Date/Time of Note Date/Time of Note DATE: 12/29/16 TIME: 12:01 Consult Date/Type/Reason Admit Date/Time Dec 20, 2016 at 21:28 Type of Consultation: GI Subjective Still with n/v near after meals Objective pulm-cta mod transfer Vital Signs Date Time Temp Pulse Resp B/P Pulse Ox O2 Delivery O2 Flow Rate FiO2 12/29/16 02:14 97.8 75 18 127/75 93 12/27/16 16:23 Room Air 12/27/16 05:54 21 Intake and Output 12/28/16 12/28/16 12/29/16 15:00 23:00 07:00 Intake Total 820 ml 790 ml Output Total 2401 ml 150 ml Balance -1581 ml 640 ml Results/Medications Result Diagram: 12/27/16 0653 Medications Current Medications Guaifenesin/ Codeine Phosphate (Robitussin Ac Liquid Cup) 5 ml Q4H PRN PO COUGH Last administered on 12/26/16 21:07; Admin Dose 5 ML; Start 12/20/16 at 22:00 Cyanocobalamin (Vitamin B12 Inj) 1,000 mcg Q7D IM Last administered on 09:02; Admin Dose 1,000 MCG; Start 12/23/16 at 09:00 Salmeterol Xinafoate/ Fluticasone (Advair 250/50 Diskus) 1 inh BID INH Last administered on 12/29/16 08:42; Admin Dose 1 INH; Start 12/21/16 at 09:00 Ondansetron HCl (Zofran Inj) 4 mg Q4H PRN IV NAUSEA AND/OR VOMITING Last administered on 12/28/16 09:30; Admin Dose 4 MG; Start 12/20/16 at 22:00 Zolpidem Tartrate (Ambien) 10 mg HS PRN PO INSOMNIA; Start 12/20/16 at 22:00 Carvedilol (Coreg) 25 mg DAILY PO Last administered on 12/29/16 08:40; Admin Dose 25 MG; Start 12/21/16 at 09:00 Clopidogrel Bisulfate (plaVIX) 75 mg DAILY PO Last administered on 12/29/16 08 :39; Admin Dose 75 MG; Start 12/21/16 at 09:00 Levothyroxine Sodium (Synthroid) 150 mcg DAILY@06 PO Last administered on 06:28; Admin Dose 150 MCG; Start 12/21/16 at 06:00 Fenofibrate (Tricor) 145 mg DAILY PO Last administered on 12/29/16 08:41; Admin Dose 145 MG; Start 12/21/16 at 09:00 Lisinopril (Zestril) 10 mg BID PO Last administered on 12/29/16 08:41; Admin Dose 10 MG; Start 12/21/16 at 09:00 Bisacodyl (Dulcolax Supp) 10 mg DAILY PRN [place] CONSTIPATION; Start 12/20/16 at 22 :30 Epoetin Stas (Epogen (Esrd)) 10,000 units MoWeFr@17 SC Last administered on 18:21; Admin Dose 10,000 UNITS; Start 12/22/16 at 17:00 Tramadol HCl (Ultram) 50 mg Q6H PRN PO PAIN Last administered on 12/28/16 09: 18; Admin Dose 50 MG; Start 12/20/16 at 22:30 Bupropion HCl (Wellbutrin Xl) 150 mg QAM PO Last administered on 12/29/16 08: 40; Admin Dose 150 MG; Start 12/21/16 at 09:00 Acetaminophen (Tylenol Tab) 650 mg Q4H PRN PO PAIN; Start 12/21/16 at 04:40 Docusate Sodium (Colace) 100 mg BID PO Last administered on 12/29/16 08:41; Admin Dose 100 MG; Start 12/21/16 at 09:00 Senna (Senokot) 1 tab HS PO Last administered on 12/28/16 20:33; Admin Dose 1 TAB; Start 12/21/16 at 21:00 Magnesium Hydroxide (Milk Of Mag) 30 ml BID PRN PO CONSTIPATION; Start at 04:40 Pantoprazole (Protonix Tab) 40 mg BID@06,18 PO Last administered on 12/29/16 06:28; Admin Dose 40 MG; Start 12/22/16 at 18:00 Prochlorperazine (Compazine) 10 mg Q6H PRN PO NAUSEA AND/OR VOMITING; Start at 15:00 Ferrous Gluconate (Fergon) 325 mg DAILY PO Last administered on 12/29/16 08:40 ; Admin Dose 325 MG; Start 12/27/16 at 09:00 Furosemide (Lasix) 80 mg SuTuThSa@09 PO Last administered on 12/28/16 09:17; Admin Dose 80 MG; Start 12/28/16 at 09:00 Lactulose (Enulose) 20 gm DAILY PO Last administered on 12/29/16 08:39; Admin Dose 20 GM; Start 12/29/16 at 09:00 Metoclopramide HCl 5 mg 5 mg Q6 IV Last administered on 12/29/16 06:29; Admin Dose 5 MG; Start 12/28/16 at 18:00 Vancomycin HCl (Vancocin) 100 ml @ 100 mls/hr Q24H IVPB Last administered on 20:32; Admin Dose 100 MLS/HR; Start 12/28/16 at 20:00; Stop 12/30/16 at 23:00 Assessment/Plan Additional Assessment/Plan Rehab- 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 Continue activities as tolerated GI- GERD Left BKA with residual limb wound- improving with wound care End-stage renal disease, on hemodialysis per renal COPD. Hyperlipidemia. Diabetes mellitus. History of Riddle's palsy. Peripheral vascular disease. OLESYA ELLIS MD Dec 29, 2016 12:03
[2016-12-29] MEDS: traMADol 50 MG TAB PO PRN ×2 (12:35→18:24)
--- NOTE | 2016-12-29 13:25 | PN ---
Date/Time of Note Date/Time of Note DATE: 12/29/16 TIME: 13:25 Assessment/Plan VTE Prophylaxis VTE Prophylaxis Intervention: SCD's Lines/Catheters IV Catheter Type (from Nrs): Saline Lock Urinary Cath still in place: No Assessment/Plan Assessment/Plan Fatigue Compensated systolic congestive heart failure Cardiomyopathy with ejection fraction 45% CAD with history of CABG Peripheral arterial disease End-stage renal disease on hemodialysis Acute blood loss anemia -Blood pressure trend overall remains stable on current cv medication regimen, fluid management via hemodialysis as per our nephrology colleagues. No new cardiac orders at the current time Subjective 24 Hr Interval Summary Free Text/Dictation the patient with no cahge Exam/Review of Systems Vital Signs Vitals Vital Signs Date Time Temp Pulse Resp B/P Pulse Ox O2 Delivery O2 Flow Rate FiO2 12/29/16 08:00 98.4 93 18 136/63 97 Room Air 12/27/16 05:54 21 Intake and Output 12/28/16 12/28/16 12/29/16 15:00 23:00 07:00 Intake Total 820 ml 790 ml Output Total 2401 ml 150 ml Balance -1581 ml 640 ml Results Result Diagram: 12/27/16 0653 Medications Medications Current Medications Guaifenesin/ Codeine Phosphate (Robitussin Ac Liquid Cup) 5 ml Q4H PRN PO COUGH Last administered on 12/26/16 21:07; Admin Dose 5 ML; Start 12/20/16 at 22:00 Cyanocobalamin (Vitamin B12 Inj) 1,000 mcg Q7D IM Last administered on 09:02; Admin Dose 1,000 MCG; Start 12/23/16 at 09:00 Salmeterol Xinafoate/ Fluticasone (Advair 250/50 Diskus) 1 inh BID INH Last administered on 12/29/16 08:42; Admin Dose 1 INH; Start 12/21/16 at 09:00 Ondansetron HCl (Zofran Inj) 4 mg Q4H PRN IV NAUSEA AND/OR VOMITING Last administered on 12/28/16 09:30; Admin Dose 4 MG; Start 12/20/16 at 22:00 Zolpidem Tartrate (Ambien) 10 mg HS PRN PO INSOMNIA; Start 12/20/16 at 22:00 Carvedilol (Coreg) 25 mg DAILY PO Last administered on 12/29/16 08:40; Admin Dose 25 MG; Start 12/21/16 at 09:00 Clopidogrel Bisulfate (plaVIX) 75 mg DAILY PO Last administered on 12/29/16 08 :39; Admin Dose 75 MG; Start 12/21/16 at 09:00 Levothyroxine Sodium (Synthroid) 150 mcg DAILY@06 PO Last administered on 06:28; Admin Dose 150 MCG; Start 12/21/16 at 06:00 Fenofibrate (Tricor) 145 mg DAILY PO Last administered on 12/29/16 08:41; Admin Dose 145 MG; Start 12/21/16 at 09:00 Lisinopril (Zestril) 10 mg BID PO Last administered on 12/29/16 08:41; Admin Dose 10 MG; Start 12/21/16 at 09:00 Bisacodyl (Dulcolax Supp) 10 mg DAILY PRN [place] CONSTIPATION; Start 12/20/16 at 22 :30 Epoetin Stas (Epogen (Esrd)) 10,000 units MoWeFr@17 SC Last administered on 18:21; Admin Dose 10,000 UNITS; Start 12/22/16 at 17:00 Tramadol HCl (Ultram) 50 mg Q6H PRN PO PAIN Last administered on 12/29/16 12: 35; Admin Dose 50 MG; Start 12/20/16 at 22:30 Bupropion HCl (Wellbutrin Xl) 150 mg QAM PO Last administered on 12/29/16 08: 40; Admin Dose 150 MG; Start 12/21/16 at 09:00 Acetaminophen (Tylenol Tab) 650 mg Q4H PRN PO PAIN; Start 12/21/16 at 04:40 Docusate Sodium (Colace) 100 mg BID PO Last administered on 12/29/16 08:41; Admin Dose 100 MG; Start 12/21/16 at 09:00 Senna (Senokot) 1 tab HS PO Last administered on 12/28/16 20:33; Admin Dose 1 TAB; Start 12/21/16 at 21:00 Magnesium Hydroxide (Milk Of Mag) 30 ml BID PRN PO CONSTIPATION; Start at 04:40 Pantoprazole (Protonix Tab) 40 mg BID@,18 PO Last administered on 12/29/16 06:28; Admin Dose 40 MG; Start 12/22/16 at 18:00 Prochlorperazine (Compazine) 10 mg Q6H PRN PO NAUSEA AND/OR VOMITING; Start at 15:00 Ferrous Gluconate (Fergon) 325 mg DAILY PO Last administered on 12/29/16 08:40 ; Admin Dose 325 MG; Start 12/27/16 at 09:00 Furosemide (Lasix) 80 mg SuTuThSa@09 PO Last administered on 12/28/16 09:17; Admin Dose 80 MG; Start 12/28/16 at 09:00 Lactulose (Enulose) 20 gm DAILY PO Last administered on 12/29/16 08:39; Admin Dose 20 GM; Start 12/29/16 at 09:00 Metoclopramide HCl 5 mg 5 mg Q6 IV Last administered on 12/29/16 12:34; Admin Dose 5 MG; Start 12/28/16 at 18:00 Vancomycin HCl (Vancocin) 100 ml @ 100 mls/hr Q24H IVPB Last administered on 20:32; Admin Dose 100 MLS/HR; Start 12/28/16 at 20:00; Stop 12/30/16 at 23:00 FRANKI LAUGHLIN MD Dec 29, 2016 13:25
--- NOTE | 2016-12-29 14:29 | CONS ---
Date/Time of Note Date/Time of Note DATE: 12/29/16 TIME: 14:27 Consult Date/Type/Reason Admit Date/Time Dec 20, 2016 at 21:28 Type of Consultation: GI Subjective Less emesis noted by nursing Objective Vital Signs Date Time Temp Pulse Resp B/P Pulse Ox O2 Delivery O2 Flow Rate FiO2 12/29/16 08:00 98.4 93 18 136/63 97 Room Air 12/27/16 05:54 21 Abd: soft, non tender Intake and Output 12/28/16 12/28/16 12/29/16 15:00 23:00 07:00 Intake Total 820 ml 790 ml Output Total 2401 ml 150 ml Balance -1581 ml 640 ml Results/Medications Result Diagram: 12/27/16 0653 Medications Current Medications Guaifenesin/ Codeine Phosphate (Robitussin Ac Liquid Cup) 5 ml Q4H PRN PO COUGH Last administered on 12/26/16 21:07; Admin Dose 5 ML; Start 12/20/16 at 22:00 Cyanocobalamin (Vitamin B12 Inj) 1,000 mcg Q7D IM Last administered on 09:02; Admin Dose 1,000 MCG; Start 12/23/16 at 09:00 Salmeterol Xinafoate/ Fluticasone (Advair 250/50 Diskus) 1 inh BID INH Last administered on 12/29/16 08:42; Admin Dose 1 INH; Start 12/21/16 at 09:00 Ondansetron HCl (Zofran Inj) 4 mg Q4H PRN IV NAUSEA AND/OR VOMITING Last administered on 12/28/16 09:30; Admin Dose 4 MG; Start 12/20/16 at 22:00 Zolpidem Tartrate (Ambien) 10 mg HS PRN PO INSOMNIA; Start 12/20/16 at 22:00 Carvedilol (Coreg) 25 mg DAILY PO Last administered on 12/29/16 08:40; Admin Dose 25 MG; Start 12/21/16 at 09:00 Clopidogrel Bisulfate (plaVIX) 75 mg DAILY PO Last administered on 12/29/16 08 :39; Admin Dose 75 MG; Start 12/21/16 at 09:00 Levothyroxine Sodium (Synthroid) 150 mcg DAILY@06 PO Last administered on 06:28; Admin Dose 150 MCG; Start 12/21/16 at 06:00 Fenofibrate (Tricor) 145 mg DAILY PO Last administered on 12/29/16 08:41; Admin Dose 145 MG; Start 12/21/16 at 09:00 Lisinopril (Zestril) 10 mg BID PO Last administered on 12/29/16 08:41; Admin Dose 10 MG; Start 12/21/16 at 09:00 Bisacodyl (Dulcolax Supp) 10 mg DAILY PRN [place] CONSTIPATION; Start 12/20/16 at 22 :30 Epoetin Stas (Epogen (Esrd)) 10,000 units MoWeFr@17 SC Last administered on 18:21; Admin Dose 10,000 UNITS; Start 12/22/16 at 17:00 Tramadol HCl (Ultram) 50 mg Q6H PRN PO PAIN Last administered on 12/29/16 12: 35; Admin Dose 50 MG; Start 12/20/16 at 22:30 Bupropion HCl (Wellbutrin Xl) 150 mg QAM PO Last administered on 12/29/16 08: 40; Admin Dose 150 MG; Start 12/21/16 at 09:00 Acetaminophen (Tylenol Tab) 650 mg Q4H PRN PO PAIN; Start 12/21/16 at 04:40 Docusate Sodium (Colace) 100 mg BID PO Last administered on 12/29/16 08:41; Admin Dose 100 MG; Start 12/21/16 at 09:00 Senna (Senokot) 1 tab HS PO Last administered on 12/28/16 20:33; Admin Dose 1 TAB; Start 12/21/16 at 21:00 Magnesium Hydroxide (Milk Of Mag) 30 ml BID PRN PO CONSTIPATION; Start at 04:40 Pantoprazole (Protonix Tab) 40 mg BID@06,18 PO Last administered on 12/29/16 06:28; Admin Dose 40 MG; Start 12/22/16 at 18:00 Prochlorperazine (Compazine) 10 mg Q6H PRN PO NAUSEA AND/OR VOMITING; Start at 15:00 Ferrous Gluconate (Fergon) 325 mg DAILY PO Last administered on 12/29/16 08:40 ; Admin Dose 325 MG; Start 12/27/16 at 09:00 Furosemide (Lasix) 80 mg SuTuThSa@09 PO Last administered on 12/28/16 09:17; Admin Dose 80 MG; Start 12/28/16 at 09:00 Lactulose (Enulose) 20 gm DAILY PO Last administered on 12/29/16 08:39; Admin Dose 20 GM; Start 12/29/16 at 09:00 Metoclopramide HCl 5 mg 5 mg Q6 IV Last administered on 12/29/16 12:34; Admin Dose 5 MG; Start 12/28/16 at 18:00 Vancomycin HCl (Vancocin) 100 ml @ 100 mls/hr Q24H IVPB Last administered on 20:32; Admin Dose 100 MLS/HR; Start 12/28/16 at 20:00; Stop 12/30/16 at 23:00 Assessment/Plan Chief Complaint/Hosp Course Impression: Nausea / Vomiting - UGI shows reflux into cervical esophagus which is likely explanation for symptoms Plan: Given overall status, will avoid putting patient through EGD. Nurses instructed on small frequent meals and importance of keeping upright for meals given reflux into cervical esophagus on UGI I will see intermittently at this point. Please call if problems develop in interim Problems: JD RAYMOND MD Dec 29, 2016 14:29
[2016-12-29] MEDS: EPOETIN 10000 UNITS/1 ML INJ (ESRD) SC SCH (18:13)
[2016-12-29 18:47] LABS: HEMATOCRIT 25.7 % (42.0-52.0); HEMOGLOBIN 7.9 g/dl (14.0-18.0)
[2016-12-29 19:06] LABS: CALCIUM 8.5 mg/dl (8.4-10.2); CREATININE 4.22 mg/dl (0.61-1.24); MAGNESIUM 2.1 mg/dl (1.7-2.5)
[2016-12-29 19:17] LABS: IRON 57 ug/dl (35-150)
[2016-12-29 19:26] LABS: TOTAL IRON BINDING CAPACITY 357 ug/dl (241-421)
[2016-12-29 20:00] VITALS: BP 128/75; RESP 18
[2016-12-29] MEDS: VANCOMYCIN 500MG/NS (PMX) 100 ML IVPB SCH (20:07)
[2016-12-29] MEDS: SENNA TAB PO SCH (20:07)
[2016-12-30] VITALS (9 sets, daily range): BP systolic 112–130; BP diastolic 55–68; PULSE 65–69; RESP 18
[2016-12-30] MEDS: METOCLOPRAMIDE 10 MG INJ IV SCH ×5 (01:04→23:26)
[2016-12-30] MEDS: LEVOTHYROXINE 150 MCG TAB PO SCH (06:13)
[2016-12-30] MEDS: PANTOPRAZOLE (EC) 40 MG TAB PO SCH ×2 (06:13→18:13)
[2016-12-30] MEDS: CYANOCOBALAMIN 1000 MCG INJ IM SCH (08:17)
[2016-12-30] MEDS: BUPROPION (XL) 150 MG TAB PO SCH (08:17)
[2016-12-30] MEDS: DOCUSATE SODIUM 100 MG CAP PO SCH ×2 (08:18→20:09)
[2016-12-30] MEDS: FERROUS GLUCONATE (EC) 325 MG TAB PO SCH (08:18)
[2016-12-30] MEDS: CLOPIDOGREL 75 MG TAB PO SCH (08:18)
[2016-12-30] MEDS: FENOFIBRATE 145 MG TAB PO SCH (08:18)
[2016-12-30] MEDS: LISINOPRIL 10 MG TAB PO SCH ×2 (08:18→20:09)
[2016-12-30] MEDS: SALMETEROL/FLUTICASONE 250/50 INHA INH SCH ×2 (08:19→20:09)
[2016-12-30] MEDS: LACTULOSE 30ML CUP PO SCH (08:19)
[2016-12-30] MEDS: FUROSEMIDE 40 MG TAB PO SCH (08:21)
--- NOTE | 2016-12-30 10:44 | CONS ---
Date/Time of Note Date/Time of Note DATE: 12/30/16 TIME: 10:41 Assessment/Plan Assessment/Plan Problems: (1) CKD (chronic kidney disease) Status: Chronic Comment: Hemodialysis today Qualifiers: Chronic kidney disease stage: on chronic dialysis Qualified Code: N18.6 - Stage 5 chronic kidney disease on chronic dialysis (2) ESRD (end stage renal disease) on dialysis (3) Anemia due to chronic kidney disease Consultation Date/Type/Reason Admit Date/Time Dec 20, 2016 at 21:28 Initial Consult Date Type of Consultation: Renal 24 HR Interval Summary Free Text/Dictation feels ok. No further nausea today. No sob. For dialysis today. Exam/Review of Systems Vital Signs Vitals Vital Signs Date Time Temp Pulse Resp B/P Pulse Ox O2 Delivery O2 Flow Rate FiO2 12/30/16 02:00 98.3 78 18 130/68 97 12/29/16 08:00 Room Air 12/27/16 05:54 21 Intake and Output 12/29/16 12/29/16 12/30/16 15:00 23:00 07:00 Intake Total 700 ml 550 ml Output Total 400 ml 50 ml Balance 300 ml 500 ml Exam Constitutional: alert Psych: no complaints Respiratory: clear to auscultation Cardiovascular: other (2/6 systolic), regular rate and rhythm Results Result Diagram: 12/29/16 1837 12/29/16 183 Results 24 hrs Laboratory Tests Test 12/29/16 18:37 Hemoglobin 7.9 #L Hematocrit 25.7 L Sodium Level 140 Potassium Level 4.0 Chloride Level 101 Carbon Dioxide Level 30 Anion Gap 13 Blood Urea Nitrogen 53 H Creatinine 4.22 H Glucose Level 118 Calcium Level 8.5 Magnesium Level 2.1 Iron Level 57 Total Iron Binding Capacity 357 Percent Iron Saturation 16 L Medications Medications Current Medications Guaifenesin/ Codeine Phosphate (Robitussin Ac Liquid Cup) 5 ml Q4H PRN PO COUGH Last administered on 12/26/16 21:07; Admin Dose 5 ML; Start 12/20/16 at 22:00 Cyanocobalamin (Vitamin B12 Inj) 1,000 mcg Q7D IM Last administered on 08:17; Admin Dose 1,000 MCG; Start 12/23/16 at 09:00 Salmeterol Xinafoate/ Fluticasone (Advair 250/50 Diskus) 1 inh BID INH Last administered on 12/30/16 08:19; Admin Dose 1 INH; Start 12/21/16 at 09:00 Ondansetron HCl (Zofran Inj) 4 mg Q4H PRN IV NAUSEA AND/OR VOMITING Last administered on 12/28/16 09:30; Admin Dose 4 MG; Start 12/20/16 at 22:00 Zolpidem Tartrate (Ambien) 10 mg HS PRN PO INSOMNIA; Start 12/20/16 at 22:00 Carvedilol (Coreg) 25 mg DAILY PO Last administered on 12/30/16 08:18; Admin Dose 25 MG; Start 12/21/16 at 09:00 Clopidogrel Bisulfate (plaVIX) 75 mg DAILY PO Last administered on 12/30/16 08 :18; Admin Dose 75 MG; Start 12/21/16 at 09:00 Levothyroxine Sodium (Synthroid) 150 mcg DAILY@06 PO Last administered on 06:13; Admin Dose 150 MCG; Start 12/21/16 at 06:00 Fenofibrate (Tricor) 145 mg DAILY PO Last administered on 12/30/16 08:18; Admin Dose 145 MG; Start 12/21/16 at 09:00 Lisinopril (Zestril) 10 mg BID PO Last administered on 12/30/16 08:18; Admin Dose 10 MG; Start 12/21/16 at 09:00 Bisacodyl (Dulcolax Supp) 10 mg DAILY PRN [place] CONSTIPATION; Start 12/20/16 at 22 :30 Epoetin Stas (Epogen (Esrd)) 10,000 units MoWeFr@17 SC Last administered on 18:13; Admin Dose 10,000 UNITS; Start 12/22/16 at 17:00 Tramadol HCl (Ultram) 50 mg Q6H PRN PO PAIN Last administered on 12/29/16 18: 24; Admin Dose 50 MG; Start 12/20/16 at 22:30 Bupropion HCl (Wellbutrin Xl) 150 mg QAM PO Last administered on 12/30/16 08: 17; Admin Dose 150 MG; Start 12/21/16 at 09:00 Acetaminophen (Tylenol Tab) 650 mg Q4H PRN PO PAIN; Start 12/21/16 at 04:40 Docusate Sodium (Colace) 100 mg BID PO Last administered on 12/30/16 08:18; Admin Dose 100 MG; Start 12/21/16 at 09:00 Senna (Senokot) 1 tab HS PO Last administered on 12/29/16 20:07; Admin Dose 1 TAB; Start 12/21/16 at 21:00 Magnesium Hydroxide (Milk Of Mag) 30 ml BID PRN PO CONSTIPATION; Start at 04:40 Pantoprazole (Protonix Tab) 40 mg BID@06,18 PO Last administered on 12/30/16 06:13; Admin Dose 40 MG; Start 12/22/16 at 18:00 Prochlorperazine (Compazine) 10 mg Q6H PRN PO NAUSEA AND/OR VOMITING; Start at 15:00 Ferrous Gluconate (Fergon) 325 mg DAILY PO Last administered on 12/30/16 08:18 ; Admin Dose 325 MG; Start 12/27/16 at 09:00 Furosemide (Lasix) 80 mg SuTuThSa@09 PO Last administered on 12/30/16 08:21; Admin Dose 80 MG; Start 12/28/16 at 09:00 Lactulose (Enulose) 20 gm DAILY PO Last administered on 12/30/16 08:19; Admin Dose 20 GM; Start 12/29/16 at 09:00 Metoclopramide HCl 5 mg 5 mg Q6 IV Last administered on 12/30/16 06:13; Admin Dose 5 MG; Start 12/28/16 at 18:00 Vancomycin HCl (Vancocin) 100 ml @ 100 mls/hr Q24H IVPB Last administered on 20:07; Admin Dose 100 MLS/HR; Start 12/28/16 at 20:00; Stop 12/30/16 at 23:00 JOAQUINA BELL MD Dec 30, 2016 10:44
--- NOTE | 2016-12-30 11:24 | CONS ---
Date/Time of Note Date/Time of Note DATE: 12/30/16 TIME: 11:23 Consult Date/Type/Reason Admit Date/Time Dec 20, 2016 at 21:28 Type of Consultation: Renal Subjective no n/v this AM Objective pulm-cta abd-soft mod assist Vital Signs Date Time Temp Pulse Resp B/P Pulse Ox O2 Delivery O2 Flow Rate FiO2 12/30/16 02:00 98.3 78 18 130/68 97 12/29/16 08:00 Room Air 12/27/16 05:54 21 Intake and Output 12/29/16 12/29/16 12/30/16 15:00 23:00 07:00 Intake Total 700 ml 550 ml Output Total 400 ml 50 ml Balance 300 ml 500 ml Results/Medications Result Diagram: 12/29/16183612/29/161836 Results 24 hrs Laboratory Tests Test 12/29/16 18:37 Hemoglobin 7.9 #L Hematocrit 25.7 L Sodium Level 140 Potassium Level 4.0 Chloride Level 101 Carbon Dioxide Level 30 Anion Gap 13 Blood Urea Nitrogen 53 H Creatinine 4.22 H Glucose Level 118 Calcium Level 8.5 Magnesium Level 2.1 Iron Level 57 Total Iron Binding Capacity 357 Percent Iron Saturation 16 L Medications Current Medications Guaifenesin/ Codeine Phosphate (Robitussin Ac Liquid Cup) 5 ml Q4H PRN PO COUGH Last administered on 12/26/16 21:07; Admin Dose 5 ML; Start 12/20/16 at 22:00 Cyanocobalamin (Vitamin B12 Inj) 1,000 mcg Q7D IM Last administered on 08:17; Admin Dose 1,000 MCG; Start 12/23/16 at 09:00 Salmeterol Xinafoate/ Fluticasone (Advair 250/50 Diskus) 1 inh BID INH Last administered on 12/30/16 08:19; Admin Dose 1 INH; Start 12/21/16 at 09:00 Ondansetron HCl (Zofran Inj) 4 mg Q4H PRN IV NAUSEA AND/OR VOMITING Last administered on 12/28/16 09:30; Admin Dose 4 MG; Start 12/20/16 at 22:00 Zolpidem Tartrate (Ambien) 10 mg HS PRN PO INSOMNIA; Start 12/20/16 at 22:00 Carvedilol (Coreg) 25 mg DAILY PO Last administered on 12/30/16 08:18; Admin Dose 25 MG; Start 12/21/16 at 09:00 Clopidogrel Bisulfate (plaVIX) 75 mg DAILY PO Last administered on 12/30/16 08 :18; Admin Dose 75 MG; Start 12/21/16 at 09:00 Levothyroxine Sodium (Synthroid) 150 mcg DAILY@06 PO Last administered on 06:13; Admin Dose 150 MCG; Start 12/21/16 at 06:00 Fenofibrate (Tricor) 145 mg DAILY PO Last administered on 12/30/16 08:18; Admin Dose 145 MG; Start 12/21/16 at 09:00 Lisinopril (Zestril) 10 mg BID PO Last administered on 12/30/16 08:18; Admin Dose 10 MG; Start 12/21/16 at 09:00 Bisacodyl (Dulcolax Supp) 10 mg DAILY PRN [place] CONSTIPATION; Start 12/20/16 at 22 :30 Epoetin Stas (Epogen (Esrd)) 10,000 units MoWeFr@17 SC Last administered on 18:13; Admin Dose 10,000 UNITS; Start 12/22/16 at 17:00 Tramadol HCl (Ultram) 50 mg Q6H PRN PO PAIN Last administered on 12/29/16 18: 24; Admin Dose 50 MG; Start 12/20/16 at 22:30 Bupropion HCl (Wellbutrin Xl) 150 mg QAM PO Last administered on 12/30/16 08: 17; Admin Dose 150 MG; Start 12/21/16 at 09:00 Acetaminophen (Tylenol Tab) 650 mg Q4H PRN PO PAIN; Start 12/21/16 at 04:40 Docusate Sodium (Colace) 100 mg BID PO Last administered on 12/30/16 08:18; Admin Dose 100 MG; Start 12/21/16 at 09:00 Senna (Senokot) 1 tab HS PO Last administered on 12/29/16 20:07; Admin Dose 1 TAB; Start 12/21/16 at 21:00 Magnesium Hydroxide (Milk Of Mag) 30 ml BID PRN PO CONSTIPATION; Start at 04:40 Pantoprazole (Protonix Tab) 40 mg BID@06,18 PO Last administered on 12/30/16 06:13; Admin Dose 40 MG; Start 12/22/16 at 18:00 Prochlorperazine (Compazine) 10 mg Q6H PRN PO NAUSEA AND/OR VOMITING; Start at 15:00 Ferrous Gluconate (Fergon) 325 mg DAILY PO Last administered on 12/30/16 08:18 ; Admin Dose 325 MG; Start 12/27/16 at 09:00 Furosemide (Lasix) 80 mg SuTuThSa@09 PO Last administered on 12/30/16 08:21; Admin Dose 80 MG; Start 12/28/16 at 09:00 Lactulose (Enulose) 20 gm DAILY PO Last administered on 12/30/16 08:19; Admin Dose 20 GM; Start 12/29/16 at 09:00 Metoclopramide HCl 5 mg 5 mg Q6 IV Last administered on 12/30/16 06:13; Admin Dose 5 MG; Start 12/28/16 at 18:00 Vancomycin HCl (Vancocin) 100 ml @ 100 mls/hr Q24H IVPB Last administered on 20:07; Admin Dose 100 MLS/HR; Start 12/28/16 at 20:00; Stop 12/30/16 at 23:00 Assessment/Plan Additional Assessment/Plan Rehab- 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 Continue rehab plan GI- GERD Left BKA with residual limb wound- improving with wound care End-stage renal disease, on hemodialysis per renal COPD. Hyperlipidemia. Diabetes mellitus. History of Riddle's palsy. Peripheral vascular disease. OLESYA ELLIS MD Dec 30, 2016 11:24
[2016-12-30] MEDS: SENNA TAB PO SCH (20:09)
[2016-12-30] MEDS: VANCOMYCIN 500MG/NS (PMX) 100 ML IVPB SCH (20:10)
[2016-12-31] MEDS: GUAIFENESIN/CODEINE 5ML CUP PO PRN ×4 (01:49→21:02)
[2016-12-31 02:58] VITALS: BP 143/64; PULSE 89; RESP 18
[2016-12-31] MEDS: PANTOPRAZOLE (EC) 40 MG TAB PO SCH ×2 (06:02→17:39)
[2016-12-31] MEDS: LEVOTHYROXINE 150 MCG TAB PO SCH (06:02)
[2016-12-31] MEDS: METOCLOPRAMIDE 10 MG INJ IV SCH ×4 (06:04→23:21)
[2016-12-31 07:00] VITALS: BP 154/73; RESP 18
[2016-12-31] MEDS: LACTULOSE 30ML CUP PO SCH (08:09)
[2016-12-31] MEDS: DOCUSATE SODIUM 100 MG CAP PO SCH ×2 (08:09→21:02)
[2016-12-31] MEDS: BUPROPION (XL) 150 MG TAB PO SCH (08:09)
[2016-12-31] MEDS: FENOFIBRATE 145 MG TAB PO SCH (08:09)
[2016-12-31] MEDS: CLOPIDOGREL 75 MG TAB PO SCH (08:09)
[2016-12-31] MEDS: ONDANSETRON 4 MG INJ IV PRN ×3 (08:16→22:29)
[2016-12-31] MEDS: FERROUS GLUCONATE (EC) 325 MG TAB PO SCH (08:17)
[2016-12-31] MEDS: LISINOPRIL 10 MG TAB PO SCH ×2 (08:17→21:02)
[2016-12-31] MEDS: FUROSEMIDE 40 MG TAB PO SCH (08:21)
[2016-12-31] MEDS: SALMETEROL/FLUTICASONE 250/50 INHA INH SCH ×3 (08:23→22:30)
--- NOTE | 2016-12-31 11:10 | CONS ---
Date/Time of Note Date/Time of Note DATE: 12/31/16 TIME: 11:05 Assessment/Plan Assessment/Plan Problems: (1) Cough Comment: obtain cxr; no wheezing at this time and no rales. Possible aspirations with severe reflux. Needs head positioned higher during sleep. (2) GERD (gastroesophageal reflux disease) (3) ESRD (end stage renal disease) on dialysis Comment: dialysis tomorrow (4) Anemia due to chronic kidney disease Consultation Date/Type/Reason Admit Date/Time Dec 20, 2016 at 21:28 Type of Consultation: Renal 24 HR Interval Summary Free Text/Dictation Patient tolerated dialysis well yesterday. Rough night coughing alot and this am nauseated. Gastric emptying ok but major reflux state. Exam/Review of Systems Vital Signs Vitals Vital Signs Date Time Temp Pulse Resp B/P Pulse Ox O2 Delivery O2 Flow Rate FiO2 12/31/16 07:00 98.4 103 18 154/73 97 12/31/16 02:58 Room Air Intake and Output 12/30/16 12/30/16 12/31/16 15:00 23:00 07:00 Intake Total 1060 ml 240 ml Output Total 2520 ml 300 ml Balance -1460 ml -60 ml Exam Constitutional: alert, oriented Respiratory: clear to auscultation Cardiovascular: regular rate and rhythm Gastrointestinal: non-tender, soft Results Result Diagram: 12/29/167 12/29/16 1837 Medications Medications Current Medications Guaifenesin/ Codeine Phosphate (Robitussin Ac Liquid Cup) 5 ml Q4H PRN PO COUGH Last administered on 12/31/16 10:35; Admin Dose 5 ML; Start 12/20/16 at 22:00 Cyanocobalamin (Vitamin B12 Inj) 1,000 mcg Q7D IM Last administered on 08:17; Admin Dose 1,000 MCG; Start 12/23/16 at 09:00 Salmeterol Xinafoate/ Fluticasone (Advair 250/50 Diskus) 1 inh BID INH Last administered on 12/31/16 08:23; Admin Dose 1 INH; Start 12/21/16 at 09:00 Ondansetron HCl (Zofran Inj) 4 mg Q4H PRN IV NAUSEA AND/OR VOMITING Last administered on 12/31/16 08:16; Admin Dose 4 MG; Start 12/20/16 at 22:00 Zolpidem Tartrate (Ambien) 10 mg HS PRN PO INSOMNIA; Start 12/20/16 at 22:00 Carvedilol (Coreg) 25 mg DAILY PO Last administered on 12/31/16 08:17; Admin Dose 25 MG; Start 12/21/16 at 09:00 Clopidogrel Bisulfate (plaVIX) 75 mg DAILY PO Last administered on 12/31/16 08 :09; Admin Dose 75 MG; Start 12/21/16 at 09:00 Levothyroxine Sodium (Synthroid) 150 mcg DAILY@06 PO Last administered on 06:02; Admin Dose 150 MCG; Start 12/21/16 at 06:00 Fenofibrate (Tricor) 145 mg DAILY PO Last administered on 12/31/16 08:09; Admin Dose 145 MG; Start 12/21/16 at 09:00 Lisinopril (Zestril) 10 mg BID PO Last administered on 12/31/16 08:17; Admin Dose 10 MG; Start 12/21/16 at 09:00 Bisacodyl (Dulcolax Supp) 10 mg DAILY PRN [place] CONSTIPATION; Start 12/20/16 at 22 :30 Epoetin Stas (Epogen (Esrd)) 10,000 units MoWeFr@17 SC Last administered on 18:13; Admin Dose 10,000 UNITS; Start 12/22/16 at 17:00 Tramadol HCl (Ultram) 50 mg Q6H PRN PO PAIN Last administered on 12/29/16 18: 24; Admin Dose 50 MG; Start 12/20/16 at 22:30 Bupropion HCl (Wellbutrin Xl) 150 mg QAM PO Last administered on 12/31/16 08: 09; Admin Dose 150 MG; Start 12/21/16 at 09:00 Acetaminophen (Tylenol Tab) 650 mg Q4H PRN PO PAIN; Start 12/21/16 at 04:40 Docusate Sodium (Colace) 100 mg BID PO Last administered on 12/31/16 08:09; Admin Dose 100 MG; Start 12/21/16 at 09:00 Senna (Senokot) 1 tab HS PO Last administered on 12/30/16 20:09; Admin Dose 1 TAB; Start 12/21/16 at 21:00 Magnesium Hydroxide (Milk Of Mag) 30 ml BID PRN PO CONSTIPATION; Start at 04:40 Pantoprazole (Protonix Tab) 40 mg BID@06,18 PO Last administered on 12/31/16 06:02; Admin Dose 40 MG; Start 12/22/16 at 18:00 Prochlorperazine (Compazine) 10 mg Q6H PRN PO NAUSEA AND/OR VOMITING; Start at 15:00 Ferrous Gluconate (Fergon) 325 mg DAILY PO Last administered on 12/31/16 08:17 ; Admin Dose 325 MG; Start 12/27/16 at 09:00 Furosemide (Lasix) 80 mg SuTuThSa@09 PO Last administered on 12/31/16 08:21; Admin Dose 80 MG; Start 12/28/16 at 09:00 Lactulose (Enulose) 20 gm DAILY PO Last administered on 12/31/16 08:09; Admin Dose 20 GM; Start 12/29/16 at 09:00 Metoclopramide HCl (Reglan) 5 mg Q6 IV Last administered on 12/31/16 06:04; Admin Dose 5 MG; Start 12/28/16 at 18:00 JOAQUINA BELL MD Dec 31, 2016 11:10
--- NOTE | 2016-12-31 13:11 | CONS ---
Date/Time of Note Date/Time of Note DATE: 12/29/16 TIME: 13:03 Consult Date/Type/Reason Admit Date/Time Dec 20, 2016 at 21:28 Initial Consult Date 12/20/2016 Type of Consultation: int med Subjective less vomit, exercising w/ PT, not walking w/ prosthetic on yet Objective Vital Signs Date Time Temp Pulse Resp B/P Pulse Ox O2 Delivery O2 Flow Rate FiO2 12/29/16 07:00 98.4 92 18 128/75 Intake and Output 12/29/16 15:00 Intake Total 1610 Output Total 551 Balance 1059 Exam less husky voice, less cough spells while I was there, less bronch wheez, rr syst & diast clicks, nl abd, rt musc atrophy, lf bka Results/Medications Result Diagram: 12/29/16183612/29/161836 Medications Current Medications Guaifenesin/ Codeine Phosphate (Robitussin Ac Liquid Cup) 5 ml Q4H PRN PO COUGH Last administered on 12/31/16 10:35; Admin Dose 5 ML; Start 12/20/16 at 22:00 Cyanocobalamin (Vitamin B12 Inj) 1,000 mcg Q7D IM Last administered on 08:17; Admin Dose 1,000 MCG; Start 12/23/16 at 09:00 Salmeterol Xinafoate/ Fluticasone (Advair 250/50 Diskus) 1 inh BID INH Last administered on 12/31/16 08:23; Admin Dose 1 INH; Start 12/21/16 at 09:00 Ondansetron HCl (Zofran Inj) 4 mg Q4H PRN IV NAUSEA AND/OR VOMITING Last administered on 12/31/16 08:16; Admin Dose 4 MG; Start 12/20/16 at 22:00 Zolpidem Tartrate (Ambien) 10 mg HS PRN PO INSOMNIA; Start 12/20/16 at 22:00 Carvedilol (Coreg) 25 mg DAILY PO Last administered on 12/31/16 08:17; Admin Dose 25 MG; Start 12/21/16 at 09:00 Clopidogrel Bisulfate (plaVIX) 75 mg DAILY PO Last administered on 12/31/16 08 :09; Admin Dose 75 MG; Start 12/21/16 at 09:00 Levothyroxine Sodium (Synthroid) 150 mcg DAILY@06 PO Last administered on 06:02; Admin Dose 150 MCG; Start 12/21/16 at 06:00 Fenofibrate (Tricor) 145 mg DAILY PO Last administered on 12/31/16 08:09; Admin Dose 145 MG; Start 12/21/16 at 09:00 Lisinopril (Zestril) 10 mg BID PO Last administered on 12/31/16 08:17; Admin Dose 10 MG; Start 12/21/16 at 09:00 Bisacodyl (Dulcolax Supp) 10 mg DAILY PRN [place] CONSTIPATION; Start 12/20/16 at 22 :30 Epoetin Stas (Epogen (Esrd)) 10,000 units MoWeFr@17 SC Last administered on 18:13; Admin Dose 10,000 UNITS; Start 12/22/16 at 17:00 Tramadol HCl (Ultram) 50 mg Q6H PRN PO PAIN Last administered on 12/29/16 18: 24; Admin Dose 50 MG; Start 12/20/16 at 22:30 Bupropion HCl (Wellbutrin Xl) 150 mg QAM PO Last administered on 12/31/16 08: 09; Admin Dose 150 MG; Start 12/21/16 at 09:00 Acetaminophen (Tylenol Tab) 650 mg Q4H PRN PO PAIN; Start 12/21/16 at 04:40 Docusate Sodium (Colace) 100 mg BID PO Last administered on 12/31/16 08:09; Admin Dose 100 MG; Start 12/21/16 at 09:00 Senna (Senokot) 1 tab HS PO Last administered on 12/30/16 20:09; Admin Dose 1 TAB; Start 12/21/16 at 21:00 Magnesium Hydroxide (Milk Of Mag) 30 ml BID PRN PO CONSTIPATION; Start at 04:40 Pantoprazole (Protonix Tab) 40 mg BID@,18 PO Last administered on 12/31/16 06:02; Admin Dose 40 MG; Start 12/22/16 at 18:00 Prochlorperazine (Compazine) 10 mg Q6H PRN PO NAUSEA AND/OR VOMITING; Start at 15:00 Ferrous Gluconate (Fergon) 325 mg DAILY PO Last administered on 12/31/16 08:17 ; Admin Dose 325 MG; Start 12/27/16 at 09:00 Furosemide (Lasix) 80 mg SuTuThSa@09 PO Last administered on 12/31/16 08:21; Admin Dose 80 MG; Start 12/28/16 at 09:00 Lactulose (Enulose) 20 gm DAILY PO Last administered on 12/31/16 08:09; Admin Dose 20 GM; Start 12/29/16 at 09:00 Metoclopramide HCl (Reglan) 5 mg Q6 IV Last administered on 12/31/16 12:28; Admin Dose 5 MG; Start 12/28/16 at 18:00 Assessment/Plan Additional Assessment/Plan 1. gerd/ gastritis/ esoph musc weak--less v/n 2. cva/ pad/ rt body weak/ lf bka/ high tg 3. copd 4. esrd/ anemia 5. uti 6. h/o dm/ low t4/ depression ---per rehab, full PT/OT exercises ---per GI, added reglan ---per renal, routine dialysis ---cont iv atbx COLTEN ROMANO MD Dec 31, 2016 13:11
--- NOTE | 2016-12-31 13:20 | CONS ---
Date/Time of Note Date/Time of Note DATE: 12/30/16 TIME: 11:12 Consult Date/Type/Reason Admit Date/Time Dec 20, 2016 at 21:28 Initial Consult Date 12/20/2016 Type of Consultation: int med Subjective stronger, eating & keeping food down better Objective Vital Signs Date Time Temp Pulse Resp B/P Pulse Ox O2 Delivery O2 Flow Rate FiO2 12/30/16 20:00 98.4 88 18 130/68 97 Intake and Output 12/30/16 23:00 Intake Total 1060 ml Output Total 2520 ml Balance -1460 ml Exam a bit more animated, less hoarse voice, less bronch wheez, rr syst & diast clicks, ? rt stronger, lf bka Results/Medications Result Diagram: 12/29/16183612/29/161836 Medications Current Medications Guaifenesin/ Codeine Phosphate (Robitussin Ac Liquid Cup) 5 ml Q4H PRN PO COUGH Last administered on 12/31/16 10:35; Admin Dose 5 ML; Start 12/20/16 at 22:00 Cyanocobalamin (Vitamin B12 Inj) 1,000 mcg Q7D IM Last administered on 08:17; Admin Dose 1,000 MCG; Start 12/23/16 at 09:00 Salmeterol Xinafoate/ Fluticasone (Advair 250/50 Diskus) 1 inh BID INH Last administered on 12/31/16 08:23; Admin Dose 1 INH; Start 12/21/16 at 09:00 Ondansetron HCl (Zofran Inj) 4 mg Q4H PRN IV NAUSEA AND/OR VOMITING Last administered on 12/31/16 08:16; Admin Dose 4 MG; Start 12/20/16 at 22:00 Zolpidem Tartrate (Ambien) 10 mg HS PRN PO INSOMNIA; Start 12/20/16 at 22:00 Carvedilol (Coreg) 25 mg DAILY PO Last administered on 12/31/16 08:17; Admin Dose 25 MG; Start 12/21/16 at 09:00 Clopidogrel Bisulfate (plaVIX) 75 mg DAILY PO Last administered on 12/31/16 08 :09; Admin Dose 75 MG; Start 12/21/16 at 09:00 Levothyroxine Sodium (Synthroid) 150 mcg DAILY@06 PO Last administered on 06:02; Admin Dose 150 MCG; Start 12/21/16 at 06:00 Fenofibrate (Tricor) 145 mg DAILY PO Last administered on 12/31/16 08:09; Admin Dose 145 MG; Start 12/21/16 at 09:00 Lisinopril (Zestril) 10 mg BID PO Last administered on 12/31/16 08:17; Admin Dose 10 MG; Start 12/21/16 at 09:00 Bisacodyl (Dulcolax Supp) 10 mg DAILY PRN [place] CONSTIPATION; Start 12/20/16 at 22 :30 Epoetin Stas (Epogen (Esrd)) 10,000 units MoWeFr@17 SC Last administered on 18:13; Admin Dose 10,000 UNITS; Start 12/22/16 at 17:00 Tramadol HCl (Ultram) 50 mg Q6H PRN PO PAIN Last administered on 12/29/16 18: 24; Admin Dose 50 MG; Start 12/20/16 at 22:30 Bupropion HCl (Wellbutrin Xl) 150 mg QAM PO Last administered on 12/31/16 08: 09; Admin Dose 150 MG; Start 12/21/16 at 09:00 Acetaminophen (Tylenol Tab) 650 mg Q4H PRN PO PAIN; Start 12/21/16 at 04:40 Docusate Sodium (Colace) 100 mg BID PO Last administered on 12/31/16 08:09; Admin Dose 100 MG; Start 12/21/16 at 09:00 Senna (Senokot) 1 tab HS PO Last administered on 12/30/16 20:09; Admin Dose 1 TAB; Start 12/21/16 at 21:00 Magnesium Hydroxide (Milk Of Mag) 30 ml BID PRN PO CONSTIPATION; Start at 04:40 Pantoprazole (Protonix Tab) 40 mg BID@18 PO Last administered on 12/31/16 06:02; Admin Dose 40 MG; Start 12/22/16 at 18:00 Prochlorperazine (Compazine) 10 mg Q6H PRN PO NAUSEA AND/OR VOMITING; Start at 15:00 Ferrous Gluconate (Fergon) 325 mg DAILY PO Last administered on 12/31/16 08:17 ; Admin Dose 325 MG; Start 12/27/16 at 09:00 Furosemide (Lasix) 80 mg SuTuThSa@09 PO Last administered on 12/31/16 08:21; Admin Dose 80 MG; Start 12/28/16 at 09:00 Lactulose (Enulose) 20 gm DAILY PO Last administered on 12/31/16 08:09; Admin Dose 20 GM; Start 12/29/16 at 09:00 Metoclopramide HCl (Reglan) 5 mg Q6 IV Last administered on 12/31/16 12:28; Admin Dose 5 MG; Start 12/28/16 at 18:00 Assessment/Plan Additional Assessment/Plan 1. gerd/ gastritis/ gastroparesis 2. cva/ htn/ cad/ pad/ rt musc weak/ lf bka 3. copd 4. esrd/ anemia 5. h/o dm/ low t4/ depression 6. uti ---per rehab ---per renal ---per GI ---cont iv atbx ---talked w/ , where we go after acute rehab, when to home, what his insurance could provide ---soc serv to set up portable dialysis when pt leaves acute rehab COLTEN ROMANO MD Dec 31, 2016 13:20
--- NOTE | 2016-12-31 13:28 | CONS ---
Date/Time of Note Date/Time of Note DATE: 12/31/16 TIME: 10:20 Consult Date/Type/Reason Admit Date/Time Dec 20, 2016 at 21:28 Initial Consult Date 12/20/2016 Type of Consultation: int med Subjective no PT yet, no n/v, eating little amnt freq is ok, not wanting to eat hosp food, does not want to go to snf after acute rehab but will do since cannot take care of him alone at home Objective Vital Signs Date Time Temp Pulse Resp B/P Pulse Ox O2 Delivery O2 Flow Rate FiO2 12/31/16 07:00 98.4 103 18 154/73 97 12/31/16 02:58 Room Air Intake and Output 12/30/16 12/31/16 23:00 07:00 Intake Total 1060 ml 240 ml Output Total 2520 ml 300 ml Balance -1460 ml -60 ml Results/Medications Result Diagram: 12/29/16 1837 12/29/16 1837 Medications Current Medications Guaifenesin/ Codeine Phosphate (Robitussin Ac Liquid Cup) 5 ml Q4H PRN PO COUGH Last administered on 12/31/16 10:35; Admin Dose 5 ML; Start 12/20/16 at 22:00 Cyanocobalamin (Vitamin B12 Inj) 1,000 mcg Q7D IM Last administered on 08:17; Admin Dose 1,000 MCG; Start 12/23/16 at 09:00 Salmeterol Xinafoate/ Fluticasone (Advair 250/50 Diskus) 1 inh BID INH Last administered on 12/31/16 08:23; Admin Dose 1 INH; Start 12/21/16 at 09:00 Ondansetron HCl (Zofran Inj) 4 mg Q4H PRN IV NAUSEA AND/OR VOMITING Last administered on 12/31/16 08:16; Admin Dose 4 MG; Start 12/20/16 at 22:00 Zolpidem Tartrate (Ambien) 10 mg HS PRN PO INSOMNIA; Start 12/20/16 at 22:00 Carvedilol (Coreg) 25 mg DAILY PO Last administered on 12/31/16 08:17; Admin Dose 25 MG; Start 12/21/16 at 09:00 Clopidogrel Bisulfate (plaVIX) 75 mg DAILY PO Last administered on 12/31/16 08 :09; Admin Dose 75 MG; Start 12/21/16 at 09:00 Levothyroxine Sodium (Synthroid) 150 mcg DAILY@06 PO Last administered on 06:02; Admin Dose 150 MCG; Start 12/21/16 at 06:00 Fenofibrate (Tricor) 145 mg DAILY PO Last administered on 12/31/16 08:09; Admin Dose 145 MG; Start 12/21/16 at 09:00 Lisinopril (Zestril) 10 mg BID PO Last administered on 12/31/16 08:17; Admin Dose 10 MG; Start 12/21/16 at 09:00 Bisacodyl (Dulcolax Supp) 10 mg DAILY PRN [place] CONSTIPATION; Start 12/20/16 at 22 :30 Epoetin Stas (Epogen (Esrd)) 10,000 units MoWeFr@17 SC Last administered on 18:13; Admin Dose 10,000 UNITS; Start 12/22/16 at 17:00 Tramadol HCl (Ultram) 50 mg Q6H PRN PO PAIN Last administered on 12/29/16 18: 24; Admin Dose 50 MG; Start 12/20/16 at 22:30 Bupropion HCl (Wellbutrin Xl) 150 mg QAM PO Last administered on 12/31/16 08: 09; Admin Dose 150 MG; Start 12/21/16 at 09:00 Acetaminophen (Tylenol Tab) 650 mg Q4H PRN PO PAIN; Start 12/21/16 at 04:40 Docusate Sodium (Colace) 100 mg BID PO Last administered on 12/31/16 08:09; Admin Dose 100 MG; Start 12/21/16 at 09:00 Senna (Senokot) 1 tab HS PO Last administered on 12/30/16 20:09; Admin Dose 1 TAB; Start 12/21/16 at 21:00 Magnesium Hydroxide (Milk Of Mag) 30 ml BID PRN PO CONSTIPATION; Start at 04:40 Pantoprazole (Protonix Tab) 40 mg BID@06,18 PO Last administered on 12/31/16 06:02; Admin Dose 40 MG; Start 12/22/16 at 18:00 Prochlorperazine (Compazine) 10 mg Q6H PRN PO NAUSEA AND/OR VOMITING; Start at 15:00 Ferrous Gluconate (Fergon) 325 mg DAILY PO Last administered on 12/31/16 08:17 ; Admin Dose 325 MG; Start 12/27/16 at 09:00 Furosemide (Lasix) 80 mg SuTuThSa@09 PO Last administered on 12/31/16 08:21; Admin Dose 80 MG; Start 12/28/16 at 09:00 Lactulose (Enulose) 20 gm DAILY PO Last administered on 12/31/16 08:09; Admin Dose 20 GM; Start 12/29/16 at 09:00 Metoclopramide HCl (Reglan) 5 mg Q6 IV Last administered on 12/31/16 12:28; Admin Dose 5 MG; Start 12/28/16 at 18:00 Assessment/Plan Additional Assessment/Plan 1. esrd/ anemia--loss due to dialysis & plavix, full w/up was done already w/ MD Elsy before, has received blood transfusion every 2-3mos before. 2. uti 3. gp/ gerd/ gastritis 4. cva/ htn/ pad/ lf bka/ rt musc weak 5. h/o copd/ dm/ low t4/ depression ---2u prbc transfusion after recheck of hgb, if <8.0 ---per rehab, full PT?OT exercises ---per renal ---per GI ---finish off iv atbx ---acute rehab d/c by 01/05 scheduled COLTEN ROMANO MD Dec 31, 2016 13:28
[2016-12-31] MEDS: FERROUS SULFATE (EC) 325 MG TAB PO SCH ×2 (14:38→21:02)
[2016-12-31] MEDS: traMADol 50 MG TAB PO PRN (14:38)
--- NOTE | 2016-12-31 15:10 | RADRPT ---
PROCEDURE: XR Chest. CLINICAL INDICATION: Cough. TECHNIQUE: Single frontal view. COMPARISON: 12/12/2016. FINDINGS: There is mild right basilar atelectasis. The lungs are otherwise clear. The heart is enlarged. There are sternal wires. Vascular calcifications are present consistent with atherosclerosis. There is no pleural effusion. There is no pneumothorax. IMPRESSION: 1. Mild right basilar atelectasis. 2. Cardiomegaly and atherosclerosis. 3. Previous median sternotomy. RPTAT: QQ .Cortes Goode MD, MD Date Time Electronically viewed and signed by .Cortes Goode MD, MD on 12/31/2016 15:10 .R/
[2016-12-31] MEDS ORDERED: VANCOMYCIN 500MG/NS (PMX) 100 ML IVPB SCH (19:30)
[2016-12-31 20:00] VITALS: BP 136/63; RESP 18
[2016-12-31] MEDS: SENNA TAB PO SCH (21:02)
[2017-01-01] VITALS (12 sets, daily range): BP systolic 112–150; BP diastolic 58–69; PULSE 71–80; RESP 18
[2017-01-01] MEDS: LEVOTHYROXINE 150 MCG TAB PO SCH (06:16)
[2017-01-01] MEDS: PANTOPRAZOLE (EC) 40 MG TAB PO SCH ×2 (06:16→18:51)
[2017-01-01] MEDS: METOCLOPRAMIDE 10 MG INJ IV SCH ×3 (06:16→18:51)
[2017-01-01 06:22] LABS: HEMOGLOBIN 7.4 g/dl (14.0-18.0)
--- NOTE | 2017-01-01 07:51 | CONS ---
Date/Time of Note Date/Time of Note DATE: 01/01/17 TIME: 07:48 Assessment/Plan Assessment/Plan Problems: (1) ESRD (end stage renal disease) on dialysis Comment: for HD today... will give IV Fe, abd 1 u w HD today (2) Anemia due to chronic kidney disease Comment: hct lower... ? gastritis w GIB?.. need EGD?.. says feels better kassi (3) GERD (gastroesophageal reflux disease) Comment: less sxs, but worry about UGIB as above (4) Cough Comment: resolved.. CXR (-) Consultation Date/Type/Reason Admit Date/Time Dec 20, 2016 at 21:28 Type of Consultation: renal 24 HR Interval Summary Free Text/Dictation says feels better.. less nausea.. no abd pain.. hct lower tho Exam/Review of Systems Vital Signs Vitals Vital Signs Date Time Temp Pulse Resp B/P Pulse Ox O2 Delivery O2 Flow Rate FiO2 01/01/17 02:00 98.2 74 18 128/60 96 12/31/16 02:58 Room Air Intake and Output 12/31/16 12/31/16 01/01/17 15:00 23:00 07:00 Intake Total 600 ml 100 ml Output Total 200 ml 150 ml Balance 400 ml -50 ml Exam Constitutional: alert, oriented Psych: no complaints Eyes: nl conjunctiva Neck: supple Respiratory: clear to auscultation Cardiovascular: regular rate and rhythm Gastrointestinal: soft Extremities: other (fxn AVF in LUE) Results Result Diagram: 01/01/17 0601 12/29/16 1837 Results 24 hrs Laboratory Tests Test 01/01/17 06:01 Hemoglobin 7.4 L Hematocrit 24.0 L Medications Medications Current Medications Guaifenesin/ Codeine Phosphate (Robitussin Ac Liquid Cup) 5 ml Q4H PRN PO COUGH Last administered on 12/31/16 21:02; Admin Dose 5 ML; Start 12/20/16 at 22:00 Cyanocobalamin (Vitamin B12 Inj) 1,000 mcg Q7D IM Last administered on 08:17; Admin Dose 1,000 MCG; Start 12/23/16 at 09:00 Salmeterol Xinafoate/ Fluticasone (Advair 250/50 Diskus) 1 inh BID INH Last administered on 12/31/16 22:30; Admin Dose 1 INH; Start 12/21/16 at 09:00 Ondansetron HCl (Zofran Inj) 4 mg Q4H PRN IV NAUSEA AND/OR VOMITING Last administered on 12/31/16 22:29; Admin Dose 4 MG; Start 12/20/16 at 22:00 Zolpidem Tartrate (Ambien) 10 mg HS PRN PO INSOMNIA; Start 12/20/16 at 22:00 Carvedilol (Coreg) 25 mg DAILY PO Last administered on 12/31/16 08:17; Admin Dose 25 MG; Start 12/21/16 at 09:00 Clopidogrel Bisulfate (plaVIX) 75 mg DAILY PO Last administered on 12/31/16 08 :09; Admin Dose 75 MG; Start 12/21/16 at 09:00 Levothyroxine Sodium (Synthroid) 150 mcg DAILY@06 PO Last administered on 06:16; Admin Dose 150 MCG; Start 12/21/16 at 06:00 Fenofibrate (Tricor) 145 mg DAILY PO Last administered on 12/31/16 08:09; Admin Dose 145 MG; Start 12/21/16 at 09:00 Lisinopril (Zestril) 10 mg BID PO Last administered on 12/31/16 21:02; Admin Dose 10 MG; Start 12/21/16 at 09:00 Bisacodyl (Dulcolax Supp) 10 mg DAILY PRN [place] CONSTIPATION; Start 12/20/16 at 22 :30 Epoetin Stas (Epogen (Esrd)) 10,000 units MoWeFr@17 SC Last administered on 18:13; Admin Dose 10,000 UNITS; Start 12/22/16 at 17:00 Tramadol HCl (Ultram) 50 mg Q6H PRN PO PAIN Last administered on 12/31/16 14: 38; Admin Dose 50 MG; Start 12/20/16 at 22:30 Bupropion HCl (Wellbutrin Xl) 150 mg QAM PO Last administered on 12/31/16 08: 09; Admin Dose 150 MG; Start 12/21/16 at 09:00 Acetaminophen (Tylenol Tab) 650 mg Q4H PRN PO PAIN; Start 12/21/16 at 04:40 Docusate Sodium (Colace) 100 mg BID PO Last administered on 12/31/16 21:02; Admin Dose 100 MG; Start 12/21/16 at 09:00 Senna (Senokot) 1 tab HS PO Last administered on 12/31/16 21:02; Admin Dose 1 TAB; Start 12/21/16 at 21:00 Pantoprazole (Protonix Tab) 40 mg BID@06,18 PO Last administered on 01/01/17 06:16; Admin Dose 40 MG; Start 12/22/16 at 18:00 Furosemide (Lasix) 80 mg SuTuThSa@09 PO Last administered on 12/31/16 08:21; Admin Dose 80 MG; Start 12/28/16 at 09:00 Lactulose (Enulose) 20 gm DAILY PO Last administered on 12/31/16 08:09; Admin Dose 20 GM; Start 12/29/16 at 09:00 Metoclopramide HCl (Reglan) 5 mg Q6 IV Last administered on 01/01/17 06:16; Admin Dose 5 MG; Start 12/28/16 at 18:00 Ferrous Sulfate (Ferrous Sulfate (Ec)) 325 mg TID PO Last administered on 21:02; Admin Dose 325 MG; Start 12/31/16 at 13:00 SABINE MIRZA MD Jan 01, 2017 07:51
[2017-01-01] MEDS: SALMETEROL/FLUTICASONE 250/50 INHA INH SCH ×2 (09:34→20:26)
[2017-01-01] MEDS: DOCUSATE SODIUM 100 MG CAP PO SCH ×2 (09:35→20:32)
[2017-01-01] MEDS: CLOPIDOGREL 75 MG TAB PO SCH (09:35)
[2017-01-01] MEDS: LACTULOSE 30ML CUP PO SCH (09:35)
[2017-01-01] MEDS: FENOFIBRATE 145 MG TAB PO SCH (09:35)
[2017-01-01] MEDS: ONDANSETRON 4 MG INJ IV PRN (09:35)
[2017-01-01] MEDS: BUPROPION (XL) 150 MG TAB PO SCH (09:35)
[2017-01-01] MEDS: traMADol 50 MG TAB PO PRN ×2 (09:36→18:52)
--- NOTE | 2017-01-01 09:36 | CONS ---
Date/Time of Note Date/Time of Note DATE: 01/01/17 TIME: 09:36 Consult Date/Type/Reason Admit Date/Time Dec 20, 2016 at 21:28 Type of Consultation: renal Objective Vital Signs Date Time Temp Pulse Resp B/P Pulse Ox O2 Delivery O2 Flow Rate FiO2 01/01/17 02:00 98.2 74 18 128/60 96 12/31/16 02:58 Room Air Intake and Output 12/31/16 12/31/16 01/01/17 15:00 23:00 07:00 Intake Total 600 ml 100 ml Output Total 200 ml 150 ml Balance 400 ml -50 ml INTERDISCIPLINARY TEAM CONFERENCE BOWEL- Cont BLADDER-Cont SKIN- residual limb wounds continue to improve OT- DRESSING-min BATHING-min TOILETING-min PT- BED MOBILITY-min TRANSFERS-min wiht slideboard [facility]. MOBILITY-sba SPEECH- COGNITION-s A/P- Interdisciplinary team conference held today. Please see interdisciplinary sheet. Working toward d.c. with 24 hour supervision with post discharge follow up of physical therapy, occupational therapy and RN. Results/Medications Result Diagram: 01/01/17 0601 12/29/16 1837 Results 24 hrs Laboratory Tests Test 01/01/17 06:01 Hemoglobin 7.4 L Hematocrit 24.0 L Medications Current Medications Guaifenesin/ Codeine Phosphate (Robitussin Ac Liquid Cup) 5 ml Q4H PRN PO COUGH Last administered on 12/31/16 21:02; Admin Dose 5 ML; Start 12/20/16 at 22:00 Cyanocobalamin (Vitamin B12 Inj) 1,000 mcg Q7D IM Last administered on 08:17; Admin Dose 1,000 MCG; Start 12/23/16 at 09:00 Salmeterol Xinafoate/ Fluticasone (Advair 250/50 Diskus) 1 inh BID INH Last administered on 12/31/16 22:30; Admin Dose 1 INH; Start 12/21/16 at 09:00 Ondansetron HCl (Zofran Inj) 4 mg Q4H PRN IV NAUSEA AND/OR VOMITING Last administered on 12/31/16 22:29; Admin Dose 4 MG; Start 12/20/16 at 22:00 Zolpidem Tartrate (Ambien) 10 mg HS PRN PO INSOMNIA; Start 12/20/16 at 22:00 Carvedilol (Coreg) 25 mg DAILY PO Last administered on 12/31/16 08:17; Admin Dose 25 MG; Start 12/21/16 at 09:00 Clopidogrel Bisulfate (plaVIX) 75 mg DAILY PO Last administered on 12/31/16 08 :09; Admin Dose 75 MG; Start 12/21/16 at 09:00 Levothyroxine Sodium (Synthroid) 150 mcg DAILY@06 PO Last administered on 06:16; Admin Dose 150 MCG; Start 12/21/16 at 06:00 Fenofibrate (Tricor) 145 mg DAILY PO Last administered on 12/31/16 08:09; Admin Dose 145 MG; Start 12/21/16 at 09:00 Lisinopril (Zestril) 10 mg BID PO Last administered on 12/31/16 21:02; Admin Dose 10 MG; Start 12/21/16 at 09:00 Bisacodyl (Dulcolax Supp) 10 mg DAILY PRN [place] CONSTIPATION; Start 12/20/16 at 22 :30 Epoetin Stas (Epogen (Esrd)) 10,000 units MoWeFr@17 SC Last administered on 18:13; Admin Dose 10,000 UNITS; Start 12/22/16 at 17:00 Tramadol HCl (Ultram) 50 mg Q6H PRN PO PAIN Last administered on 12/31/16 14: 38; Admin Dose 50 MG; Start 12/20/16 at 22:30 Bupropion HCl (Wellbutrin Xl) 150 mg QAM PO Last administered on 12/31/16 08: 09; Admin Dose 150 MG; Start 12/21/16 at 09:00 Acetaminophen (Tylenol Tab) 650 mg Q4H PRN PO PAIN; Start 12/21/16 at 04:40 Docusate Sodium (Colace) 100 mg BID PO Last administered on 12/31/16 21:02; Admin Dose 100 MG; Start 12/21/16 at 09:00 Senna (Senokot) 1 tab HS PO Last administered on 12/31/16 21:02; Admin Dose 1 TAB; Start 12/21/16 at 21:00 Pantoprazole (Protonix Tab) 40 mg BID@06,18 PO Last administered on 01/01/17 06:16; Admin Dose 40 MG; Start 12/22/16 at 18:00 Furosemide (Lasix) 80 mg SuTuThSa@09 PO Last administered on 12/31/16 08:21; Admin Dose 80 MG; Start 12/28/16 at 09:00 Lactulose (Enulose) 20 gm DAILY PO Last administered on 12/31/16 08:09; Admin Dose 20 GM; Start 12/29/16 at 09:00 Metoclopramide HCl 5 mg 5 mg Q6 IV Last administered on 01/01/17 06:16; Admin Dose 5 MG; Start 12/28/16 at 18:00 Ferric Sodium Gluconate Complex/ Sodium Chloride (Ferrlecit/NS) 110 ml @ 110 mls/hr Q24H IVPB ; Start 01/01/17 at 11:00; Stop 01/05/17 at 11:59 OLESYA ELLIS MD Jan 01, 2017 09:36 OLESYA ELLIS MD Jan 01, 2017 09:36
[2017-01-01] MEDS: LISINOPRIL 10 MG TAB PO SCH ×2 (09:38→20:28)
[2017-01-01] MEDS: SOD FERRIC GLUC COMPLX 125 MG in SOD CHLORIDE 0.9% 100 ML IVPB SCH ×2 (11:00→14:52)
--- NOTE | 2017-01-01 12:29 | CONS ---
Date/Time of Note Date/Time of Note DATE: 01/01/17 TIME: 12:25 Consult Date/Type/Reason Admit Date/Time Dec 20, 2016 at 21:28 Type of Consultation: GI Subjective No further vomiting Not passing any stool Objective Vital Signs Date Time Temp Pulse Resp B/P Pulse Ox O2 Delivery O2 Flow Rate FiO2 01/01/17 07:30 98.4 77 18 150/67 96 12/31/16 02:58 Room Air Abdomen: soft, non tender Intake and Output 12/31/16 12/31/16 01/01/17 15:00 23:00 07:00 Intake Total 600 ml 100 ml Output Total 200 ml 150 ml Balance 400 ml -50 ml Results/Medications Result Diagram: 01/01/17 0601 12/29/16 1837 Results 24 hrs Laboratory Tests Test 01/01/17 06:01 Hemoglobin 7.4 L Hematocrit 24.0 L Medications Current Medications Guaifenesin/ Codeine Phosphate (Robitussin Ac Liquid Cup) 5 ml Q4H PRN PO COUGH Last administered on 12/31/16 21:02; Admin Dose 5 ML; Start 12/20/16 at 22:00 Cyanocobalamin (Vitamin B12 Inj) 1,000 mcg Q7D IM Last administered on 08:17; Admin Dose 1,000 MCG; Start 12/23/16 at 09:00 Salmeterol Xinafoate/ Fluticasone (Advair 250/50 Diskus) 1 inh BID INH Last administered on 01/01/17 09:34; Admin Dose 1 INH; Start 12/21/16 at 09:00 Ondansetron HCl (Zofran Inj) 4 mg Q4H PRN IV NAUSEA AND/OR VOMITING Last administered on 01/01/17 09:35; Admin Dose 4 MG; Start 12/20/16 at 22:00 Zolpidem Tartrate (Ambien) 10 mg HS PRN PO INSOMNIA; Start 12/20/16 at 22:00 Carvedilol (Coreg) 25 mg DAILY PO Last administered on 01/01/17 09:35; Admin Dose 25 MG; Start 12/21/16 at 09:00 Clopidogrel Bisulfate (plaVIX) 75 mg DAILY PO Last administered on 01/01/17 09 :35; Admin Dose 75 MG; Start 12/21/16 at 09:00 Levothyroxine Sodium (Synthroid) 150 mcg DAILY@06 PO Last administered on 06:16; Admin Dose 150 MCG; Start 12/21/16 at 06:00 Fenofibrate (Tricor) 145 mg DAILY PO Last administered on 01/01/17 09:35; Admin Dose 145 MG; Start 12/21/16 at 09:00 Lisinopril (Zestril) 10 mg BID PO Last administered on 01/01/17 09:38; Admin Dose 10 MG; Start 12/21/16 at 09:00 Bisacodyl (Dulcolax Supp) 10 mg DAILY PRN [place] CONSTIPATION; Start 12/20/16 at 22 :30 Epoetin Stas (Epogen (Esrd)) 10,000 units MoWeFr@17 SC Last administered on 18:13; Admin Dose 10,000 UNITS; Start 12/22/16 at 17:00 Tramadol HCl (Ultram) 50 mg Q6H PRN PO PAIN Last administered on 01/01/17 09: 36; Admin Dose 50 MG; Start 12/20/16 at 22:30 Bupropion HCl (Wellbutrin Xl) 150 mg QAM PO Last administered on 01/01/17 09: 35; Admin Dose 150 MG; Start 12/21/16 at 09:00 Acetaminophen (Tylenol Tab) 650 mg Q4H PRN PO PAIN; Start 12/21/16 at 04:40 Docusate Sodium (Colace) 100 mg BID PO Last administered on 01/01/17 09:35; Admin Dose 100 MG; Start 12/21/16 at 09:00 Senna (Senokot) 1 tab HS PO Last administered on 12/31/16 21:02; Admin Dose 1 TAB; Start 12/21/16 at 21:00 Pantoprazole (Protonix Tab) 40 mg BID@06,18 PO Last administered on 01/01/17 06:16; Admin Dose 40 MG; Start 12/22/16 at 18:00 Furosemide (Lasix) 80 mg SuTuThSa@09 PO Last administered on 12/31/16 08:21; Admin Dose 80 MG; Start 12/28/16 at 09:00 Lactulose (Enulose) 20 gm DAILY PO Last administered on 01/01/17 09:35; Admin Dose 20 GM; Start 12/29/16 at 09:00 Metoclopramide HCl 5 mg 5 mg Q6 IV Last administered on 01/01/17 06:16; Admin Dose 5 MG; Start 12/28/16 at 18:00 Ferric Sodium Gluconate Complex/ Sodium Chloride (Ferrlecit/NS) 110 ml @ 110 mls/hr Q24H IVPB ; Start 01/01/17 at 11:00; Stop 01/05/17 at 11:59 Assessment/Plan Chief Complaint/Hosp Course Impression: Nausea / Vomiting - no further symptoms Fall in Hct - no evidence of GI Bleeding Plan: Await repeat Hct Await Stool OB Note consideration of EGD - await above first Discussed with Dr. Vargas Problems: JD RAYMOND MD Jan 01, 2017 12:29
--- NOTE | 2017-01-01 15:26 | CONS ---
Date/Time of Note Date/Time of Note DATE: 01/01/17 TIME: 15:25 Assessment/Plan Assessment/Plan Additional Assessment/Plan Fatigue Compensated systolic congestive heart failure Cardiomyopathy with ejection fraction 45% CAD with history of CABG Peripheral arterial disease End-stage renal disease on hemodialysis Acute blood loss anemia -Blood pressure trend overall remains stable on current cv medication regimen, fluid management via hemodialysis as per our nephrology colleagues. No new cardiac orders at the current time Consultation Date/Type/Reason Admit Date/Time Dec 20, 2016 at 21:28 Type of Consultation: cv 24 HR Interval Summary Free Text/Dictation denies sob, cp, palp Exam/Review of Systems Vital Signs Vitals Vital Signs Date Time Temp Pulse Resp B/P Pulse Ox O2 Delivery O2 Flow Rate FiO2 01/01/17 07:30 98.4 77 18 150/67 96 12/31/16 02:58 Room Air Intake and Output 12/31/16 12/31/16 01/01/17 15:00 23:00 07:00 Intake Total 600 ml 100 ml Output Total 200 ml 150 ml Balance 400 ml -50 ml Exam nad Constitutional: alert, oriented Head: normocephalic Respiratory: other (course bs, no wheeze) Cardiovascular: other (s1s2), regular rate and rhythm Gastrointestinal: bowel sounds, non-tender, soft Extremities: edema Results Result Diagram: 01/01/17 0601 12/29/16 1837 Results 24 hrs Laboratory Tests Test 01/01/17 06:01 Hemoglobin 7.4 L Hematocrit 24.0 L Medications Medications Current Medications Guaifenesin/ Codeine Phosphate (Robitussin Ac Liquid Cup) 5 ml Q4H PRN PO COUGH Last administered on 12/31/16 21:02; Admin Dose 5 ML; Start 12/20/16 at 22:00 Cyanocobalamin (Vitamin B12 Inj) 1,000 mcg Q7D IM Last administered on 08:17; Admin Dose 1,000 MCG; Start 12/23/16 at 09:00 Salmeterol Xinafoate/ Fluticasone (Advair 250/50 Diskus) 1 inh BID INH Last administered on 01/01/17 09:34; Admin Dose 1 INH; Start 12/21/16 at 09:00 Ondansetron HCl (Zofran Inj) 4 mg Q4H PRN IV NAUSEA AND/OR VOMITING Last administered on 01/01/17 09:35; Admin Dose 4 MG; Start 12/20/16 at 22:00 Zolpidem Tartrate (Ambien) 10 mg HS PRN PO INSOMNIA; Start 12/20/16 at 22:00 Carvedilol (Coreg) 25 mg DAILY PO Last administered on 01/01/17 09:35; Admin Dose 25 MG; Start 12/21/16 at 09:00 Clopidogrel Bisulfate (plaVIX) 75 mg DAILY PO Last administered on 01/01/17 09 :35; Admin Dose 75 MG; Start 12/21/16 at 09:00 Levothyroxine Sodium (Synthroid) 150 mcg DAILY@06 PO Last administered on 06:16; Admin Dose 150 MCG; Start 12/21/16 at 06:00 Fenofibrate (Tricor) 145 mg DAILY PO Last administered on 01/01/17 09:35; Admin Dose 145 MG; Start 12/21/16 at 09:00 Lisinopril (Zestril) 10 mg BID PO Last administered on 01/01/17 09:38; Admin Dose 10 MG; Start 12/21/16 at 09:00 Bisacodyl (Dulcolax Supp) 10 mg DAILY PRN [place] CONSTIPATION; Start 12/20/16 at 22 :30 Epoetin Stas (Epogen (Esrd)) 10,000 units MoWeFr@17 SC Last administered on 18:13; Admin Dose 10,000 UNITS; Start 12/22/16 at 17:00 Tramadol HCl (Ultram) 50 mg Q6H PRN PO PAIN Last administered on 01/01/17 09: 36; Admin Dose 50 MG; Start 12/20/16 at 22:30 Bupropion HCl (Wellbutrin Xl) 150 mg QAM PO Last administered on 01/01/17 09: 35; Admin Dose 150 MG; Start 12/21/16 at 09:00 Acetaminophen (Tylenol Tab) 650 mg Q4H PRN PO PAIN; Start 12/21/16 at 04:40 Docusate Sodium (Colace) 100 mg BID PO Last administered on 01/01/17 09:35; Admin Dose 100 MG; Start 12/21/16 at 09:00 Senna (Senokot) 1 tab HS PO Last administered on 12/31/16 21:02; Admin Dose 1 TAB; Start 12/21/16 at 21:00 Pantoprazole (Protonix Tab) 40 mg BID@06,18 PO Last administered on 01/01/17 06:16; Admin Dose 40 MG; Start 12/22/16 at 18:00 Furosemide (Lasix) 80 mg SuTuThSa@09 PO Last administered on 12/31/16 08:21; Admin Dose 80 MG; Start 12/28/16 at 09:00 Lactulose (Enulose) 20 gm DAILY PO Last administered on 01/01/17 09:35; Admin Dose 20 GM; Start 12/29/16 at 09:00 Metoclopramide HCl 5 mg 5 mg Q6 IV Last administered on 01/01/17 13:02; Admin Dose 5 MG; Start 12/28/16 at 18:00 Ferric Sodium Gluconate Complex/ Sodium Chloride (Ferrlecit/NS) 110 ml @ 110 mls/hr Q24H IVPB Last administered on 01/01/17 14:52; Admin Dose 110 MLS/HR; Start 01/01/17 at 11:00; Stop 01/05/17 at 11:59 Hammad Hernandez DO Jan 01, 2017 15:26
[2017-01-01] MEDS: EPOETIN 10000 UNITS/1 ML INJ (ESRD) SC SCH (16:03)
[2017-01-01] MEDS: GUAIFENESIN/CODEINE 5ML CUP PO PRN (19:31)
[2017-01-01] MEDS: SENNA TAB PO SCH (20:32)
[2017-01-01 21:20] LABS: HEMATOCRIT 28.5 % (42.0-52.0); HEMOGLOBIN 8.9 g/dl (14.0-18.0)
[2017-01-01 21:42] LABS: CREATININE 3.08 mg/dl (0.61-1.24); POTASSIUM 3.4 mmol/L (3.5-5.1); URIC ACID 3.6 mg/dl (3.1-7.9)
[2017-01-01 22:20] LABS: T3 UPTAKE 40.6 % (23.5-40.5)
[2017-01-02] VITALS (19 sets, daily range): BP systolic 105–161; BP diastolic 45–72; PULSE 72–98; RESP 14–23
[2017-01-02] MEDS: METOCLOPRAMIDE 10 MG INJ IV SCH ×4 (00:28→17:49)
[2017-01-02] MEDS: GUAIFENESIN/CODEINE 5ML CUP PO PRN (01:02)
[2017-01-02] MEDS: LEVOTHYROXINE 150 MCG TAB PO SCH (06:24)
[2017-01-02] MEDS: PANTOPRAZOLE (EC) 40 MG TAB PO SCH ×2 (06:24→17:49)
[2017-01-02 06:34] LABS: ABNORMAL IP MESSAGE 1; BASOPHILS % 0.4 % (0.0-2.0); EOSINOPHILS # 0.3 10^3/ul (0.0-0.5); EOSINOPHILS % 5.4 % (0.0-7.0); HEMOGLOBIN 8.6 g/dl (14.0-18.0); LYMPHOCYTES # 0.5 10^3/ul (0.8-2.9); LYMPHOCYTES % 8.6 % (15.0-51.0); MEAN CORPUSCULAR HEMOGLOBIN 32.2 pg (29.0-33.0); MEAN CORPUSCULAR HGB CONC 30.7 g/dl (32.0-37.0); MEAN CORPUSCULAR VOLUME 104.9 fl (82.0-101.0); MEAN PLATELET VOLUME 10.3 fl (7.4-10.4); MONOCYTE # 0.6 10^3/ul (0.3-0.9); MONOCYTES % 10.6 % (0.0-11.0); NEUTROPHILS % 74.4 % (39.0-77.0); PLATELET COUNT 130 10^3/UL (140-415); POSITIVE DIFF @See below; RED BLOOD COUNT 2.67 10^6/ul (4.70-6.10); RED CELL DISTRIBUTION WIDTH 17.6 % (11.5-14.5); WHITE BLOOD COUNT 5.4 10^3/ul (4.8-10.8)
--- NOTE | 2017-01-02 07:52 | CONS ---
Date/Time of Note Date/Time of Note DATE: 01/02/17 TIME: 07:48 Assessment/Plan Assessment/Plan Problems: (1) HTN (hypertension) Comment: well controlled (2) ESRD (end stage renal disease) on dialysis Comment: [facility] HD yesterday.. for planned HD in am (3) GERD (gastroesophageal reflux disease) Comment: stool was OB (+)... hct drop yesterday Rx w 1 U... for planned EGD today Consultation Date/Type/Reason Admit Date/Time Dec 20, 2016 at 21:28 Type of Consultation: renal 24 HR Interval Summary Free Text/Dictation tolerated HD yest w 1u PRBC Exam/Review of Systems Vital Signs Vitals Vital Signs Date Time Temp Pulse Resp B/P Pulse Ox O2 Delivery O2 Flow Rate FiO2 01/02/17 02:00 98.0 66 18 134/72 97 01/01/17 17:20 21 12/31/16 02:58 Room Air Intake and Output 01/01/17 01/01/17 01/02/17 15:00 23:00 07:00 Intake Total 1630 ml 200 ml Output Total 4021 ml 250 ml Balance -2391 ml -50 ml Exam Constitutional: alert Psych: no complaints Neck: supple Respiratory: clear to auscultation Cardiovascular: regular rate and rhythm Gastrointestinal: soft Extremities: other (fxn AVF) Results Result Diagram: 01/02/17 0548 01/01/17 2111 Results 24 hrs Laboratory Tests Test 01/01/17 14:45 01/01/17 21:11 01/02/17 05:48 Stool Occult Blood POSITIVE Hemoglobin 8.9 #L 8.6 L Hematocrit 28.5 L 28.0 L Sodium Level 142 Potassium Level 3.4 L Chloride Level 102 Carbon Dioxide Level 31 Anion Gap 12 Blood Urea Nitrogen 23 H Creatinine 3.08 H Glucose Level 113 Uric Acid 3.6 Calcium Level 9.0 Free Thyroxine Index 3.65 Thyroxine (T4) 9.0 Triiodothyronine (T3) Uptake 40.6 H White Blood Count 5.4 Red Blood Count 2.67 L Mean Corpuscular Volume 104.9 H Mean Corpuscular Hemoglobin 32.2 Mean Corpuscular Hemoglobin Concent 30.7 L Red Cell Distribution Width 17.6 H Platelet Count 130 L Mean Platelet Volume 10.3 Neutrophils % 74.4 Lymphocytes % 8.6 L Monocytes % 10.6 Eosinophils % 5.4 Basophils % 0.4 Nucleated Red Blood Cells % 0.0 Neutrophils # 4.0 Lymphocytes # 0.5 L Monocytes # 0.6 Eosinophils # 0.3 Basophils # 0.0 Nucleated Red Blood Cells # 0.0 Medications Medications Current Medications Guaifenesin/ Codeine Phosphate (Robitussin Ac Liquid Cup) 5 ml Q4H PRN PO COUGH Last administered on 01/02/17 01:02; Admin Dose 5 ML; Start 12/20/16 at 22:00 Cyanocobalamin (Vitamin B12 Inj) 1,000 mcg Q7D IM Last administered on 08:17; Admin Dose 1,000 MCG; Start 12/23/16 at 09:00 Salmeterol Xinafoate/ Fluticasone (Advair 250/50 Diskus) 1 inh BID INH Last administered on 01/01/17 20:26; Admin Dose 1 INH; Start 12/21/16 at 09:00 Ondansetron HCl (Zofran Inj) 4 mg Q4H PRN IV NAUSEA AND/OR VOMITING Last administered on 01/01/17 09:35; Admin Dose 4 MG; Start 12/20/16 at 22:00 Zolpidem Tartrate (Ambien) 10 mg HS PRN PO INSOMNIA; Start 12/20/16 at 22:00 Carvedilol (Coreg) 25 mg DAILY PO Last administered on 01/01/17 09:35; Admin Dose 25 MG; Start 12/21/16 at 09:00 Clopidogrel Bisulfate (plaVIX) 75 mg DAILY PO Last administered on 01/01/17 09 :35; Admin Dose 75 MG; Start 12/21/16 at 09:00; Status Future hold Levothyroxine Sodium (Synthroid) 150 mcg DAILY@06 PO Last administered on 06:24; Admin Dose 150 MCG; Start 12/21/16 at 06:00 Fenofibrate (Tricor) 145 mg DAILY PO Last administered on 01/01/17 09:35; Admin Dose 145 MG; Start 12/21/16 at 09:00 Lisinopril (Zestril) 10 mg BID PO Last administered on 01/01/17 20:28; Admin Dose 10 MG; Start 12/21/16 at 09:00 Bisacodyl (Dulcolax Supp) 10 mg DAILY PRN [place] CONSTIPATION; Start 12/20/16 at 22 :30 Epoetin Stas (Epogen (Esrd)) 10,000 units MoWeFr@17 SC Last administered on 16:03; Admin Dose 10,000 UNITS; Start 12/22/16 at 17:00 Tramadol HCl (Ultram) 50 mg Q6H PRN PO PAIN Last administered on 01/01/17 18: 52; Admin Dose 50 MG; Start 12/20/16 at 22:30 Bupropion HCl (Wellbutrin Xl) 150 mg QAM PO Last administered on 01/01/17 09: 35; Admin Dose 150 MG; Start 12/21/16 at 09:00 Acetaminophen (Tylenol Tab) 650 mg Q4H PRN PO PAIN; Start 12/21/16 at 04:40 Docusate Sodium (Colace) 100 mg BID PO Last administered on 01/01/17 09:35; Admin Dose 100 MG; Start 12/21/16 at 09:00 Senna (Senokot) 1 tab HS PO Last administered on 12/31/16 21:02; Admin Dose 1 TAB; Start 12/21/16 at 21:00 Pantoprazole (Protonix Tab) 40 mg BID@06,18 PO Last administered on 01/02/17 06:24; Admin Dose 40 MG; Start 12/22/16 at 18:00 Furosemide (Lasix) 80 mg SuTuThSa@09 PO Last administered on 12/31/16 08:21; Admin Dose 80 MG; Start 12/28/16 at 09:00 Lactulose (Enulose) 20 gm DAILY PO Last administered on 01/01/17 09:35; Admin Dose 20 GM; Start 12/29/16 at 09:00 Metoclopramide HCl 5 mg 5 mg Q6 IV Last administered on 01/02/17 06:24; Admin Dose 5 MG; Start 12/28/16 at 18:00 Ferric Sodium Gluconate Complex/ Sodium Chloride (Ferrlecit/NS) 110 ml @ 110 mls/hr Q24H IVPB Last administered on 01/01/17 14:52; Admin Dose 110 MLS/HR; Start 01/01/17 at 11:00; Stop 01/05/17 at 11:59 SABINE MIRZA MD Jan 02, 2017 07:52
[2017-01-02] MEDS: ONDANSETRON 4 MG INJ IV PRN (08:37)
[2017-01-02] MEDS: SALMETEROL/FLUTICASONE 250/50 INHA INH SCH ×2 (08:37→21:09)
[2017-01-02] MEDS: DOCUSATE SODIUM 100 MG CAP PO SCH ×2 (09:00→21:09)
[2017-01-02] MEDS: LISINOPRIL 10 MG TAB PO SCH ×2 (09:00→21:09)
[2017-01-02] MEDS: LACTULOSE 30ML CUP PO SCH (09:00)
[2017-01-02] MEDS: FUROSEMIDE 40 MG TAB PO SCH (09:00)
[2017-01-02] MEDS: FENOFIBRATE 145 MG TAB PO SCH (09:00)
[2017-01-02] MEDS: BUPROPION (XL) 150 MG TAB PO SCH (09:00)
[2017-01-02] MEDS: SOD FERRIC GLUC COMPLX 125 MG in SOD CHLORIDE 0.9% 100 ML IVPB SCH (10:50)
--- NOTE | 2017-01-02 11:31 | CONS ---
Date/Time of Note Date/Time of Note DATE: 01/02/17 TIME: 11:28 Consult Date/Type/Reason Admit Date/Time Dec 20, 2016 at 21:28 Type of Consultation: renal Subjective some c/o stomach upset Objective min assist transfer Vital Signs Date Time Temp Pulse Resp B/P Pulse Ox O2 Delivery O2 Flow Rate FiO2 01/02/17 07:00 97.5 79 18 139/63 100 01/01/17 17:20 21 12/31/16 02:58 Room Air Intake and Output 01/01/17 01/01/17 01/02/17 15:00 23:00 07:00 Intake Total 1630 ml 200 ml Output Total 4021 ml 250 ml Balance -2391 ml -50 ml Results/Medications Result Diagram: 01/02/17 0548 01/01/171 Results 24 hrs Laboratory Tests Test 01/01/17 14:45 01/01/17 21:11 01/02/17 05:48 Stool Occult Blood POSITIVE Hemoglobin 8.9 #L 8.6 L Hematocrit 28.5 L 28.0 L Sodium Level 142 Potassium Level 3.4 L Chloride Level 102 Carbon Dioxide Level 31 Anion Gap 12 Blood Urea Nitrogen 23 H Creatinine 3.08 H Glucose Level 113 Uric Acid 3.6 Calcium Level 9.0 Free Thyroxine Index 3.65 Thyroxine (T4) 9.0 Triiodothyronine (T3) Uptake 40.6 H White Blood Count 5.4 Red Blood Count 2.67 L Mean Corpuscular Volume 104.9 H Mean Corpuscular Hemoglobin 32.2 Mean Corpuscular Hemoglobin Concent 30.7 L Red Cell Distribution Width 17.6 H Platelet Count 130 L Mean Platelet Volume 10.3 Neutrophils % 74.4 Lymphocytes % 8.6 L Monocytes % 10.6 Eosinophils % 5.4 Basophils % 0.4 Nucleated Red Blood Cells % 0.0 Neutrophils # 4.0 Lymphocytes # 0.5 L Monocytes # 0.6 Eosinophils # 0.3 Basophils # 0.0 Nucleated Red Blood Cells # 0.0 Medications Current Medications Guaifenesin/ Codeine Phosphate (Robitussin Ac Liquid Cup) 5 ml Q4H PRN PO COUGH Last administered on 01/02/17t 01:02; Admin Dose 5 ML; Start 12/20/16 at 22:00 Cyanocobalamin (Vitamin B12 Inj) 1,000 mcg Q7D IM Last administered on 08:17; Admin Dose 1,000 MCG; Start 12/23/16 at 09:00 Salmeterol Xinafoate/ Fluticasone (Advair 250/50 Diskus) 1 inh BID INH Last administered on 01/02/17 08:37; Admin Dose 1 INH; Start 12/21/16 at 09:00 Ondansetron HCl (Zofran Inj) 4 mg Q4H PRN IV NAUSEA AND/OR VOMITING Last administered on 01/02/17 08:37; Admin Dose 4 MG; Start 12/20/16 at 22:00 Zolpidem Tartrate (Ambien) 10 mg HS PRN PO INSOMNIA; Start 12/20/16 at 22:00 Carvedilol (Coreg) 25 mg DAILY PO Last administered on 01/01/17 09:35; Admin Dose 25 MG; Start 12/21/16 at 09:00 Clopidogrel Bisulfate (plaVIX) 75 mg DAILY PO Last administered on 01/01/17 09 :35; Admin Dose 75 MG; Start 12/21/16 at 09:00; Status Future hold Levothyroxine Sodium (Synthroid) 150 mcg DAILY@06 PO Last administered on 06:24; Admin Dose 150 MCG; Start 12/21/16 at 06:00 Fenofibrate (Tricor) 145 mg DAILY PO Last administered on 01/01/17 09:35; Admin Dose 145 MG; Start 12/21/16 at 09:00 Lisinopril (Zestril) 10 mg BID PO Last administered on 01/01/17 20:28; Admin Dose 10 MG; Start 12/21/16 at 09:00 Bisacodyl (Dulcolax Supp) 10 mg DAILY PRN [place] CONSTIPATION; Start 12/20/16 at 22 :30 Epoetin Stas (Epogen (Esrd)) 10,000 units MoWeFr@17 SC Last administered on 16:03; Admin Dose 10,000 UNITS; Start 12/22/16 at 17:00 Tramadol HCl (Ultram) 50 mg Q6H PRN PO PAIN Last administered on 01/01/17 18: 52; Admin Dose 50 MG; Start 12/20/16 at 22:30 Bupropion HCl (Wellbutrin Xl) 150 mg QAM PO Last administered on 01/01/17 09: 35; Admin Dose 150 MG; Start 12/21/16 at 09:00 Acetaminophen (Tylenol Tab) 650 mg Q4H PRN PO PAIN; Start 12/21/16 at 04:40 Docusate Sodium (Colace) 100 mg BID PO Last administered on 01/01/17 09:35; Admin Dose 100 MG; Start 12/21/16 at 09:00 Senna (Senokot) 1 tab HS PO Last administered on 12/31/16 21:02; Admin Dose 1 TAB; Start 12/21/16 at 21:00 Pantoprazole (Protonix Tab) 40 mg BID@06,18 PO Last administered on 01/02/17 06:24; Admin Dose 40 MG; Start 12/22/16 at 18:00 Furosemide (Lasix) 80 mg SuTuThSa@09 PO Last administered on 12/31/16 08:21; Admin Dose 80 MG; Start 12/28/16 at 09:00 Lactulose (Enulose) 20 gm DAILY PO Last administered on 01/01/17 09:35; Admin Dose 20 GM; Start 12/29/16 at 09:00 Metoclopramide HCl 5 mg 5 mg Q6 IV Last administered on 01/02/17 06:24; Admin Dose 5 MG; Start 12/28/16 at 18:00 Ferric Sodium Gluconate Complex/ Sodium Chloride (Ferrlecit/NS) 110 ml @ 110 mls/hr Q24H IVPB Last administered on 01/02/17 10:50; Admin Dose 110 MLS/HR; Start 01/01/17 at 11:00; Stop 01/05/17 at 11:59 Assessment/Plan Additional Assessment/Plan Rehab- 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 Continue rehab activities as tolerated. Patient to have EGD today, so will need to decrease therapies today in view of the GIB and EGD GI- ob + stool, EGD scheduled for today Left BKA with residual limb wound- improving with wound care End-stage renal disease, on hemodialysis per renal COPD. Hyperlipidemia. Diabetes mellitus. History of Riddle's palsy. Peripheral vascular disease. OLESYA ELLIS MD Jan 02, 2017 11:31
[2017-01-02] MEDS ORDERED: ONDANSETRON 4 MG INJ IV PRN (13:30)
[2017-01-02] MEDS ORDERED: MIDAZOLAM 1 MG/ML 2 ML INJ ONE (13:38)
[2017-01-02] MEDS ORDERED: PROPOFOL 20 ML ONE (13:39)
[2017-01-02] MEDS ORDERED: LIDOCAINE 4% SOLUTION 50 ML BTL ONE (13:39)
[2017-01-02] MEDS ORDERED: LIDOCAINE 2% (SDV) 5 ML INJ ONE (13:39)
--- NOTE | 2017-01-02 14:02 | OPPN ---
Date/Time of Note Date/Time of Note DATE: 01/02/17 TIME: 13:56 Proc Note GI Procedure Date 01/02/17 Pre-procedure Diagnosis GI Bleed Post-procedure Diagnosis Erosive Gastritis Procedure Performed: Endoscopy Surgeon see signature line Applique Sewer none Anesthesia Type: MAC Anesthesiologist: KB NGUYỄN MD Tourniquet Time none EBL none Transfusion required none Grafts/Implants none Tubes/Drains none Complication(s) none Pt Condition post procedure: stable Disposition: PACU Operative\Procedure Findings After informed consent, the patient was placed in left lateral position and sedated per Dr. Nguyễn of anesthesia. The Olympus video endoscope was easily passed in the patient's esophagus under direct vision. Within the esophagus there were multiple small whitish plaques noted. Photographs, brushings and biopsies of these were performed. The instrument was advanced to the stomach. The pylorus was seen. The duodenal bulb and second portion of duodenum were examined. These appeared normal. The stomach was carefully examined including turnaround procedure. Diffuse erosive gastritis was noted. Photographs and multiple biopsies were performed. There was no untoward bleeding from the sites. The patient tolerated procedure well. Complications: None Impression: 1. Erosive gastritis likely source of bleeding 2. Whitish esophageal plaques brushed and biopsied to rule out Yolanda esophagitis. Plan: 1. Continue proton pump inhibitor therapy with monitoring of blood counts 2. Await biopsy and brushing results 3. Add Carafate to regimen 4. Given that patient has not had a colonoscopy we will need to consider this at one point pending his clinical course. JD RAYMOND MD Jan 02, 2017 14:02
--- NOTE | 2017-01-02 16:25 | CONS ---
Date/Time of Note Date/Time of Note DATE: 01/02/17 TIME: 16:24 Assessment/Plan Assessment/Plan Additional Assessment/Plan Fatigue Compensated systolic congestive heart failure Cardiomyopathy with ejection fraction 45% CAD with history of CABG Peripheral arterial disease End-stage renal disease on hemodialysis Acute blood loss anemia -Blood pressure trend overall remains stable on current cv medication regimen, fluid management via hemodialysis as per our nephrology colleagues. Consultation Date/Type/Reason Admit Date/Time Dec 20, 2016 at 21:28 Type of Consultation: cv 24 HR Interval Summary Free Text/Dictation Patient seen and examined, status post endoscopy, denies chest pain, shortness of breath or palpitations Exam/Review of Systems Vital Signs Vitals Vital Signs Date Time Temp Pulse Resp B/P Pulse Ox O2 Delivery O2 Flow Rate FiO2 01/02/17 15:50 18 96 Room Air 01/02/17 15:20 98.0 79 136/63 2.0 01/01/17 17:20 21 Intake and Output 01/01/17 01/01/17 01/02/17 15:00 23:00 07:00 Intake Total 1630 ml 200 ml Output Total 4021 ml 250 ml Balance -2391 ml -50 ml Exam No apparent distress Constitutional: alert, oriented Head: normocephalic Respiratory: other (Coarse breath sounds bilaterally, no wheezing) Cardiovascular: other (S1-S2 heard), regular rate and rhythm Gastrointestinal: bowel sounds, non-tender, soft Extremities: edema Results Result Diagram: 01/02/17 0548 01/01/17 2111 Results 24 hrs Laboratory Tests Test 01/01/17 21:11 01/02/17 05:48 01/02/17 13:05 01/02/17 14:14 Hemoglobin 8.9 #L 8.6 L Hematocrit 28.5 L 28.0 L Sodium Level 142 Potassium Level 3.4 L Chloride Level 102 Carbon Dioxide Level 31 Anion Gap 12 Blood Urea Nitrogen 23 H Creatinine 3.08 H Glucose Level 113 Uric Acid 3.6 Calcium Level 9.0 Free Thyroxine Index 3.65 Thyroxine (T4) 9.0 Triiodothyronine (T3) Uptake 40.6 H White Blood Count 5.4 Red Blood Count 2.67 L Mean Corpuscular Volume 104.9 H Mean Corpuscular Hemoglobin 32.2 Mean Corpuscular Hemoglobin Concent 30.7 L Red Cell Distribution Width 17.6 H Platelet Count 130 L Mean Platelet Volume 10.3 Neutrophils % 74.4 Lymphocytes % 8.6 L Monocytes % 10.6 Eosinophils % 5.4 Basophils % 0.4 Nucleated Red Blood Cells % 0.0 Neutrophils # 4.0 Lymphocytes # 0.5 L Monocytes # 0.6 Eosinophils # 0.3 Basophils # 0.0 Nucleated Red Blood Cells # 0.0 Bedside Glucose 76 73 Medications Medications Current Medications Guaifenesin/ Codeine Phosphate (Robitussin Ac Liquid Cup) 5 ml Q4H PRN PO COUGH Last administered on 01/02/17 01:02; Admin Dose 5 ML; Start 12/20/16 at 22:00 Cyanocobalamin (Vitamin B12 Inj) 1,000 mcg Q7D IM Last administered on 08:17; Admin Dose 1,000 MCG; Start 12/23/16 at 09:00 Salmeterol Xinafoate/ Fluticasone (Advair 250/50 Diskus) 1 inh BID INH Last administered on 01/02/17 08:37; Admin Dose 1 INH; Start 12/21/16 at 09:00 Ondansetron HCl (Zofran Inj) 4 mg Q4H PRN IV NAUSEA AND/OR VOMITING Last administered on 01/02/17 08:37; Admin Dose 4 MG; Start 12/20/16 at 22:00 Zolpidem Tartrate (Ambien) 10 mg HS PRN PO INSOMNIA; Start 12/20/16 at 22:00 Carvedilol (Coreg) 25 mg DAILY PO Last administered on 01/01/17 09:35; Admin Dose 25 MG; Start 12/21/16 at 09:00 Clopidogrel Bisulfate (plaVIX) 75 mg DAILY PO Last administered on 01/01/17 09 :35; Admin Dose 75 MG; Start 12/21/16 at 09:00; Status Future hold Levothyroxine Sodium (Synthroid) 150 mcg DAILY@06 PO Last administered on 06:24; Admin Dose 150 MCG; Start 12/21/16 at 06:00 Fenofibrate (Tricor) 145 mg DAILY PO Last administered on 01/01/17 09:35; Admin Dose 145 MG; Start 12/21/16 at 09:00 Lisinopril (Zestril) 10 mg BID PO Last administered on 01/01/17 20:28; Admin Dose 10 MG; Start 12/21/16 at 09:00 Bisacodyl (Dulcolax Supp) 10 mg DAILY PRN [place] CONSTIPATION; Start 12/20/16 at 22 :30 Epoetin Stas (Epogen (Esrd)) 10,000 units MoWeFr@17 SC Last administered on 16:03; Admin Dose 10,000 UNITS; Start 12/22/16 at 17:00 Tramadol HCl (Ultram) 50 mg Q6H PRN PO PAIN Last administered on 01/01/17 18: 52; Admin Dose 50 MG; Start 12/20/16 at 22:30 Bupropion HCl (Wellbutrin Xl) 150 mg QAM PO Last administered on 01/01/17 09: 35; Admin Dose 150 MG; Start 12/21/16 at 09:00 Acetaminophen (Tylenol Tab) 650 mg Q4H PRN PO PAIN; Start 12/21/16 at 04:40 Docusate Sodium (Colace) 100 mg BID PO Last administered on 01/01/17 09:35; Admin Dose 100 MG; Start 12/21/16 at 09:00 Senna (Senokot) 1 tab HS PO Last administered on 12/31/16 21:02; Admin Dose 1 TAB; Start 12/21/16 at 21:00 Pantoprazole (Protonix Tab) 40 mg BID@06,18 PO Last administered on 01/02/17 06:24; Admin Dose 40 MG; Start 12/22/16 at 18:00 Furosemide (Lasix) 80 mg SuTuThSa@09 PO Last administered on 12/31/16 08:21; Admin Dose 80 MG; Start 12/28/16 at 09:00 Lactulose (Enulose) 20 gm DAILY PO Last administered on 01/01/17 09:35; Admin Dose 20 GM; Start 12/29/16 at 09:00 Metoclopramide HCl 5 mg 5 mg Q6 IV Last administered on 01/02/17 12:27; Admin Dose 5 MG; Start 12/28/16 at 18:00 Ferric Sodium Gluconate Complex/ Sodium Chloride (Ferrlecit/NS) 110 ml @ 110 mls/hr Q24H IVPB Last administered on 9/26/17at 10:50; Admin Dose 110 MLS/HR; Start 01/01/17 at 11:00; Stop 01/05/17 at 11:59 Sucralfate (Carafate Susp) 1 gm QID GTB ; Start 01/02/17 at 17:00 Hammad Hernandez DO Jan 02, 2017 16:25
[2017-01-02] MEDS: SUCRALFATE (100 MG/ML) 10ML CUP GTB SCH ×2 (17:49→21:09)
[2017-01-02] MEDS: SENNA TAB PO SCH (21:09)
[2017-01-03] VITALS (12 sets, daily range): BP systolic 110–160; BP diastolic 58–77; PULSE 75–91; RESP 18–19
[2017-01-03] MEDS: METOCLOPRAMIDE 10 MG INJ IV SCH ×4 (00:15→18:19)
[2017-01-03] MEDS: LEVOTHYROXINE 150 MCG TAB PO SCH (06:21)
[2017-01-03] MEDS: PANTOPRAZOLE (EC) 40 MG TAB PO SCH ×2 (06:21→18:09)
[2017-01-03 07:38] LABS: ABNORMAL IP MESSAGE 1; BASOPHILS % 0.4 % (0.0-2.0); EOSINOPHILS # 0.3 10^3/ul (0.0-0.5); EOSINOPHILS % 4.7 % (0.0-7.0); HEMATOCRIT 28.5 % (42.0-52.0); HEMOGLOBIN 8.7 g/dl (14.0-18.0); LYMPHOCYTES # 0.6 10^3/ul (0.8-2.9); LYMPHOCYTES % 10.4 % (15.0-51.0); MEAN CORPUSCULAR HEMOGLOBIN 32.1 pg (29.0-33.0); MEAN CORPUSCULAR HGB CONC 30.5 g/dl (32.0-37.0); MEAN CORPUSCULAR VOLUME 105.2 fl (82.0-101.0); MEAN PLATELET VOLUME 10.2 fl (7.4-10.4); MONOCYTE # 0.5 10^3/ul (0.3-0.9); MONOCYTES % 8.9 % (0.0-11.0); NEUTROPHIL # 4.1 10^3/ul (1.6-7.5); NEUTROPHILS % 75.2 % (39.0-77.0); PLATELET COUNT 139 10^3/UL (140-415); POSITIVE DIFF @See below; RED BLOOD COUNT 2.71 10^6/ul (4.70-6.10); RED CELL DISTRIBUTION WIDTH 17.3 % (11.5-14.5); WHITE BLOOD COUNT 5.5 10^3/ul (4.8-10.8)
--- NOTE | 2017-01-03 07:39 | CONS ---
Date/Time of Note Date/Time of Note DATE: 01/03/17 TIME: 07:36 Consult Date/Type/Reason Admit Date/Time Dec 20, 2016 at 21:28 Type of Consultation: GI Subjective No problem post EGD Tolerating diet No gross bleeding Objective Vital Signs Date Time Temp Pulse Resp B/P Pulse Ox O2 Delivery O2 Flow Rate FiO2 01/03/17 02:00 98.0 64 18 130/70 98 01/02/17 16:31 Room Air 01/02/17 15:20 2.0 01/01/17 17:20 21 Abdomen: soft, non tender Intake and Output 01/02/17 01/02/17 01/03/17 15:00 23:00 07:00 Intake Total 230 ml 0 ml 240 ml Output Total 480 ml Balance 230 ml 0 ml -240 ml Results/Medications Result Diagram: 01/02/17 0548 01/01/17 2111 Results 24 hrs Laboratory Tests Test 01/02/17 13:05 01/02/17 14:14 01/03/17 06:14 01/03/17 06:18 Bedside Glucose 76 73 Lab Scanned Report BLOOD TRANSFUSION White Blood Count Pending Red Blood Count Pending Hemoglobin Pending Hematocrit Pending Mean Corpuscular Volume Pending Mean Corpuscular Hemoglobin Pending Mean Corpuscular Hemoglobin Concent Pending Red Cell Distribution Width Pending Platelet Count Pending Mean Platelet Volume Pending Medications Current Medications Guaifenesin/ Codeine Phosphate (Robitussin Ac Liquid Cup) 5 ml Q4H PRN PO COUGH Last administered on 01/02/17 01:02; Admin Dose 5 ML; Start 12/20/16 at 22:00 Cyanocobalamin (Vitamin B12 Inj) 1,000 mcg Q7D IM Last administered on 08:17; Admin Dose 1,000 MCG; Start 12/23/16 at 09:00 Salmeterol Xinafoate/ Fluticasone (Advair 250/50 Diskus) 1 inh BID INH Last administered on 01/02/17 21:09; Admin Dose 1 INH; Start 12/21/16 at 09:00 Ondansetron HCl (Zofran Inj) 4 mg Q4H PRN IV NAUSEA AND/OR VOMITING Last administered on 01/02/17 08:37; Admin Dose 4 MG; Start 12/20/16 at 22:00 Zolpidem Tartrate (Ambien) 10 mg HS PRN PO INSOMNIA; Start 12/20/16 at 22:00 Carvedilol (Coreg) 25 mg DAILY PO Last administered on 01/01/17 09:35; Admin Dose 25 MG; Start 12/21/16 at 09:00 Clopidogrel Bisulfate (plaVIX) 75 mg DAILY PO Last administered on 01/01/17 09 :35; Admin Dose 75 MG; Start 12/21/16 at 09:00; Status Future hold Levothyroxine Sodium (Synthroid) 150 mcg DAILY@06 PO Last administered on 06:21; Admin Dose 150 MCG; Start 12/21/16 at 06:00 Fenofibrate (Tricor) 145 mg DAILY PO Last administered on 01/01/17 09:35; Admin Dose 145 MG; Start 12/21/16 at 09:00 Lisinopril (Zestril) 10 mg BID PO Last administered on 01/02/17 21:09; Admin Dose 10 MG; Start 12/21/16 at 09:00 Bisacodyl (Dulcolax Supp) 10 mg DAILY PRN [place] CONSTIPATION; Start 12/20/16 at 22 :30 Epoetin Stas (Epogen (Esrd)) 10,000 units MoWeFr@17 SC Last administered on 16:03; Admin Dose 10,000 UNITS; Start 12/22/16 at 17:00 Tramadol HCl (Ultram) 50 mg Q6H PRN PO PAIN Last administered on 01/01/17 18: 52; Admin Dose 50 MG; Start 12/20/16 at 22:30 Bupropion HCl (Wellbutrin Xl) 150 mg QAM PO Last administered on 01/01/17 09: 35; Admin Dose 150 MG; Start 12/21/16 at 09:00 Acetaminophen (Tylenol Tab) 650 mg Q4H PRN PO PAIN; Start 12/21/16 at 04:40 Docusate Sodium (Colace) 100 mg BID PO Last administered on 01/02/17 21:09; Admin Dose 100 MG; Start 12/21/16 at 09:00 Senna (Senokot) 1 tab HS PO Last administered on 01/02/17 21:09; Admin Dose 1 TAB; Start 12/21/16 at 21:00 Pantoprazole (Protonix Tab) 40 mg BID@06,18 PO Last administered on 01/03/17 06:21; Admin Dose 40 MG; Start 12/22/16 at 18:00 Furosemide (Lasix) 80 mg SuTuThSa@09 PO Last administered on 12/31/16 08:21; Admin Dose 80 MG; Start 12/28/16 at 09:00 Lactulose (Enulose) 20 gm DAILY PO Last administered on 01/01/17 09:35; Admin Dose 20 GM; Start 12/29/16 at 09:00 Metoclopramide HCl 5 mg 5 mg Q6 IV Last administered on 01/03/17 06:22; Admin Dose 5 MG; Start 12/28/16 at 18:00 Ferric Sodium Gluconate Complex/ Sodium Chloride (Ferrlecit/NS) 110 ml @ 110 mls/hr Q24H IVPB Last administered on 01/02/17 10:50; Admin Dose 110 MLS/HR; Start 01/01/17 at 11:00; Stop 01/05/17 at 11:59 Sucralfate (Carafate Susp) 1 gm QID GTB Last administered on 01/02/17 21:09; Admin Dose 1 GM; Start 01/02/17 at 17:00 Assessment/Plan Chief Complaint/Hosp Course Impression: Erosive Gastritis - likely reason for bleeding Nausea / Vomiting - no further symptoms Plan: Await repeat Hct, biopsy and brushing results Continue protonix and carafate Given that he has never had a colonoscopy, would consider at one point pending clinical course Problems: JD RAYMOND MD Jan 03, 2017 07:39
[2017-01-03] MEDS: LISINOPRIL 10 MG TAB PO SCH ×2 (09:00→20:20)
[2017-01-03] MEDS: BUPROPION (XL) 150 MG TAB PO SCH (09:01)
[2017-01-03] MEDS: SUCRALFATE (100 MG/ML) 10ML CUP GTB SCH ×4 (09:01→20:20)
[2017-01-03] MEDS: FENOFIBRATE 145 MG TAB PO SCH (09:01)
[2017-01-03] MEDS: LACTULOSE 30ML CUP PO SCH (09:01)
[2017-01-03] MEDS: SALMETEROL/FLUTICASONE 250/50 INHA INH SCH ×2 (09:01→20:20)
[2017-01-03] MEDS: DOCUSATE SODIUM 100 MG CAP PO SCH ×2 (09:02→20:20)
[2017-01-03] MEDS: SOD FERRIC GLUC COMPLX 125 MG in SOD CHLORIDE 0.9% 100 ML IVPB SCH (11:20)
--- NOTE | 2017-01-03 11:58 | CONS ---
Date/Time of Note Date/Time of Note DATE: 01/03/17 TIME: 11:50 Assessment/Plan Assessment/Plan Chief Complaint/Hosp Course 1. End-stage renal disease. This patient is going to have hemodialysis today which is his routine day . 2. EGD done yesterday shows erosive gastritis . He is now on Carafate .. 3. Constipation , improved . 4. Hypertension 5. Diabetes mellitus 6. neck pain , w/u and treatment is in progress . 7. S/P L CVA with R sided weakness Problems: Consultation Date/Type/Reason Admit Date/Time Dec 20, 2016 at 21:28 Type of Consultation: GI 24 HR Interval Summary Free Text/Dictation He is feeling overall better ; however , he has some neck pain . EGD done yesterday showed erosive esophagitis . He is due for dialysis today . Constitutional: no complaints Exam/Review of Systems Vital Signs Vitals Vital Signs Date Time Temp Pulse Resp B/P Pulse Ox O2 Delivery O2 Flow Rate FiO2 01/03/17 08:00 97.4 88 18 160/74 98 01/02/17 16:31 Room Air 01/02/17 15:20 2.0 01/01/17 17:20 21 Intake and Output 01/02/17 01/02/17 01/03/17 15:00 23:00 07:00 Intake Total 230 ml 0 ml 240 ml Output Total 480 ml Balance 230 ml 0 ml -240 ml Exam L BKA Constitutional: alert, frail, oriented ENMT: nl external ears & nose, nl lips & teeth, nl nasal mucosa & septum Respiratory: clear to auscultation, normal air movement Cardiovascular: regular rate and rhythm Gastrointestinal: non-tender, soft Results Result Diagram: 01/03/17 0618 01/01/171 Results 24 hrs Laboratory Tests Test 01/02/17 13:05 01/02/17 14:14 01/03/17 06:14 01/03/17 06:18 Bedside Glucose 76 73 Lab Scanned Report BLOOD TRANSFUSION White Blood Count 5.5 Red Blood Count 2.71 L Hemoglobin 8.7 L Hematocrit 28.5 L Mean Corpuscular Volume 105.2 H Mean Corpuscular Hemoglobin 32.1 Mean Corpuscular Hemoglobin Concent 30.5 L Red Cell Distribution Width 17.3 H Platelet Count 139 L Mean Platelet Volume 10.2 Neutrophils % 75.2 Lymphocytes % 10.4 L Monocytes % 8.9 Eosinophils % 4.7 Basophils % 0.4 Nucleated Red Blood Cells % 0.0 Neutrophils # 4.1 Lymphocytes # 0.6 L Monocytes # 0.5 Eosinophils # 0.3 Basophils # 0.0 Nucleated Red Blood Cells # 0.0 Medications Medications Current Medications Guaifenesin/ Codeine Phosphate (Robitussin Ac Liquid Cup) 5 ml Q4H PRN PO COUGH Last administered on 01/02/17 01:02; Admin Dose 5 ML; Start 12/20/16 at 22:00 Cyanocobalamin (Vitamin B12 Inj) 1,000 mcg Q7D IM Last administered on 08:17; Admin Dose 1,000 MCG; Start 12/23/16 at 09:00 Salmeterol Xinafoate/ Fluticasone (Advair 250/50 Diskus) 1 inh BID INH Last administered on 01/03/17 09:01; Admin Dose 1 INH; Start 12/21/16 at 09:00 Ondansetron HCl (Zofran Inj) 4 mg Q4H PRN IV NAUSEA AND/OR VOMITING Last administered on 01/02/17 08:37; Admin Dose 4 MG; Start 12/20/16 at 22:00 Zolpidem Tartrate (Ambien) 10 mg HS PRN PO INSOMNIA; Start 12/20/16 at 22:00 Carvedilol (Coreg) 25 mg DAILY PO Last administered on 01/01/17 09:35; Admin Dose 25 MG; Start 12/21/16 at 09:00 Clopidogrel Bisulfate (plaVIX) 75 mg DAILY PO Last administered on 01/01/17 09 :35; Admin Dose 75 MG; Start 12/21/16 at 09:00; Status Future hold Levothyroxine Sodium (Synthroid) 150 mcg DAILY@06 PO Last administered on 06:21; Admin Dose 150 MCG; Start 12/21/16 at 06:00 Fenofibrate (Tricor) 145 mg DAILY PO Last administered on 01/03/17 09:01; Admin Dose 145 MG; Start 12/21/16 at 09:00 Lisinopril (Zestril) 10 mg BID PO Last administered on 01/02/17 21:09; Admin Dose 10 MG; Start 12/21/16 at 09:00 Bisacodyl (Dulcolax Supp) 10 mg DAILY PRN [place] CONSTIPATION; Start 12/20/16 at 22 :30 Epoetin Stas (Epogen (Esrd)) 10,000 units MoWeFr@17 SC Last administered on 16:03; Admin Dose 10,000 UNITS; Start 12/22/16 at 17:00 Tramadol HCl (Ultram) 50 mg Q6H PRN PO PAIN Last administered on 01/01/17 18: 52; Admin Dose 50 MG; Start 12/20/16 at 22:30 Bupropion HCl (Wellbutrin Xl) 150 mg QAM PO Last administered on 01/03/17 09: 01; Admin Dose 150 MG; Start 12/21/16 at 09:00 Acetaminophen (Tylenol Tab) 650 mg Q4H PRN PO PAIN; Start 12/21/16 at 04:40 Docusate Sodium (Colace) 100 mg BID PO Last administered on 01/03/17 09:02; Admin Dose 100 MG; Start 12/21/16 at 09:00 Senna (Senokot) 1 tab HS PO Last administered on 01/02/17 21:09; Admin Dose 1 TAB; Start 12/21/16 at 21:00 Pantoprazole (Protonix Tab) 40 mg BID@06,18 PO Last administered on 01/03/17 06:21; Admin Dose 40 MG; Start 12/22/16 at 18:00 Furosemide (Lasix) 80 mg SuTuThSa@09 PO Last administered on 12/31/16 08:21; Admin Dose 80 MG; Start 12/28/16 at 09:00 Lactulose (Enulose) 20 gm DAILY PO Last administered on 01/03/17 09:01; Admin Dose 20 GM; Start 12/29/16 at 09:00 Metoclopramide HCl 5 mg 5 mg Q6 IV Last administered on 01/03/17 06:22; Admin Dose 5 MG; Start 12/28/16 at 18:00 Ferric Sodium Gluconate Complex/ Sodium Chloride (Ferrlecit/NS) 110 ml @ 110 mls/hr Q24H IVPB Last administered on 01/03/17 11:20; Admin Dose 110 MLS/HR; Start 01/01/17 at 11:00; Stop 01/05/17 at 11:59 Sucralfate (Carafate Susp) 1 gm QID GTB Last administered on 01/03/17t 09:01; Admin Dose 1 GM; Start 01/02/17 at 17:00 SABA AMEZCUA MD Jan 03, 2017 11:58
--- NOTE | 2017-01-03 12:10 | CONS ---
Date/Time of Note Date/Time of Note DATE: 01/03/17 TIME: 12:09 Consult Date/Type/Reason Admit Date/Time Dec 20, 2016 at 21:28 Type of Consultation: GI Subjective reports some neck discomfort, long standing denies radiation of pain or chagne in motor strength Objective pulm-cta abd- soft Vital Signs Date Time Temp Pulse Resp B/P Pulse Ox O2 Delivery O2 Flow Rate FiO2 01/03/17 08:00 97.4 88 18 160/74 98 01/02/17 16:31 Room Air 01/02/17 15:20 2.0 01/01/17 17:20 21 Intake and Output 01/02/17 01/02/17 01/03/17 15:00 23:00 07:00 Intake Total 230 ml 0 ml 240 ml Output Total 480 ml Balance 230 ml 0 ml -240 ml Results/Medications Result Diagram: 01/03/17 0618 01/01/17 2111 Results 24 hrs Laboratory Tests Test 01/02/17 13:05 01/02/17 14:14 01/03/17 06:14 01/03/17 06:18 Bedside Glucose 76 73 Lab Scanned Report BLOOD TRANSFUSION White Blood Count 5.5 Red Blood Count 2.71 L Hemoglobin 8.7 L Hematocrit 28.5 L Mean Corpuscular Volume 105.2 H Mean Corpuscular Hemoglobin 32.1 Mean Corpuscular Hemoglobin Concent 30.5 L Red Cell Distribution Width 17.3 H Platelet Count 139 L Mean Platelet Volume 10.2 Neutrophils % 75.2 Lymphocytes % 10.4 L Monocytes % 8.9 Eosinophils % 4.7 Basophils % 0.4 Nucleated Red Blood Cells % 0.0 Neutrophils # 4.1 Lymphocytes # 0.6 L Monocytes # 0.5 Eosinophils # 0.3 Basophils # 0.0 Nucleated Red Blood Cells # 0.0 Medications Current Medications Guaifenesin/ Codeine Phosphate (Robitussin Ac Liquid Cup) 5 ml Q4H PRN PO COUGH Last administered on 01/02/17 01:02; Admin Dose 5 ML; Start 12/20/16 at 22:00 Cyanocobalamin (Vitamin B12 Inj) 1,000 mcg Q7D IM Last administered on 08:17; Admin Dose 1,000 MCG; Start 12/23/16 at 09:00 Salmeterol Xinafoate/ Fluticasone (Advair 250/50 Diskus) 1 inh BID INH Last administered on 01/03/17 09:01; Admin Dose 1 INH; Start 12/21/16 at 09:00 Ondansetron HCl (Zofran Inj) 4 mg Q4H PRN IV NAUSEA AND/OR VOMITING Last administered on 01/02/17 08:37; Admin Dose 4 MG; Start 12/20/16 at 22:00 Zolpidem Tartrate (Ambien) 10 mg HS PRN PO INSOMNIA; Start 12/20/16 at 22:00 Carvedilol (Coreg) 25 mg DAILY PO Last administered on 01/01/17 09:35; Admin Dose 25 MG; Start 12/21/16 at 09:00 Clopidogrel Bisulfate (plaVIX) 75 mg DAILY PO Last administered on 01/01/17 09 :35; Admin Dose 75 MG; Start 12/21/16 at 09:00; Status Future hold Levothyroxine Sodium (Synthroid) 150 mcg DAILY@06 PO Last administered on 06:21; Admin Dose 150 MCG; Start 12/21/16 at 06:00 Fenofibrate (Tricor) 145 mg DAILY PO Last administered on 01/03/17 09:01; Admin Dose 145 MG; Start 12/21/16 at 09:00 Lisinopril (Zestril) 10 mg BID PO Last administered on 01/02/17 21:09; Admin Dose 10 MG; Start 12/21/16 at 09:00 Bisacodyl (Dulcolax Supp) [address] [place] CONSTIPATION; Start 12/20/16 at 22 :30 Epoetin Stas (Epogen (Esrd)) 10,000 units MoWeFr@17 SC Last administered on 16:03; Admin Dose 10,000 UNITS; Start 12/22/16 at 17:00 Tramadol HCl (Ultram) 50 mg Q6H PRN PO PAIN Last administered on 01/01/17 18: 52; Admin Dose 50 MG; Start 12/20/16 at 22:30 Bupropion HCl (Wellbutrin Xl) 150 mg QAM PO Last administered on 01/03/17 09: 01; Admin Dose 150 MG; Start 12/21/16 at 09:00 Acetaminophen (Tylenol Tab) 650 mg Q4H PRN PO PAIN; Start 12/21/16 at 04:40 Docusate Sodium (Colace) 100 mg BID PO Last administered on 01/03/17 09:02; Admin Dose 100 MG; Start 12/21/16 at 09:00 Senna (Senokot) 1 tab HS PO Last administered on 01/02/17 21:09; Admin Dose 1 TAB; Start 12/21/16 at 21:00 Pantoprazole (Protonix Tab) 40 mg BID@06,18 PO Last administered on 01/03/17 06:21; Admin Dose 40 MG; Start 12/22/16 at 18:00 Furosemide (Lasix) 80 mg SuTuThSa@09 PO Last administered on 12/31/16 08:21; Admin Dose 80 MG; Start 12/28/16 at 09:00 Lactulose (Enulose) 20 gm DAILY PO Last administered on 01/03/17 09:01; Admin Dose 20 GM; Start 12/29/16 at 09:00 Metoclopramide HCl 5 mg 5 mg Q6 IV Last administered on 01/03/17 06:22; Admin Dose 5 MG; Start 12/28/16 at 18:00 Ferric Sodium Gluconate Complex/ Sodium Chloride (Ferrlecit/NS) 110 ml @ 110 mls/hr Q24H IVPB Last administered on 01/03/17 11:20; Admin Dose 110 MLS/HR; Start 01/01/17 at 11:00; Stop 01/05/17 at 11:59 Sucralfate (Carafate Susp) 1 gm QID GTB Last administered on 01/03/17 09:01; Admin Dose 1 GM; Start 01/02/17 at 17:00 Lidocaine (Lidoderm) 1 patch DAILY TD ; Start 01/03/17 at 13:00 Assessment/Plan Additional Assessment/Plan Rehab- 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 Continue rehab. Will add lidoderm patch for neck discomfort GI- EGD showed gastritis. meds per GI Left BKA with residual limb wound- improving with wound care End-stage renal disease, on hemodialysis per renal COPD. Hyperlipidemia. Diabetes mellitus. History of Riddle's palsy. Peripheral vascular disease. OLESYA ELLIS MD Jan 03, 2017 12:10
[2017-01-03] MEDS: LIDOCAINE 5% PATCH TD SCH (14:17)
--- NOTE | 2017-01-03 15:01 | CONS ---
Date/Time of Note Date/Time of Note DATE: 01/03/17 TIME: 14:56 Consult Date/Type/Reason Admit Date/Time Dec 20, 2016 at 21:28 Initial Consult Date 12/20/2016 Type of Consultation: int med Subjective tired, walked more Objective Vital Signs Date Time Temp Pulse Resp B/P Pulse Ox O2 Delivery O2 Flow Rate FiO2 01/03/17 13:09 75 19 133/77 98 Room Air 01/03/17 08:00 97.4 01/02/17 15:20 2.0 01/01/17 17:20 21 Intake and Output 01/02/17 01/02/17 01/03/17 15:00 23:00 07:00 Intake Total 230 ml 0 ml 240 ml Output Total 480 ml Balance 230 ml 0 ml -240 ml Exam slight bronch wheez, rr syst & diast clicks, rt musc atrophy, lf bka Results/Medications Result Diagram: 01/03/17 0618 01/01/17 2111 Results 24 hrs Laboratory Tests Test 01/03/17 06:14 01/03/17 06:18 Lab Scanned Report BLOOD TRANSFUSION White Blood Count 5.5 Red Blood Count 2.71 L Hemoglobin 8.7 L Hematocrit 28.5 L Mean Corpuscular Volume 105.2 H Mean Corpuscular Hemoglobin 32.1 Mean Corpuscular Hemoglobin Concent 30.5 L Red Cell Distribution Width 17.3 H Platelet Count 139 L Mean Platelet Volume 10.2 Neutrophils % 75.2 Lymphocytes % 10.4 L Monocytes % 8.9 Eosinophils % 4.7 Basophils % 0.4 Nucleated Red Blood Cells % 0.0 Neutrophils # 4.1 Lymphocytes # 0.6 L Monocytes # 0.5 Eosinophils # 0.3 Basophils # 0.0 Nucleated Red Blood Cells # 0.0 Medications Current Medications Guaifenesin/ Codeine Phosphate (Robitussin Ac Liquid Cup) 5 ml Q4H PRN PO COUGH Last administered on 01/02/17 01:02; Admin Dose 5 ML; Start 12/20/16 at 22:00 Cyanocobalamin (Vitamin B12 Inj) 1,000 mcg Q7D IM Last administered on 08:17; Admin Dose 1,000 MCG; Start 12/23/16 at 09:00 Salmeterol Xinafoate/ Fluticasone (Advair 250/50 Diskus) 1 inh BID INH Last administered on 01/03/17 09:01; Admin Dose 1 INH; Start 12/21/16 at 09:00 Ondansetron HCl (Zofran Inj) 4 mg Q4H PRN IV NAUSEA AND/OR VOMITING Last administered on 01/02/17 08:37; Admin Dose 4 MG; Start 12/20/16 at 22:00 Zolpidem Tartrate (Ambien) 10 mg HS PRN PO INSOMNIA; Start 12/20/16 at 22:00 Carvedilol (Coreg) 25 mg DAILY PO Last administered on 01/01/17 09:35; Admin Dose 25 MG; Start 12/21/16 at 09:00 Clopidogrel Bisulfate (plaVIX) 75 mg DAILY PO Last administered on 01/01/17 09 :35; Admin Dose 75 MG; Start 12/21/16 at 09:00; Status Future hold Levothyroxine Sodium (Synthroid) 150 mcg DAILY@06 PO Last administered on 06:21; Admin Dose 150 MCG; Start 12/21/16 at 06:00 Fenofibrate (Tricor) 145 mg DAILY PO Last administered on 01/03/17 09:01; Admin Dose 145 MG; Start 12/21/16 at 09:00 Lisinopril (Zestril) 10 mg BID PO Last administered on 01/02/17 21:09; Admin Dose 10 MG; Start 12/21/16 at 09:00 Bisacodyl (Dulcolax Supp) 10 mg DAILY PRN [place] CONSTIPATION; Start 12/20/16 at 22 :30 Epoetin Stas (Epogen (Esrd)) 10,000 units MoWeFr@17 SC Last administered on 16:03; Admin Dose 10,000 UNITS; Start 12/22/16 at 17:00 Tramadol HCl (Ultram) 50 mg Q6H PRN PO PAIN Last administered on 01/01/17 18: 52; Admin Dose 50 MG; Start 12/20/16 at 22:30 Bupropion HCl (Wellbutrin Xl) 150 mg QAM PO Last administered on 01/03/17 09: 01; Admin Dose 150 MG; Start 12/21/16 at 09:00 Acetaminophen (Tylenol Tab) 650 mg Q4H PRN PO PAIN; Start 12/21/16 at 04:40 Docusate Sodium (Colace) 100 mg BID PO Last administered on 01/03/17 09:02; Admin Dose 100 MG; Start 12/21/16 at 09:00 Senna (Senokot) 1 tab HS PO Last administered on 01/02/17 21:09; Admin Dose 1 TAB; Start 12/21/16 at 21:00 Pantoprazole (Protonix Tab) 40 mg BID@06,18 PO Last administered on 01/03/17 06:21; Admin Dose 40 MG; Start 12/22/16 at 18:00 Furosemide (Lasix) 80 mg SuTuThSa@09 PO Last administered on 12/31/16 08:21; Admin Dose 80 MG; Start 12/28/16 at 09:00 Lactulose (Enulose) 20 gm DAILY PO Last administered on 01/03/17 09:01; Admin Dose 20 GM; Start 12/29/16 at 09:00 Metoclopramide HCl 5 mg 5 mg Q6 IV Last administered on 01/03/17 12:15; Admin Dose 5 MG; Start 12/28/16 at 18:00 Ferric Sodium Gluconate Complex/ Sodium Chloride (Ferrlecit/NS) 110 ml @ 110 mls/hr Q24H IVPB Last administered on 01/03/17 11:20; Admin Dose 110 MLS/HR; Start 01/01/17 at 11:00; Stop 01/05/17 at 11:59 Sucralfate (Carafate Susp) 1 gm QID GTB Last administered on 01/03/17 12:15; Admin Dose 1 GM; Start 01/02/17 at 17:00 Lidocaine (Lidoderm) 1 patch DAILY TD Last administered on 01/03/17 14:17; Admin Dose 1 PATCH; Start 01/03/17 at 13:00 Assessment/Plan Additional Assessment/Plan 1. ugi bleed/ blood in stool/ anemia--after 2u PRBC, still hgb only 8.6 2. cva/ rt weak/ pad 3. esrd/ anemia 4. h/o cad/ copd/ dm/ low t4 5. depression/ impaired mobility ---per GI ---hold all anticoag po, since he receives heparin w/ dialysis 3ds/wk ---per rehab, full pt/ot exercises ---per renal ---cont all supportive cares COLTEN ROMANO MD Jan 03, 2017 15:01
--- NOTE | 2017-01-03 15:08 | CONS ---
Date/Time of Note Date/Time of Note DATE: 01/02/17 TIME: 14:02 Consult Date/Type/Reason Admit Date/Time Dec 20, 2016 at 21:28 Initial Consult Date 12/20/2016 Type of Consultation: int med Subjective feels ok, not too much interest, worried about his Objective Vital Signs Date Time Temp Pulse Resp B/P Pulse Ox O2 Delivery 01/02/17 12:00 101 16 161/82 2.0 21 Intake and Output 01/02/17 15:00 Intake Total 230 ml Output Total Balance 230 ml Exam slight bronch wheez+, rr syst & diast clicks, rt musc atrophy, lf bka Results/Medications Result Diagram: 01/03/17 0618 01/01/17 2111 Results 24 hrs Laboratory Tests Test 01/03/17 06:14 01/03/17 06:18 Lab Scanned Report BLOOD TRANSFUSION White Blood Count 5.5 Red Blood Count 2.71 L Hemoglobin 8.7 L Hematocrit 28.5 L Mean Corpuscular Volume 105.2 H Mean Corpuscular Hemoglobin 32.1 Mean Corpuscular Hemoglobin Concent 30.5 L Red Cell Distribution Width 17.3 H Platelet Count 139 L Mean Platelet Volume 10.2 Neutrophils % 75.2 Lymphocytes % 10.4 L Monocytes % 8.9 Eosinophils % 4.7 Basophils % 0.4 Nucleated Red Blood Cells % 0.0 Neutrophils # 4.1 Lymphocytes # 0.6 L Monocytes # 0.5 Eosinophils # 0.3 Basophils # 0.0 Nucleated Red Blood Cells # 0.0 Medications Current Medications Guaifenesin/ Codeine Phosphate (Robitussin Ac Liquid Cup) 5 ml Q4H PRN PO COUGH Last administered on 01/02/17 01:02; Admin Dose 5 ML; Start 12/20/16 at 22:00 Cyanocobalamin (Vitamin B12 Inj) 1,000 mcg Q7D IM Last administered on 08:17; Admin Dose 1,000 MCG; Start 12/23/16 at 09:00 Salmeterol Xinafoate/ Fluticasone (Advair 250/50 Diskus) 1 inh BID INH Last administered on 01/03/17 09:01; Admin Dose 1 INH; Start 12/21/16 at 09:00 Ondansetron HCl (Zofran Inj) 4 mg Q4H PRN IV NAUSEA AND/OR VOMITING Last administered on 01/02/17 08:37; Admin Dose 4 MG; Start 12/20/16 at 22:00 Zolpidem Tartrate (Ambien) 10 mg HS PRN PO INSOMNIA; Start 12/20/16 at 22:00 Carvedilol (Coreg) 25 mg DAILY PO Last administered on 01/01/17 09:35; Admin Dose 25 MG; Start 12/21/16 at 09:00 Clopidogrel Bisulfate (plaVIX) 75 mg DAILY PO Last administered on 01/01/17 09 :35; Admin Dose 75 MG; Start 12/21/16 at 09:00; Status Future hold Levothyroxine Sodium (Synthroid) 150 mcg DAILY@06 PO Last administered on 06:21; Admin Dose 150 MCG; Start 12/21/16 at 06:00 Fenofibrate (Tricor) 145 mg DAILY PO Last administered on 01/03/17 09:01; Admin Dose 145 MG; Start 12/21/16 at 09:00 Lisinopril (Zestril) 10 mg BID PO Last administered on 01/02/17 21:09; Admin Dose 10 MG; Start 12/21/16 at 09:00 Bisacodyl (Dulcolax Supp) 10 mg DAILY PRN [place] CONSTIPATION; Start 12/20/16 at 22 :30 Epoetin Stas (Epogen (Esrd)) 10,000 units MoWeFr@17 SC Last administered on 16:03; Admin Dose 10,000 UNITS; Start 12/22/16 at 17:00 Tramadol HCl (Ultram) 50 mg Q6H PRN PO PAIN Last administered on 01/01/17 18: 52; Admin Dose 50 MG; Start 12/20/16 at 22:30 Bupropion HCl (Wellbutrin Xl) 150 mg QAM PO Last administered on 01/03/17 09: 01; Admin Dose 150 MG; Start 12/21/16 at 09:00 Acetaminophen (Tylenol Tab) 650 mg Q4H PRN PO PAIN; Start 12/21/16 at 04:40 Docusate Sodium (Colace) 100 mg BID PO Last administered on 01/03/17 09:02; Admin Dose 100 MG; Start 12/21/16 at 09:00 Senna (Senokot) 1 tab HS PO Last administered on 01/02/17 21:09; Admin Dose 1 TAB; Start 12/21/16 at 21:00 Pantoprazole (Protonix Tab) 40 mg BID@06,18 PO Last administered on 01/03/17 06:21; Admin Dose 40 MG; Start 12/22/16 at 18:00 Furosemide (Lasix) 80 mg SuTuThSa@09 PO Last administered on 12/31/16 08:21; Admin Dose 80 MG; Start 12/28/16 at 09:00 Lactulose (Enulose) 20 gm DAILY PO Last administered on 01/03/17 09:01; Admin Dose 20 GM; Start 12/29/16 at 09:00 Metoclopramide HCl 5 mg 5 mg Q6 IV Last administered on 01/03/17 12:15; Admin Dose 5 MG; Start 12/28/16 at 18:00 Ferric Sodium Gluconate Complex/ Sodium Chloride (Ferrlecit/NS) 110 ml @ 110 mls/hr Q24H IVPB Last administered on 01/03/17 11:20; Admin Dose 110 MLS/HR; Start 01/01/17 at 11:00; Stop 01/05/17 at 11:59 Sucralfate (Carafate Susp) 1 gm QID GTB Last administered on 01/03/17 12:15; Admin Dose 1 GM; Start 01/02/17 at 17:00 Lidocaine (Lidoderm) 1 patch DAILY TD Last administered on 01/03/17 14:17; Admin Dose 1 PATCH; Start 01/03/17 at 13:00 Assessment/Plan Additional Assessment/Plan 1. rectal bleed/ anemia--will receive 2u PRBC with dialysis today 2. esrd 3. cva, rt weak, pad 4. depression 5. h/o htn/ cad/ copd/ low t4 ---per GI ---per renal ---per rehab ---set up portable dialysis when pt leaves hospital COLTEN ROMANO MD Jan 03, 2017 15:08
--- NOTE | 2017-01-03 15:12 | CONS ---
Date/Time of Note Date/Time of Note DATE: 01/03/17 TIME: 15:10 Assessment/Plan Assessment/Plan Additional Assessment/Plan Fatigue Compensated systolic congestive heart failure Cardiomyopathy with ejection fraction 45% CAD with history of CABG Peripheral arterial disease End-stage renal disease on hemodialysis Acute blood loss anemia -Blood pressure trend overall remains stable on current cv medication regimen, fluid management via hemodialysis as per our nephrology colleagues. Consultation Date/Type/Reason Admit Date/Time Dec 20, 2016 at 21:28 Type of Consultation: cv 24 HR Interval Summary Free Text/Dictation Denies shortness of breath, chest pain or palpitations Exam/Review of Systems Vital Signs Vitals Vital Signs Date Time Temp Pulse Resp B/P Pulse Ox O2 Delivery O2 Flow Rate FiO2 01/03/17 13:09 75 19 133/77 98 Room Air 01/03/17 08:00 97.4 01/02/17 15:20 2.0 01/01/17 17:20 21 Intake and Output 01/02/17 01/02/17 01/03/17 14:59 22:59 06:59 Intake Total 230 ml 0 ml 240 ml Output Total 480 ml Balance 230 ml 0 ml -240 ml Exam No apparent distress Constitutional: alert, oriented Head: normocephalic Respiratory: other (Coarse breath sounds bilaterally, no wheezing) Cardiovascular: other (S1-S2 heard), regular rate and rhythm Gastrointestinal: bowel sounds, non-tender, soft Extremities: edema Results Result Diagram: 01/03/1718 01/01/17 2111 Results 24 hrs Laboratory Tests Test 01/03/17 06:14 01/03/17 06:18 Lab Scanned Report BLOOD TRANSFUSION White Blood Count 5.5 Red Blood Count 2.71 L Hemoglobin 8.7 L Hematocrit 28.5 L Mean Corpuscular Volume 105.2 H Mean Corpuscular Hemoglobin 32.1 Mean Corpuscular Hemoglobin Concent 30.5 L Red Cell Distribution Width 17.3 H Platelet Count 139 L Mean Platelet Volume 10.2 Neutrophils % 75.2 Lymphocytes % 10.4 L Monocytes % 8.9 Eosinophils % 4.7 Basophils % 0.4 Nucleated Red Blood Cells % 0.0 Neutrophils # 4.1 Lymphocytes # 0.6 L Monocytes # 0.5 Eosinophils # 0.3 Basophils # 0.0 Nucleated Red Blood Cells # 0.0 Medications Medications Current Medications Guaifenesin/ Codeine Phosphate (Robitussin Ac Liquid Cup) 5 ml Q4H PRN PO COUGH Last administered on 01/02/17 01:02; Admin Dose 5 ML; Start 12/20/16 at 22:00 Cyanocobalamin (Vitamin B12 Inj) 1,000 mcg Q7D IM Last administered on 08:17; Admin Dose 1,000 MCG; Start 12/23/16 at 09:00 Salmeterol Xinafoate/ Fluticasone (Advair 250/50 Diskus) 1 inh BID INH Last administered on 01/03/17 09:01; Admin Dose 1 INH; Start 12/21/16 at 09:00 Ondansetron HCl (Zofran Inj) 4 mg Q4H PRN IV NAUSEA AND/OR VOMITING Last administered on 01/02/17 08:37; Admin Dose 4 MG; Start 12/20/16 at 22:00 Zolpidem Tartrate (Ambien) 10 mg HS PRN PO INSOMNIA; Start 12/20/16 at 22:00 Carvedilol (Coreg) 25 mg DAILY PO Last administered on 01/01/17 09:35; Admin Dose 25 MG; Start 12/21/16 at 09:00 Clopidogrel Bisulfate (plaVIX) 75 mg DAILY PO Last administered on 01/01/17 09 :35; Admin Dose 75 MG; Start 12/21/16 at 09:00; Status Future hold Levothyroxine Sodium (Synthroid) 150 mcg DAILY@06 PO Last administered on 06:21; Admin Dose 150 MCG; Start 12/21/16 at 06:00 Fenofibrate (Tricor) 145 mg DAILY PO Last administered on 01/03/17 09:01; Admin Dose 145 MG; Start 12/21/16 at 09:00 Lisinopril (Zestril) 10 mg BID PO Last administered on 01/02/17 21:09; Admin Dose 10 MG; Start 12/21/16 at 09:00 Bisacodyl (Dulcolax Supp) 10 mg DAILY PRN [place] CONSTIPATION; Start 12/20/16 at 22 :30 Epoetin Stas (Epogen (Esrd)) 10,000 units MoWeFr@17 SC Last administered on 16:03; Admin Dose 10,000 UNITS; Start 12/22/16 at 17:00 Tramadol HCl (Ultram) 50 mg Q6H PRN PO PAIN Last administered on 01/01/17 18: 52; Admin Dose 50 MG; Start 12/20/16 at 22:30 Bupropion HCl (Wellbutrin Xl) 150 mg QAM PO Last administered on 01/03/17 09: 01; Admin Dose 150 MG; Start 12/21/16 at 09:00 Acetaminophen (Tylenol Tab) 650 mg Q4H PRN PO PAIN; Start 12/21/16 at 04:40 Docusate Sodium (Colace) 100 mg BID PO Last administered on 01/03/17 09:02; Admin Dose 100 MG; Start 12/21/16 at 09:00 Senna (Senokot) 1 tab HS PO Last administered on 01/02/17 21:09; Admin Dose 1 TAB; Start 12/21/16 at 21:00 Pantoprazole (Protonix Tab) 40 mg BID@06,18 PO Last administered on 01/03/17 06:21; Admin Dose 40 MG; Start 12/22/16 at 18:00 Furosemide (Lasix) 80 mg SuTuThSa@09 PO Last administered on 12/31/16 08:21; Admin Dose 80 MG; Start 12/28/16 at 09:00 Lactulose (Enulose) 20 gm DAILY PO Last administered on 01/03/17 09:01; Admin Dose 20 GM; Start 12/29/16 at 09:00 Metoclopramide HCl 5 mg 5 mg Q6 IV Last administered on 01/03/17 12:15; Admin Dose 5 MG; Start 12/28/16 at 18:00 Ferric Sodium Gluconate Complex/ Sodium Chloride (Ferrlecit/NS) 110 ml @ 110 mls/hr Q24H IVPB Last administered on 01/03/17 11:20; Admin Dose 110 MLS/HR; Start 01/01/17 at 11:00; Stop 01/05/17 at 11:59 Sucralfate (Carafate Susp) 1 gm QID GTB Last administered on 01/03/17 12:15; Admin Dose 1 GM; Start 01/02/17 at 17:00 Lidocaine (Lidoderm) 1 patch DAILY TD Last administered on 9/27/17at 14:17; Admin Dose 1 PATCH; Start 01/03/17 at 13:00 Hammad Hernandez DO Jan 03, 2017 15:12
[2017-01-03] MEDS ORDERED: POTASSIUM BICARBONATE 25 MEQ TAB PO ONE (15:30)
--- NOTE | 2017-01-03 15:42 | RADRPT ---
PROCEDURE: XR Cervical Spine. CLINICAL INDICATION: Cervical spine pain. TECHNIQUE: AP, lateral and odontoid views of the cervical spine were performed. The images were re viewed on a PACS workstation. COMPARISON: None available FINDINGS: The cervical spine is seen to the level of C5, with the clavicles overlying the C6 and C7 vertebral bodies. There is straightening of the cervical spine, with suggestion of exaggerated thoracic kyphos is. There are small anterior osteophytes with mild disc-space narrowing C4-5 and C5-6. The vertebr al body heights appear maintained. There is diffuse moderate osteopenia. There is no evidence of fra cture or dislocation. There is diffuse mild facet arthropathy. There is preservation of the remainin g intervertebral disc spaces. There are no abnormal calcifications. The prevertebral soft tissues ar e normal. No radiopaque foreign bodies are identified. IMPRESSION: 1. Partial visualization of the cervical spine, likely related to patient positioning/portable tech nique. If clinical concern for injury at C6 or C7, CT is recommended for further evaluation. 2. Mild to moderate spondylosis/degenerative enthesopathy at C4-5 and C5-6. 3. Diffuse mild facet spondylosis . 4. No acute fracture. 5. Diffuse moderate osteopenia. RPTAT: HGAS .Teo Gastelum MD, Date Time Electronically viewed and signed by .Teo Gastelum MD, on 01/03/2017 15:42 .S/
[2017-01-03] MEDS: GUAIFENESIN/CODEINE 5ML CUP PO PRN ×2 (18:07→22:25)
[2017-01-03] MEDS: SENNA TAB PO SCH (20:20)
[2017-01-03] MEDS: EPOETIN 10000 UNITS/1 ML INJ (ESRD) SC SCH (20:22)
--- NOTE | 2017-01-03 20:22 | PN ---
DATE: 01/03/2017 PSYCHOLOGY - INDIVIDUAL SESSION [id number]: This is a followup on a patient who was seen last week. The patient was seen in bed. His mood continues to improve. The patient's family was visiting. He felt very good about having people around him and felt like he was making progress. The patient does want to leave the program as soon as possible, but does see the progress that he has made. I worked with the patient to help continue to support his mood that dealt with the idea that his mood would continue to be increasing in a positive direction as his physical health increased. Dictated By: Lloyd Holloway, PHD /anna/aureliano /Document#: [id number]
[2017-01-04] MEDS: METOCLOPRAMIDE 10 MG INJ IV SCH ×3 (00:18→12:18)
[2017-01-04 02:00] VITALS: BP 138/69; RESP 18
[2017-01-04] MEDS: GUAIFENESIN/CODEINE 5ML CUP PO PRN ×4 (04:24→20:23)
[2017-01-04] MEDS: LEVOTHYROXINE 150 MCG TAB PO SCH (05:57)
[2017-01-04] MEDS: PANTOPRAZOLE (EC) 40 MG TAB PO SCH ×2 (05:57→17:40)
[2017-01-04 07:20] LABS: HEMATOCRIT 26.7 % (42.0-52.0); HEMOGLOBIN 8.2 g/dl (14.0-18.0)
[2017-01-04 07:30] VITALS: BP 142/70; RESP 20
--- NOTE | 2017-01-04 07:40 | CONS ---
Date/Time of Note Date/Time of Note DATE: 01/04/17 TIME: 07:36 Consult Date/Type/Reason Admit Date/Time Dec 20, 2016 at 21:28 Type of Consultation: GI Subjective No complaints Objective Vital Signs Date Time Temp Pulse Resp B/P Pulse Ox O2 Delivery O2 Flow Rate FiO2 01/04/17 02:00 98.5 82 18 138/69 95 01/03/17 13:09 Room Air 01/02/17 15:20 2.0 01/01/17 17:20 21 Abdomen: non tender Intake and Output 01/03/17 01/03/17 01/04/17 15:00 23:00 07:00 Intake Total 960 ml 860 ml 760 ml Output Total 470 ml 3000 ml 180 ml Balance 490 ml -2140 ml 580 ml Results/Medications Result Diagram: 01/04/17 0557 01/01/17 2111 Results 24 hrs Laboratory Tests Test 01/04/17 05:57 Hemoglobin 8.2 L Hematocrit 26.7 L Medications Current Medications Guaifenesin/ Codeine Phosphate (Robitussin Ac Liquid Cup) 5 ml Q4H PRN PO COUGH Last administered on 01/04/17 04:24; Admin Dose 5 ML; Start 12/20/16 at 22:00 Cyanocobalamin (Vitamin B12 Inj) 1,000 mcg Q7D IM Last administered on 08:17; Admin Dose 1,000 MCG; Start 12/23/16 at 09:00 Salmeterol Xinafoate/ Fluticasone (Advair 250/50 Diskus) 1 inh BID INH Last administered on 01/03/17 20:20; Admin Dose 1 INH; Start 12/21/16 at 09:00 Ondansetron HCl (Zofran Inj) 4 mg Q4H PRN IV NAUSEA AND/OR VOMITING Last administered on 01/02/17 08:37; Admin Dose 4 MG; Start 12/20/16 at 22:00 Zolpidem Tartrate (Ambien) 10 mg HS PRN PO INSOMNIA; Start 12/20/16 at 22:00 Carvedilol (Coreg) 25 mg DAILY PO Last administered on 01/01/17 09:35; Admin Dose 25 MG; Start 12/21/16 at 09:00 Clopidogrel Bisulfate (plaVIX) 75 mg DAILY PO Last administered on 01/01/17 09 :35; Admin Dose 75 MG; Start 12/21/16 at 09:00; Status Future hold Levothyroxine Sodium (Synthroid) 150 mcg DAILY@06 PO Last administered on 05:57; Admin Dose 150 MCG; Start 12/21/16 at 06:00 Fenofibrate (Tricor) 145 mg DAILY PO Last administered on 01/03/17 09:01; Admin Dose 145 MG; Start 12/21/16 at 09:00 Lisinopril (Zestril) 10 mg BID PO Last administered on 01/03/17 20:20; Admin Dose 10 MG; Start 12/21/16 at 09:00 Bisacodyl (Dulcolax Supp) 10 mg DAILY PRN [place] CONSTIPATION; Start 12/20/16 at 22 :30 Epoetin Stas (Epogen (Esrd)) 10,000 units MoWeFr@17 SC Last administered on 20:22; Admin Dose 10,000 UNITS; Start 12/22/16 at 17:00 Tramadol HCl (Ultram) 50 mg Q6H PRN PO PAIN Last administered on 01/01/17 18: 52; Admin Dose 50 MG; Start 12/20/16 at 22:30; Status Future Hold Bupropion HCl (Wellbutrin Xl) 150 mg QAM PO Last administered on 01/03/17 09: 01; Admin Dose 150 MG; Start 12/21/16 at 09:00 Acetaminophen (Tylenol Tab) 650 mg Q4H PRN PO PAIN; Start 12/21/16 at 04:40 Docusate Sodium (Colace) 100 mg BID PO Last administered on 01/03/17 20:20; Admin Dose 100 MG; Start 12/21/16 at 09:00 Senna (Senokot) 1 tab HS PO Last administered on 01/03/17 20:20; Admin Dose 1 TAB; Start 12/21/16 at 21:00 Pantoprazole (Protonix Tab) 40 mg BID@06,18 PO Last administered on 01/04/17 05:57; Admin Dose 40 MG; Start 12/22/16 at 18:00 Furosemide (Lasix) 80 mg SuTuThSa@09 PO Last administered on 12/31/16 08:21; Admin Dose 80 MG; Start 12/28/16 at 09:00 Lactulose (Enulose) 20 gm DAILY PO Last administered on 01/03/17 09:01; Admin Dose 20 GM; Start 12/29/16 at 09:00 Metoclopramide HCl 5 mg 5 mg Q6 IV Last administered on 01/04/17 05:57; Admin Dose 5 MG; Start 12/28/16 at 18:00 Ferric Sodium Gluconate Complex/ Sodium Chloride (Ferrlecit/NS) 110 ml @ 110 mls/hr Q24H IVPB Last administered on 01/03/17 11:20; Admin Dose 110 MLS/HR; Start 01/01/17 at 11:00; Stop 01/05/17 at 11:59 Sucralfate (Carafate Susp) 1 gm QID GTB Last administered on 01/03/17 20:20; Admin Dose 1 GM; Start 01/02/17 at 17:00 Lidocaine (Lidoderm) 1 patch DAILY TD Last administered on 01/03/17 14:17; Admin Dose 1 PATCH; Start 01/03/17 at 13:00 Fluconazole (Diflucan) 100 mg DAILY PO ; Start 01/04/17 at 09:00; Status UNV Assessment/Plan Chief Complaint/Hosp Course Impression: Yolanda Esophagitis - shown on biopsy results Erosive Gastritis - likely reason for bleeding(biopsies do NOT show h p) Nausea / Vomiting - no further symptoms Plan: Start diflucan - have asked pharmacy to get involved re dose adjustment/ interactions Given that he has never had a colonoscopy, would recommend at one point pending clinical course Continue protonix indefinitely I will sign off for now. Will be happy to see again at your request Problems: JD RAYMOND MD Jan 04, 2017 07:40
[2017-01-04 07:42] LABS: CALCIUM 8.6 mg/dl (8.4-10.2); CREATININE 3.74 mg/dl (0.61-1.24); POTASSIUM 3.4 mmol/L (3.5-5.1)
[2017-01-04] MEDS ORDERED: FUROSEMIDE 20 MG TAB ONE (08:56)
--- NOTE | 2017-01-04 09:02 | CONS ---
Date/Time of Note Date/Time of Note DATE: 01/04/17 TIME: 09:00 Assessment/Plan Assessment/Plan Problems: (1) ESRD (end stage renal disease) on dialysis Comment: for HD in am (2) Anemia due to chronic kidney disease Comment: exac by kennedy esoph... now in diflucan per Dr Mcleod Consultation Date/Type/Reason Admit Date/Time Dec 20, 2016 at 21:28 Type of Consultation: renal 24 HR Interval Summary Free Text/Dictation fair.. appetite still not great Exam/Review of Systems Vital Signs Vitals Vital Signs Date Time Temp Pulse Resp B/P Pulse Ox O2 Delivery O2 Flow Rate FiO2 01/04/17 07:30 98.6 85 20 142/70 98 01/03/17 13:09 Room Air 01/02/17 15:20 2.0 01/01/17 17:20 21 Intake and Output 01/03/17 01/03/17 01/04/17 14:59 22:59 06:59 Intake Total 960 ml 860 ml 760 ml Output Total 470 ml 3000 ml 180 ml Balance 490 ml -2140 ml 580 ml Exam Constitutional: alert, oriented Eyes: nl conjunctiva Respiratory: clear to auscultation Cardiovascular: regular rate and rhythm Gastrointestinal: nl liver, spleen, soft Extremities: other (fxn avf LUE) Results Result Diagram: 01/04/17 0557 01/04/17 0557 Results 24 hrs Laboratory Tests Test 01/04/17 05:57 Hemoglobin 8.2 L Hematocrit 26.7 L Sodium Level 136 Potassium Level 3.4 L Chloride Level 99 Carbon Dioxide Level 33 H Anion Gap 7 L Blood Urea Nitrogen 26 H Creatinine 3.74 H Glucose Level 67 L Calcium Level 8.6 Medications Medications Current Medications Guaifenesin/ Codeine Phosphate (Robitussin Ac Liquid Cup) 5 ml Q4H PRN PO COUGH Last administered on 01/04/17 04:24; Admin Dose 5 ML; Start 12/20/16 at 22:00 Cyanocobalamin (Vitamin B12 Inj) 1,000 mcg Q7D IM Last administered on 08:17; Admin Dose 1,000 MCG; Start 12/23/16 at 09:00 Salmeterol Xinafoate/ Fluticasone (Advair 250/50 Diskus) 1 inh BID INH Last administered on 01/03/17 20:20; Admin Dose 1 INH; Start 12/21/16 at 09:00 Ondansetron HCl (Zofran Inj) 4 mg Q4H PRN IV NAUSEA AND/OR VOMITING Last administered on 01/02/17 08:37; Admin Dose 4 MG; Start 12/20/16 at 22:00 Zolpidem Tartrate (Ambien) 10 mg HS PRN PO INSOMNIA; Start 12/20/16 at 22:00 Carvedilol (Coreg) 25 mg DAILY PO Last administered on 01/01/17 09:35; Admin Dose 25 MG; Start 12/21/16 at 09:00 Clopidogrel Bisulfate (plaVIX) 75 mg DAILY PO Last administered on 01/01/17 09 :35; Admin Dose 75 MG; Start 12/21/16 at 09:00; Status Future hold Levothyroxine Sodium (Synthroid) 150 mcg DAILY@06 PO Last administered on 05:57; Admin Dose 150 MCG; Start 12/21/16 at 06:00 Fenofibrate (Tricor) 145 mg DAILY PO Last administered on 01/03/17 09:01; Admin Dose 145 MG; Start 12/21/16 at 09:00 Lisinopril (Zestril) 10 mg BID PO Last administered on 01/03/17 20:20; Admin Dose 10 MG; Start 12/21/16 at 09:00 Bisacodyl (Dulcolax Supp) 10 mg DAILY PRN [place] CONSTIPATION; Start 12/20/16 at 22 :30 Epoetin Stas (Epogen (Esrd)) 10,000 units MoWeFr@17 SC Last administered on 20:22; Admin Dose 10,000 UNITS; Start 12/22/16 at 17:00 Tramadol HCl (Ultram) 50 mg Q6H PRN PO PAIN Last administered on 01/01/17 18: 52; Admin Dose 50 MG; Start 12/20/16 at 22:30; Status Future Hold Bupropion HCl (Wellbutrin Xl) 150 mg QAM PO Last administered on 01/03/17 09: 01; Admin Dose 150 MG; Start 12/21/16 at 09:00 Acetaminophen (Tylenol Tab) 650 mg Q4H PRN PO PAIN; Start 12/21/16 at 04:40 Docusate Sodium (Colace) 100 mg BID PO Last administered on 01/03/17 20:20; Admin Dose 100 MG; Start 12/21/16 at 09:00 Senna (Senokot) 1 tab HS PO Last administered on 01/03/17 20:20; Admin Dose 1 TAB; Start 12/21/16 at 21:00 Pantoprazole (Protonix Tab) 40 mg BID@06,18 PO Last administered on 01/04/17 05:57; Admin Dose 40 MG; Start 12/22/16 at 18:00 Furosemide (Lasix) 80 mg SuTuThSa@09 PO Last administered on 12/31/16 08:21; Admin Dose 80 MG; Start 12/28/16 at 09:00 Lactulose (Enulose) 20 gm DAILY PO Last administered on 01/03/17 09:01; Admin Dose 20 GM; Start 12/29/16 at 09:00 Metoclopramide HCl 5 mg 5 mg Q6 IV Last administered on 01/04/17 05:57; Admin Dose 5 MG; Start 12/28/16 at 18:00 Ferric Sodium Gluconate Complex/ Sodium Chloride (Ferrlecit/NS) 110 ml @ 110 mls/hr Q24H IVPB Last administered on 01/03/17 11:20; Admin Dose 110 MLS/HR; Start 01/01/17 at 11:00; Stop 01/05/17 at 11:59 Sucralfate (Carafate Susp) 1 gm QID GTB Last administered on 01/03/17 20:20; Admin Dose 1 GM; Start 01/02/17 at 17:00 Lidocaine (Lidoderm) 1 patch DAILY TD Last administered on 01/03/17 14:17; Admin Dose 1 PATCH; Start 01/03/17 at 13:00 Fluconazole (Diflucan) 100 mg DAILY PO ; Start 01/04/17 at 09:00; Stop at 08:59 Fluconazole (Diflucan) 100 mg ONCE ONCE PO ; Start 01/04/17 at 21:00; Stop at 21:01 SABINE MIRZA MD Jan 04, 2017 09:02
[2017-01-04] MEDS: SALMETEROL/FLUTICASONE 250/50 INHA INH SCH ×2 (09:10→20:23)
[2017-01-04] MEDS: SUCRALFATE (100 MG/ML) 10ML CUP GTB SCH ×4 (09:11→20:23)
[2017-01-04] MEDS: LACTULOSE 30ML CUP PO SCH (09:11)
[2017-01-04] MEDS: FLUCONAZOLE 100 MG TAB PO SCH (09:12)
[2017-01-04] MEDS: LIDOCAINE 5% PATCH TD SCH (09:12)
[2017-01-04] MEDS: ONDANSETRON 4 MG INJ IV PRN (09:12)
[2017-01-04] MEDS: DOCUSATE SODIUM 100 MG CAP PO SCH ×2 (09:12→20:23)
[2017-01-04] MEDS: BUPROPION (XL) 150 MG TAB PO SCH (09:12)
[2017-01-04] MEDS: FENOFIBRATE 145 MG TAB PO SCH (09:12)
[2017-01-04] MEDS: LISINOPRIL 10 MG TAB PO SCH ×2 (09:13→20:31)
[2017-01-04] MEDS: FUROSEMIDE 40 MG TAB PO SCH (09:13)
[2017-01-04] MEDS: SOD FERRIC GLUC COMPLX 125 MG in SOD CHLORIDE 0.9% 100 ML IVPB SCH (10:14)
--- NOTE | 2017-01-04 11:29 | CONS ---
Date/Time of Note Date/Time of Note DATE: 01/04/17 TIME: 11:27 Consult Date/Type/Reason Admit Date/Time Dec 20, 2016 at 21:28 Type of Consultation: renal Subjective Still with some nausea this am Objective min assist transfer Vital Signs Date Time Temp Pulse Resp B/P Pulse Ox O2 Delivery O2 Flow Rate FiO2 01/04/17 07:30 98.6 85 20 142/70 98 01/03/17 13:09 Room Air 01/02/17 15:20 2.0 01/01/17 17:20 21 Intake and Output 01/03/17 01/03/17 01/04/17 15:00 23:00 07:00 Intake Total 960 ml 860 ml 760 ml Output Total 470 ml 3000 ml 180 ml Balance 490 ml -2140 ml 580 ml Results/Medications Result Diagram: 01/04/17 0557 01/04/17 0557 Results 24 hrs Laboratory Tests Test 01/04/17 05:57 Hemoglobin 8.2 L Hematocrit 26.7 L Sodium Level 136 Potassium Level 3.4 L Chloride Level 99 Carbon Dioxide Level 33 H Anion Gap 7 L Blood Urea Nitrogen 26 H Creatinine 3.74 H Glucose Level 67 L Calcium Level 8.6 Medications Current Medications Guaifenesin/ Codeine Phosphate (Robitussin Ac Liquid Cup) 5 ml Q4H PRN PO COUGH Last administered on 01/04/17 09:11; Admin Dose 5 ML; Start 12/20/16 at 22:00 Cyanocobalamin (Vitamin B12 Inj) 1,000 mcg Q7D IM Last administered on 08:17; Admin Dose 1,000 MCG; Start 12/23/16 at 09:00 Salmeterol Xinafoate/ Fluticasone (Advair 250/50 Diskus) 1 inh BID INH Last administered on 01/04/17 09:10; Admin Dose 1 INH; Start 12/21/16 at 09:00 Ondansetron HCl (Zofran Inj) 4 mg Q4H PRN IV NAUSEA AND/OR VOMITING Last administered on 01/04/17 09:12; Admin Dose 4 MG; Start 12/20/16 at 22:00 Zolpidem Tartrate (Ambien) 10 mg HS PRN PO INSOMNIA; Start 12/20/16 at 22:00 Carvedilol (Coreg) 25 mg DAILY PO Last administered on 01/04/17 09:14; Admin Dose 25 MG; Start 12/21/16 at 09:00 Clopidogrel Bisulfate (plaVIX) 75 mg DAILY PO Last administered on 01/01/17 09 :35; Admin Dose 75 MG; Start 12/21/16 at 09:00; Status Future hold Levothyroxine Sodium (Synthroid) 150 mcg DAILY@06 PO Last administered on 05:57; Admin Dose 150 MCG; Start 12/21/16 at 06:00 Fenofibrate (Tricor) 145 mg DAILY PO Last administered on 01/04/17 09:12; Admin Dose 145 MG; Start 12/21/16 at 09:00 Lisinopril (Zestril) 10 mg BID PO Last administered on 01/04/17 09:13; Admin Dose 10 MG; Start 12/21/16 at 09:00 Bisacodyl (Dulcolax Supp) 10 mg DAILY PRN [place] CONSTIPATION; Start 12/20/16 at 22 :30 Epoetin Stas (Epogen (Esrd)) 10,000 units MoWeFr@17 SC Last administered on 20:22; Admin Dose 10,000 UNITS; Start 12/22/16 at 17:00 Tramadol HCl (Ultram) 50 mg Q6H PRN PO PAIN Last administered on 01/01/17 18: 52; Admin Dose 50 MG; Start 12/20/16 at 22:30; Status Future Hold Bupropion HCl (Wellbutrin Xl) 150 mg QAM PO Last administered on 01/04/17 09: 12; Admin Dose 150 MG; Start 12/21/16 at 09:00 Acetaminophen (Tylenol Tab) 650 mg Q4H PRN PO PAIN; Start 12/21/16 at 04:40 Docusate Sodium (Colace) 100 mg BID PO Last administered on 01/04/17 09:12; Admin Dose 100 MG; Start 12/21/16 at 09:00 Senna (Senokot) 1 tab HS PO Last administered on 01/03/17 20:20; Admin Dose 1 TAB; Start 12/21/16 at 21:00 Pantoprazole (Protonix Tab) 40 mg BID@,18 PO Last administered on 01/04/17 05:57; Admin Dose 40 MG; Start 12/22/16 at 18:00 Furosemide (Lasix) 80 mg SuTuThSa@09 PO Last administered on 01/04/17 09:13; Admin Dose 80 MG; Start 12/28/16 at 09:00 Lactulose (Enulose) 20 gm DAILY PO Last administered on 01/04/17 09:11; Admin Dose 20 GM; Start 12/29/16 at 09:00 Metoclopramide HCl 5 mg 5 mg Q6 IV Last administered on 01/04/17 05:57; Admin Dose 5 MG; Start 12/28/16 at 18:00 Ferric Sodium Gluconate Complex/ Sodium Chloride (Ferrlecit/NS) 110 ml @ 110 mls/hr Q24H IVPB Last administered on 01/04/17 10:14; Admin Dose 110 MLS/HR; Start 01/01/17 at 11:00; Stop 01/05/17 at 11:59 Sucralfate (Carafate Susp) 1 gm QID GTB Last administered on 01/04/17 09:11; Admin Dose 1 GM; Start 01/02/17 at 17:00 Lidocaine (Lidoderm) 1 patch DAILY TD Last administered on 01/04/17 09:12; Admin Dose 1 PATCH; Start 01/03/17 at 13:00 Fluconazole (Diflucan) 100 mg DAILY PO Last administered on 01/04/17 09:12; Admin Dose 100 MG; Start 01/04/17 at 09:00; Stop 01/18/17 at 08:59 Fluconazole (Diflucan) 100 mg ONCE ONCE PO ; Start 01/04/17 at 21:00; Stop at 21:01 Assessment/Plan Additional Assessment/Plan Rehab- 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 Continue rehab activites as tolerated GI- EGD showed gastritis. meds per GI Left BKA with residual limb wound- improving with wound care End-stage renal disease, on hemodialysis per renal COPD. Hyperlipidemia. Diabetes mellitus. History of Riddle's palsy. Peripheral vascular disease. OLESYA ELLIS MD Jan 04, 2017 11:29
[2017-01-04] MEDS ORDERED: POTASSIUM CHLORIDE (SR) 20 MEQ TAB PO STA (13:56)
[2017-01-04 14:00] VITALS: BP 113/55; RESP 20
[2017-01-04] MEDS ORDERED: METOCLOPRAMIDE 5 MG TAB PO PRN (14:00)
[2017-01-04] MEDS ORDERED: ONDANSETRON 4 MG TAB PO PRN (14:00)
--- NOTE | 2017-01-04 14:13 | CONS ---
Date/Time of Note Date/Time of Note DATE: 01/04/17 TIME: 14:06 Consult Date/Type/Reason Admit Date/Time Dec 20, 2016 at 21:28 Initial Consult Date 12/20/2016 Type of Consultation: int med Subjective no n/v/coughs, more energy, still worried for & $, fully participated w/ phys rx, ready to go to snf Objective Vital Signs Date Time Temp Pulse Resp B/P Pulse Ox O2 Delivery O2 Flow Rate FiO2 01/04/17 07:30 98.6 85 20 142/70 98 01/03/17 13:09 Room Air 01/02/17 15:20 2.0 01/01/17 17:20 21 Intake and Output 01/03/17 01/03/17 01/04/17 15:00 23:00 07:00 Intake Total 960 ml 860 ml 760 ml Output Total 470 ml 3000 ml 180 ml Balance 490 ml -2140 ml 580 ml Exam flat affect, lf bka, rt musc atrophy, nl abd, rr syst & diast clicks, cta Results/Medications Result Diagram: 01/04/17 0557 01/04/17 0557 Results 24 hrs Laboratory Tests Test 01/04/17 05:57 Hemoglobin 8.2 L Hematocrit 26.7 L Sodium Level 136 Potassium Level 3.4 L Chloride Level 99 Carbon Dioxide Level 33 H Anion Gap 7 L Blood Urea Nitrogen 26 H Creatinine 3.74 H Glucose Level 67 L Calcium Level 8.6 Medications Current Medications Guaifenesin/ Codeine Phosphate (Robitussin Ac Liquid Cup) 5 ml Q4H PRN PO COUGH Last administered on 01/04/17 09:11; Admin Dose 5 ML; Start 12/20/16 at 22:00 Cyanocobalamin (Vitamin B12 Inj) 1,000 mcg Q7D IM Last administered on 08:17; Admin Dose 1,000 MCG; Start 12/23/16 at 09:00 Salmeterol Xinafoate/ Fluticasone (Advair 250/50 Diskus) 1 inh BID INH Last administered on 01/04/17 09:10; Admin Dose 1 INH; Start 12/21/16 at 09:00 Zolpidem Tartrate (Ambien) 10 mg HS PRN PO INSOMNIA; Start 12/20/16 at 22:00 Carvedilol (Coreg) 25 mg DAILY PO Last administered on 01/04/17 09:14; Admin Dose 25 MG; Start 12/21/16 at 09:00 Clopidogrel Bisulfate (plaVIX) 75 mg DAILY PO Last administered on 01/01/17 09 :35; Admin Dose 75 MG; Start 12/21/16 at 09:00; Status Future hold Levothyroxine Sodium (Synthroid) 150 mcg DAILY@06 PO Last administered on 05:57; Admin Dose 150 MCG; Start 12/21/16 at 06:00 Fenofibrate (Tricor) 145 mg DAILY PO Last administered on 01/04/17 09:12; Admin Dose 145 MG; Start 12/21/16 at 09:00 Lisinopril (Zestril) 10 mg BID PO Last administered on 01/04/17 09:13; Admin Dose 10 MG; Start 12/21/16 at 09:00 Bisacodyl (Dulcolax Supp) 10 mg DAILY PRN [place] CONSTIPATION; Start 12/20/16 at 22 :30 Epoetin Stas (Epogen (Esrd)) 10,000 units MoWeFr@17 SC Last administered on 20:22; Admin Dose 10,000 UNITS; Start 12/22/16 at 17:00 Tramadol HCl (Ultram) 50 mg Q6H PRN PO PAIN Last administered on 01/01/17 18: 52; Admin Dose 50 MG; Start 12/20/16 at 22:30; Status Future Hold Bupropion HCl (Wellbutrin Xl) 150 mg QAM PO Last administered on 01/04/17 09: 12; Admin Dose 150 MG; Start 12/21/16 at 09:00 Acetaminophen (Tylenol Tab) 650 mg Q4H PRN PO PAIN; Start 12/21/16 at 04:40 Docusate Sodium (Colace) 100 mg BID PO Last administered on 01/04/17 09:12; Admin Dose 100 MG; Start 12/21/16 at 09:00 Senna (Senokot) 1 tab HS PO Last administered on 01/03/17 20:20; Admin Dose 1 TAB; Start 12/21/16 at 21:00 Pantoprazole (Protonix Tab) 40 mg BID@18 PO Last administered on 01/04/17 05:57; Admin Dose 40 MG; Start 12/22/16 at 18:00 Furosemide (Lasix) 80 mg SuTuThSa@09 PO Last administered on 01/04/17 09:13; Admin Dose 80 MG; Start 12/28/16 at 09:00 Lactulose 20 gm 20 gm DAILY PO Last administered on 01/04/17 09:11; Admin Dose 20 GM; Start 12/29/16 at 09:00 Ferric Sodium Gluconate Complex/ Sodium Chloride (Ferrlecit/NS) 110 ml @ 110 mls/hr Q24H IVPB Last administered on 01/04/17 10:14; Admin Dose 110 MLS/HR; Start 01/01/17 at 11:00; Stop 01/05/17 at 11:59 Sucralfate (Carafate Susp) 1 gm QID GTB Last administered on 01/04/17 12:21; Admin Dose 1 GM; Start 01/02/17 at 17:00 Lidocaine (Lidoderm) 1 patch DAILY TD Last administered on 01/04/17 09:12; Admin Dose 1 PATCH; Start 01/03/17 at 13:00 Fluconazole (Diflucan) 100 mg DAILY PO Last administered on 01/04/17 09:12; Admin Dose 100 MG; Start 01/04/17 at 09:00; Stop 01/18/17 at 08:59 Fluconazole (Diflucan) 100 mg ONCE ONCE PO ; Start 01/04/17 at 21:00; Stop at 21:01 Metoclopramide HCl (Reglan) 5 mg Q6H PRN PO NAUSEA AND/OR VOMITING; Start 01/04 at 14:00; Status UNV Ondansetron HCl (Zofran Tab) 4 mg Q6H PRN PO NAUSEA AND/OR VOMITING; Start at 14:00; Status UNV Assessment/Plan Additional Assessment/Plan 1. esoph kennedy/ gerd/ gastritis/ ugi bleed 2. esrd/ anemia 3. cva/ htn/ pad/ chf/ rt weak 4. h/o copd/ dm/ depression/ impaired daily function ---per rehab, full pt/ot exercises w/ lf leg prosthesis ---per renal ---per GI ---per cards ---if hgb <8.0, will transfuse 2u PRBC again ---hold anticoag pill, receiving heparin 3x/wk while dialysis ---sched to transfer to [facility] w/ portable dialysis set-up ---pt & family aware of future plan COLTEN ROMANO MD Jan 04, 2017 14:13
--- NOTE | 2017-01-04 18:19 | CONS ---
Date/Time of Note Date/Time of Note DATE: 01/04/17 TIME: 18:18 Assessment/Plan Assessment/Plan Additional Assessment/Plan Fatigue Compensated systolic congestive heart failure Cardiomyopathy with ejection fraction 45% CAD with history of CABG Peripheral arterial disease End-stage renal disease on hemodialysis Acute blood loss anemia -Blood pressure trend overall remains stable on current cv medication regimen, fluid management via hemodialysis as per our nephrology colleagues. Consultation Date/Type/Reason Admit Date/Time Dec 20, 2016 at 21:28 Type of Consultation: cv 24 HR Interval Summary Free Text/Dictation Denies shortness of breath, palpitations or chest pain Exam/Review of Systems Vital Signs Vitals Vital Signs Date Time Temp Pulse Resp B/P Pulse Ox O2 Delivery O2 Flow Rate FiO2 01/04/17 14:00 98.2 71 20 113/55 97 01/03/17 13:09 Room Air 01/02/17 15:20 2.0 01/01/17 17:20 21 Intake and Output 01/03/17 01/03/17 01/04/17 15:00 23:00 07:00 Intake Total 960 ml 860 ml 760 ml Output Total 470 ml 3000 ml 180 ml Balance 490 ml -2140 ml 580 ml Exam No apparent distress Constitutional: alert, oriented Head: normocephalic Respiratory: other (Coarse breath sounds bilaterally, no wheezing) Cardiovascular: other (S1-S2 heard), regular rate and rhythm Gastrointestinal: bowel sounds, non-tender, soft Extremities: edema Results Result Diagram: 01/04/17 0557 01/04/17 0557 Results 24 hrs Laboratory Tests Test 01/04/17 05:57 Hemoglobin 8.2 L Hematocrit 26.7 L Sodium Level 136 Potassium Level 3.4 L Chloride Level 99 Carbon Dioxide Level 33 H Anion Gap 7 L Blood Urea Nitrogen 26 H Creatinine 3.74 H Glucose Level 67 L Calcium Level 8.6 Medications Medications Current Medications Guaifenesin/ Codeine Phosphate (Robitussin Ac Liquid Cup) 5 ml Q4H PRN PO COUGH Last administered on 01/04/17 14:06; Admin Dose 5 ML; Start 12/20/16 at 22:00 Cyanocobalamin (Vitamin B12 Inj) 1,000 mcg Q7D IM Last administered on 08:17; Admin Dose 1,000 MCG; Start 12/23/16 at 09:00 Salmeterol Xinafoate/ Fluticasone (Advair 250/50 Diskus) 1 inh BID INH Last administered on 01/04/17 09:10; Admin Dose 1 INH; Start 12/21/16 at 09:00 Zolpidem Tartrate (Ambien) 10 mg HS PRN PO INSOMNIA; Start 12/20/16 at 22:00 Carvedilol (Coreg) 25 mg DAILY PO Last administered on 01/04/17 09:14; Admin Dose 25 MG; Start 12/21/16 at 09:00 Clopidogrel Bisulfate (plaVIX) 75 mg DAILY PO Last administered on 01/01/17 09 :35; Admin Dose 75 MG; Start 12/21/16 at 09:00; Status Future hold Levothyroxine Sodium (Synthroid) 150 mcg DAILY@06 PO Last administered on 05:57; Admin Dose 150 MCG; Start 12/21/16 at 06:00 Fenofibrate (Tricor) 145 mg DAILY PO Last administered on 01/04/17 09:12; Admin Dose 145 MG; Start 12/21/16 at 09:00 Lisinopril (Zestril) 10 mg BID PO Last administered on 01/04/17 09:13; Admin Dose 10 MG; Start 12/21/16 at 09:00 Bisacodyl (Dulcolax Supp) 10 mg DAILY PRN [place] CONSTIPATION; Start 12/20/16 at 22 :30 Epoetin Stas (Epogen (Esrd)) 10,000 units MoWeFr@17 SC Last administered on 20:22; Admin Dose 10,000 UNITS; Start 12/22/16 at 17:00 Tramadol HCl (Ultram) 50 mg Q6H PRN PO PAIN Last administered on 01/01/17 18: 52; Admin Dose 50 MG; Start 12/20/16 at 22:30; Status Future Hold Bupropion HCl (Wellbutrin Xl) 150 mg QAM PO Last administered on 01/04/17 09: 12; Admin Dose 150 MG; Start 12/21/16 at 09:00 Acetaminophen (Tylenol Tab) 650 mg Q4H PRN PO PAIN; Start 12/21/16 at 04:40 Docusate Sodium (Colace) 100 mg BID PO Last administered on 01/04/17 09:12; Admin Dose 100 MG; Start 12/21/16 at 09:00 Senna (Senokot) 1 tab HS PO Last administered on 01/03/17 20:20; Admin Dose 1 TAB; Start 12/21/16 at 21:00 Pantoprazole (Protonix Tab) 40 mg BID@06,18 PO Last administered on 01/04/17 17:40; Admin Dose 40 MG; Start 12/22/16 at 18:00 Furosemide (Lasix) 80 mg SuTuThSa@09 PO Last administered on 01/04/17 09:13; Admin Dose 80 MG; Start 12/28/16 at 09:00 Lactulose 20 gm 20 gm DAILY PO Last administered on 01/04/17 09:11; Admin Dose 20 GM; Start 12/29/16 at 09:00 Ferric Sodium Gluconate Complex/ Sodium Chloride (Ferrlecit/NS) 110 ml @ 110 mls/hr Q24H IVPB Last administered on 01/04/17 10:14; Admin Dose 110 MLS/HR; Start 01/01/17 at 11:00; Stop 01/05/17 at 11:59 Sucralfate (Carafate Susp) 1 gm QID GTB Last administered on 01/04/17 17:40; Admin Dose 1 GM; Start 01/02/17 at 17:00 Lidocaine (Lidoderm) 1 patch DAILY TD Last administered on 01/04/17 09:12; Admin Dose 1 PATCH; Start 01/03/17 at 13:00 Fluconazole (Diflucan) 100 mg DAILY PO Last administered on 01/04/17 09:12; Admin Dose 100 MG; Start 01/04/17 at 09:00; Stop 01/18/17 at 08:59 Fluconazole (Diflucan) 100 mg ONCE ONCE PO ; Start 01/04/17 at 21:00; Stop at 21:01 Metoclopramide HCl (Reglan) 5 mg Q6H PRN PO NAUSEA AND/OR VOMITING; Start 01/04 at 14:00 Ondansetron HCl (Zofran Tab) 4 mg Q6H PRN PO NAUSEA AND/OR VOMITING; Start at 14:00 Hammad Hernandez DO Jan 04, 2017 18:19
[2017-01-04 19:22] VITALS: BP 123/60; RESP 19
[2017-01-04] MEDS: SENNA TAB PO SCH (20:23)
[2017-01-04] MEDS ORDERED: FLUCONAZOLE 100 MG TAB PO ONE (21:00)
[2017-01-05] VITALS (8 sets, daily range): BP systolic 115–134; BP diastolic 51–65; PULSE 80–88; RESP 19
[2017-01-05] MEDS: GUAIFENESIN/CODEINE 5ML CUP PO PRN (02:37)
[2017-01-05] MEDS: LEVOTHYROXINE 150 MCG TAB PO SCH (06:22)
[2017-01-05] MEDS: PANTOPRAZOLE (EC) 40 MG TAB PO SCH (06:22)
[2017-01-05 07:36] LABS: HEMOGLOBIN 7.9 g/dl (14.0-18.0)
[2017-01-05 08:12] LABS: CALCIUM 8.3 mg/dl (8.4-10.2); CREATININE 4.74 mg/dl (0.61-1.24)
[2017-01-05] MEDS: SUCRALFATE (100 MG/ML) 10ML CUP GTB SCH (10:00)
[2017-01-05] MEDS: LACTULOSE 30ML CUP PO SCH (10:01)
[2017-01-05] MEDS: FENOFIBRATE 145 MG TAB PO SCH (10:01)
[2017-01-05] MEDS: FLUCONAZOLE 100 MG TAB PO SCH (10:01)
[2017-01-05] MEDS: SALMETEROL/FLUTICASONE 250/50 INHA INH SCH (10:01)
[2017-01-05] MEDS: BUPROPION (XL) 150 MG TAB PO SCH (10:01)
[2017-01-05] MEDS: LISINOPRIL 10 MG TAB PO SCH (10:07)
[2017-01-05] MEDS: LIDOCAINE 5% PATCH TD SCH (10:07)
[2017-01-05] MEDS: DOCUSATE SODIUM 100 MG CAP PO SCH (10:08)
[2017-01-05] MEDS: SOD FERRIC GLUC COMPLX 125 MG in SOD CHLORIDE 0.9% 100 ML IVPB SCH (11:43)
--- NOTE | 2017-01-05 12:38 | CONS ---
Date/Time of Note Date/Time of Note DATE: 01/05/17 TIME: 12:37 Assessment/Plan Assessment/Plan Additional Assessment/Plan Fatigue, improved Compensated systolic congestive heart failure Cardiomyopathy with ejection fraction 45% CAD with history of CABG Peripheral arterial disease End-stage renal disease on hemodialysis Acute blood loss anemia -Blood pressure trend overall remains stable on current cv medication regimen, fluid management via hemodialysis as per our nephrology colleagues. Consultation Date/Type/Reason Admit Date/Time Dec 20, 2016 at 21:28 Type of Consultation: cv 24 HR Interval Summary Free Text/Dictation Denies shortness of breath, palpitations or chest pain Exam/Review of Systems Vital Signs Vitals Vital Signs Date Time Temp Pulse Resp B/P Pulse Ox O2 Delivery O2 Flow Rate FiO2 01/05/17 07:00 80 16 01/05/17 02:00 97.8 132/64 97 01/03/17 13:09 Room Air 01/02/17 15:20 2.0 01/01/17 17:20 21 Intake and Output 01/04/17 01/04/17 01/05/17 15:00 23:00 07:00 Intake Total 110 ml 600 ml 500 ml Output Total 400 ml 3500 ml Balance 110 ml 200 ml -3000 ml Exam No apparent distress Constitutional: alert, oriented Head: normocephalic Respiratory: other (Coarse breath sounds bilaterally, no wheezing) Cardiovascular: other (S1-S2.), regular rate and rhythm Gastrointestinal: bowel sounds, non-tender, soft Extremities: edema Results Result Diagram: 01/05/17 0612 01/05/17 0612 Results 24 hrs Laboratory Tests Test 01/05/17 06:12 Hemoglobin 7.9 L Hematocrit 26.0 L Sodium Level 138 Potassium Level 4.0 Chloride Level 100 Carbon Dioxide Level 30 Anion Gap 12 Blood Urea Nitrogen 40 #H Creatinine 4.74 #H Glucose Level 63 L Calcium Level 8.3 L Medications Medications Current Medications Guaifenesin/ Codeine Phosphate (Robitussin Ac Liquid Cup) 5 ml Q4H PRN PO COUGH Last administered on 01/05/17 02:37; Admin Dose 5 ML; Start 12/20/16 at 22:00 Cyanocobalamin (Vitamin B12 Inj) 1,000 mcg Q7D IM Last administered on 08:17; Admin Dose 1,000 MCG; Start 12/23/16 at 09:00 Salmeterol Xinafoate/ Fluticasone (Advair 250/50 Diskus) 1 inh BID INH Last administered on 01/05/17 10:01; Admin Dose 1 INH; Start 12/21/16 at 09:00 Zolpidem Tartrate (Ambien) 10 mg HS PRN PO INSOMNIA; Start 12/20/16 at 22:00 Carvedilol (Coreg) 25 mg DAILY PO Last administered on 01/05/17 10:09; Admin Dose 25 MG; Start 12/21/16 at 09:00 Clopidogrel Bisulfate (plaVIX) 75 mg DAILY PO Last administered on 01/01/17 09 :35; Admin Dose 75 MG; Start 12/21/16 at 09:00; Status Future hold Levothyroxine Sodium (Synthroid) 150 mcg DAILY@06 PO Last administered on 06:22; Admin Dose 150 MCG; Start 12/21/16 at 06:00 Fenofibrate (Tricor) 145 mg DAILY PO Last administered on 01/05/17 10:01; Admin Dose 145 MG; Start 12/21/16 at 09:00 Lisinopril (Zestril) 10 mg BID PO Last administered on 01/05/17 10:07; Admin Dose 10 MG; Start 12/21/16 at 09:00 Bisacodyl (Dulcolax Supp) 10 mg DAILY PRN [place] CONSTIPATION; Start 12/20/16 at 22 :30 Epoetin Stas (Epogen (Esrd)) 10,000 units MoWeFr@17 SC Last administered on 20:22; Admin Dose 10,000 UNITS; Start 12/22/16 at 17:00 Tramadol HCl (Ultram) 50 mg Q6H PRN PO PAIN Last administered on 01/01/17 18: 52; Admin Dose 50 MG; Start 12/20/16 at 22:30; Status Future Hold Bupropion HCl (Wellbutrin Xl) 150 mg QAM PO Last administered on 01/05/17 10: 01; Admin Dose 150 MG; Start 12/21/16 at 09:00 Acetaminophen (Tylenol Tab) 650 mg Q4H PRN PO PAIN; Start 12/21/16 at 04:40 Docusate Sodium (Colace) 100 mg BID PO Last administered on 01/05/17 10:08; Admin Dose 100 MG; Start 12/21/16 at 09:00 Senna (Senokot) 1 tab HS PO Last administered on 01/04/17 20:23; Admin Dose 1 TAB; Start 12/21/16 at 21:00 Pantoprazole (Protonix Tab) 40 mg BID@06,18 PO Last administered on 01/05/17 06:22; Admin Dose 40 MG; Start 12/22/16 at 18:00 Furosemide (Lasix) 80 mg SuTuThSa@09 PO Last administered on 01/04/17 09:13; Admin Dose 80 MG; Start 12/28/16 at 09:00 Lactulose (Enulose) 20 gm DAILY PO Last administered on 01/05/17 10:01; Admin Dose 20 GM; Start 12/29/16 at 09:00 Sucralfate (Carafate Susp) 1 gm QID GTB Last administered on 01/05/17 10:00; Admin Dose 1 GM; Start 01/02/17 at 17:00 Lidocaine (Lidoderm) 1 patch DAILY TD Last administered on 01/05/17 10:07; Admin Dose 1 PATCH; Start 01/03/17 at 13:00 Fluconazole (Diflucan) 100 mg DAILY PO Last administered on 01/05/17 10:01; Admin Dose 100 MG; Start 01/04/17 at 09:00; Stop 01/18/17 at 08:59 Metoclopramide HCl (Reglan) 5 mg Q6H PRN PO NAUSEA AND/OR VOMITING; Start 01/04 at 14:00 Ondansetron HCl (Zofran Tab) 4 mg Q6H PRN PO NAUSEA AND/OR VOMITING Last administered on 01/04/17 21:41; Admin Dose 4 MG; Start 01/04/17 at 14:00 Hammad Hernandez DO Jan 05, 2017 12:38
--- NOTE | 2017-01-05 12:49 | CONS ---
Date/Time of Note Date/Time of Note DATE: 01/05/17 TIME: 12:48 Assessment/Plan Assessment/Plan Problems: (1) HTN (hypertension) Comment: controlled (2) ESRD (end stage renal disease) on dialysis Comment: for HD today and q MWF (3) Anemia due to chronic kidney disease Comment: stable... s/p EGD w gastritis... on PPI (4) GERD (gastroesophageal reflux disease) Comment: on meds... still occ sxs Consultation Date/Type/Reason Admit Date/Time Dec 20, 2016 at 21:28 Type of Consultation: renal 24 HR Interval Summary Free Text/Dictation stable Exam/Review of Systems Vital Signs Vitals Vital Signs Date Time Temp Pulse Resp B/P Pulse Ox O2 Delivery O2 Flow Rate FiO2 01/05/17 07:00 80 16 01/05/17 02:00 97.8 132/64 97 01/03/17 13:09 Room Air 01/02/17 15:20 2.0 01/01/17 17:20 21 Intake and Output 01/04/17 01/04/17 01/05/17 15:00 23:00 07:00 Intake Total 110 ml 600 ml 500 ml Output Total 400 ml 3500 ml Balance 110 ml 200 ml -3000 ml Exam Constitutional: alert, oriented Psych: no complaints Respiratory: clear to auscultation Cardiovascular: regular rate and rhythm Gastrointestinal: soft Extremities: other (fxn avf) Results Result Diagram: 01/05/17 0612 01/05/17 0612 Results 24 hrs Laboratory Tests Test 01/05/17 06:12 Hemoglobin 7.9 L Hematocrit 26.0 L Sodium Level 138 Potassium Level 4.0 Chloride Level 100 Carbon Dioxide Level 30 Anion Gap 12 Blood Urea Nitrogen 40 #H Creatinine 4.74 #H Glucose Level 63 L Calcium Level 8.3 L Medications Medications Current Medications Guaifenesin/ Codeine Phosphate (Robitussin Ac Liquid Cup) 5 ml Q4H PRN PO COUGH Last administered on 01/05/17 02:37; Admin Dose 5 ML; Start 12/20/16 at 22:00 Cyanocobalamin (Vitamin B12 Inj) 1,000 mcg Q7D IM Last administered on 08:17; Admin Dose 1,000 MCG; Start 12/23/16 at 09:00 Salmeterol Xinafoate/ Fluticasone (Advair 250/50 Diskus) 1 inh BID INH Last administered on 01/05/17 10:01; Admin Dose 1 INH; Start 12/21/16 at 09:00 Zolpidem Tartrate (Ambien) 10 mg HS PRN PO INSOMNIA; Start 12/20/16 at 22:00 Carvedilol (Coreg) 25 mg DAILY PO Last administered on 01/05/17 10:09; Admin Dose 25 MG; Start 12/21/16 at 09:00 Clopidogrel Bisulfate (plaVIX) 75 mg DAILY PO Last administered on 01/01/17 09 :35; Admin Dose 75 MG; Start 12/21/16 at 09:00; Status Future hold Levothyroxine Sodium (Synthroid) 150 mcg DAILY@06 PO Last administered on 06:22; Admin Dose 150 MCG; Start 12/21/16 at 06:00 Fenofibrate (Tricor) 145 mg DAILY PO Last administered on 01/05/17 10:01; Admin Dose 145 MG; Start 12/21/16 at 09:00 Lisinopril (Zestril) 10 mg BID PO Last administered on 01/05/17 10:07; Admin Dose 10 MG; Start 12/21/16 at 09:00 Bisacodyl (Dulcolax Supp) 10 mg DAILY PRN ID CONSTIPATION; Start 12/20/16 at 22 :30 Epoetin Stas (Epogen (Esrd)) 10,000 units MoWeFr@17 SC Last administered on 20:22; Admin Dose 10,000 UNITS; Start 12/22/16 at 17:00 Tramadol HCl (Ultram) 50 mg Q6H PRN PO PAIN Last administered on 01/01/17 18: 52; Admin Dose 50 MG; Start 12/20/16 at 22:30; Status Future Hold Bupropion HCl (Wellbutrin Xl) 150 mg QAM PO Last administered on 01/05/17 10: 01; Admin Dose 150 MG; Start 12/21/16 at 09:00 Acetaminophen (Tylenol Tab) 650 mg Q4H PRN PO PAIN; Start 12/21/16 at 04:40 Docusate Sodium (Colace) 100 mg BID PO Last administered on 01/05/17 10:08; Admin Dose 100 MG; Start 12/21/16 at 09:00 Senna (Senokot) 1 tab HS PO Last administered on 01/04/17 20:23; Admin Dose 1 TAB; Start 12/21/16 at 21:00 Pantoprazole (Protonix Tab) 40 mg BID@06,18 PO Last administered on 01/05/17 06:22; Admin Dose 40 MG; Start 12/22/16 at 18:00 Furosemide (Lasix) 80 mg SuTuThSa@09 PO Last administered on 01/04/17 09:13; Admin Dose 80 MG; Start 12/28/16 at 09:00 Lactulose (Enulose) 20 gm DAILY PO Last administered on 01/05/17 10:01; Admin Dose 20 GM; Start 12/29/16 at 09:00 Sucralfate (Carafate Susp) 1 gm QID GTB Last administered on 01/05/17 10:00; Admin Dose 1 GM; Start 01/02/17 at 17:00 Lidocaine (Lidoderm) 1 patch DAILY TD Last administered on 01/05/17 10:07; Admin Dose 1 PATCH; Start 01/03/17 at 13:00 Fluconazole (Diflucan) 100 mg DAILY PO Last administered on 01/05/17 10:01; Admin Dose 100 MG; Start 01/04/17 at 09:00; Stop 01/18/17 at 08:59 Metoclopramide HCl (Reglan) 5 mg Q6H PRN PO NAUSEA AND/OR VOMITING; Start 01/04 at 14:00 Ondansetron HCl (Zofran Tab) 4 mg Q6H PRN PO NAUSEA AND/OR VOMITING Last administered on 01/04/17 21:41; Admin Dose 4 MG; Start 01/04/17 at 14:00 SABINE MIRZA MD Jan 05, 2017 12:49
--- NOTE | 2017-01-05 13:38 | DS ---
Date/Time of Note Date/Time of Note DATE: 01/05/17 TIME: 13:38 Discharge Summary Admission/Discharge Info Admit Date/Time Dec 20, 2016 at 21:28 Discharge Date/Time Discharge Diagnosis 1. CVA with right sided weakness, bilateral ferguson radiata lentiform nucleus infarct 2. ESRD requiring hemodialysis 3. Left BKA with distal wound 4. COPD 5. h.o. CAD, CABG 6. DM 7. h.o. marcano's palsy 8. Improvements in self care and mobility Patient Condition: Good Hospital Course DISCHARGE Patient was admitted for comprehensive interdisciplinary acute rehabilitation. Patient made steady functional gains and improved from a max level to a min/cga level for self care and mobility at the wheelchair level. WC level was the focus, given the distal residual limb wounds, making prosthetic use not appropriate. His hospital course was notable for ob + stool, with EGD indicating gastritis. Despite steady functional gains, patient still required assistance, and family requested ongoing care at SNF. Patient dc to SNF with recommendation of continued PT/OT and wound care. Home Meds Active Scripts Ondansetron Hcl* (Ondansetron Hcl* Inj) 4 Mg/2 Ml Vial, 4 MG PO Q4H Y for NAUSEA AND/OR VOMITING for 14 Days, #30 VIAL Prov:COLTEN ROMANO MD 12/20/16 Flfzaf-Kdqfjott-Rykyykz* (Creon DR* 24,000) 24,000 L-76,000-120,000 Unit Capsule.dr, 2 CAP PO WITH MEALS for 14 Days, #90 CAP 1 Refill Prov:COLTEN ROMANO MD 12/20/16 Salmeterol Xinaf/Fluticasone* (Advair*) 250-50 Diskus Inhaler, 1 INH INH BID for 14 Days, #1 CU 1 Refill Prov:COLTEN ROMANO MD 12/20/16 Benzonatate* (Benzonatate*) 100 Mg Capsule, 100 MG PO Q4H Y for COUGH for 14 Days, #30 CAP Prov:COLTEN ROMANO MD 12/20/16 Lisinopril* (Lisinopril*) 10 Mg Tablet, 10 MG PO BID for 14 Days, #60 TAB Prov:COLTEN ROMANO MD 12/20/16 Epoetin Stas (Epogen) 10,000 Units/Ml Soln, 66432 UNITS SC MoWeFr@17 for 14 Days , #10 BOTTLE 1 Refill Prov:COLTEN ROMANO MD 12/20/16 Albuterol Sulfate* (Albuterol Sulfate* Neb) 0.083%-3 Ml Neb, 2.5 MG HHN Q4H RESP THERAPY Y for SHORTNESS OF BREATH for 14 Days, #90 BOTTLE 1 Refill Prov:COLTEN ROMANO MD 12/20/16 Reported Medications Zolpidem Tartrate* (Ambien*) 10 Mg Tablet, 10 MG PO QHS Y for INSOMNIA, TAB 12/13/16 Bupropion Hcl* (Bupropion XL*) 150 Mg Tab.er.24h, 150 MG PO QAM, TAB.SA 12/13/16 Bisacodyl* (Bisacodyl*) 10 Mg Supp, 10 MG ME Q24H for CONSTIPATION, SUPP 12/12/16 Acetaminophen* (Acephen*) 650 Mg Supp.rect, 650 MG ME Q4H Y for TEMP>100F, SUPP.RECT 12/12/16 Fenofibrate Nanocrystallized* (Fenofibrate*) 145 Mg Tablet, 145 MG PO DAILY, TAB 12/12/16 Furosemide* (Furosemide*) 80 Mg Tablet, 80 MG PO, #30 TAB take on non-dialysis days: T, Th, Sat, Sun 12/12/16 Tramadol Hcl* (Ultram*) 50 Mg Tablet, 50 MG PO Q6H Y for PAIN, TAB 12/12/16 Allopurinol* (Allopurinol*) 300 Mg Tablet, 600 MG PO DAILY, TAB 12/12/16 Carvedilol* (Coreg*) 25 Mg Tablet, 25 MG PO DAILY, #60 TAB 09/04/15 Docusate Sodium* (Colace*) 100 Mg Capsule, 100 MG PO Q12H Y for CONSTIPATION, # 30 CAP 09/04/15 Cyanocobalamin* (Vitamin B12*) 1,000 Mcg/Ml Soln, 1000 MCG IM WEEKLY, VIAL Takes med on Tuesdays. 09/04/15 Ferrous Sulfate* (Ferrous Sulfate*) 325 Mg Tabec, 325 MG PO TID, TAB 09/04/15 Levothyroxine Sodium* (Synthroid*) 150 Mcg Tablet, 150 MCG PO QAM, #30 TAB 09/04/15 Clopidogrel Bisulfate (Clopidogrel) 75 Mg Tablet, 75 MG PO DAILY, #30 TAB 09/04/15 Ranitidine Hcl* (Ranitidine Hcl*) 300 Mg Tablet, 300 MG PO HS, #30 TAB 09/04/15 Primary Care Provider Colten Romano MD Pending Labs Laboratory Tests Test 01/05/17 06:12 Hemoglobin 7.9g/dl (14.0-18.0) Hematocrit 26.0% (42.0-52.0) Sodium Level 138mmol/L (135-144) Potassium Level 4.0mmol/L (3.5-5.1) Chloride Level 100mmol/L (97-110) Carbon Dioxide Level 30mmol/L (21-31) Anion Gap 12 (8-16) Blood Urea Nitrogen 40mg/dl (7-20) Creatinine 4.74mg/dl (0.61-1.24) Glucose Level 63mg/dl (70-220) Calcium Level 8.3mg/dl (8.4-10.2) OLESYA ELLIS MD Jan 05, 2017 13:38
== END 2017-01-05 13:00 | DRG 56 ==
LOC: VRC 21:28
PROVIDERS: ADMIT Physical Medicine & Rehabilitation; ATTEND Internal Medicine
PROC: 30233N1 Transfusion of Nonautologous Red Blood Cells into Peripheral Vein, Percutaneous Approach (ICD-10-PCS; 2017-01-01)
PROC: 0DB58ZX Excision of Esophagus, Via Natural or Artificial Opening Endoscopic, Diagnostic (ICD-10-PCS; principal; 2017-01-02 13:30)
PROC: 0DB68ZX Excision of Stomach, Via Natural or Artificial Opening Endoscopic, Diagnostic (ICD-10-PCS; 2017-01-02 13:30)
DX: I69.351 Hemiplegia and hemiparesis following cerebral infarction affecting right dominant side (principal); N18.6 End stage renal disease; I13.2 Hypertensive heart and chronic kidney disease with heart failure and with stage 5 chronic kidney disease, or end stage renal disease; B37.81 Candidal esophagitis; K29.61 Other gastritis with bleeding; I42.9 Cardiomyopathy, unspecified; E11.22 Type 2 diabetes mellitus with diabetic chronic kidney disease; I50.22 Chronic systolic (congestive) heart failure; D62 Acute posthemorrhagic anemia; L89.890 Pressure ulcer of other site, unstageable; T87.89 Other complications of amputation stump; Z89.512 Acquired absence of left leg below knee; Z74.09 Other reduced mobility; I73.9 Peripheral vascular disease, unspecified; K21.0 Gastro-esophageal reflux disease with esophagitis; Z99.2 Dependence on renal dialysis; D63.1 Anemia in chronic kidney disease; E78.5 Hyperlipidemia, unspecified; E03.9 Hypothyroidism, unspecified; F32.9 Major depressive disorder, single episode, unspecified; G51.0 Bell's palsy; I25.10 Atherosclerotic heart disease of native coronary artery without angina pectoris; R53.83 Other fatigue; J44.9 Chronic obstructive pulmonary disease, unspecified; R53.81 Other malaise; Z95.1 Presence of aortocoronary bypass graft; Z87.891 Personal history of nicotine dependence; Z79.02 Long term (current) use of antithrombotics/antiplatelets
CPT/HCPCS: 36430; 71010; 72050; 74240; 78264; 80048; 80053; 80202; 81001; 82270; 82465; 82962; 83540; 83735; 84436; 84479; 84560; 85014; 85018; 85025; 86850; 86900; 86901; 86920; 87081; 87086; 88104; 88305; 88312; 88313; 90935; 92507; 92523; 92526; 92610; 94640; 94664; 97110; 97112; 97150; 97163; 97167; 97530; 97535; 97542; A9541; J1956; J2250; J2405; J2765; J2916; J3370; J3420; P9016; Q4081

== ENCOUNTER 2017-04-23 15:48 | Inpatient (IN) | END 2017-05-11 22:00 | DRG 252 ==

== ENCOUNTER 2017-06-16 15:01 | Inpatient (IN) | END 2017-07-02 19:45 | disposition home health service (06) | DRG 291 ==

== ENCOUNTER 2017-07-20 08:03 | Day surgery (SDC) | END 2017-07-20 11:19 | disposition home or self-care (01) ==

== ENCOUNTER 2017-07-26 06:15 | Day surgery (SDC) | END 2017-07-26 13:25 | disposition home or self-care (01) ==

== ENCOUNTER → 2017-08-07 | Outpatient (CLI) | END | disposition home or self-care (01) ==

== ENCOUNTER 2017-08-17 10:31 | Observation (INO) | END 2017-08-18 15:00 | disposition home or self-care (01) ==

== ENCOUNTER 2017-10-13 11:28 | Emergency (ER) | END 2017-10-13 14:30 | disposition home or self-care (01) ==

== ENCOUNTER 2017-10-31 14:11 | Inpatient (IN) | END 2017-11-03 18:08 | disposition home health service (06) | DRG 252 ==

== ENCOUNTER 2017-11-15 17:46 | Inpatient (IN) | END 2017-11-20 12:20 | disposition home or self-care (01) | DRG 299 ==

== ENCOUNTER 2017-11-24 19:48 | Emergency (ER) | END 2017-11-24 22:13 | disposition home or self-care (01) ==